=== PATIENT | female | born 1935 | race Caucasian/White ===

== ENCOUNTER 2019-01-15 14:43 | Inpatient (IN) | payer OTHER ==
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
[2019-01-15] MEDS ORDERED: ACETAMINOPHEN 1000 MG/100 ML VIAL (NON FORMULARY) IVPB ONE (16:08)
[2019-01-15] MEDS ORDERED: morphine CARPU-JECT 4 MG/1 ML DISP.SYRIN IVPUSH ONE (16:17)
[2019-01-15] MEDS ORDERED: MORPHINE SULFATE 2 MG/ML VIAL ONE ×2 (16:30→19:56)
[2019-01-15] MEDS ORDERED: ACETAMINOPHEN INJECTION 100 ML IVPB ONE (16:30)
[2019-01-15 16:37] LABS: BASO % 0.6 % (0-2.0); EOS % 0.1 % (0-4.5); HEMATOCRIT 38.5 % (32.4-45.2); HEMOGLOBIN 13.5 GM/dL (10.7-15.3); LYMPH % 5.5 % (8-40); MCH 34.5 pg (25.7-33.7); MEAN CELL VOLUME 98.4 fl (80-96); MEAN PLT VOLUME 8.8 fl (7.5-11.1); NEUT % 90.8 % (42.8-82.8); PLATELET COUNT 370 K/MM3 (134-434); RBC 3.91 M/mm3 (3.60-5.2); RDW 18.3 % (11.6-15.6); WHITE BLOOD COUNT 13.3 K/mm3 (4.0-10.0)
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
[2019-01-15 17:03] LABS: INR 0.97 (0.83-1.09); PROTHROMBIN TIME (PATIENT) 11.5 SEC (9.7-13.0)
[2019-01-15 17:09] LABS: ALBUMIN 3.7 g/dl (3.4-5.0); ALK PHOS 78 U/L (45-117); ANION GAP 6 MMOL/L (8-16); BILIRUBIN,TOTAL 0.6 mg/dL (0.2-1); BLOOD UREA NITROGEN 18 mg/dL (7-18); CALCIUM 8.6 mg/dL (8.5-10.1); CHLORIDE 102 mmol/L (98-107); CO2 26 mmol/L (21-32); CREATININE 0.7 mg/dL (0.55-1.3); GLUCOSE,RANDOM 119 mg/dL (74-106); POTASSIUM 4.5 mmol/L (3.5-5.1); SGOT/AST 29 U/L (15-37); SGPT/ALT 18 U/L (13-61); SODIUM 134 mmol/L (136-145); TOT PROT 6.7 g/dl (6.4-8.2)
[2019-01-15] MEDS ORDERED: SODIUM CHLORIDE 1,000 ML IV STA (18:42)
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
[2019-01-15] MEDS ORDERED: SODIUM CHLORIDE 1,000 ML IV SCH (19:15)
[2019-01-15] MEDS ORDERED: MORPHINE SULFATE 2 MG/ML VIAL IVPUSH PRN (19:28)
[2019-01-15] MEDS ORDERED: HEPARIN NA (PORCINE) 5,000 UNITS/ML 1ML VIAL ONE (19:56)
[2019-01-15 21:06] LABS: URINE APPEARANCE SLCLOUDY; URINE BILIRUBIN NEGATIVE (<2.0 mg/dL); URINE COLOR YELLOW; URINE GLUCOSE (UA) NEGATIVE (NEGATIVE); URINE KETONE NEGATIVE (NEGATIVE); URINE LEUK ESTERASE NEGATIVE (NEGATIVE); URINE NITRITE NEGATIVE (NEGATIVE); URINE PROTEIN NEGATIVE (NEGATIVE); URINE UROBILINOGEN NEGATIVE mg/dL (0.2-1.0)
[2019-01-15] MEDS: HEPARIN NA (PORCINE) 5,000 UNITS/ML 1ML VIAL SQ SCH (22:30)
[2019-01-16] MEDS ORDERED: morphine CARPU-JECT 2 MG/1 ML DISP.SYRIN IVPUSH STA (00:22)
[2019-01-16] MEDS ORDERED: MORPHINE SULFATE 2 MG/ML VIAL ONE (00:26)
[2019-01-16 01:47] VITALS: BMI 22.8
--- NOTE | 2019-01-16 04:58 | PN ---
Physical Exam: SUBJECTIVE: Patient seen and examined at bedside. Has pain in left hip. OBJECTIVE: Vital Signs Period Temp Pulse Resp BP Sys/Kiser Pulse Ox Last 24 Hr 97 F-99.1 F 62-82 16-17 104-119/48-52 96-99 GENERAL: The patient is awake, alert, and fully oriented, in no acute distress. LUNGS: Breath sounds equal, clear to auscultation bilaterally, no wheezes, no crackles, no accessory muscle use. HEART: Regular rate and rhythm, S1, S2 ABDOMEN: Soft, nontender, nondistended, EXTREMITIES: LEFT LE: externally rotated, warm, well-perfused NEUROLOGICAL: Cranial nerves II through XII grossly intact. Normal speech Laboratory Results - last 24 hr 01/15/19 01/15/19 01/15/19 16:26 16:26 16:26 WBC 13.3 H RBC 3.91 Hgb 13.5 Hct 38.5 MCV 98.4 H MCH 34.5 H MCHC 35.0 RDW 18.3 H Plt Count 370 MPV 8.8 Absolute Neuts (auto) 12.1 H Neutrophils % 90.8 H Lymphocytes % 5.5 L Monocytes % 3.0 L Eosinophils % 0.1 Basophils % 0.6 Nucleated RBC % 0 PT with INR 11.50 INR 0.97 Sodium 134 L Potassium 4.5 Chloride 102 Carbon Dioxide 26 Anion Gap 6 L BUN 18 Creatinine 0.7 Creat Clearance w eGFR > 60 POC Glucometer Random Glucose 119 H Calcium 8.6 Total Bilirubin 0.6 AST 29 ALT 18 Alkaline Phosphatase 78 Total Protein 6.7 Albumin 3.7 Urine Color Urine Appearance Urine pH Ur Specific Hickman Urine Protein Urine Glucose (UA) Urine Ketones Urine Blood Urine Nitrite Urine Bilirubin Urine Urobilinogen Ur Leukocyte Esterase Blood Type Antibody Screen 01/15/19 01/15/19 01/15/19 16:26 20:35 22:22 WBC RBC Hgb Hct MCV MCH MCHC RDW Plt Count MPV Absolute Neuts (auto) Neutrophils % Lymphocytes % Monocytes % Eosinophils % Basophils % Nucleated RBC % PT with INR INR Sodium Potassium Chloride Carbon Dioxide Anion Gap BUN Creatinine Creat Clearance w eGFR POC Glucometer 128 Random Glucose Calcium Total Bilirubin AST ALT Alkaline Phosphatase Total Protein Albumin Urine Color Yellow Urine Appearance Slcloudy Urine pH 5.0 Ur Specific Hickman 1.010 Urine Protein Negative Urine Glucose (UA) Negative Urine Ketones Negative Urine Blood Negative Urine Nitrite Negative Urine Bilirubin Negative Urine Urobilinogen Negative Ur Leukocyte Esterase Negative Blood Type Cancelled Antibody Screen Cancelled Current Medications Generic Name Dose Route Start Last Admin Trade Name Freq PRN Reason Stop Dose Admin Acetaminophen 1,000 mg 01/16/19 10:22 01/16/19 11:00 Ofirmev Injection - IVPB 1,000 mg Q6H PRN Administration PAIN LEVEL 1-5 Atorvastatin Calcium 10 mg 01/16/19 22:00 Lipitor - PO HS KEHINDE Hydroxyurea 500 mg 01/16/19 14:00 01/16/19 14:11 Hydrea - PO Not Given TID KEHINDE Sodium Chloride 1,000 mls @ 83 mls/hr 01/16/19 10:59 01/16/19 11:42 Normal Saline - IV 01/16/19 19:15 83 mls/hr ASDIR KEHINDE Administration Metoprolol Succinate 25 mg 01/16/19 10:45 01/16/19 11:02 Toprol Xl - PO 25 mg DAILY KEHINDE Administration Morphine Sulfate 2 mg 01/16/19 07:43 Morphine Injection - IVPUSH Q6H PRN PAIN LEVEL 1-5 ASSESSMENT/PLAN 83 year-old female with a PMH of HTN, HLD, and polycythemia admitted for left hip fracture. Patient used to see Dr. Duncan Camp. Saw Dr. Guevara once in September 2018. Records being faxed. Left hip intertrochanteric fracture --surgery consult pending --hugo in place --plan is to go to [place] later today --hold home ASA Polycythemia vera --continue hydroxyurea Hypertension --mildly hypotensive --continue Toprol XL perioperatively, but hold amlodopine and lisinopril for now --gentle IV fluids Hyperlipidemia --continue Lipitor FEN Fluids: NS@83mL/hr Electrolytes: replete as indicated Nutrition: NPO DVT prophylaxis: subq heparin, hold prior to surgery; SCDs Dispo: continues to require inpatient care. Full code. Visit type - Emergency Visit Emergency Visit: Yes ED Registration Date: 01/15/19 Care time: The patient presented to the Emergency Department on the above date and was hospitalized for further evaluation of their emergent condition. - New Patient This patient is new to me today: Yes Date on this admission: 01/16/19 - Critical Care Critical Care patient: No
[2019-01-16] MEDS ORDERED: morphine CARPU-JECT 2 MG/1 ML DISP.SYRIN IVPUSH PRN (07:43)
[2019-01-16 10:41] LABS: HEMATOCRIT 32.7 % (32.4-45.2); HEMOGLOBIN 11.1 GM/dl (10.7-15.3); MCH 33.5 pg (25.7-33.7); MCHC 34.1 g/dl (32.0-36.0); MEAN CELL VOLUME 98.5 fl (80-96); MEAN PLT VOLUME 8.9 fl (7.5-11.1); PLATELET COUNT 271 K/MM3 (134-434); RBC 3.32 M/mm3 (3.60-5.2); RDW 17.1 % (11.6-15.6); WHITE BLOOD COUNT 9.1 K/mm3 (4.0-10.8)
[2019-01-16 10:44] LABS: ANION GAP 2 MMOL/L (8-16); BLOOD UREA NITROGEN 14 mg/dl (7-18); CALCIUM 8.1 mg/dl (8.5-10); CHLORIDE 106 mmol/L (98-107); CO2 26 mmol/L (21-32); CREATININE 0.6 mg/dl (0.55-1.3); GLUCOSE,RANDOM 111 mg/dl (74-106); MAGNESIUM 1.8 mg/dL (1.8-2.4); SODIUM 134 mmol/L (136-145)
[2019-01-16] MEDS ORDERED: SODIUM CHLORIDE 1,000 ML IV SCH (10:59)
[2019-01-16] MEDS: ACETAMINOPHEN 1000 MG/100 ML VIAL (NON FORMULARY) IVPB PRN (11:00)
[2019-01-16] MEDS: HEPARIN NA (PORCINE) 5,000 UNITS/ML 1ML VIAL SQ SCH (11:00)
[2019-01-16] MEDS: metoPROLOL SUCCINATE 25 MG TAB.SR.24H (FP) PO SCH (11:02)
[2019-01-16] MEDS ORDERED: MAGNESIUM SULF 50% (8.12 MEQ/2 ML-1 GM VIAL) IVPB ONE (11:03)
[2019-01-16] MEDS ORDERED: MAGNESIUM 1GM/D5W - 1 GM/100 ML IVPB IVPB ONE (11:15)
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
--- NOTE | 2019-01-16 11:55 | EKG ---
Test Reason : Blood Pressure : / mmHG Vent. Rate : 079 BPM Atrial Rate : 079 BPM P-R Int : 148 ms QRS Dur : 132 ms QT Int : 418 ms P-R-T Axes : 009 087 029 degrees QTc Int : 479 ms NORMAL SINUS RHYTHM RIGHT BUNDLE BRANCH BLOCK ABNORMAL ECG NO PREVIOUS ECGS AVAILABLE Confirmed by Hao Lim MD ([id number]) on 01/16/2019 11:55:28 AM Referred By: Petey BEARDEN Confirmed By:Hao Lim MD
[2019-01-16] MEDS: HYDROXYUREA 500 MG CAPSULE PO SCH ×2 (14:11→22:11)
[2019-01-16] MEDS ORDERED: PROPOFOL 20 ML ONE (19:19)
[2019-01-16] MEDS ORDERED: ePHEDrine SULFATE 50 MG/1 ML AMPULE ONE (19:19)
[2019-01-16] MEDS ORDERED: oxyCODONE HCL 5 MG TABLET PO PRN ×2 (20:38→20:44)
[2019-01-16] MEDS ORDERED: ONDANSETRON 4 MG/2 ML VIAL IVPUSH PRN (20:38)
[2019-01-16] MEDS: SODIUM CHLORIDE 0.45% 1,000 ML IV SCH (21:45)
[2019-01-16] MEDS: ATORVASTATIN CA 10 MG TABLET (FP) PO SCH (22:11)
[2019-01-16] MEDS: DOCUSATE SODIUM 100 MG CAPSULE (FP) PO SCH (22:11)
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
[2019-01-17] MEDS: CEFAZOLIN 1 GM/D5W 1 GM/50 ML BAG IVPB SCH ×2 (01:31→10:09)
[2019-01-17] MEDS: HYDROXYUREA 500 MG CAPSULE PO SCH ×2 (05:59→13:42)
--- NOTE | 2019-01-17 08:18 | PN ---
Physical Exam: SUBJECTIVE: Patient seen and examined oob to chair. Walked a few feet with PT. Pain is well-managed. OBJECTIVE: Vital Signs Period Temp Pulse Resp BP Sys/Kiser Pulse Ox Last 24 Hr 98.4 F-99.4 F 70-82 16-22 115-139/41-52 94-98 GENERAL: The patient is awake, alert, and fully oriented, in no acute distress. LUNGS: Breath sounds equal, clear to auscultation bilaterally, no wheezes, no crackles, no accessory muscle use. HEART: Regular rate and rhythm, S1, S2 ABDOMEN: Soft, nontender, nondistended, LOWER EXTREMITIES: SCDs, TEDs, surgical wrap c/d/i; +flex/ext toes, sensory intact NEUROLOGICAL: Cranial nerves II through XII grossly intact. Normal speech Laboratory Results - last 24 hr 01/16/19 01/16/19 01/16/19 09:35 09:35 10:35 WBC 9.1 RBC 3.32 L Hgb 11.1 Hct 32.7 D MCV 98.5 H MCH 33.5 MCHC 34.1 RDW 17.1 H D Plt Count 271 MPV 8.9 Sodium 134 L Potassium 4.0 Chloride 106 Carbon Dioxide 26 Anion Gap 2 L BUN 14 Creatinine 0.6 Creat Clearance w eGFR > 60 POC Glucometer Random Glucose 111 H Calcium 8.1 L Magnesium 1.8 Blood Type O POSITIVE Antibody Screen Negative 01/16/19 01/16/19 01/16/19 10:40 16:28 23:09 WBC RBC Hgb Hct MCV MCH MCHC RDW Plt Count MPV Sodium Potassium Chloride Carbon Dioxide Anion Gap BUN Creatinine Creat Clearance w eGFR POC Glucometer 110 141 Random Glucose Calcium Magnesium Blood Type O POSITIVE Antibody Screen 01/17/19 06:02 WBC RBC Hgb Hct MCV MCH MCHC RDW Plt Count MPV Sodium Potassium Chloride Carbon Dioxide Anion Gap BUN Creatinine Creat Clearance w eGFR POC Glucometer 145 Random Glucose Calcium Magnesium Blood Type Antibody Screen Current Medications Generic Name Dose Route Start Last Admin Trade Name Freq PRN Reason Stop Dose Admin Acetaminophen 325 mg 01/16/19 20:44 Tylenol - PO Q4H PRN PAIN LEVEL 4 - 6 Atorvastatin Calcium 10 mg 01/16/19 22:00 01/16/19 22:11 Lipitor - PO 10 mg HS KEHINDE Administration Docusate Sodium 100 mg 01/16/19 22:00 01/17/19 10:09 Colace - PO 100 mg BID [facility] Administration Enoxaparin Sodium 40 mg 01/17/19 10:00 01/17/19 10:09 Lovenox - SQ 40 mg DAILY KEHINDE Administration Hydroxyurea 500 mg 01/19/19 10:00 Hydrea - PO MoWeFr@1000 [facility] Sodium Chloride 1,000 mls @ 83 mls/hr 01/16/19 20:45 01/16/19 21:45 1/2 Normal Saline IV 83 mls/hr ASDIR [facility] Administration Metoprolol Succinate 25 mg 01/16/19 10:45 01/17/19 12:26 Toprol Xl - PO Not Given DAILY [facility] Oxycodone HCl 5 mg 01/16/19 20:38 Roxicodone - PO Q4H PRN PAIN LEVEL 1-3 Oxycodone HCl 5 mg 01/16/19 20:44 Roxicodone - PO Q4H PRN PAIN LEVEL 4 - 6 Polyethylene Glycol 17 gm 01/17/19 22:00 Miralax (For Daily Use) - PO BID [facility] ASSESSMENT/PLAN: 83 year-old female with a PMH of HTN, HLD, and polycythemia admitted for left hip fracture. Left hip intertrochanteric fracture s/p gamma nail 01/16/19 --POD #1 --perioperative antibiotics per surgery --pain presently well-managed with PO meds --bowel regimen --incentive spirometry Polycythemia vera --continue hydroxyurea Hypertension --mildly hypotensive --continue Toprol XL perioperatively, continue to hold amlodopine and lisinopril --gentle IV fluids Hyperlipidemia --continue Lipitor FEN Fluids: 1/2NS@83mL/hr Electrolytes: replete as indicated Nutrition: regular diet DVT prophylaxis: OOB, ambulation, SCDs, TEDs, ASA 81mg BID Physical therapy Dispo: continues to require inpatient care. Full code. Visit type - Emergency Visit Emergency Visit: Yes ED Registration Date: 01/15/19 Care time: The patient presented to the Emergency Department on the above date and was hospitalized for further evaluation of their emergent condition. - New Patient This patient is new to me today: No - Critical Care Critical Care patient: No - Discharge Referral Referred to [facility] Yes
[2019-01-17 10:02] LABS: BASO % 0.3 % (0-2.0); HEMATOCRIT 34.1 % (32.4-45.2); HEMOGLOBIN 11.4 GM/dl (10.7-15.3); LYMPH % 4.7 % (8-40); MCH 33.2 pg (25.7-33.7); MCHC 33.5 g/dl (32.0-36.0); MEAN CELL VOLUME 98.9 fl (80-96); MONO % 5.5 % (3.8-10.2); NEUT % 89.5 % (42.8-82.8); PLATELET COUNT 330 K/MM3 (134-434); RBC 3.44 M/mm3 (3.60-5.2); RDW 16.6 % (11.6-15.6); WHITE BLOOD COUNT 10.5 K/mm3 (4.0-10.8)
[2019-01-17] MEDS: ENOXAPARIN NA (PORCINE) 40 MG/0.4 ML DISP.SYRIN SQ SCH (10:09)
[2019-01-17] MEDS: DOCUSATE SODIUM 100 MG CAPSULE (FP) PO SCH ×2 (10:09→21:02)
[2019-01-17] MEDS: metoPROLOL SUCCINATE 25 MG TAB.SR.24H (FP) PO SCH ×2 (10:09→12:26)
[2019-01-17] MEDS: ACETAMINOPHEN 1000 MG/100 ML VIAL (NON FORMULARY) IVPB PRN (12:10)
--- NOTE | 2019-01-17 14:06 | PN ---
Progress Note (short form) - Note Progress Note: c/o left hip pain Afeb VSS Dressings clean NVID POD#1 -oob/pt/wbat -dvt prophylaxis - will need anticoagulation for 4 weeks post op -dispo planning -f/u as oupatient 2-3 weeks post op
--- NOTE | 2019-01-17 14:20 | PN ---
Progress Note (short form) - Note Progress Note: ANESTHESIA POSTOP 83 yo female, POD#1, s/p gamma nail patient resting in chair. Reports no pain when not moving. tolerating PO VSS, Afebrile Continue current care. Encouraged IS and PT participation.
[2019-01-17] MEDS: ATORVASTATIN CA 10 MG TABLET (FP) PO SCH (21:02)
[2019-01-17] MEDS: POLYETHYLENE GLYCOL 3350 119 GM BTL PO SCH (21:03)
[2019-01-17] MEDS: ACETAMINOPHEN 325 MG TABLET (FP) PO PRN (21:03)
[2019-01-17] MEDS: SODIUM CHLORIDE 0.45% 1,000 ML IV SCH (21:05)
[2019-01-17 22:10] VITALS: PULSE 81
[2019-01-18 06:42] VITALS: BP 130/52; TEMP 98
[2019-01-18 08:29] LABS: ALBUMIN 2.7 g/dl (3.4-5.0); ALK PHOS 52 U/L (45-117); ANION GAP 1 MMOL/L (8-16); BILIRUBIN,TOTAL 0.6 mg/dl (0.2-1); BLOOD UREA NITROGEN 10 mg/dl (7-18); CHLORIDE 110 mmol/L (98-107); CO2 25 mmol/L (21-32); CREATININE 0.5 mg/dl (0.55-1.3); GLUCOSE,RANDOM 105 mg/dl (74-106); MAGNESIUM 1.9 mg/dL (1.8-2.4); SGOT/AST 23 U/L (15-37); SGPT/ALT 17 U/L (13-61); SODIUM 136 mmol/L (136-145)
[2019-01-18] MEDS: DOCUSATE SODIUM 100 MG CAPSULE (FP) PO SCH (09:09)
[2019-01-18] MEDS: ENOXAPARIN NA (PORCINE) 40 MG/0.4 ML DISP.SYRIN SQ SCH (09:09)
[2019-01-18] MEDS: metoPROLOL SUCCINATE 25 MG TAB.SR.24H (FP) PO SCH (09:09)
[2019-01-18] MEDS: POLYETHYLENE GLYCOL 3350 119 GM BTL PO SCH (09:09)
[2019-01-18] MEDS: ACETAMINOPHEN 325 MG TABLET (FP) PO PRN ×2 (09:17→14:03)
--- NOTE | 2019-01-18 10:11 | DS ---
Physical Exam: SUBJECTIVE: Patient seen and examined OBJECTIVE: Vital Signs Period Temp Pulse Resp BP Sys/Kiser Pulse Ox Last 24 Hr 98.0 F-98.4 F 78-81 18-19 104-130/38-52 95-99 PHYSICAL EXAM GENERAL: The patient is awake, alert, and fully oriented, in no acute distress. HEAD: Normal with no signs of trauma. EYES: PERRL, extraocular movements intact, sclera anicteric, conjunctiva clear. ENT: Ears normal, nares patent, oropharynx clear without exudates, moist mucous membranes. NECK: Trachea midline, full range of motion, supple. LUNGS: Breath sounds equal, clear to auscultation bilaterally, no wheezes, no crackles, no accessory muscle use. HEART: Regular rate and rhythm, S1, S2 without murmur, rub or gallop. ABDOMEN: Soft, nontender, nondistended, normoactive bowel sounds, no guarding, no rebound, no hepatosplenomegaly, no masses. EXTREMITIES: 2+ pulses, warm, well-perfused, no edema. NEUROLOGICAL: Cranial nerves II through XII grossly intact. Normal speech, gait not observed. PSYCH: Normal mood, normal affect. SKIN: Warm, dry, normal turgor, no rashes or lesions noted. LABS Laboratory Results - last 24 hr 01/17/19 01/17/19 01/18/19 11:55 16:34 06:46 Sodium Potassium Chloride Carbon Dioxide Anion Gap BUN Creatinine Creat Clearance w eGFR POC Glucometer 120 123 97 Random Glucose Calcium Magnesium Total Bilirubin AST ALT Alkaline Phosphatase Total Protein Albumin 01/18/19 06:55 Sodium 136 Potassium 4.0 Chloride 110 H Carbon Dioxide 25 Anion Gap 1 L BUN 10 Creatinine 0.5 L Creat Clearance w eGFR > 60 POC Glucometer Random Glucose 105 Calcium 8.0 L Magnesium 1.9 Total Bilirubin 0.6 AST 23 ALT 17 Alkaline Phosphatase 52 Total Protein 5.0 L Albumin 2.7 L HOSPITAL COURSE: Date of Admission:01/15/19 Date of Discharge: 01/18/19 4 weeks DVT prophylaxis ASA 325mg daily Discharge Summary Reason For Visit: FRACTURE OF HIP Current Active Problems Hip fracture (Acute) Condition: Improved - Instructions Diet, Activity, Other Instructions: Modesto Lam MD Orthopedic Surgery and Sports Medicine Post-Op Instruction Sheet 1. You may bear weight as tolerated. Use the walker and work with the physical therapist to strengthen the leg 2. Please call the office to make an appointment for 2-3 weeks after surgery. Your dressing will be changed at that time. 3. Please call the office at [phone] if there are any questions or concerns. Low-grade fevers are normal for the first 2-3 days. They should be treated with deep breathing, coughing and fluids. Tylenol may be used instead of the pain medication for fevers. If there is a fever over 101.3 F after 48 hours or increased wound drainage, please call the office. 4. You may bathe with the dressing on. If the dressing gets soaked or water gets inside the dressing it may be changed. Referrals: Modesto Lam MD [Staff Physician] - Disposition: [facility] - Home Medications Comprehensive Discharge Medication List: Ambulatory Orders Amlodipine Besylate 5 mg PO DAILY 01/15/19 Aspirin [ASA -] 81 mg PO DAILY 01/15/19 Atorvastatin Ca [Lipitor] 10 mg PO HS 01/15/19 Hydroxyurea 500 mg PO TID 01/15/19 Lisinopril 20 mg PO DAILY 01/15/19 Metoprolol Succinate [Toprol XL -] 25 mg PO DAILY 01/15/19 - Discharge Referral Referred to [facility] Yes
[2019-01-19] MEDS ORDERED: HYDROXYUREA 500 MG CAPSULE PO SCH (10:00)
== END 2019-01-18 14:38 | DRG 482 ==
LOC: JER 14:43 → JERBED 19:26 → FM/S 01-16 01:18
PROVIDERS: ADMIT Internal Medicine; ATTEND Nurse Practitioner Acute Care
PROC: 0QS706Z Reposition Left Upper Femur with Intramedullary Internal Fixation Device, Open Approach (ICD-10-PCS; principal; 2019-01-15)
DX: S72.142A Displaced intertrochanteric fracture of left femur, initial encounter for closed fracture (principal); I10 Essential (primary) hypertension; D45 Polycythemia vera; W18.39XA Other fall on same level, initial encounter; Y92.89 Other specified places as the place of occurrence of the external cause; E78.5 Hyperlipidemia, unspecified
CPT/HCPCS: 36415; 70450-TC; 71045-TC-FY; 72125-TC; 73502-TC-LT-FY; 73523-TC-FY; 73552-TC-LT-FY; 76000-TC-FY; 80048; 80053; 81003; 82962; 83735; 85025; 85027; 85610; 86850; 86900; 86901; 87086; 87186; 93005; 94760; 97116-GP; 97162-GP; 99284-25; J0131; J1644; J7030; J8999

== ENCOUNTER 2019-10-31 12:20 | Inpatient (IN) | payer OTHER ==
--- NOTE | 2019-10-31 12:31 | PDOC ---
History of Present Illness - General Chief Complaint: Weakness Stated Complaint: WEAK LOW BLOOD PRESSURE IN PMD OFFICE Time Seen by Provider: 10/31/19 12:31 History Source: Patient Exam Limitations: No Limitations - History of Present Illness Initial Comments: 10/31/19 12:31 HPI 84-year-old female with history of hypertension, hyperlipidemia, polycythemia vera, osteoarthritis, E coli UTI, left hip fracture status post gamma nail 2018, osteoporosis, chronic back pain s/p cementing sent in by PMD Dr Swenson for orthostatic hypotension/dizziness and weakness. There, she had evidence of orthostatic hypotension, blurry spots with positional changes, decreased PO intake and weight loss of 7 lbs x 1-2 weeks +chronic back pain, recently had cement placed by her pain specialist, which resolved her back pain; however since then, she has been lying in bed, admits to having mild exertional SOB with walking. also not eating and drinking as she should, has had appetite changes (barely eats her favorite sweets, ice cream, bread). +chronic dry cough. Denies fever, chills, chest pain, palpitation,N, V, D, abdominal pain, bladder and bowel problems, focal weakness/paresthesias, leg swelling/pain, rash. No sick contacts or travel. No new changes in medications. No suspicious food intake Allergies: None Past Medical History/PSH: as above Social history: Lives with family. No tobacco, ETOH or drug use. Meds: as documented in EMR Family history: noncontributory PMD: Dr Swenson Review of systems Constitutional: no fevers or chills. +generalized weakness, weight loss, anorexia HEENT: no headache . No congestion. No visual/hearing disturbances. no dysphagia , no odynophagia. no sore throat. +blurry vision, +dizziness. CVS: no cp or syncope. Resp: +shortness of breath, +cough. Gastrointestinal: no abdominal pain, nausea, vomiting, diarrhea. Genitourinary: no urinary sx, hematuria. no incontinence or retention. MUSCULOSKELETAL: No joint pain and swelling. No neck or back pain. SKIN: no redness or skin changes, no discharge, no rash. No wounds. Hematologic: no easy bruising/bleeding. no anemia. NEUROLOGIC: No headache, LOC or altered mental status. No weakness, numbness or tingling. Psych: no anxiety or depression Allergic/Immunologic: no allergies All other systems reviewed and negative, or as documented in HPI. Physical exam General: Well appearing, awake and alert, NAD. +orthostatic with positional changes. HEENT: NCAT, PERRL, EOMI, clear conjunctiva, anicteric, dry mucus membranes, clear oropharynx, no oral lesions.. Neck: neck supple, FROM, no JVD Resp: diminished breath sounds bilaterally, normal and even respirations, no respiratory distress CVS: RRR, no murmurs, 2+ peripheral pulses throughout, no peripheral edema Abdomen: soft, NTND, no rebound or guarding. Back: nontender, normal inspection and ROM MSK: no edema, CHRISTINA x4, ROM intact. No clubbing or cyanosis. normal bulk and tone. Extremities: no calf tenderness Neuro: alert, oriented appropriately; no focal neurologic deficits Psych: Calm and cooperative Skin: warm and well perfused, cap refill <2 sec, normal color, no rash or skin discoloration. 10/31/19 14:51 10/31/19 15:31 10/31/19 15:56 10/31/19 15:56 10/31/19 17:45 Past History - Past Medical History Allergies/Adverse Reactions: Allergies Allergy/AdvReac Type Severity Reaction Status Date / Time No Known Allergies Allergy Verified 01/15/19 15:21 Home Medications: Ambulatory Orders Amlodipine Besylate 5 mg PO DAILY 01/15/19 Atorvastatin Ca [Lipitor] 10 mg PO DAILY 01/15/19 Lisinopril 20 mg PO DAILY 01/15/19 Metoprolol Succinate [Toprol XL -] 25 mg PO DAILY 01/15/19 Hydroxyurea [Hydrea 500Mg Capsule -] 500 mg PO ASDIR 10/31/19 Anemia: No (polycythemia) Asthma: No COPD: No HTN: Yes - Psycho Social/Smoking Cessation Hx Smoking History: Never smoked Have you smoked in the past 12 months: No Hx Alcohol Use: Yes (OCCASIONAL) Drug/Substance Use Hx: No Substance Use Type: None Hx Substance Use Treatment: No Heart Score/ECG Review #1 ECG reviewed & interpreted by me at: 12:50 General ECG Interpretation: Sinus Rhythm, Normal Rate, Normal Intervals Compared to previous ECG there are: No significant change 10/31/19 13:57 nsr at 90 bpm, normal intervals, normal ST segments, upright T waves. normal axis ED Treatment Course - LABORATORY CBC & Chemistry Diagram: 10/31/19 13:15 10/31/19 13:15 Medical Decision Making - Medical Decision Making 10/31/19 13:57 Vital Signs Temp Pulse Resp BP Pulse Ox 98 F 82 16 113/56 L 98 10/31/19 12:22 10/31/19 12:57 10/31/19 12:22 10/31/19 12:57 10/31/19 12:22 Patient does exhibit evidence of orthostatics here with positional changes. BP does drop down to 99/53 and gets tachycardic with positional changes. Artery treating with IV fluids for now. This is likely due to poor p.o. intake and deconditioning over the past 2 weeks after her back procedure. Has also been having nutritional deficits and not really eating and drinking as she should. There is no evidence of C. difficile colitis, she does admit to formed bowel movements, passing 1/day. Does have a history of diarrhea and C. difficile colitis but symptoms do not suggest so at this time. Chest x-ray reveals right-sided vascular congestive changes, peribronchial cuffing and curly B-lines, unilateral CHF. will send off bnp. d/w Dr Swenson, reviewed imaging as well. prior CXR is indeed clear, today's with pulmonary vascular congestion, but no cardiomegaly rec'd CT imaging, eval for fluid vs malignancy, CTs ordered. hold diuresis for now until further diagnostics, as pt is comfortable, also with orthostatics which could worsen. Will admit to hospitalist service, did discuss with primary care doctor regarding her plan. Admit for medical management, close monitoring, PT eval, hydration and supportive care. 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
[2019-10-31 13:46] LABS: BASO % 0.8 % (0-2.0); EOS % 0.2 % (0-4.5); HEMATOCRIT 40.2 % (32.4-45.2); HEMOGLOBIN 13.3 GM/dl (10.7-15.3); LYMPH % 5.5 % (8-40); MCH 31.2 pg (25.7-33.7); MCHC 33.2 g/dl (32.0-36.0); MEAN CELL VOLUME 94.1 fl (80-96); MEAN PLT VOLUME 8.4 fl (7.5-11.1); NEUT % 88.5 % (42.8-82.8); PLATELET COUNT 404 K/MM3 (134-434); RBC 4.27 M/mm3 (3.60-5.2); RDW 21.4 % (11.6-15.6); WHITE BLOOD COUNT 10.1 K/mm3 (4.0-10.8)
[2019-10-31 13:55] LABS: ALBUMIN 3.3 g/dl (3.4-5.0); BILIRUBIN,TOTAL 1.1 mg/dl (0.2-1); CALCIUM 8.7 mg/dl (8.5-10); CREATININE 0.6 mg/dl (0.55-1.3); POTASSIUM 4.3 mmol/L (3.5-5.1); TOT PROT 6.1 g/dl (6.4-8.2)
--- NOTE | 2019-10-31 15:54 | PN ---
Progress Note (short form) - Note Progress Note: PULMONARY SEEN AND EXAMINED IN OFFICE TODAY. SENT TO ED WITH WEIGHT LOSS, ORTHOSTATIC HYPOTENSION AND FAILURE TO THRIVE. CXR REVIEWED AND DISCUSSED WITH ED ATTENDING WILL OBTAIN CT CHEST/ABD/PELVIS. FULL CONSULT TO FOLLOW Marii MARIE MD
--- NOTE | 2019-10-31 17:36 | HP ---
CHIEF COMPLAINT: General malaise, SOB PCP: Dr. Swenson Cardiology: none Hematology: Dr. Erna Landry HISTORY OF PRESENT ILLNESS: 83 year-old female with a PMH of HTN, HLD, polycythemia vera, s/p left hip fracture repair in December 2018. Was 140 pounds when she was discharged to [facility] for rehab, lost 17 pounds by the time of her discharge in February 2019. Patient otherwise remained at her baseline health until August 2019 when she was diagnosed with compression fractures. She underwent a cementing procedure with Dr. Buchanan (pain management) on October 05, 2019. Since that procedure, patient has been refusing to get out of bed, spends most of her time sleeping, and has a markedly decreased appetite. She gets dizzy when standing up. About a week ago her daughter took her to the [place] par[facility] and she became very SOB with a few steps. Today patient weighs 106 pounds, a loss of 34 pounds over 9 months. Patient has a baseline dry cough which is slightly worse in the past week or so. Denies fever, sweats chills; denies n/v/d/c. Denies night sweats. Denies dysuria, urgency, frequency. No bleeding episodes. Patient reports she was taken off Lasix in and ASA in August but she is not sure why. ER course was notable for: (1) Na 129 (2) orthostatic hypotension Recent Travel: No PAST MEDICAL HISTORY: Hypertension Hyperlipidemia Polycythemia vera C. 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) and grandsons Smoking: quit 60 years ago Alcohol: none Drugs: none Family history: father prostate cancer 85, mother encephalitis 81; sister 76 a&w; daughter a&w but h/o fibrosarcoma at age 14; daughter 54 HTN Allergies No Known Allergies Allergy (Verified 01/15/19 15:21) HOME MEDICATIONS: Home Medications Medication Instructions Recorded Amlodipine Besylate 5 mg PO DAILY 01/15/19 Atorvastatin Ca [Lipitor] 10 mg PO DAILY 01/15/19 Lisinopril 20 mg PO DAILY 01/15/19 Metoprolol Succinate [Toprol XL -] 25 mg PO DAILY 01/15/19 Hydroxyurea [Hydrea 500Mg Capsule 500 mg PO ASDIR 10/31/19 -] REVIEW OF SYSTEMS CONSTITUTIONAL: +generalized weakness, malaise, loss of appetite; 34 lb weight loss over 8 months Absent: fever, chills, diaphoresis HEENT: Absent: rhinorrhea, nasal congestion, throat pain, throat swelling, difficulty swallowing, mouth swelling, ear pain, eye pain, visual changes CARDIOVASCULAR: Absent: chest pain, syncope, palpitations, irregular heart rate, lightheadedness , peripheral edema RESPIRATORY: +sightly worse chronic cough, SOB, 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 Absent: orthopnea, wheezing, stridor, hemoptysis GASTROINTESTINAL: Absent: abdominal pain, abdominal distension, nausea, vomiting, diarrhea, constipation, melena, hematochezia GENITOURINARY: Absent: dysuria, frequency, urgency, hesitancy, hematuria, flank pain, genital pain MUSCULOSKELETAL: Absent: myalgia, arthralgia, joint swelling, back pain, neck pain SKIN: Absent: rash, itching, pallor HEMATOLOGIC/IMMUNOLOGIC: Absent: easy bleeding, easy bruising, lymphadenopathy, frequent infections ENDOCRINE: Absent: unexplained weight gain, unexplained weight loss, heat intolerance, cold intolerance NEUROLOGIC: +dizziness with positional change Absent: headache, focal weakness or paresthesias, dizziness, unsteady gait, seizure, mental status changes, bladder or bowel incontinence PSYCHIATRIC: Absent: anxiety, depression, suicidal or homicidal ideation, hallucinations. PHYSICAL EXAMINATION Vital Signs - 24 hr 10/31/19 10/31/19 10/31/19 12:22 12:57 15:01 Temperature 98 F Pulse Rate 88 Pulse Rate [ 89 Left Radial] Pulse Rate [ 108 H Left side Standing] Pulse Rate [ 82 Left side Supine] Respiratory 16 16 Rate Blood Pressure 111/56 L Blood Pressure 99/53 L [Left side Standing] Blood Pressure 113/56 L [Left side Supine] Blood Pressure 115/55 L [Right Arm] O2 Sat by Pulse 98 99 Oximetry (%) 10/31/19 15:52 Temperature Pulse Rate Pulse Rate [ 76 Left Radial] Pulse Rate [ Left side Standing] Pulse Rate [ Left side Supine] Respiratory 16 Rate Blood Pressure Blood Pressure [Left side Standing] Blood Pressure [Left side Supine] Blood Pressure 105/53 L [Right Arm] O2 Sat by Pulse 98 Oximetry (%) GENERAL: Awake, alert, and fully oriented, in no acute distress. Thin. HEAD: Normal with no signs of trauma. EYES: Pupils equal, round and reactive to light, extraocular movements intact, sclera anicteric, conjunctiva clear. LUNGS: Breath sounds equal, clear to auscultation bilaterally. No wheezes, and no crackles. No accessory muscle use. HEART: Regular rate and rhythm, normal S1 and S2 ABDOMEN: Soft, nontender, not distended MUSCULOSKELETAL: Normal range of motion at all joints. No bony deformities or tenderness. No CVA tenderness. UPPER EXTREMITIES: 2+ pulses, warm, well-perfused. No cyanosis. No clubbing. No peripheral edema. LOWER EXTREMITIES: 2+ pulses, warm, well-perfused. No calf tenderness. No peripheral edema. NEUROLOGICAL: Cranial nerves II-XII intact. Normal speech. Moving all extremities freely, self positions easily. SKIN: Warm, dry, normal turgor, no rashes or lesions noted, normal capillary refill. Laboratory Results - last 24 hr 10/31/19 10/31/19 10/31/19 13:15 13:15 13:15 WBC 10.1 RBC 4.27 Hgb 13.3 Hct 40.2 D MCV 94.1 MCH 31.2 MCHC 33.2 RDW 21.4 H D Plt Count 404 MPV 8.4 Absolute Neuts (auto) 8.9 Neutrophils % 88.5 H Lymphocytes % 5.5 L Monocytes % 5.0 Eosinophils % 0.2 Basophils % 0.8 Sodium 129 L Potassium 4.3 Chloride 97 L Carbon Dioxide 25 Anion Gap 7 L BUN 13.0 Creatinine 0.6 Est GFR (CKD-EPI)AfAm 96.33 Est GFR (CKD-EPI)NonAf 83.11 Random Glucose 114 H Calcium 8.7 Total Bilirubin 1.1 H AST 28 ALT 17 Alkaline Phosphatase 105 Creatine Kinase Troponin I < 0.03 Total Protein 6.1 L Albumin 3.3 L 10/31/19 13:15 WBC RBC Hgb Hct MCV MCH MCHC RDW Plt Count MPV Absolute Neuts (auto) Neutrophils % Lymphocytes % Monocytes % Eosinophils % Basophils % Sodium Potassium Chloride Carbon Dioxide Anion Gap BUN Creatinine Est GFR (CKD-EPI)AfAm Est GFR (CKD-EPI)NonAf Random Glucose Calcium Total Bilirubin AST ALT Alkaline Phosphatase Creatine Kinase 44 Troponin I Total Protein Albumin ASSESSMENT/PLAN 83 year-old female with a PMH of HTN, HLD, polycythemia vera, s/p left hip fracture repair in December 2018. Admitted for orthostatic hypotension. Orthostatic hypotension h/o Hypertension -->20 pulse differential in ED with position change --not given fluids in ED due to CXR showing right vascular congestion --will hold home lisinopril, ToprolXL, and amlodipine and r/o heart failure --right-sided vascular congestion on CXR --no lower extremity edema, satting 98% on room air, BNP wnl --Echo in am --CT chest ordered Hyperlipidemia --continue Lipitor Polycythemia vera --sees Dr. Erna Landry monthly --presently takes hydroxyurea Tue through Tue, will continue Unintentional weight loss Protein calorie malnutrition --36 pound unintentional weight loss over 9 months --2+ protein and 2+ ketones in urine --thin, frail, cachectic --BMI 17 --nutrition consult --CT chest, abd, pelvis pending, concern for malignancy Pyuria --asymptomatic, afebrile, no leukocytosis --observe off antibiotics pending culture FEN Fluids: PO intake adequate Electrolytes: replete as indicated Nutrition: regular diet DVT prophylaxis: subq heparin Physical therapy Dispo: continues to require inpatient care. Full code. Visit type - Emergency Visit Emergency Visit: Yes ED Registration Date: 10/31/19 Care time: The patient presented to the Emergency Department on the above date and was hospitalized for further evaluation of their emergent condition. - New Patient This patient is new to me today: Yes Date on this admission: 10/31/19 - Critical Care Critical Care patient: No
[2019-10-31 18:53] LABS: EPITHELIAL CELLS MODERATE /hpf
[2019-10-31] MEDS: HYDROXYUREA 500 MG CAPSULE PO SCH (19:12)
[2019-10-31] MEDS: HEPARIN NA (PORCINE) 5,000 UNITS/ML 1ML VIAL SQ SCH (22:02)
[2019-11-01] MEDS: HEPARIN NA (PORCINE) 5,000 UNITS/ML 1ML VIAL SQ SCH ×3 (06:28→21:10)
[2019-11-01] MEDS ORDERED: SODIUM CHLORIDE 1,000 ML IV STA (07:05)
--- NOTE | 2019-11-01 07:41 | PN ---
Physical Exam: SUBJECTIVE: Patient seen and examined. Voices no complaints. Waiting to go to CT , didn't get to eat breakfast, feels a little hungry. OBJECTIVE: Vital Signs Period Temp Pulse Resp BP Sys/Kiser Pulse Ox Last 24 Hr 98 F-100.4 F 76-122 16-18 71-120/31-56 95-99 GENERAL: Awake, alert, and fully oriented, in no acute distress. LUNGS: Breath sounds equal, clear to auscultation bilaterally. No wheezes, and no crackles. No accessory muscle use. HEART: Regular rate and rhythm, normal S1 and S2 ABDOMEN: Soft, nontender, not distended MUSCULOSKELETAL: Normal range of motion at all joints. No bony deformities or tenderness. No CVA tenderness. UPPER EXTREMITIES: 2+ pulses, warm, well-perfused. No cyanosis. No clubbing. No peripheral edema. LOWER EXTREMITIES: 2+ pulses, warm, well-perfused. No calf tenderness. No peripheral edema. NEUROLOGICAL: Cranial nerves II-XII intact. Normal speech. Moving all extremities freely, self positions easily. Laboratory Results - last 24 hr 10/31/19 10/31/19 10/31/19 13:15 13:15 13:15 WBC 10.1 RBC 4.27 Hgb 13.3 Hct 40.2 D MCV 94.1 MCH 31.2 MCHC 33.2 RDW 21.4 H D Plt Count 404 MPV 8.4 Absolute Neuts (auto) 8.9 Neutrophils % 88.5 H Lymphocytes % 5.5 L Monocytes % 5.0 Eosinophils % 0.2 Basophils % 0.8 Sodium 129 L Potassium 4.3 Chloride 97 L Carbon Dioxide 25 Anion Gap 7 L BUN 13.0 Creatinine 0.6 Est GFR (CKD-EPI)AfAm 96.33 Est GFR (CKD-EPI)NonAf 83.11 Random Glucose 114 H Calcium 8.7 Total Bilirubin 1.1 H AST 28 ALT 17 Alkaline Phosphatase 105 Creatine Kinase Troponin I < 0.03 B-Natriuretic Peptide Total Protein 6.1 L Albumin 3.3 L Urine Color Urine Appearance Urine pH Urine Protein Urine Glucose (UA) Urine Ketones Urine Blood Urine Nitrite Urine Bilirubin Urine Urobilinogen Ur Leukocyte Esterase Urine RBC Urine WBC Ur Transition Epith Cell Urine Bacteria 10/31/19 10/31/19 10/31/19 13:15 13:15 18:30 WBC RBC Hgb Hct MCV MCH MCHC RDW Plt Count MPV Absolute Neuts (auto) Neutrophils % Lymphocytes % Monocytes % Eosinophils % Basophils % Sodium Potassium Chloride Carbon Dioxide Anion Gap BUN Creatinine Est GFR (CKD-EPI)AfAm Est GFR (CKD-EPI)NonAf Random Glucose Calcium Total Bilirubin AST ALT Alkaline Phosphatase Creatine Kinase 44 Troponin I B-Natriuretic Peptide 205.3 Total Protein Albumin Urine Color Yellow Urine Appearance Cloudy Urine pH 5.5 Urine Protein 2+ H Urine Glucose (UA) Negative Urine Ketones 2+ H Urine Blood Negative Urine Nitrite Positive H Urine Bilirubin 1+ H Urine Urobilinogen 0.2 Ur Leukocyte Esterase 1+ Urine RBC 2-5 Urine WBC 60-80 Ur Transition Epith Cell Moderate Urine Bacteria Moderate Active Medications Generic Name Dose Route Start Last Admin Trade Name Yeq PRN Reason Stop Dose Admin Atorvastatin Calcium 10 mg 11/01/19 22:00 Lipitor - PO HS KEHINDE Heparin Sodium (Porcine) 5,000 unit 10/31/19 22:00 11/01/19 06:28 Heparin - SQ 5,000 unit TID KEHINDE Administration Hydroxyurea 500 mg 10/31/19 19:00 10/31/19 19:12 Hydrea - PO 500 mg [id number]@1000 KEHINDE Administration Sodium Chloride 1,000 mls @ 1,000 mls/hr 11/01/19 07:05 Normal Saline - IV 11/01/19 08:04 ASDIR STA Ceftriaxone Sodium 1 gm/ 50 mls @ 200 mls/hr 11/01/19 07:06 Dextrose IVPB DAILY [facility] Protocol ASSESSMENT/PLAN 83 year-old female with a PMH of HTN, HLD, polycythemia vera, s/p left hip fracture repair in December 2018. Admitted for orthostatic hypotension. Orthostatic hypotension h/o Hypertension --marked hypotension persists; NS x 1L bolus --will hold home lisinopril, ToprolXL, and amlodipine and r/o heart failure --right-sided vascular congestion on CXR --no lower extremity edema, satting 98% on room air, BNP wnl --Echo this morning --CT chest ordered Hyperlipidemia --continue Lipitor Polycythemia vera --sees Dr. Erna Landry monthly --presently takes hydroxyurea Mon through Fri, will continue Unintentional weight loss Protein calorie malnutrition --36 pound unintentional weight loss over 9 months --2+ protein and 2+ ketones in urine --thin, frail, cachectic --BMI 17 --nutrition consult --CT chest, abd, pelvis pending, concern for malignancy Pyuria Fever --low grade fever this morning --start cefriaxone FEN Fluids: NS@100mL/hr Electrolytes: replete as indicated Nutrition: regular diet DVT prophylaxis: subq heparin Physical therapy Dispo: continues to require inpatient care. Full code. Visit type - Emergency Visit Emergency Visit: Yes ED Registration Date: 10/31/19 Care time: The patient presented to the Emergency Department on the above date and was hospitalized for further evaluation of their emergent condition. - New Patient This patient is new to me today: No - Critical Care Critical Care patient: No
[2019-11-01] MEDS ORDERED: CEFTRIAXONE 1 G/50 ML PREMIX 50 ML IVPB SCH (08:00)
[2019-11-01] MEDS ORDERED: SODIUM CHLORIDE 1,000 ML IV SCH ×2 (08:15→16:36)
[2019-11-01 08:21] LABS: ALBUMIN 2.7 g/dl (3.4-5.0); BILIRUBIN,TOTAL 0.7 mg/dl (0.2-1); CALCIUM 8.3 mg/dl (8.5-10); CREATININE 0.6 mg/dl (0.55-1.3); MAGNESIUM 1.6 mg/dL (1.8-2.4); POTASSIUM 3.9 mmol/L (3.5-5.1); TOT PROT 5.1 g/dl (6.4-8.2)
[2019-11-01 08:22] LABS: EOS % 0.1 % (0-4.5); HEMATOCRIT 36.1 % (32.4-45.2); LYMPH % 4.2 % (8-40); MCH 31.6 pg (25.7-33.7); MCHC 33.3 g/dl (32.0-36.0); MEAN CELL VOLUME 94.9 fl (80-96); MEAN PLT VOLUME 8.8 fl (7.5-11.1); MONO % 6.2 % (3.8-10.2); NEUT % 89.5 % (42.8-82.8); PLATELET COUNT 293 K/MM3 (134-434); RDW 21.3 % (11.6-15.6)
[2019-11-01] MEDS: HYDROXYUREA 500 MG CAPSULE PO SCH (09:04)
[2019-11-01] MEDS ORDERED: MAGNESIUM SULF 50% (8.12 MEQ/2 ML-1 GM VIAL) IVPB ONE (09:17)
[2019-11-01] MEDS ORDERED: MAGNESIUM SULFATE IN WATER 2 GM/50 ML IVPB IVPB ONE (09:30)
[2019-11-01] MEDS ORDERED: ACETAMINOPHEN 325 MG TABLET (FP) PO PRN (10:55)
[2019-11-01] MEDS ORDERED: SODIUM CHLORIDE 500 ML IV STA (11:07)
[2019-11-01] MEDS ORDERED: VANCOMYCIN 750 MG in DEXTROSE 5%-WATER - 250 ML IVPB SCH (12:15)
--- NOTE | 2019-11-01 12:20 | HOSP ---
Subjective - Review of Symptoms Events since last encounter: Called to patient's room on report of shaking chills. Patient seen and examined. Sudden onset of rigors. Temp 97 rectal. BP 101/41 Juliana Hugger NS 500mL x 1, then continue 100mL/hr start Vanc and Zosyn ID consult CT chest, abdomen, pelvis pending Physical Examination Vital Signs: Vital Signs Temperature 98.4 F 11/01/19 06:00 Pulse Rate 66 11/01/19 09:30 Respiratory Rate 18 11/01/19 09:00 Blood Pressure 138/64 11/01/19 09:30 O2 Sat by Pulse Oximetry (%) 96 11/01/19 09:00 Labs: CBC, BMP 11/01/19 07:20 11/01/19 07:20
[2019-11-01] MEDS ORDERED: PIPERACILLIN/TAZOBACTAM 3.375 GM VIAL IVPB ONE ×2 (12:31→16:30)
[2019-11-01] MEDS ORDERED: DEXTROSE 5%-WATER - 50 ML IVPB ONE ×2 (12:32→16:31)
[2019-11-01] MEDS: PIPERACILLIN/TAZOB 3.375 GM 3.375 GM in DEXTROSE 5%-WATER - 50 ML IVPB SCH ×2 (12:33→18:43)
--- NOTE | 2019-11-01 12:49 | CONSULT ---
Consult Consult Specialty:: Nephrology Reason for Consultation:: hyponatremia - History of Present Illness Chief Complaint: sent in for dizziness and hypotension History of Present Illness: Pt is an 84 year old female with pmhx of HTN, HLD, hyponatremia, polycytemia, and left hip fracture who was sent in for evaluation of hypotension. She complains of generalized weakness. She was found to be hyponatremic and I was called to evaluate her. She has history of hyponatremia. She denies dysuria or hematuria. She says that she does not drink much water. She says she was on lasix however it was stopped. - History Source History Provided By: Patient, Medical Record - Past Medical History Cardio/Vascular: Yes: HTN, Hyperlipdemia Renal/: Yes: Other (hyponatremia) - Alcohol/Substance Use Hx Alcohol Use: Yes (OCCASIONAL) - Smoking History Smoking history: Never smoked Have you smoked in the past 12 months: No If you are a former smoker, when did you quit?: 60 YEARS Home Medications - Allergies Allergies/Adverse Reactions: Allergies Allergy/AdvReac Type Severity Reaction Status Date / Time No Known Allergies Allergy Verified 01/15/19 15:21 - Home Medications Home Medications: Ambulatory Orders Amlodipine Besylate 5 mg PO DAILY 01/15/19 Atorvastatin Ca [Lipitor] 10 mg PO DAILY 01/15/19 Lisinopril 20 mg PO DAILY 01/15/19 Metoprolol Succinate [Toprol XL -] 25 mg PO DAILY 01/15/19 Hydroxyurea [Hydrea 500Mg Capsule -] 500 mg PO ASDIR 10/31/19 Family Medical History Family History: Denies Review of Systems - Review of Systems Constitutional: reports: Malaise Eyes: reports: No Symptoms HENT: reports: No Symptoms Neck: reports: No Symptoms Cardiovascular: reports: No Symptoms Respiratory: reports: No Symptoms Gastrointestinal: reports: No Symptoms Genitourinary: reports: No Symptoms Musculoskeletal: reports: No Symptoms Integumentary: reports: No Symptoms Neurological: reports: No Symptoms Endocrine: reports: No Symptoms Hematology/Lymphatic: reports: No Symptoms Psychiatric: reports: No Symptoms Physical Exam Vital Signs: Vital Signs Temperature 98.4 F 11/01/19 06:00 Pulse Rate 66 11/01/19 09:30 Respiratory Rate 18 11/01/19 09:00 Blood Pressure 138/64 11/01/19 09:30 O2 Sat by Pulse Oximetry (%) 96 11/01/19 09:00 Constitutional: Yes: Calm Eyes: Yes: Conjunctiva Clear Cardiovascular: Yes: S1, S2 Respiratory: Yes: CTA Bilaterally Gastrointestinal: Yes: Soft Renal/: Yes: WNL Edema: No Neurological: Yes: Oriented Labs: CBC, BMP 11/01/19 07:20 11/01/19 07:20 Laboratory Tests 07/25/11 10/04/11 01/15/19 07:40 08:00 16:26 Sodium 131 L 134 L 134 L 01/16/19 01/18/19 10/31/19 09:35 06:55 13:15 Sodium 134 L 136 129 L 11/01/19 07:20 Sodium 129 L Imaging - Results Cat Scan: Report Reviewed Problem List - Problems (1) Hydronephrosis Code(s): N13.30 - UNSPECIFIED HYDRONEPHROSIS (2) Hyponatremia Code(s): E87.1 - HYPO-OSMOLALITY AND HYPONATREMIA (3) Orthostatic hypotension Code(s): I95.1 - ORTHOSTATIC HYPOTENSION (4) Hip fracture Code(s): S72.009A - FRACTURE OF UNSP PART OF NECK OF UNSP FEMUR, INIT Qualifiers: Encounter type: initial encounter Fracture type: closed Laterality: left Qualified Code(s): S72.002A - Fracture of unspecified part of neck of left femur, initial encounter for closed fracture Assessment/Plan Current Medications Generic Name Dose Route Start Last Admin Trade Name Freq PRN Reason Stop Dose Admin Acetaminophen 650 mg 11/01/19 10:55 11/01/19 12:32 Tylenol - PO 650 mg Q6H PRN Administration FEVER Atorvastatin Calcium 10 mg 11/01/19 22:00 Lipitor - PO HS KEHINDE Heparin Sodium (Porcine) 5,000 unit 10/31/19 22:00 11/01/19 06:28 Heparin - SQ 5,000 unit TID KEHINDE Administration Hydroxyurea 500 mg 10/31/19 19:00 11/01/19 09:04 Hydrea - PO 500 mg [id number]@1000 KEHINDE Administration Sodium Chloride 1,000 mls @ 100 mls/hr 11/01/19 08:15 11/01/19 09:04 Normal Saline - IV 100 mls/hr ASDIR KEHINDE Administration Vancomycin HCl 750 mg/ 150 mls @ 150 mls/hr 11/02/19 12:15 Dextrose IVPB Q12H KEHINDE Protocol Vancomycin HCl 750 mg/ 250 mls @ 166.667 mls/hr 11/01/19 12:15 11/01/19 12:33 Dextrose IVPB 11/02/19 01:44 166.667 mls/hr Q12H KEHINDE Administration Protocol Piperacillin Sod/Tazobactam 50 mls @ 100 mls/hr 11/01/19 12:30 11/01/19 12:33 Sod 3.375 gm/ Dextrose IVPB 100 mls/hr Q8H-IV KEHINDE Administration Protocol Microbiology Impression 1. hyponatremia 2. hydronephrosis 3. hypotension 4. hld 5. polycythemia Plan - check renal ultrasound - place hugo for hydro, urology eval - check plasma and urine osm - check urine sodium - chech echo - caution with fluids as she has congestion on ct scan
--- NOTE | 2019-11-01 13:20 | CON.ID ---
Consult Consult Specialty:: infectious diseases Referred by:: Peg Reason for Consultation:: sepsis,hypothermia - History of Present Illness Chief Complaint: weakness,loss of weight - Alcohol/Substance Use Hx Alcohol Use: Yes (OCCASIONAL) - Smoking History Smoking history: Never smoked Have you smoked in the past 12 months: No If you are a former smoker, when did you quit?: 60 YEARS Home Medications - Allergies Allergies/Adverse Reactions: Allergies Allergy/AdvReac Type Severity Reaction Status Date / Time No Known Allergies Allergy Verified 01/15/19 15:21 - Home Medications Home Medications: Ambulatory Orders Amlodipine Besylate 5 mg PO DAILY 01/15/19 Atorvastatin Ca [Lipitor] 10 mg PO DAILY 01/15/19 Lisinopril 20 mg PO DAILY 01/15/19 Metoprolol Succinate [Toprol XL -] 25 mg PO DAILY 01/15/19 Hydroxyurea [Hydrea 500Mg Capsule -] 500 mg PO ASDIR 10/31/19 Physical Exam Vital Signs: Vital Signs Temperature 98.4 F 11/01/19 06:00 Pulse Rate 66 11/01/19 09:30 Respiratory Rate 18 11/01/19 09:00 Blood Pressure 138/64 11/01/19 09:30 O2 Sat by Pulse Oximetry (%) 96 11/01/19 09:00 Labs: CBC, BMP 11/01/19 07:20 11/01/19 07:20
--- NOTE | 2019-11-01 14:46 | EKG ---
Test Reason : Blood Pressure : / mmHG Vent. Rate : 090 BPM Atrial Rate : 090 BPM P-R Int : 150 ms QRS Dur : 086 ms QT Int : 366 ms P-R-T Axes : 068 079 062 degrees QTc Int : 447 ms NORMAL SINUS RHYTHM NORMAL ECG WHEN COMPARED WITH ECG OF 16-JAN-2019 11:30, RIGHT BUNDLE BRANCH BLOCK IS NO LONGER PRESENT Confirmed by MICA PROCTOR, MARYSE ([id number]) on 11/01/2019 2:45:31 PM Referred By: SHERITA ESCALONA Confirmed By:MARYSE NINO MD
--- NOTE | 2019-11-01 15:49 | ECHO ---
Name: PAULINE HAZEL Exam:Adult Echocardiogram Study Date: 11/01/2019 12:07 PM Age: 84 yrs Reason For Study: PULMONARY CONGESTION Height: 66 in Weight: 112 lb BSA: 1.6 m2 MMode/2D Measurements & Calculations IVSd: 1.0 cm Ao root diam: 2.6 cm LVIDd: 2.6 cm LA dimension: 2.9 cm LVIDs: 1.9 cm LVPWd: 0.84 cm EDV(Teich): 24.8 ml LVOT diam: 2.0 cm ESV(Teich): 10.5 ml Doppler Measurements & Calculations MV E max king: 79.4 cm/sec MV A max king: 150.7 cm/sec MV dec slope: 902.5 cm/sec2 MV E/A: 0.53 Ao V2 max: 196.8 cm/sec LV V1 max P.9 mmHg Ao max P.5 mmHg LV V1 max: 179.7 cm/sec DANNY(V,D): 2.8 cm2 MR max king: 385.2 cm/sec TR max king: 288.5 cm/sec MR max P.4 mmHg TR max P.3 mmHg PA V2 max: 126.9 cm/sec PI end-d king: 113.8 cm/sec PA max P.4 mmHg Procedure A complete two-dimensional transthoracic echocardiogram was performed (2D, M-mode, Doppler and color flow Doppler). Left Ventricle The left ventricular size, thickness and function are normal. The left ventricular ejection fraction is normal. Ejection Fraction = 60-65%. The left ventricular wall motion is normal. Right Ventricle The right ventricle is normal in size and function. Atria Normal left and right atrial size and function. Mitral Valve There is no mitral regurgitation noted. Tricuspid Valve There is trace tricuspid regurgitation. Right ventricular systolic pressure is normal. Aortic Valve No hemodynamically significant valvular aortic stenosis. No aortic regurgitation is present. Pulmonic Valve There is no pulmonic valvular regurgitation. Great Vessels The aortic root is normal size. Pericardium/Pleura There is no pericardial effusion. Interpretation Summary The left ventricular size, thickness and function are normal The right ventricle is normal in size and function. There is trace tricuspid regurgitation. MD Wilian Marks 11/01/2019 03:49 PM
[2019-11-01 16:36] VITALS: BMI 18.1
[2019-11-01] MEDS: ATORVASTATIN CA 10 MG TABLET (FP) PO SCH (21:10)
[2019-11-02] MEDS ORDERED: DEXTROSE 5%-WATER - 50 ML IVPB ONE ×3 (00:22→18:36)
[2019-11-02] MEDS ORDERED: PIPERACILLIN/TAZOBACTAM 3.375 GM VIAL IVPB ONE ×3 (00:22→18:35)
[2019-11-02] MEDS: PIPERACILLIN/TAZOB 3.375 GM 3.375 GM in DEXTROSE 5%-WATER - 50 ML IVPB SCH ×3 (02:08→18:38)
[2019-11-02] MEDS: HEPARIN NA (PORCINE) 5,000 UNITS/ML 1ML VIAL SQ SCH ×3 (05:33→21:09)
[2019-11-02] MEDS ORDERED: VANCOMYCIN HCL 1,250 MG in DEXTROSE 5%-WATER - 250 ML IVPB SCH (10:00)
[2019-11-02 10:17] LABS: ALBUMIN 2.3 g/dl (3.4-5.0); BILIRUBIN,TOTAL 0.7 mg/dl (0.2-1); CALCIUM 7.5 mg/dl (8.5-10); CREATININE 0.5 mg/dl (0.55-1.3); POTASSIUM 3.2 mmol/L (3.5-5.1); TOT PROT 4.7 g/dl (6.4-8.2)
[2019-11-02] MEDS: HYDROXYUREA 500 MG CAPSULE PO SCH (10:32)
--- NOTE | 2019-11-02 11:20 | PN ---
Progress Note, Physician History of Present Illness: Pt seen and examined at bedside. She is awake and alert. She denies shortness of breath. She denies fevers or chills. - Current Medication List Current Medications: Active Medications Acetaminophen (Tylenol -) 650 mg PO Q6H PRN PRN Reason: FEVER Last Admin: 11/01/19 12:32 Dose: 650 mg Atorvastatin Calcium (Lipitor -) 10 mg PO HS KEHINDE Last Admin: 11/01/19 21:10 Dose: 10 mg Heparin Sodium (Porcine) (Heparin -) 5,000 unit SQ TID KEHINDE Last Admin: 11/02/19 05:33 Dose: 5,000 unit Hydroxyurea (Hydrea -) 500 mg PO MoTuWeThFr@1000 KEHINDE Last Admin: 11/02/19 10:32 Dose: 500 mg Piperacillin Sod/Tazobactam (Sod 3.375 gm/ Dextrose) 50 mls @ 100 mls/hr IVPB Q8H-IV KEHINDE; Protocol Last Admin: 11/02/19 10:32 Dose: 100 mls/hr Vancomycin HCl 1,250 mg/ (Dextrose) 250 mls @ 250 mls/2 hr IVPB Q24H KEHINDE; Protocol Magnesium Oxide (Mag-Ox -) 800 mg PO ONCE ONE Stop: 11/02/19 11:14 Potassium Chloride (K-Dur -) 40 meq PO ONCE ONE Stop: 11/02/19 11:14 - Objective Vital Signs: Vital Signs Temperature 98.0 F 11/02/19 05:00 Pulse Rate 91 H 11/02/19 05:00 Respiratory Rate 18 11/02/19 05:00 Blood Pressure 117/44 L 11/02/19 05:00 O2 Sat by Pulse Oximetry (%) 95 11/02/19 05:00 Constitutional: Yes: Calm Eyes: Yes: Conjunctiva Clear HENT: Yes: Atraumatic Cardiovascular: Yes: S1, S2 Respiratory: Yes: CTA Bilaterally Genitourinary: Yes: WNL Musculoskeletal: Yes: WNL Edema: No Neurological: Yes: Oriented Psychiatric: Yes: Oriented Labs: CBC, BMP 11/01/19 07:20 11/02/19 09:58 Problem List - Problems (1) Hydronephrosis Code(s): N13.30 - UNSPECIFIED HYDRONEPHROSIS (2) Hyponatremia Code(s): E87.1 - HYPO-OSMOLALITY AND HYPONATREMIA (3) Orthostatic hypotension Code(s): I95.1 - ORTHOSTATIC HYPOTENSION (4) Hip fracture Code(s): S72.009A - FRACTURE OF UNSP PART OF NECK OF UNSP FEMUR, INIT Qualifiers: Encounter type: initial encounter Fracture type: closed Laterality: left Qualified Code(s): S72.002A - Fracture of unspecified part of neck of left femur, initial encounter for closed fracture Assessment/Plan Current Medications Generic Name Dose Route Start Last Admin Trade Name Freq PRN Reason Stop Dose Admin Acetaminophen 650 mg 11/01/19 10:55 11/01/19 12:32 Tylenol - PO 650 mg Q6H PRN Administration FEVER Atorvastatin Calcium 10 mg 11/01/19 22:00 11/01/19 21:10 Lipitor - PO 10 mg HS KEHINDE Administration Heparin Sodium (Porcine) 5,000 unit 10/31/19 22:00 11/02/19 05:33 Heparin - SQ 5,000 unit TID KEHINDE Administration Hydroxyurea 500 mg 10/31/19 19:00 11/02/19 10:32 Hydrea - PO 500 mg [id number]@1000 KEHINDE Administration Piperacillin Sod/Tazobactam 50 mls @ 100 mls/hr 11/01/19 12:30 11/02/19 10:32 Sod 3.375 gm/ Dextrose IVPB 100 mls/hr Q8H-IV KEHINDE Administration Protocol Vancomycin HCl 1,250 mg/ 250 mls @ 250 mls/2 hr 11/02/19 10:00 Dextrose IVPB Q24H KEHINDE Protocol Magnesium Oxide 800 mg 11/02/19 11:13 Mag-Ox - PO 11/02/19 11:14 ONCE ONE Potassium Chloride 40 meq 11/02/19 11:13 K-Dur - PO 11/02/19 11:14 ONCE ONE Impression 1. hyponatremia - hypoosmolar 2. hydronephrosis 3. hypotension 4. hld 5. polycythemia Plan - mild left hydro on ultrasound - follow urine osm and lytes - can consider urology eval - echo reviewed - hugo was not placed, pt voiding - bp is improved
[2019-11-02] MEDS ORDERED: SODIUM CHLORIDE 1,000 ML with POTASSIUM CHLORIDE 10 MEQ IVPB SCH (12:00)
[2019-11-02] MEDS ORDERED: MAGNESIUM OXIDE 400 MG TABLET (FP) PO ONE (12:00)
[2019-11-02] MEDS ORDERED: POTASSIUM CHLORIDE TABS 20 MEQ TABLET.ER (FP) PO ONE (12:00)
[2019-11-02] MEDS ORDERED: VANCOMYCIN 750 MG in DEXTROSE 5%-WATER - 150 ML IVPB SCH (12:15)
[2019-11-02] MEDS ORDERED: MAGNESIUM SULF 50% (8.12 MEQ/2 ML-1 GM VIAL) IVPB ONE (14:03)
[2019-11-02] MEDS ORDERED: MAGNESIUM SULFATE IN WATER 2 GM/50 ML IVPB IVPB ONE (14:15)
--- NOTE | 2019-11-02 15:38 | CON.CARD ---
Cardiology Consult (text) - Consultation Consultation Note: cc: weakness, appetite hpi: 84 f hx htn, hld, here with weakness, decreased appetite, wt loss. No cp sob palps dizzy loc pnd orthopnea le edema. Found to have uti, low na. pmh: per hpi psh: hip surgery social: no tob fam: no premature cad ros: per hpi; all others nl meds: Current Medications Generic Name Dose Route Start Last Admin Trade Name Freq PRN Reason Stop Dose Admin Acetaminophen 650 mg 11/01/19 10:55 11/01/19 12:32 Tylenol - PO 650 mg Q6H PRN Administration FEVER Atorvastatin Calcium 10 mg 11/01/19 22:00 11/01/19 21:10 Lipitor - PO 10 mg HS KEHINDE Administration Heparin Sodium (Porcine) 5,000 unit 10/31/19 22:00 11/02/19 14:34 Heparin - SQ 5,000 unit TID KEHINDE Administration Hydroxyurea 500 mg 10/31/19 19:00 11/02/19 10:32 Hydrea - PO 500 mg [id number]@1000 KEHINDE Administration Piperacillin Sod/Tazobactam 50 mls @ 100 mls/hr 11/01/19 12:30 11/02/19 10:32 Sod 3.375 gm/ Dextrose IVPB 100 mls/hr Q8H-IV KEHINDE Administration Protocol Potassium Chloride 10 meq/ 1,005 mls @ 42 mls/hr 11/02/19 12:00 11/02/19 14: 34 Sodium Chloride IVPB 42 mls/hr ASDIR KEHINDE Administration Home Medications Medication Instructions Recorded Amlodipine Besylate 5 mg PO DAILY 01/15/19 Atorvastatin Ca [Lipitor] 10 mg PO DAILY 01/15/19 Lisinopril 20 mg PO DAILY 01/15/19 Metoprolol Succinate [Toprol XL -] 25 mg PO DAILY 01/15/19 Hydroxyurea [Hydrea 500Mg Capsule 500 mg PO ASDIR 10/31/19 -] Vital Signs Period Temp Pulse Resp BP Sys/Kiser Pulse Ox Last 24 Hr 97.6 F-98.9 F 88-108 16-21 90-132/40-65 95-100 nad no jvd rrr s1s2 no mrg cta bl nl eff aao3 no jaundice diaphoresis pos dp pt no carotid bruits abd nt nd pos bs no le e/c/c Laboratory Last Values WBC 10.0 K/mm3 (4.0-10.8) 11/01/19 07:20 RBC 3.80 M/mm3 (3.60-5.2) 11/01/19 07:20 Hgb 12.0 GM/dl (10.7-15.3) 11/01/19 07:20 Hct 36.1 % (32.4-45.2) 11/01/19 07:20 MCV 94.9 fl (80-96) 11/01/19 07:20 MCH 31.6 pg (25.7-33.7) 11/01/19 07:20 MCHC 33.3 g/dl (32.0-36.0) 11/01/19 07:20 RDW 21.3 % (11.6-15.6) H 11/01/19 07:20 Plt Count 293 K/MM3 (134-434) 11/01/19 07:20 MPV 8.8 fl (7.5-11.1) 11/01/19 07:20 Absolute Neuts (auto) 9.0 K/mm3 11/01/19 07:20 Neutrophils % 89.5 % (42.8-82.8) H 11/01/19 07:20 Lymphocytes % 4.2 % (8-40) L 11/01/19 07:20 Monocytes % 6.2 % (3.8-10.2) 11/01/19 07:20 Eosinophils % 0.1 % (0-4.5) 11/01/19 07:20 Basophils % 0.0 % (0-2.0) 11/01/19 07:20 Sodium 131 mmol/L (136-145) L 11/02/19 09:58 Potassium 3.2 mmol/L (3.5-5.1) L 11/02/19 09:58 Chloride 102 mmol/L (98-107) 11/02/19 09:58 Carbon Dioxide 22 mmol/L (21-32) 11/02/19 09:58 Anion Gap 7 MMOL/L (8-16) L 11/02/19 09:58 BUN 9.0 mg/dl (7-18) 11/02/19 09:58 Creatinine 0.5 mg/dl (0.55-1.3) L 11/02/19 09:58 Est GFR (CKD-EPI)AfAm 102.29 11/02/19 09:58 Est GFR (CKD-EPI)NonAf 88.25 11/02/19 09:58 Random Glucose 104 mg/dl (74-106) 11/02/19 09:58 Serum Osmolality 274 mosm/kg (278-305) L 11/02/19 07:34 Lactic Acid 1.1 mmol/L (0.4-2.0) 11/01/19 14:10 Calcium 7.5 mg/dl (8.5-10) L 11/02/19 09:58 Magnesium 1.6 mg/dL (1.8-2.4) L 11/01/19 07:20 Total Bilirubin 0.7 mg/dl (0.2-1) 11/02/19 09:58 AST 29 U/L (15-37) 11/02/19 09:58 ALT 26 U/L (13-61) 11/02/19 09:58 Alkaline Phosphatase 100 U/L (45-117) 11/02/19 09:58 Creatine Kinase 44 U/L (26-192) 10/31/19 13:15 Troponin I < 0.03 ng/ml (0.00-0.05) 10/31/19 13:15 B-Natriuretic Peptide 205.3 pg/ml (5-450) 10/31/19 13:15 Total Protein 4.7 g/dl (6.4-8.2) L 11/02/19 09:58 Albumin 2.3 g/dl (3.4-5.0) L 11/02/19 09:58 TSH 2.38 uIU/ml (0.358-3.74) 11/01/19 07:20 Urine Color Yellow 10/31/19 18:30 Urine Appearance Cloudy 10/31/19 18:30 Urine pH 5.5 (4.5-8) 10/31/19 18:30 Urine Protein 2+ (NEGATIVE) H 10/31/19 18:30 Urine Glucose (UA) Negative (NEGATIVE) 10/31/19 18:30 Urine Ketones 2+ (NEGATIVE) H 10/31/19 18:30 Urine Blood Negative (NEGATIVE) 10/31/19 18:30 Urine Nitrite Positive (NEGATIVE) H 10/31/19 18:30 Urine Bilirubin 1+ (NEGATIVE) H 10/31/19 18:30 Urine Urobilinogen 0.2 (0.2-1.0) 10/31/19 18:30 Ur Leukocyte Esterase 1+ (NEGATIVE) 10/31/19 18:30 Urine RBC 2-5 /hpf (0-4) 10/31/19 18:30 Urine WBC 60-80 (NEGATIVE) 10/31/19 18:30 Ur Transition Epith Cell Moderate /hpf 10/31/19 18:30 Urine Bacteria Moderate /hpf (NEGATIVE) 10/31/19 18:30 echo 10/2019: nl lv/rv no sig valve path nl rvsp ecg: sr nl intervals no ischemic changes ct chest: possible congestion, small bl effs a/p: 84 f hx htn, hld, here with weakness, decreased appetite, wt loss. uti: -abx per ID, pmd htn: -bp on lower side with orthostatic sxs, likely from decreased po intake, infection. agree with ivfs. hold home htn meds for now, monitor bp. hld: -cont statin hyponatremia: -cont ivfs, na improving, renal following -no significant signs of chf, bnp low, echo wnl. can continue ivfs for now.
--- NOTE | 2019-11-02 18:41 | PN ---
Physical Exam: SUBJECTIVE: Patient seen and examined at bedside. Feeling better. Ate full breakfast. Encouraged to get oob. OBJECTIVE: Vital Signs Period Temp Pulse Resp BP Sys/Kiser Pulse Ox Last 24 Hr 97.8 F-98.9 F 88-98 16-18 107-132/42-65 95-99 GENERAL: Awake, alert, and fully oriented, in no acute distress. Much more alert than yesterday. LUNGS: Breath sounds equal, clear to auscultation bilaterally. No wheezes, and no crackles. No accessory muscle use. HEART: Regular rate and rhythm, normal S1 and S2 ABDOMEN: Soft, nontender, not distended MUSCULOSKELETAL: Normal range of motion at all joints. No bony deformities or tenderness. No CVA tenderness. UPPER EXTREMITIES: 2+ pulses, warm, well-perfused. No cyanosis. No clubbing. No peripheral edema. LOWER EXTREMITIES: 2+ pulses, warm, well-perfused. No calf tenderness. No peripheral edema. NEUROLOGICAL: Cranial nerves II-XII intact. Normal speech. Moving all extremities freely, self positions easily. Laboratory Results - last 24 hr 11/02/19 11/02/19 11/02/19 07:34 09:58 16:53 Sodium 131 L Potassium 3.2 L Chloride 102 Carbon Dioxide 22 Anion Gap 7 L BUN 9.0 Creatinine 0.5 L Est GFR (CKD-EPI)AfAm 102.29 Est GFR (CKD-EPI)NonAf 88.25 Random Glucose 104 Serum Osmolality 274 L Calcium 7.5 L Total Bilirubin 0.7 AST 29 ALT 26 Alkaline Phosphatase 100 Total Protein 4.7 L Albumin 2.3 L Ur Random Sodium 57 Ur Random Potassium 45.3 Ur Random Chloride 82 L Active Medications Generic Name Dose Route Start Last Admin Trade Name Freq PRN Reason Stop Dose Admin Acetaminophen 650 mg 11/01/19 10:55 11/01/19 12:32 Tylenol - PO 650 mg Q6H PRN Administration FEVER Atorvastatin Calcium 10 mg 11/01/19 22:00 11/01/19 21:10 Lipitor - PO 10 mg HS KEHINDE Administration Heparin Sodium (Porcine) 5,000 unit 10/31/19 22:00 11/02/19 14:34 Heparin - SQ 5,000 unit TID KEHINDE Administration Hydroxyurea 500 mg 10/31/19 19:00 11/02/19 10:32 Hydrea - PO 500 mg [id number]@1000 KEHINDE Administration Piperacillin Sod/Tazobactam 50 mls @ 100 mls/hr 11/01/19 12:30 11/02/19 18:38 Sod 3.375 gm/ Dextrose IVPB 100 mls/hr Q8H-IV KEHINDE Administration Protocol Potassium Chloride 10 meq/ 1,005 mls @ 42 mls/hr 11/02/19 12:00 11/02/19 14: 34 Sodium Chloride IVPB 42 mls/hr ASDIR KEHINDE Administration ASSESSMENT/PLAN: 83 year-old female with a PMH of HTN, HLD, polycythemia vera, s/p left hip fracture repair in December 2018. Admitted for orthostatic hypotension, diagnosed with severe sepsis secondary to UTI. Severe Sepsis secondary to UTI --on 11/01, fever to 100.4, p 102, drop in systolic BP>30 points, LFGNB UTI --fluid resuscitated 1.5L with improvement in hemodynamics --broadened antibiotics to Vanc and Zosyn --maintained good UOP, continue strict I&Os Heart failure ruled out --11/02 echo: LV normal, EF 60-65%; RV normal; trace TR --seen and evaluated by cardiology, unremarkable study Mild left hydronephrosis Mild proximal left hydroureter --no obstructing stones seen on either CT or US --small post-void residual --voiding well, makikng good urine --unclear etiology, outpatient follow up with urology Hyperlipidemia --continue Lipitor Polycythemia vera --sees Dr. Erna Landry monthly --presently takes hydroxyurea Tue through Tue, will continue Unintentional weight loss Protein calorie malnutrition --36 pound unintentional weight loss over 9 months --2+ protein and 2+ ketones in urine on admission --thin, frail, cachectic, BMI 17 --nutrition consult Hypokalemia --repleted Hyponatremia --improved, continue NS FEN Fluids: NS+10K@42mL/hr Electrolytes: replete as indicated Nutrition: regular diet DVT prophylaxis: subq heparin Physical therapy Dispo: continues to require inpatient care. Full code. Visit type - Emergency Visit Emergency Visit: Yes ED Registration Date: 10/31/19 Care time: The patient presented to the Emergency Department on the above date and was hospitalized for further evaluation of their emergent condition. - New Patient This patient is new to me today: No - Critical Care Critical Care patient: No
[2019-11-02] MEDS: ATORVASTATIN CA 10 MG TABLET (FP) PO SCH (21:09)
[2019-11-03] MEDS ORDERED: PIPERACILLIN/TAZOBACTAM 3.375 GM VIAL IVPB ONE (01:21)
[2019-11-03] MEDS ORDERED: DEXTROSE 5%-WATER - 50 ML IVPB ONE (01:21)
[2019-11-03] MEDS: PIPERACILLIN/TAZOB 3.375 GM 3.375 GM in DEXTROSE 5%-WATER - 50 ML IVPB SCH ×2 (01:39→10:50)
[2019-11-03] MEDS: HEPARIN NA (PORCINE) 5,000 UNITS/ML 1ML VIAL SQ SCH ×3 (06:41→21:26)
[2019-11-03 08:47] LABS: ALBUMIN 2.3 g/dl (3.4-5.0); BILIRUBIN,TOTAL 0.8 mg/dl (0.2-1); CALCIUM 7.9 mg/dl (8.5-10); CREATININE 0.5 mg/dl (0.55-1.3); POTASSIUM 3.5 mmol/L (3.5-5.1); TOT PROT 4.7 g/dl (6.4-8.2)
--- NOTE | 2019-11-03 08:53 | PN ---
Progress Note, Physician Chief Complaint: C/O diarrhea History of Present Illness: 83 year-old female with a PMH of HTN, HLD, polycythemia vera, s/p left hip fracture repair in December 2018. Was 140 pounds when she was discharged to [facility] for rehab, lost 17 pounds by the time of her discharge in February 2019. Patient otherwise remained at her baseline health until August 2019 when she was diagnosed with compression fractures. She underwent a cementing procedure with Dr. Buchanan (pain management) on October 05, 2019. Since that procedure, patient has been refusing to get out of bed, spends most of her time sleeping, and has a markedly decreased appetite. She gets dizzy when standing up. About a week ago her daughter took her to the [employer] par[facility] and she became very SOB with a few steps. - Current Medication List Current Medications: Active Medications Acetaminophen (Tylenol -) 650 mg PO Q6H PRN PRN Reason: FEVER Last Admin: 11/01/19 12:32 Dose: 650 mg Atorvastatin Calcium (Lipitor -) 10 mg PO HS KEHINDE Last Admin: 11/02/19 21:09 Dose: 10 mg Heparin Sodium (Porcine) (Heparin -) 5,000 unit SQ TID KEHINDE Last Admin: 11/03/19 06:41 Dose: 5,000 unit Hydroxyurea (Hydrea -) 500 mg PO [id number]@1000 KEHINDE Last Admin: 11/02/19 10:32 Dose: 500 mg Piperacillin Sod/Tazobactam (Sod 3.375 gm/ Dextrose) 50 mls @ 100 mls/hr IVPB Q8H-IV KEHINDE; Protocol Last Admin: 11/03/19 01:39 Dose: 100 mls/hr Potassium Chloride 10 meq/ (Sodium Chloride) 1,005 mls @ 42 mls/hr IVPB ASDIR KEHINDE Last Admin: 11/02/19 14:34 Dose: 42 mls/hr - Objective Vital Signs: Vital Signs Temperature 97.9 F 11/03/19 06:00 Pulse Rate 100 H 11/03/19 06:00 Respiratory Rate 18 11/03/19 06:00 Blood Pressure 150/66 11/03/19 06:00 O2 Sat by Pulse Oximetry (%) 94 L 11/03/19 06:00 Elderly F not in acute distress HEENT: Mm moist, no PERRLA EOMI NECK: No JVD No Bruit CHEST: CTA B/L CVS: S1S2 R ABD: No distention, non tender Bs + EXT: No edema feet. 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 Labs: CBC, BMP 11/01/19 07:20 Microbiology 10/31/19 18:30 Urine - Urine Clean Catch Urine Culture - Final Escherichia Coli 11/01/19 08:45 Blood - Peripheral Venous Blood Culture - Preliminary NO GROWTH OBTAINED AFTER 48 HOURS, INCUBATION TO CONTINUE FOR 3 DAYS. 11/01/19 08:45 Blood - Peripheral Venous Blood Culture - Preliminary NO GROWTH OBTAINED AFTER 48 HOURS, INCUBATION TO CONTINUE FOR 3 DAYS. Problem List - Problems (1) Failure to thrive Assessment/Plan: Nutrition and pt consult if no response ageappropite malignancy w/u Problems reviewed: Yes Code(s): BLW5039 - (2) Hyponatremia Assessment/Plan: corrected Problems reviewed: Yes Code(s): E87.1 - HYPO-OSMOLALITY AND HYPONATREMIA (3) Polycythemia Assessment/Plan: chronic h/h stable Problems reviewed: Yes Code(s): D75.1 - SECONDARY POLYCYTHEMIA (4) Diarrhea Assessment/Plan: urine grew e colli, stool c diff -ve will dc zosyn abx as per id ceftin 500 mg Bid Problems reviewed: Yes Code(s): R19.7 - DIARRHEA, UNSPECIFIED
--- NOTE | 2019-11-03 13:07 | PN ---
Progress Note, Physician History of Present Illness: patient improving dirrhoea cdiff negativ - Current Medication List Current Medications: Active Medications Acetaminophen (Tylenol -) 650 mg PO Q6H PRN PRN Reason: FEVER Last Admin: 11/01/19 12:32 Dose: 650 mg Atorvastatin Calcium (Lipitor -) 10 mg PO HS KEHINDE Last Admin: 11/02/19 21:09 Dose: 10 mg Heparin Sodium (Porcine) (Heparin -) 5,000 unit SQ TID KEHINDE Last Admin: 11/03/19 06:41 Dose: 5,000 unit Hydroxyurea (Hydrea -) 500 mg PO [id number]@1000 KEHINDE Last Admin: 11/02/19 10:32 Dose: 500 mg Piperacillin Sod/Tazobactam (Sod 3.375 gm/ Dextrose) 50 mls @ 100 mls/hr IVPB Q8H-IV KEHINDE; Protocol Last Admin: 11/03/19 10:50 Dose: Not Given Potassium Chloride 10 meq/ (Sodium Chloride) 1,005 mls @ 42 mls/hr IVPB ASDIR [facility] Last Admin: 11/02/19 14:34 Dose: 42 mls/hr - Objective Vital Signs: Vital Signs Temperature 98.1 F 11/03/19 09:43 Pulse Rate 99 H 11/03/19 09:43 Respiratory Rate 20 11/03/19 09:43 Blood Pressure 147/59 L 11/03/19 09:43 O2 Sat by Pulse Oximetry (%) 96 11/03/19 09:43 Constitutional: Yes: Calm Cardiovascular: Yes: S1, S2 Respiratory: Yes: Regular, CTA Bilaterally Gastrointestinal: Yes: Normal Bowel Sounds, Soft, Other (dirrhoea) Musculoskeletal: Yes: WNL Extremities: Yes: WNL Neurological: Yes: Alert, Oriented Psychiatric: Yes: Alert, Oriented Labs: CBC, BMP 11/01/19 07:20 11/03/19 07:28 Assessment/Plan 83 year-old female with a PMH of HTN, HLD, polycythemia vera, s/p left hip fracture repair in December 2018. Admitted for orthostatic hypotension, diagnosed with severe sepsis secondary to UTI. Severe Sepsis UTI Mild left hydronephrosis Mild proximal left hydroureter Hyperlipidemia Polycythemia vera Unintentional weight loss plan continue abx hydration monitor dirrhoea rest as per the team
--- NOTE | 2019-11-03 13:11 | PN ---
Progress Note, Physician History of Present Illness: stable having dirrhoea still tachy - Current Medication List Current Medications: Active Medications Acetaminophen (Tylenol -) 650 mg PO Q6H PRN PRN Reason: FEVER Last Admin: 11/01/19 12:32 Dose: 650 mg Atorvastatin Calcium (Lipitor -) 10 mg PO HS [facility] Last Admin: 11/02/19 21:09 Dose: 10 mg Heparin Sodium (Porcine) (Heparin -) 5,000 unit SQ TID [facility] Last Admin: 11/03/19 06:41 Dose: 5,000 unit Hydroxyurea (Hydrea -) 500 mg PO MoTuWeThFr@1000 KEHINDE Last Admin: 11/02/19 10:32 Dose: 500 mg Piperacillin Sod/Tazobactam (Sod 3.375 gm/ Dextrose) 50 mls @ 100 mls/hr IVPB Q8H-IV KEHINDE; Protocol Last Admin: 11/03/19 10:50 Dose: Not Given Potassium Chloride 10 meq/ (Sodium Chloride) 1,005 mls @ 42 mls/hr IVPB ASDIR [facility] Last Admin: 11/02/19 14:34 Dose: 42 mls/hr - Objective Vital Signs: Vital Signs Temperature 98.1 F 11/03/19 09:43 Pulse Rate 99 H 11/03/19 09:43 Respiratory Rate 20 11/03/19 09:43 Blood Pressure 147/59 L 11/03/19 09:43 O2 Sat by Pulse Oximetry (%) 96 11/03/19 09:43 Constitutional: Yes: No Distress, Calm Cardiovascular: Yes: S1, S2 Respiratory: Yes: Regular, CTA Bilaterally Gastrointestinal: Yes: Normal Bowel Sounds, Soft Musculoskeletal: Yes: WNL Extremities: Yes: WNL Neurological: Yes: Alert, Oriented Psychiatric: Yes: Alert, Oriented Labs: CBC, BMP 11/01/19 07:20 11/03/19 07:28 Assessment/Plan 83 year-old female with a PMH of HTN, HLD, polycythemia vera, s/p left hip fracture repair in December 2018. Admitted for orthostatic hypotension, diagnosed with severe sepsis secondary to UTI. Severe Sepsis UTI Mild left hydronephrosis Mild proximal left hydroureter Hyperlipidemia Polycythemia vera Unintentional weight loss plan will change to po monitor rest as per the team
--- NOTE | 2019-11-03 20:39 | PN ---
Progress Note, Physician History of Present Illness: Pt seen and examined at bedside. SHe is awake and alert. She denies shortness of breath. - Current Medication List Current Medications: Active Medications Acetaminophen (Tylenol -) 650 mg PO Q6H PRN PRN Reason: FEVER Last Admin: 11/01/19 12:32 Dose: 650 mg Atorvastatin Calcium (Lipitor -) 10 mg PO HS [facility] Last Admin: 11/02/19 21:09 Dose: 10 mg Cefaclor (Ceclor -) 250 mg PO BID [facility] Heparin Sodium (Porcine) (Heparin -) 5,000 unit SQ TID [facility] Last Admin: 11/03/19 14:31 Dose: 5,000 unit Hydroxyurea (Hydrea -) 500 mg PO [id number]@1000 [facility] Last Admin: 11/02/19 10:32 Dose: 500 mg Potassium Chloride 10 meq/ (Sodium Chloride) 1,005 mls @ 42 mls/hr IVPB ASDIR [facility] Last Admin: 11/02/19 14:34 Dose: 42 mls/hr - Objective Vital Signs: Vital Signs Temperature 98.0 F 11/03/19 18:00 Pulse Rate 94 H 11/03/19 18:00 Respiratory Rate 19 11/03/19 18:00 Blood Pressure 153/65 11/03/19 18:00 O2 Sat by Pulse Oximetry (%) 96 11/03/19 18:00 Constitutional: Yes: Calm Eyes: Yes: Conjunctiva Clear Neck: Yes: Supple Cardiovascular: Yes: S1, S2 Respiratory: Yes: CTA Bilaterally Gastrointestinal: Yes: Soft Genitourinary: Yes: WNL Musculoskeletal: Yes: WNL Edema: No Neurological: Yes: Oriented Psychiatric: Yes: Oriented Labs: CBC, BMP 11/01/19 07:20 11/03/19 07:28 Problem List - Problems (1) Hydronephrosis Code(s): N13.30 - UNSPECIFIED HYDRONEPHROSIS (2) Hyponatremia Code(s): E87.1 - HYPO-OSMOLALITY AND HYPONATREMIA (3) Orthostatic hypotension Code(s): I95.1 - ORTHOSTATIC HYPOTENSION (4) Hip fracture Code(s): S72.009A - FRACTURE OF UNSP PART OF NECK OF UNSP FEMUR, INIT Qualifiers: Encounter type: initial encounter Fracture type: closed Laterality: left Qualified Code(s): S72.002A - Fracture of unspecified part of neck of left femur, initial encounter for closed fracture Assessment/Plan Current Medication Current Medications Generic Name Dose Route Start Last Admin Trade Name Freq PRN Reason Stop Dose Admin Acetaminophen 650 mg 11/01/19 10:55 11/01/19 12:32 Tylenol - PO 650 mg Q6H PRN Administration FEVER Atorvastatin Calcium 10 mg 11/01/19 22:00 11/02/19 21:09 Lipitor - PO 10 mg HS KEHINDE Administration Cefaclor 250 mg 11/03/19 22:00 Ceclor - PO BID KEHINDE Heparin Sodium (Porcine) 5,000 unit 10/31/19 22:00 11/03/19 14:31 Heparin - SQ 5,000 unit TID KEHINDE Administration Hydroxyurea 500 mg 10/31/19 19:00 11/02/19 10:32 Hydrea - PO 500 mg [id number]@1000 KEHINDE Administration Potassium Chloride 10 meq/ 1,005 mls @ 42 mls/hr 11/02/19 12:00 11/02/19 14: 34 Sodium Chloride IVPB 42 mls/hr ASDIR KEHINDE Administration Impression 1. hyponatremia - hypoosmolar 2. hydronephrosis 3. hypotension 4. hld 5. polycythemia Plan - sodium improving - can decrease fluids further - monitor lytes - mild left hydro on ultrasound - bp is improved
[2019-11-03] MEDS: SODIUM CHLORIDE 1,000 ML with POTASSIUM CHLORIDE 10 MEQ IVPB SCH (20:42)
[2019-11-03] MEDS: ATORVASTATIN CA 10 MG TABLET (FP) PO SCH (21:26)
[2019-11-03] MEDS ORDERED: CEFACLOR 250 MG CAPSULE PO SCH (22:00)
[2019-11-03] MEDS: CEFUROXIME AXETIL 250 MG TABLET PO SCH (22:23)
[2019-11-04] MEDS: HEPARIN NA (PORCINE) 5,000 UNITS/ML 1ML VIAL SQ SCH ×3 (06:16→21:20)
[2019-11-04 08:26] LABS: BASO % 0.5 % (0-2.0); EOS % 0.9 % (0-4.5); HEMATOCRIT 33.3 % (32.4-45.2); HEMOGLOBIN 11.1 GM/dl (10.7-15.3); LYMPH % 10.2 % (8-40); MCH 31.4 pg (25.7-33.7); MCHC 33.3 g/dl (32.0-36.0); MEAN CELL VOLUME 94.1 fl (80-96); MEAN PLT VOLUME 8.5 fl (7.5-11.1); MONO % 5.9 % (3.8-10.2); NEUT % 82.5 % (42.8-82.8); PLATELET COUNT 310 K/MM3 (134-434); RBC 3.53 M/mm3 (3.60-5.2); WHITE BLOOD COUNT 5.6 K/mm3 (4.0-10.8)
[2019-11-04 08:41] LABS: ALBUMIN 2.4 g/dl (3.4-5.0); BILIRUBIN,TOTAL 0.4 mg/dl (0.2-1); CALCIUM 8.1 mg/dl (8.5-10); CREATININE 0.4 mg/dl (0.55-1.3); MAGNESIUM 1.7 mg/dL (1.8-2.4); POTASSIUM 3.6 mmol/L (3.5-5.1); TOT PROT 4.8 g/dl (6.4-8.2)
--- NOTE | 2019-11-04 08:47 | PN ---
Physical Exam: SUBJECTIVE: Patient seen and examined, reports feel better but still c/o gen weakness, and intermittent dry cough, no further diarrhea today.Denies cp,sob, palpitations, abdominal pain, N/V or urinary symptoms. OBJECTIVE: Vital Signs Period Temp Pulse Resp BP Sys/Kiser Pulse Ox Last 24 Hr 97.5 F-98.3 F 94-104 17-22 134-153/51-69 96-100 GENERAL: The patient is awake, alert, and fully oriented, in no acute distress. HEAD: Normal with no signs of trauma. EYES: PERRL, extraocular movements intact, sclera anicteric, conjunctiva clear. No ptosis. ENT: Ears normal, nares patent, oropharynx clear without exudates, moist mucous membranes. NECK: Trachea midline, full range of motion, supple. LUNGS: Breath sounds equal, diminished at the base bilaterally, no wheezes, no crackles, no accessory muscle use. HEART: Regular rate and rhythm, S1, S2 without murmur, rub or gallop. ABDOMEN: Soft, nontender, nondistended, normoactive bowel sounds, no guarding, no rebound, no hepatosplenomegaly, no masses. EXTREMITIES: 2+ pulses, warm, well-perfused, no edema. NEUROLOGICAL: Cranial nerves II through XII grossly intact. Normal speech, gait not observed. PSYCH: Normal mood, normal affect. SKIN: Warm, dry, normal turgor, no rashes or lesions noted, pale Laboratory Results - last 24 hr 11/03/19 11/04/19 07:28 06:00 WBC 5.6 RBC 3.53 L Hgb 11.1 Hct 33.3 MCV 94.1 MCH 31.4 MCHC 33.3 RDW 20.0 H Plt Count 310 MPV 8.5 Absolute Neuts (auto) 4.6 Neutrophils % 82.5 Lymphocytes % 10.2 Monocytes % 5.9 Eosinophils % 0.9 Basophils % 0.5 Sodium 134 L Potassium 3.5 Chloride 105 Carbon Dioxide 22 Anion Gap 7 L BUN 7.0 Creatinine 0.5 L Est GFR (CKD-EPI)AfAm 102.29 Est GFR (CKD-EPI)NonAf 88.25 Random Glucose 106 Calcium 7.9 L Total Bilirubin 0.8 AST 23 ALT 22 Alkaline Phosphatase 96 Total Protein 4.7 L Albumin 2.3 L Active Medications Generic Name Dose Route Start Last Admin Trade Name Freq PRN Reason Stop Dose Admin Acetaminophen 650 mg 11/01/19 10:55 11/01/19 12:32 Tylenol - PO 650 mg Q6H PRN Administration FEVER Atorvastatin Calcium 10 mg 11/01/19 22:00 11/03/19 21:26 Lipitor - PO 10 mg HS KEHINDE Administration Cefuroxime Axetil 250 mg 11/03/19 22:00 11/03/19 22:23 Ceftin - PO 250 mg BID KEHINDE Administration Heparin Sodium (Porcine) 5,000 unit 10/31/19 22:00 11/04/19 06:16 Heparin - SQ 5,000 unit TID KEHINDE Administration Hydroxyurea 500 mg 10/31/19 19:00 11/02/19 10:32 Hydrea - PO 500 mg [id number]@1000 KEHINDE Administration Potassium Chloride 10 meq/ 1,005 mls @ 35 mls/hr 11/03/19 20:39 11/03/19 20: 42 Sodium Chloride IVPB 35 mls/hr ASDIR KEHINDE Administration Microbiology 10/31/19 18:30 Urine - Urine Clean Catch Urine Culture - Final Escherichia Coli 11/01/19 08:45 Blood - Peripheral Venous Blood Culture - Preliminary NO GROWTH OBTAINED AFTER 48 HOURS, INCUBATION TO CONTINUE FOR 3 DAYS. 11/01/19 08:45 Blood - Peripheral Venous Blood Culture - Preliminary NO GROWTH OBTAINED AFTER 48 HOURS, INCUBATION TO CONTINUE FOR 3 DAYS. 11/01/19 20:20 Stool Clostridioides difficile Antigen - Final 11/01/19 20:20 Stool Clostridioides difficile Toxin Assay - Final Imaging Renal US : Mild left hydro,, GB stones, Mild proximal left hydroureter Hyperlipidemia CxR: vascular congestion CT Chest : vascular congestion,, CM, consolidation/ atelectasis, Rt pleural effusion. multiple low attenuation live lesions. ASSESSMENT/PLAN: 83 year-old female with a PMH of HTN, HLD, polycythemia vera, s/p left hip fracture repair in December 2018. Admitted for orthostatic hypotension, diagnosed with severe sepsis secondary to UTI. *Severe Sepsis secondary to UTI -on 11/01, fever to 100.4, p 102, drop in systolic BP>30 points, LFGNB UTI -s/p fluid resuscitated 1.5L with improvement in hemodynamics - ID following -s/p Vanc and Zosyn, now on Ceftin -BC no growth - remains afebrile with no leukocytosis * Orthostatic hypotension - improved, likely due to poor PO intake - still on gentle hydration -will monitor BP closely - will restart on home bp meds once BP stable *Heart failure ruled out -11/02 echo: LV normal, EF 60-65%; RV normal; trace TR -seen and evaluated by cardiology, unremarkable study *Mild left hydronephrosis/Mild proximal left hydroureter -no obstructing stones seen on either CT or US - renal following - -outpatient follow up with urology *Hyperlipidemia -continue Lipitor *Polycythemia vera -sees Dr. Erna Landry monthly - takes Hydroxyurea Mon through Tue, will continue *Unintentional weight loss Protein calorie malnutrition -36 pound unintentional weight loss over 9 months -2+ protein and 2+ ketones in urine on admission -thin, frail, cachectic, BMI 17 -nutrition consult- rec Ensure clear, magic cup and and vitamin supplements *Hypokalemia- resolved -repleted *Hyponatremia - Na129>134 >135 improved with hydration - FEN Fluids: NS+10K@42mL/hr Electrolytes: replete as indicated Nutrition: regular diet DVT prophylaxis: subq heparin Physical therapy Pt still c/o gen weakness. Dispo: continues to require inpatient care. Full code. Visit type - Emergency Visit Emergency Visit: Yes ED Registration Date: 10/31/19 Care time: The patient presented to the Emergency Department on the above date and was hospitalized for further evaluation of their emergent condition. - New Patient This patient is new to me today: Yes Date on this admission: 11/04/19 - Critical Care Critical Care patient: No
[2019-11-04] MEDS ORDERED: PT OWN MED DRAWER 7, Y5N ONE ×2 (09:49→21:18)
[2019-11-04] MEDS: CEFUROXIME AXETIL 250 MG TABLET PO SCH ×2 (09:57→21:20)
--- NOTE | 2019-11-04 09:57 | PN ---
Progress Note, Physician History of Present Illness: improving no dirrhoea weakness - Current Medication List Current Medications: Active Medications Acetaminophen (Tylenol -) 650 mg PO Q6H PRN PRN Reason: FEVER Last Admin: 11/01/19 12:32 Dose: 650 mg Atorvastatin Calcium (Lipitor -) 10 mg PO HS [facility] Last Admin: 11/03/19 21:26 Dose: 10 mg Calcium/Vitamin D (Oscal 250 Mg+D -) 1 tab PO DAILY [facility] Cefuroxime Axetil (Ceftin -) 250 mg PO BID [facility] Last Admin: 11/03/19 22:23 Dose: 250 mg Heparin Sodium (Porcine) (Heparin -) 5,000 unit SQ TID [facility] Last Admin: 11/04/19 06:16 Dose: 5,000 unit Hydroxyurea (Hydrea -) 500 mg PO [id number] [facility] Last Admin: 11/02/19 10:32 Dose: 500 mg Potassium Chloride 10 meq/ (Sodium Chloride) 1,005 mls @ 35 mls/hr IVPB ASDIR [facility] Last Admin: 11/03/19 20:42 Dose: 35 mls/hr Multivitamins/Minerals/Vitamin C (Tab-A-Vit -) 1 tab PO DAILY [facility] - Objective Vital Signs: Vital Signs Temperature 97.8 F 11/04/19 08:01 Pulse Rate 104 H 11/04/19 08:01 Respiratory Rate 22 H 11/04/19 08:01 Blood Pressure 148/69 11/04/19 08:01 O2 Sat by Pulse Oximetry (%) 96 11/04/19 08:01 Constitutional: Yes: No Distress, Calm Cardiovascular: Yes: S1, S2 Respiratory: Yes: Regular, CTA Bilaterally Gastrointestinal: Yes: Normal Bowel Sounds, Soft Musculoskeletal: Yes: WNL Extremities: Yes: WNL Neurological: Yes: Alert, Oriented Psychiatric: Yes: Alert, Oriented Labs: CBC, BMP 11/04/19 06:00 11/04/19 06:00 Assessment/Plan 83 year-old female with a PMH of HTN, HLD, polycythemia vera, s/p left hip fracture repair in December 2018. Admitted for orthostatic hypotension, diagnosed with severe sepsis secondary to UTI. Severe Sepsis UTI Mild left hydronephrosis Mild proximal left hydroureter Hyperlipidemia Polycythemia vera Unintentional weight loss plan continue po for couple of days rest as per the team
[2019-11-04] MEDS: MULTIVITAMINS (DAILY MVI) TABLET (FP) PO SCH (10:21)
[2019-11-04] MEDS ORDERED: MAGNESIUM SULF 50% (8.12 MEQ/2 ML-1 GM VIAL) IVPB ONE (10:27)
--- NOTE | 2019-11-04 11:47 | PN ---
Progress Note (short form) - Note Progress Note: s: no cp sob palps dizzy Current Medications Generic Name Dose Route Start Last Admin Trade Name Freq PRN Reason Stop Dose Admin Acetaminophen 650 mg 11/01/19 10:55 11/01/19 12:32 Tylenol - PO 650 mg Q6H PRN Administration FEVER Atorvastatin Calcium 10 mg 11/01/19 22:00 11/03/19 21:26 Lipitor - PO 10 mg HS KEHINDE Administration Calcium/Vitamin D 1 tab 11/04/19 10:00 Oscal 250 Mg+D - PO DAILY KEHINDE Cefuroxime Axetil 250 mg 11/03/19 22:00 11/04/19 09:57 Ceftin - PO 250 mg BID KEHINDE Administration Heparin Sodium (Porcine) 5,000 unit 10/31/19 22:00 11/04/19 06:16 Heparin - SQ 5,000 unit TID KEHINDE Administration Hydroxyurea 500 mg 10/31/19 19:00 11/02/19 10:32 Hydrea - PO 500 mg [id number]@1000 KEHINDE Administration Potassium Chloride 10 meq/ 1,005 mls @ 35 mls/hr 11/03/19 20:39 11/03/19 20: 42 Sodium Chloride IVPB 35 mls/hr ASDIR KEHINDE Administration Multivitamins/Minerals/Vitamin C 1 tab 11/04/19 10:00 11/04/19 10:21 Tab-A-Vit - PO 1 tab DAILY KEHINDE Administration Vital Signs Period Temp Pulse Resp BP Sys/Kiser Pulse Ox Last 24 Hr 97.5 F-98.3 F 94-106 16-22 124-153/51-69 96-100 nad no jvd rrr s1s2 no mrg cta bl nl eff aao3 no jaundice diaphoresis abd nt nd pos bs no le e/c/c CBC, BMP 11/04/19 06:00 11/04/19 06:00 echo 10/2019: nl lv/rv no sig valve path nl rvsp ecg: sr nl intervals no ischemic changes ct chest: possible congestion, small bl effs a/p: 84 f hx htn, hld, here with weakness, decreased appetite, wt loss. uti: -abx per ID, pmd htn: -bp initially on lower side with orthostatic sxs, likely from decreased po intake, infection. after ivfs and abx bp improved. can likely resume home bp meds soon. hld: -cont statin hyponatremia: -with ivfs na improving, renal following -no significant signs of chf, bnp low, echo wnl. can continue ivfs for now.
[2019-11-04] MEDS ORDERED: MAGNESIUM OXIDE 400 MG TABLET (FP) PO ONE (11:53)
[2019-11-04] MEDS: CALCIUM 250MG/VIT-D 125 UNITS 1 COMBO TABLET PO SCH (11:53)
--- NOTE | 2019-11-04 20:58 | PN ---
Progress Note, Physician History of Present Illness: Pt seen and examined at bedside. She denies shortness of breath. - Current Medication List Current Medications: Active Medications Acetaminophen (Tylenol -) 650 mg PO Q6H PRN PRN Reason: FEVER Last Admin: 11/01/19 12:32 Dose: 650 mg Atorvastatin Calcium (Lipitor -) 10 mg PO HS [facility] Last Admin: 11/03/19 21:26 Dose: 10 mg Calcium/Vitamin D (Oscal 250 Mg+D -) 1 tab PO DAILY [facility] Last Admin: 11/04/19 11:53 Dose: 1 tab Cefuroxime Axetil (Ceftin -) 250 mg PO BID [facility] Last Admin: 11/04/19 09:57 Dose: 250 mg Heparin Sodium (Porcine) (Heparin -) 5,000 unit SQ TID [facility] Last Admin: 11/04/19 14:51 Dose: 5,000 unit Potassium Chloride 10 meq/ (Sodium Chloride) 1,005 mls @ 35 mls/hr IVPB ASDIR [facility] Last Admin: 11/03/19 20:42 Dose: 35 mls/hr Multivitamins/Minerals/Vitamin C (Tab-A-Vit -) 1 tab PO DAILY [facility] Last Admin: 11/04/19 10:21 Dose: 1 tab - Objective Vital Signs: Vital Signs Temperature 97.9 F 11/04/19 18:00 Pulse Rate 97 H 11/04/19 18:00 Respiratory Rate 20 11/04/19 18:00 Blood Pressure 146/66 11/04/19 18:00 O2 Sat by Pulse Oximetry (%) 100 11/04/19 18:00 Constitutional: Yes: Calm Eyes: Yes: Conjunctiva Clear HENT: Yes: Atraumatic Cardiovascular: Yes: S1, S2 Respiratory: Yes: CTA Bilaterally Gastrointestinal: Yes: Normal Bowel Sounds, Soft Genitourinary: Yes: WNL Musculoskeletal: Yes: WNL Edema: No Neurological: Yes: Oriented Psychiatric: Yes: Oriented Labs: CBC, BMP 11/04/19 06:00 11/04/19 06:00 Problem List - Problems (1) Hydronephrosis Code(s): N13.30 - UNSPECIFIED HYDRONEPHROSIS (2) Hyponatremia Code(s): E87.1 - HYPO-OSMOLALITY AND HYPONATREMIA (3) Orthostatic hypotension Code(s): I95.1 - ORTHOSTATIC HYPOTENSION (4) Hip fracture Code(s): S72.009A - FRACTURE OF UNSP PART OF NECK OF UNSP FEMUR, INIT Qualifiers: Encounter type: initial encounter Fracture type: closed Laterality: left Qualified Code(s): S72.002A - Fracture of unspecified part of neck of left femur, initial encounter for closed fracture Assessment/Plan Current Medications Generic Name Dose Route Start Last Admin Trade Name Freq PRN Reason Stop Dose Admin Acetaminophen 650 mg 11/01/19 10:55 11/01/19 12:32 Tylenol - PO 650 mg Q6H PRN Administration FEVER Atorvastatin Calcium 10 mg 11/01/19 22:00 11/03/19 21:26 Lipitor - PO 10 mg HS KEHINDE Administration Calcium/Vitamin D 1 tab 11/04/19 10:00 11/04/19 11:53 Oscal 250 Mg+D - PO 1 tab DAILY KEHINDE Administration Cefuroxime Axetil 250 mg 11/03/19 22:00 11/04/19 09:57 Ceftin - PO 250 mg BID KEHINDE Administration Heparin Sodium (Porcine) 5,000 unit 10/31/19 22:00 11/04/19 14:51 Heparin - SQ 5,000 unit TID KEHINDE Administration Potassium Chloride 10 meq/ 1,005 mls @ 35 mls/hr 11/03/19 20:39 11/03/19 20: 42 Sodium Chloride IVPB 35 mls/hr ASDIR KEHINDE Administration Multivitamins/Minerals/Vitamin C 1 tab 11/04/19 10:00 11/04/19 10:21 Tab-A-Vit - PO 1 tab DAILY KEHINDE Administration Impression 1. hyponatremia - hypoosmolar 2. hydronephrosis 3. hypotension 4. hld 5. polycythemia Plan - sodium improving - d/c fluids tonight - can see in office - hyponatremia chronic - limit free water intake - mild left hydro on ultrasound
[2019-11-04] MEDS: ATORVASTATIN CA 10 MG TABLET (FP) PO SCH (21:20)
[2019-11-04] MEDS: SODIUM CHLORIDE 1,000 ML with POTASSIUM CHLORIDE 10 MEQ IVPB SCH (21:24)
[2019-11-05 06:02] VITALS: TEMP 97.5
[2019-11-05] MEDS: HEPARIN NA (PORCINE) 5,000 UNITS/ML 1ML VIAL SQ SCH (06:11)
[2019-11-05 07:20] LABS: BASO % 0.6 % (0-2.0); EOS % 0.6 % (0-4.5); HEMATOCRIT 34.8 % (32.4-45.2); HEMOGLOBIN 11.7 GM/dl (10.7-15.3); LYMPH % 9.3 % (8-40); MCH 31.6 pg (25.7-33.7); MCHC 33.6 g/dl (32.0-36.0); MEAN CELL VOLUME 93.9 fl (80-96); MEAN PLT VOLUME 7.5 fl (7.5-11.1); MONO % 6.1 % (3.8-10.2); NEUT % 83.4 % (42.8-82.8); PLATELET COUNT 347 K/MM3 (134-434); RBC 3.71 M/mm3 (3.60-5.2); RDW 19.9 % (11.6-15.6); WHITE BLOOD COUNT 5.8 K/mm3 (4.0-10.8)
[2019-11-05] MEDS ORDERED: PT OWN MED DRAWER 7, Y5N ONE (07:23)
[2019-11-05 07:48] LABS: CALCIUM 8.2 mg/dl (8.5-10); CREATININE 0.4 mg/dl (0.55-1.3); MAGNESIUM 1.8 mg/dL (1.8-2.4); POTASSIUM 3.3 mmol/L (3.5-5.1)
[2019-11-05] MEDS ORDERED: POTASSIUM CHLORIDE TABS 20 MEQ TABLET.ER (FP) PO SCH (08:45)
[2019-11-05] MEDS ORDERED: MAGNESIUM SULF 50% (8.12 MEQ/2 ML-1 GM VIAL) IVPB ONE (08:45)
[2019-11-05] MEDS: MULTIVITAMINS (DAILY MVI) TABLET (FP) PO SCH (09:04)
[2019-11-05] MEDS: CALCIUM 250MG/VIT-D 125 UNITS 1 COMBO TABLET PO SCH (09:05)
[2019-11-05] MEDS: CEFUROXIME AXETIL 250 MG TABLET PO SCH (09:05)
[2019-11-05 09:18] VITALS: BP 125/57; PULSE 97
--- NOTE | 2019-11-05 11:26 | DS ---
Physical Exam: SUBJECTIVE: Patient seen and examined OBJECTIVE: Vital Signs Period Temp Pulse Resp BP Sys/Kiser Pulse Ox Last 24 Hr 97.4 F-98.3 F 95-98 17-20 125-155/57-67 95-100 PHYSICAL EXAM GENERAL: Awake, alert, and fully oriented, in no acute distress. Much more alert than yesterday. LUNGS: Breath sounds equal, clear to auscultation bilaterally. No wheezes, and no crackles. No accessory muscle use. HEART: Regular rate and rhythm, normal S1 and S2 ABDOMEN: Soft, nontender, not distended MUSCULOSKELETAL: Normal range of motion at all joints. No bony deformities or tenderness. No CVA tenderness. UPPER EXTREMITIES: 2+ pulses, warm, well-perfused. No cyanosis. No clubbing. No peripheral edema. LOWER EXTREMITIES: 2+ pulses, warm, well-perfused. No calf tenderness. No peripheral edema. NEUROLOGICAL: Cranial nerves II-XII intact. Normal speech. Moving all extremities freely, self positions easily. LABS Laboratory Results - last 24 hr 11/05/19 11/05/19 07:01 07:01 WBC 5.8 RBC 3.71 Hgb 11.7 Hct 34.8 MCV 93.9 MCH 31.6 MCHC 33.6 RDW 19.9 H Plt Count 347 MPV 7.5 Absolute Neuts (auto) 4.9 Neutrophils % 83.4 H Lymphocytes % 9.3 Monocytes % 6.1 Eosinophils % 0.6 Basophils % 0.6 Sodium 135 L Potassium 3.3 L Chloride 103 Carbon Dioxide 22 Anion Gap 10 BUN 3.0 L Creatinine 0.4 L Est GFR (CKD-EPI)AfAm 110.08 Est GFR (CKD-EPI)NonAf 94.98 Random Glucose 103 Calcium 8.2 L Magnesium 1.8 HOSPITAL COURSE: Date of Admission:10/31/19 Date of Discharge: 11/05/19 83 year-old female with a PMH of HTN, HLD, polycythemia vera, s/p left hip fracture repair in December 2018. Admitted for orthostatic hypotension, diagnosed with severe sepsis secondary to UTI. Severe Sepsis secondary to UTI --on 11/01, fever to 100.4, p 102, drop in systolic BP>30 points, LFGNB UTI --fluid resuscitated 1.5L with improvement in hemodynamics --broadened antibiotics to Vanc and Zosyn --maintained good UOP, continue strict I&Os Heart failure ruled out --11/02 echo: LV normal, EF 60-65%; RV normal; trace TR --seen and evaluated by cardiology, unremarkable study Mild left hydronephrosis Mild proximal left hydroureter --no obstructing stones seen on either CT or US --small post-void residual --voiding well, makikng good urine --unclear etiology, outpatient follow up with urology Hyperlipidemia --continue Lipitor Polycythemia vera --sees Dr. Erna Landry monthly --presently takes hydroxyurea Mon through Tue, will continue Unintentional weight loss Protein calorie malnutrition --36 pound unintentional weight loss over 9 months --2+ protein and 2+ ketones in urine on admission --thin, frail, cachectic, BMI 17 --nutrition consult Hypokalemia --repleted Hyponatremia --improved, continue NS Discharge Summary Problems reviewed: Yes Reason For Visit: WEAK LOW BLOOD PRESSURE IN PMD OFFICE Current Active Problems Diarrhea (Acute) Failure to thrive (Acute) Hydronephrosis (Acute) Hyponatremia (Acute) Orthostatic hypotension (Acute) Polycythemia (Acute) Condition: Improved - Instructions Diet, Activity, Other Instructions: A prescription has been sent to your pharmacy for cefuroxime which is an antibiotic. Take this medication as directed and be sure to finish all the medication. A prescription has also been sent for a potassium supplement. Take this medication as directed, while you are on the antibiotic. We recommend you speak to your primary care provider about your mood, and the benefit of possibly starting anti-depressant medication. Continue to follow with Dr. Erna Landry, your pack puller. We recommend you follow up with a urologist for mild left hydronephrosis and mild left hydroureter. The urologist may want to perform diagnositic testing and /or prescribe medication. Referrals: Alireza Melendez MD [Primary Care Provider] - Disposition: HOME - Home Medications Comprehensive Discharge Medication List: Ambulatory Orders Amlodipine Besylate 5 mg PO DAILY 01/15/19 Atorvastatin Ca [Lipitor] 10 mg PO DAILY 01/15/19 Lisinopril 20 mg PO DAILY 01/15/19 Metoprolol Succinate [Toprol XL -] 25 mg PO DAILY 01/15/19 Hydroxyurea [Hydrea 500Mg Capsule -] 500 mg PO ASDIR 10/31/19
[2019-11-05] MEDS ORDERED: LOPERAMIDE HCL 2 MG CAPSULE PO ONE (11:45)
--- NOTE | 2019-11-05 12:48 | PN ---
Progress Note, Physician History of Present Illness: stable no new issues - Current Medication List Current Medications: Active Medications Acetaminophen (Tylenol -) 650 mg PO Q6H PRN PRN Reason: FEVER Last Admin: 11/01/19 12:32 Dose: 650 mg Atorvastatin Calcium (Lipitor -) 10 mg PO HS [facility] Last Admin: 11/04/19 21:20 Dose: 10 mg Calcium/Vitamin D (Oscal 250 Mg+D -) 1 tab PO DAILY [facility] Last Admin: 11/05/19 09:05 Dose: 1 tab Cefuroxime Axetil (Ceftin -) 250 mg PO BID [facility] Last Admin: 11/05/19 09:05 Dose: 250 mg Heparin Sodium (Porcine) (Heparin -) 5,000 unit SQ TID [facility] Last Admin: 11/05/19 06:11 Dose: 5,000 unit Multivitamins/Minerals/Vitamin C (Tab-A-Vit -) 1 tab PO DAILY [facility] Last Admin: 11/05/19 09:04 Dose: 1 tab Potassium Chloride (K-Dur -) 40 meq PO Q6H [facility] Stop: 11/05/19 14:46 Last Admin: 11/05/19 08:42 Dose: 40 meq - Objective Vital Signs: Vital Signs Temperature 97.5 F L 11/05/19 09:17 Pulse Rate 97 H 11/05/19 09:17 Respiratory Rate 18 11/05/19 09:17 Blood Pressure 125/57 L 11/05/19 09:17 O2 Sat by Pulse Oximetry (%) 100 11/05/19 10:09 Constitutional: Yes: No Distress, Calm Cardiovascular: Yes: S1, S2 Respiratory: Yes: Regular, CTA Bilaterally Gastrointestinal: Yes: Normal Bowel Sounds, Soft Musculoskeletal: Yes: WNL Extremities: Yes: WNL Neurological: Yes: Alert, Oriented Psychiatric: Yes: Alert, Oriented Labs: CBC, BMP 11/05/19 07:01 11/05/19 07:01 Assessment/Plan 83 year-old female with a PMH of HTN, HLD, polycythemia vera, s/p left hip fracture repair in December 2018. Admitted for orthostatic hypotension, diagnosed with severe sepsis secondary to UTI. Severe Sepsis UTI Mild left hydronephrosis Mild proximal left hydroureter Hyperlipidemia Polycythemia vera Unintentional weight loss plan continue po for couple of days rest as per the team
== END 2019-11-05 12:58 | disposition home or self-care (01) | DRG 871 ==
LOC: FER 12:20 → FM/S 15:37
PROVIDERS: ADMIT Internal Medicine; ATTEND Nurse Practitioner Acute Care
DX: A41.9 Sepsis, unspecified organism (principal); E43 Unspecified severe protein-calorie malnutrition; Z68.1 Body mass index [BMI] 19.9 or less, adult; N13.30 Unspecified hydronephrosis; E87.1 Hypo-osmolality and hyponatremia; N39.0 Urinary tract infection, site not specified; R65.20 Severe sepsis without septic shock; D45 Polycythemia vera; I95.1 Orthostatic hypotension; R62.7 Adult failure to thrive; E87.6 Hypokalemia; R19.7 Diarrhea, unspecified; I10 Essential (primary) hypertension; M81.0 Age-related osteoporosis without current pathological fracture; E78.5 Hyperlipidemia, unspecified; R53.1 Weakness
CPT/HCPCS: 36415; 71045-TC-FY; 71260-TC; 74177-TC; 76775-TC; 76856-TC; 80048; 80053; 81003; 81015; 82436; 82550; 83605; 83735; 83880; 83930; 84133; 84300; 84443; 84484; 85025; 87040; 87086; 87186; 87324; 87449; 93005; 93306-TC; 97116-GP; 99284-25; J1644; J7030; J8999; Q9967

== ENCOUNTER 2019-11-11 19:03 | Emergency (ER) | payer OTHER ==
[2019-11-11 19:14] VITALS: BP 107/60; PULSE 91; TEMP 97.7; BMI 16.4
[2019-11-11] MEDS ORDERED: LIDOCAINE 5% TOPICAL PATCH TP ONE (20:13)
[2019-11-11] MEDS ORDERED: SODIUM CHLORIDE 0.9% 500 ML INFUS.BAG IV ONE (20:13)
--- NOTE | 2019-11-11 20:21 | PDOC ---
Documentation entered by Zully Lieberman SCRIBE, acting as scribe for Venus Rascon MD. Venus Rascon MD: This documentation has been prepared by the [place] Aiswarya, SCRIBE, under my direction and personally reviewed by me in its entirety. I confirm that the documentation accurately reflects all work, treatment, procedures, and medical decision making performed by me. History of Present Illness - General Chief Complaint: Diarrhea Stated Complaint: WEAK,DIAHREHA Time Seen by Provider: 11/11/19 19:14 History Source: Patient Exam Limitations: No Limitations - History of Present Illness Initial Comments: 11/11/19 19:58 The patient is a 84 year old female, with a significant PMH of polycythemia and HTN, who presents to the emergency department with diarrhea that began a few days ago. Per patient's daughter, patient came in 2 weeks and was diagnosed for a UTI. Since then patient endorses associated symptoms of fatigue, decreased appetite, diarrhea, nausea, sob and left hip pain. The patient denies chest pain , headache and dizziness. Denies fever, chills, vomit and constipation.Denies dysuria, frequency, urgency and hematuria. Allergies: NKDA Past surgical history: Social history: No reported PCP: Dr. Melendez Past History - Past Medical History Allergies/Adverse Reactions: Allergies Allergy/AdvReac Type Severity Reaction Status Date / Time No Known Allergies Allergy Verified 11/11/19 19:05 Home Medications: Ambulatory Orders Amlodipine Besylate 5 mg PO DAILY 01/15/19 Atorvastatin Ca [Lipitor] 10 mg PO DAILY 01/15/19 Lisinopril 20 mg PO DAILY 01/15/19 Metoprolol Succinate [Toprol XL -] 25 mg PO DAILY 01/15/19 Anemia: No (polycythemia) Asthma: No COPD: No HTN: Yes - Psycho Social/Smoking Cessation Hx Smoking History: Never smoked Have you smoked in the past 12 months: No If you are a former smoker, when did you quit?: 60 YEARS Information on smoking cessation initiated: No Hx Alcohol Use: Yes (OCCASIONAL) Drug/Substance Use Hx: No Substance Use Type: None Hx Substance Use Treatment: No Review of Systems - Review of Systems Able to Perform ROS?: Yes Comments:: 11/11/19 19:59 GENERAL/CONSTITUTIONAL: +weakness. No fever or chills. HEAD, EYES, EARS, NOSE AND THROAT: No change in vision. No ear pain or discharge. No sore throat. CARDIOVASCULAR:+Sob. No chest pain. RESPIRATORY: No cough, wheezing, or hemoptysis. GASTROINTESTINAL:+diarrhea. + nausea. Noconstipation. GENITOURINARY: No dysuria, frequency, or change in urination. MUSCULOSKELETAL: +left hip pain. No neck or back pain. SKIN: No rash NEUROLOGIC: No headache, vertigo, loss of consciousness, or change in strength/ sensation. ENDOCRINE: No increased thirst. No abnormal weight change. HEMATOLOGIC/LYMPHATIC: No anemia, easy bleeding, or history of blood clots. ALLERGIC/IMMUNOLOGIC: No hives or skin allergy. *Physical Exam - Vital Signs Last Vital Signs Temp Pulse Resp BP Pulse Ox 97.7 F 91 H 20 107/60 100 11/11/19 19:04 11/11/19 19:04 11/11/19 19:04 11/11/19 19:04 11/11/19 19:04 - Physical Exam 11/11/19 19:59 GENERAL: +cachectic.Awake, alert, and fully oriented, in no acute distress HEAD: No signs of trauma LUNGS: Breath sounds equal, clear to auscultation bilaterally. No wheezes, and no crackles HEART: Regular rate and rhythm, normal S1 and S2, no murmurs, rubs or gallops ABDOMEN: Soft, nontender, normoactive bowel sounds. No guarding, no rebound. No masses EXTREMITIES: +tenderness on palpation of the left iliac crest. No edema. No clubbing or cyanosis. No cords, erythema. NEUROLOGICAL: Cranial nerves II through XII grossly intact. Normal speech, SKIN: Warm, Dry, normal turgor, no rashes or lesions noted. ED Treatment Course - LABORATORY CBC & Chemistry Diagram: 11/11/19 20:50 11/11/19 20:50 - RADIOLOGY Radiology Studies Ordered: Category Date Time Status PELVIS [RAD] Stat Radiology 11/11/19 19:48 Ordered SPINE-LUMBAR SACRAL [RAD] Stat Radiology 11/11/19 19:48 Ordered Medical Decision Making - Medical Decision Making 11/11/19 20:18 pt presents to the ED complaining of profuse watery diarrhea, generalized weakness and decreased PO intake. Daughter is stating that she is unable to care for the patient at home. Will check labs to evaluate for dehydration or infection, give gentle hydration and reassess. Will consider admission if labs are abnormal. 11/11/19 23:42 Labs show mild hyponatremia, and mild elevation in wbc count, but no other abnormalities. PAtient was given gentle hydration in the ED to treat the hyponatremia. Has follow up with Dr. Coles tomorrow am. Will discharge home with instructions to return to the ED for worsening symptoms. Daughter and patient have reassured me that she able to be cared for at home. Discharge - Discharge Information Problems reviewed: Yes Clinical Impression/Diagnosis: Diarrhea Qualifiers: Diarrhea type: unspecified type Qualified Code(s): R19.7 - Diarrhea, unspecified Condition: Good Disposition: HOME - Admission No - Additional Discharge Information Prescription Drug Monitoring Program (I-STOP) results: I-STOP not reviewed - Follow up/Referral - Patient Discharge Instructions Patient Printed Discharge Instructions: Diarrhea Additional Instructions: you came to the ED because you had diarrhea, and because you weren't eating well and were feeling weak. We did xrays and lab tests which showed a mild decrease in your sodium, and a mild elevation in your wbc count, but no other findings. You should return to the ED for worsening symptoms, especially severe weakness, passing out, fever, other worsening symptoms. You must keep your appointment with Dr. Coles tomorrow am. - Post Discharge Activity
[2019-11-11] MEDS ORDERED: LIDOCAINE 5% TOPICAL PATCH ONE (20:55)
[2019-11-11 21:07] LABS: BASO % 1.4 % (0-2.0); EOS % 0.2 % (0-4.5); HEMATOCRIT 37.1 % (32.4-45.2); HEMOGLOBIN 12.3 GM/dl (10.7-15.3); LYMPH % 4.5 % (8-40); MCH 31.1 pg (25.7-33.7); MEAN CELL VOLUME 94.1 fl (80-96); MEAN PLT VOLUME 8.9 fl (7.5-11.1); NEUT % 88.9 % (42.8-82.8); PLATELET COUNT 458 K/MM3 (134-434); RBC 3.94 M/mm3 (3.60-5.2); RDW 18.8 % (11.6-15.6); WHITE BLOOD COUNT 12.4 K/mm3 (4.0-10.8)
[2019-11-11 21:11] LABS: ADD RBC MORPHOLOGY YES
[2019-11-11 21:19] LABS: BILIRUBIN,TOTAL 0.7 mg/dl (0.2-1); CREATININE 0.7 mg/dl (0.55-1.3); POTASSIUM 4.4 mmol/L (3.5-5.1); TOT PROT 6.1 g/dl (6.4-8.2)
[2019-11-11 21:53] LABS: ANISOCYTOSIS 2+; PLATELET ESTIMATE ADEQUATE
[2019-11-11] MEDS ORDERED: LIDOCAINE PATCH REMOVAL MC SCH (22:00)
[2019-11-11 22:13] LABS: EPITHELIAL CELLS FEW /hpf
== END 2019-11-11 23:57 | disposition home or self-care (01) ==
LOC: FER 19:03
PROC: 3E0337Z Introduction of Electrolytic and Water Balance Substance into Peripheral Vein, Percutaneous Approach (ICD-10-PCS; principal; 2019-11-11)
DX: R19.7 Diarrhea, unspecified (principal); R53.1 Weakness; E87.1 Hypo-osmolality and hyponatremia; I10 Essential (primary) hypertension
CPT/HCPCS: 36415; 71045-TC-FY; 72100-TC-FY; 72170-TC-FY; 80053; 81003; 81015; 84443; 85025; 99283-25

== ENCOUNTER 2019-11-28 16:00 | Inpatient (IN) | payer OTHER ==
--- NOTE | 2019-11-28 16:15 | PDOC ---
History of Present Illness - General Chief Complaint: Weakness Stated Complaint: WEAKNESS Time Seen by Provider: 11/28/19 16:14 Past History - Past Medical History Allergies/Adverse Reactions: Allergies Allergy/AdvReac Type Severity Reaction Status Date / Time No Known Allergies Allergy Verified 11/28/19 16:04 Home Medications: Ambulatory Orders Amlodipine Besylate 5 mg PO DAILY 01/15/19 Atorvastatin Ca [Lipitor] 10 mg PO DAILY 01/15/19 Lisinopril 20 mg PO DAILY 01/15/19 Metoprolol Succinate [Toprol XL -] 25 mg PO DAILY 01/15/19 Anemia: (polycythemia) Asthma: No COPD: No HTN: Yes Other medical history: osteoporosis - Psycho Social/Smoking Cessation Hx Smoking History: Never smoked Have you smoked in the past 12 months: No If you are a former smoker, when did you quit?: 60 YEARS Information on smoking cessation initiated: No Hx Alcohol Use: No Drug/Substance Use Hx: No Substance Use Type: None Hx Substance Use Treatment: No *Physical Exam - Vital Signs Last Vital Signs Temp Pulse Resp BP Pulse Ox 97.2 F L 96 H 17 125/64 96 11/28/19 16:00 11/28/19 16:00 11/28/19 16:00 11/28/19 16:00 11/28/19 16:00 ED Treatment Course - LABORATORY CBC & Chemistry Diagram: 11/28/19 17:25 11/28/19 17:25 Medical Decision Making - Medical Decision Making 11/28/19 17:51 HPI: 84yo F hx HTN, polycythemia, recent L hip fx, 3 recent kyphoplasties for fractures in 09/2019, sent by Dr Fernández for admission under Dr Luis for 4wks (since surgeries) persistent worsening NB diarrhea, generalized weakness, SOB, FISCHER, dry cough, nausea, decreased appetite and weight loss, lightheadedness, back and hip pain, and developing bed sore. Pt lives with daughter who is here. Daughter states family is trying to care for her but she's too weak to even sit up so they're having difficulty and would like NH placement. Pt has had multiple recent tests and images for sx. MRI of spine done 1 week ago. Denies incontinence, retention, saddle anesthesia, numbness/tingling. Known hyponatremia going to start unknown medication soon. Diarrhea worked up and c diff negative per pt. Endorses getting flu shot, denies vomiting or sore throat or headache or myalgias. Bed sore developing despite ointment. Pt went to Dr Fernández today at [place] who told her to come here to ED for admission. ROS: Constitutional: Positive for fatigue, generalized weakness, weight loss. Negative for chills, fever, diaphoresis. HENT: Negative for sore throat, rhinorrhea, congestion. Eyes: Negative for visual disturbance. Respiratory: Positive for shortness of breath, FISCHER, cough. Negative for wheezing. Cardiovascular: Negative for chest pain, palpitations, and leg swelling. Gastrointestinal: Positive for diarrhea, decreased appetite. Negative for abdominal pain, blood in stool, constipation, nausea, and vomiting. Genitourinary: Negative for dysuria, flank pain, and hematuria. Musculoskeletal: Positive for L hip pain and lower back pain. Negative for myalgias, and neck pain. Skin: Positive for bed sore. Neurological: Positive for light-headedness, dizziness. Negative for vertigo, syncope, focal weakness, numbness and headaches. Psychiatric/Behavioral: Negative for behavioral problems and confusion. PE: Gen: Alert, NAD, comfortable-appearing, frail HEENT: PERRL, EOMI, dry MM, NCAT. No conjunctival pallor. Sclera are non- icteric. Oropharynx is clear. CV: Regular rate and rhythm. No murmurs, rubs, or gallops. PULM: No resp distress. CTAB, no wheezes, rales, or rhonchi. ABD: soft, NT/ND, no rebound tenderness or guarding, no CVA tenderness. BACK: No TTP of c/t-spine. L-spine has clean dry bandage overlying surgical site. No step-offs or deformities. MSK: No bony deformities. 2+ pulses in all extremities. NEURO: AAOx3. PERRL. No gross CN deficits. Strength and sensation grossly intact throughout. EXTREMITIES: No cyanosis. No clubbing. No edema. No calf tenderness. PSYCH: Normal mood and thought pattern. SKIN: Warm and dry. Normal capillary refill. +sacral ulcer. No jaundice. MDM: 84yo F hx HTN, polycythemia, recent L hip fx, 3 recent kyphoplasties for fractures in 09/2019, sent by Dr Mobley for admission under Dr Luis for 4wks (since surgeries) persistent worsening diarrhea, generalized weakness, SOB, FISCHER , cough, nausea, decreased appetite and weight loss, lightheadedness, back and hip pain, and developing bed sore. Tachycardic 94, other VSS, afebrile. Ddx: dehydration, viral GI, C. diff (test neg per pt), metabolic derangement, anemia, infectious pathology (PNA, UTI), URI, ACS/NY, arrhythmia -EKG -CXR -CBC,CMP,Mg,Phos,Cardiac profile,Coags,UA/UC,Lact,Lipase -Dispo: pending w/u 11/28/19 18:25 CXR reviewed: no acute pathology EKG reviewed: sinus tachycardia, 112bpm, normal intervals, normal axis, no e/o acute ischemia Labs reviewed: notable for WBC 13.7, Na 129 (known by pt, baseline), BUN 21, Cr 0.5 CBC,CMP WBC 13.7 K/mm3 (4.0-10.8) H 11/28/19 17:25 RBC 4.10 M/mm3 (3.60-5.2) 11/28/19 17:25 Hgb 12.4 GM/dl (10.7-15.3) 11/28/19 17:25 Hct 38.4 % (32.4-45.2) 11/28/19 17:25 MCV 93.7 fl (80-96) 11/28/19 17:25 MCH 30.1 pg (25.7-33.7) 11/28/19 17:25 MCHC 32.2 g/dl (32.0-36.0) 11/28/19 17:25 RDW 16.5 % (11.6-15.6) H D 11/28/19 17:25 Plt Count 531 K/MM3 (134-434) H 11/28/19 17:25 MPV 8.4 fl (7.5-11.1) 11/28/19 17:25 Absolute Neuts (auto) 12.7 K/mm3 11/28/19 17:25 Neutrophils % No Result Required. 11/28/19 17:25 Neutrophils % (Manual) 92.0 % (42.8-82.8) H* 11/28/19 17:25 Band Neutrophils % 1.0 % (0-10) 11/28/19 17:25 Lymphocytes % No Result Required. 11/28/19 17:25 Lymphocytes % (Manual) 7.0 % (8-40) L 11/28/19 17:25 Platelet Estimate Increased 11/28/19 17:25 Sodium 129 mmol/L (136-145) L 11/28/19 17:25 Potassium 3.8 mmol/L (3.5-5.1) 11/28/19 17:25 Chloride 96 mmol/L (98-107) L 11/28/19 17:25 Carbon Dioxide 21 mmol/L (21-32) 11/28/19 17:25 Anion Gap 12 MMOL/L (8-16) 11/28/19 17:25 BUN 21.0 mg/dl (7-18) H 11/28/19 17:25 Creatinine 0.5 mg/dl (0.55-1.3) L 11/28/19 17:25 Est GFR (CKD-EPI)AfAm 102.29 11/28/19 17:25 Est GFR (CKD-EPI)NonAf 88.25 11/28/19 17:25 Random Glucose 96 mg/dl (74-106) 11/28/19 17:25 Calcium 8.3 mg/dl (8.5-10) L 11/28/19 17:25 Phosphorus 3.3 mg/dl (2.5-4.9) 11/28/19 17:25 Magnesium 1.7 mg/dL (1.8-2.4) L 11/28/19 17:25 Total Bilirubin 1.1 mg/dl (0.2-1) H 11/28/19 17:25 AST 19 U/L (15-37) 11/28/19 17:25 ALT 13 U/L (13-61) 11/28/19 17:25 Alkaline Phosphatase 223 U/L (45-117) H D 11/28/19 17:25 Creatine Kinase 31 U/L (26-192) 11/28/19 17:25 Troponin I < 0.03 ng/ml (0.00-0.05) 11/28/19 16:57 Total Protein 5.8 g/dl (6.4-8.2) L 11/28/19 17:25 Albumin 2.6 g/dl (3.4-5.0) L 11/28/19 17:25 Will admit for intractable back pain, FTT, and intractable diarrhea. 11/28/19 19:22 Signed out to admitting team on phone. XR read: interstitial nodular lung changes with questionable infiltrate or atelectasis L base with elevated L hemidiaphragm and questionable infiltrate right upper lobe. Will start azithromycin and ceftriaxone for possible CAP. Discharge - Discharge Information Problems reviewed: Yes Clinical Impression/Diagnosis: Diarrhea, Failure to thrive, Intractable back pain, Pneumonia Condition: Stable - Admission Yes - Follow up/Referral Referrals: Alireza Melendez MD [Primary Care Provider] - - Patient Discharge Instructions - Post Discharge Activity
--- NOTE | 2019-11-28 16:39 | PDOC ---
Attending Attestation - Resident Resident Name: Sharmaine Mata - ED Attending Attestation I have performed the following: I have examined & evaluated the patient, The case was reviewed & discussed with the resident, I agree w/resident's findings & plan, Exceptions are as noted - HPI HPI: 11/28/19 21:10 Patient is brought in by her daughter. She had recent kyphoplasty, lumbosacral spine, and has intractable pain, unable even to move from side to side, decreased appetite, and several watery stools each day. Saw primary physician, Dr. Cavazos today. Referred to the ER for further evaluation. In addition to multiple vertebral fractures due to osteoporosis, the patient has high blood pressure, elevated cholesterol, is eating and drinking almost nothing, and has developed increased confusion. The family is unable to move her at home, make her comfortable, or feed her adequately. - Physicial Exam PE: 11/28/19 21:13 On physical exam the patient is afebrile with normal vital signs. She is drowsy but arousable and oriented. HEENT normal Neck supple without bruit mass or nodes Chest exam hyperresonance, decreased breath sounds bilaterally, symmetric, no wheezes rales or rhonchi. No tachypnea or dyspnea, or other respiratory distress. CV regular without murmur rub or gallop 96/min Abdomen soft nontender without mass organomegaly Skin clear, no rash, but decreased turgor and wet mucous membranes are present. There is the beginning of a bedsore overlying the coccyx Neurological: Generalized weakness, no focal sensorimotor deficits, cranial nerves intact, unable to bear weight due to weakness Extremities no CCE - Medical Decision Making 11/28/19 21:16 Assessment: Intractable back pain, status post kyphoplasty, dehydration. Plan: Admit for pain control, intravenous fluids, and further evaluation. Considering social service placement Chest x-ray read as possible infiltrate right upper lobe. This could be aspiration. Also opacity at the left base which is probably old scarring when compared to prior x-ray 11/28/19 21:18 White count is 13.7 with a left shift. BUN 21, creatinine 0.5. Sodium is 129, but hyponatremia is a chronic problem for which the patient has been evaluated in the past. However, possibly this is aggravated by dehydration. Dr. Cavazos has recommended the patient be admitted by Dr. Luis. However, Dr. Luis is not available and refers his patients after hours to the hospitalist service. Susana Richey from the hospitalist service is evaluating the patient for admission, and she will be admitted to the hospitalist service for further evaluation and treatment. Antibiotics were begun for presumed community-acquired pneumonia. Patient remains clinically and hemodynamically stable.
[2019-11-28 17:41] LABS: HEMATOCRIT 38.4 % (32.4-45.2); HEMOGLOBIN 12.4 GM/dl (10.7-15.3); MCH 30.1 pg (25.7-33.7); MCHC 32.2 g/dl (32.0-36.0); MEAN CELL VOLUME 93.7 fl (80-96); MEAN PLT VOLUME 8.4 fl (7.5-11.1); PLATELET COUNT 531 K/MM3 (134-434); RDW 16.5 % (11.6-15.6); WHITE BLOOD COUNT 13.7 K/mm3 (4.0-10.8)
[2019-11-28 17:44] LABS: INR 1.27 (0.82-1.09); PROTHROMBIN TIME (PATIENT) 14.2 SEC (10.2-13.0)
[2019-11-28 17:50] LABS: ALBUMIN 2.6 g/dl (3.4-5.0); BILIRUBIN,TOTAL 1.1 mg/dl (0.2-1); CALCIUM 8.3 mg/dl (8.5-10); CREATININE 0.5 mg/dl (0.55-1.3); MAGNESIUM 1.7 mg/dL (1.8-2.4); PHOSPHOROUS 3.3 mg/dl (2.5-4.9); POTASSIUM 3.8 mmol/L (3.5-5.1); TOT PROT 5.8 g/dl (6.4-8.2)
[2019-11-28] MEDS ORDERED: SODIUM CHLORIDE 0.9% 500 ML INFUS.BAG IV ONE (17:55)
[2019-11-28 18:13] LABS: PLATELET ESTIMATE INCREASED
[2019-11-28] MEDS ORDERED: AZITHROMYCIN IVPB 500 MG in DEXTROSE 5%-WATER - 250 ML IVPB ONE (19:21)
[2019-11-28] MEDS ORDERED: CEFTRIAXONE 1 GM in DEXTROSE 5%-WATER - 100 ML IVPB ONE (19:21)
[2019-11-28] MEDS ORDERED: AZITHROMYCIN 500 MG VIAL IVPB ONE (19:23)
[2019-11-28] MEDS ORDERED: cefTRIAXone SODIUM 1 GM VIAL ONE (19:23)
--- NOTE | 2019-11-28 20:05 | HP ---
CHIEF COMPLAINT: Weakness, lack of appetite PCP: Dr. Melendez HISTORY OF PRESENT ILLNESS: 83 year-old female with a PMH of HTN, HLD, polycythemia vera, s/p left hip fracture repair in December 2018, compression fractures s/p kyphoplasties, and severe malnutrition. Recently hospitalized 10/31-11/05/19 for sepsis secondary to E.coli UTI. Patient was brought by her daughter to the ED for evaluation of profound weakness, lack of appetite, difficulty swallowing, persistent dry cough , diarrhea, incontinence of urine and stool, skin breakdown, hair loss, and depression. Since patient's release from the hospital in October, she has become progressively weak. She can no longer ambulate without being held up under each arm. She is unable to sit upright on the commode and falls forward. She has coffee and very little food and exhibits difficulty swallowing. She has become incontinent of urine and stool over the past month with frequent diarrhea. She has developed a pressure ulcer on her sacrum. Her hair has begun falling out. She has lost interest in social interactions and has a flat, detached affect according to the daughter. Patient has not had fever, sweats, chills. ER course was notable for: (1) WBC 13.7k, platelets 531k (2) Na 129, BUN 25, Cr 0.9 (3) Total bili 1.1, Alk phos 223 Recent Travel: No PAST MEDICAL HISTORY: Hypertension Hyperlipidemia Polycythemia vera Severe malnutrition C. 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 Smoking: quit 60 years ago Alcohol: none Drugs: none Family history: father prostate cancer 85, mother encephalitis 81; sister 76 a&w; daughter a&w but h/o fibrosarcoma at age 14; daughter 54 HTN Allergies No Known Allergies Allergy (Verified 11/28/19 16:04) HOME MEDICATIONS: Home Medications Medication Instructions Recorded Amlodipine Besylate 5 mg PO DAILY 01/15/19 Atorvastatin Ca [Lipitor] 10 mg PO DAILY 01/15/19 Lisinopril 20 mg PO DAILY 01/15/19 Metoprolol Succinate [Toprol XL -] 25 mg PO DAILY 01/15/19 REVIEW OF SYSTEMS: see HPI PHYSICAL EXAMINATION Vital Signs - 24 hr 0111/28/19 11/28/19 16:00 16:51 19:18 Temperature 97.2 F L 98.3 F 97.8 F Pulse Rate 96 H Pulse Rate [ 91 H Left Apical] Respiratory 17 18 Rate Blood Pressure 125/64 Blood Pressure 143/67 [Left Arm] O2 Sat by Pulse 96 97 Oximetry (%) GENERAL: Awake, alert, and fully oriented, in no acute distress. Thin, frail, cachectic. Temporal wasting, protruding clavicles, absence of body fat and muscle mass HEAD: Normal with no signs of trauma. No obvious hair loss EYES: Pupils equal, round and reactive to light, extraocular movements intact, sclera anicteric, conjunctiva clear LUNGS: Breath sounds equal, clear to auscultation bilaterally. No wheezes, and no crackles. No accessory muscle use. HEART: Regular rate and rhythm, normal S1 and S2 ABDOMEN: Soft, nontender, not distended UPPER EXTREMITIES: 2+ pulses, warm, well-perfused. No cyanosis. No clubbing. No peripheral edema. LOWER EXTREMITIES: 2+ pulses, warm, well-perfused. No calf tenderness. No peripheral edema. NEUROLOGICAL: Cranial nerves II-XII intact. Normal speech. PSYCHIATRIC: Cooperative. Flat, depressed affect. SKIN: Stage II pressure ulcer 1cmL x 1cmW x 0.5cmD at superior aspect of intergluteal fold Laboratory Results - last 24 hr 11/28/19 11/28/19 11/28/19 16:57 17:25 17:25 WBC 13.7 H RBC 4.10 Hgb 12.4 Hct 38.4 MCV 93.7 MCH 30.1 MCHC 32.2 RDW 16.5 H D Plt Count 531 H MPV 8.4 Absolute Neuts (auto) 12.7 Neutrophils % No Result Required. Neutrophils % (Manual) 92.0 H* Band Neutrophils % 1.0 Lymphocytes % No Result Required. Lymphocytes % (Manual) 7.0 L Platelet Estimate Increased PT with INR INR Sodium 129 L Potassium 3.8 Chloride 96 L Carbon Dioxide 21 Anion Gap 12 BUN 21.0 H Creatinine 0.5 L Est GFR (CKD-EPI)AfAm 102.29 Est GFR (CKD-EPI)NonAf 88.25 Random Glucose 96 Lactic Acid Calcium 8.3 L Phosphorus Magnesium Total Bilirubin 1.1 H AST 19 ALT 13 Alkaline Phosphatase 223 H D Creatine Kinase Troponin I < 0.03 Total Protein 5.8 L Albumin 2.6 L Lipase 11/28/19 11/28/19 11/28/19 17:25 17:25 17:25 WBC RBC Hgb Hct MCV MCH MCHC RDW Plt Count MPV Absolute Neuts (auto) Neutrophils % Neutrophils % (Manual) Band Neutrophils % Lymphocytes % Lymphocytes % (Manual) Platelet Estimate PT with INR INR Sodium Potassium Chloride Carbon Dioxide Anion Gap BUN Creatinine Est GFR (CKD-EPI)AfAm Est GFR (CKD-EPI)NonAf Random Glucose Lactic Acid 1.0 Calcium Phosphorus 3.3 Magnesium 1.7 L Total Bilirubin AST ALT Alkaline Phosphatase Creatine Kinase 31 Troponin I Total Protein Albumin Lipase 163 11/28/19 17:25 WBC RBC Hgb Hct MCV MCH MCHC RDW Plt Count MPV Absolute Neuts (auto) Neutrophils % Neutrophils % (Manual) Band Neutrophils % Lymphocytes % Lymphocytes % (Manual) Platelet Estimate PT with INR 14.2 H INR 1.27 H Sodium Potassium Chloride Carbon Dioxide Anion Gap BUN Creatinine Est GFR (CKD-EPI)AfAm Est GFR (CKD-EPI)NonAf Random Glucose Lactic Acid Calcium Phosphorus Magnesium Total Bilirubin AST ALT Alkaline Phosphatase Creatine Kinase Troponin I Total Protein Albumin Lipase ASSESSMENT/PLAN: 83 year-old female with a PMH of HTN, HLD, polycythemia vera, s/p left hip fracture repair in December 2018, compression fractures s/p kyphoplasties, and severe malnutrition. Admitted for likely pneumonia, severe malnutrition, failure to thrive. Pneumonia --infiltrates left base and RUL on CXR; possibly due to aspiration, has difficulty swallowing --no fever, +leukocytosis, cough --ceftriaxone, azithromycin --CT chest ordered --barnes culture; flu swab; pneumonia urine Ag --swallow evaluation Failure to thrive Severe malnutrition Anorexia --on last admission, noted 36 lb weight loss over 9 months --minimal food intake, thin, frail, cachectic, muscle wasting, BMI 16.6 --daily weights --see nutrition consult from previous admission Hyponatremia --Na 129, appears dry --start IV fluids --urine studies Diarrhea --stool studies, c. diff Stage II Pressure Ulcer --Allevyn dressing q72h or PRN if soiled --[employer] Elevated liver function tests --total bili and alk phos elevated --continue to trend, conjugate --consider US Hypertension --continue amlodipine, lisinopril Hyperlipidemia --continue Lipitor Polycythemia vera --follows with Dr. Erna Landry --has been on hydroxyurea, not listed on home meds; need to verify with family or Dr. Landry Compession fractures s/p kyphoplasties Hypomagnesemia --replete FEN Fluids: NS @ 75mL/hr Electrolytes: replete as indicated Nutrition: dysphagia chopped; Magic Cup; Ensure Clear BID DVT prophylaxis: subq heparin Physical therapy Dispo: continues to require inpatient care. Full code. Visit type - Emergency Visit Emergency Visit: Yes Care time: The patient presented to the Emergency Department on the above date and was hospitalized for further evaluation of their emergent condition. - New Patient This patient is new to me today: Yes Date on this admission: 11/28/19 - Critical Care Critical Care patient: No
[2019-11-28] MEDS ORDERED: MAGNESIUM SULF 50% (8.12 MEQ/2 ML-1 GM VIAL) IVPB ONE (21:42)
[2019-11-28] MEDS ORDERED: MAGNESIUM SULF 50% (8.12 MEQ/2 ML-1 GM VIAL) ONE (21:58)
[2019-11-28] MEDS: SODIUM CHLORIDE 1,000 ML IV SCH (22:04)
[2019-11-28] MEDS ORDERED: HEPARIN NA (PORCINE) 5,000 UNITS/ML 1ML VIAL ONE (22:08)
[2019-11-28] MEDS: HEPARIN NA (PORCINE) 5,000 UNITS/ML 1ML VIAL SQ SCH (22:20)
[2019-11-29 08:40] LABS: BASO % 0.8 % (0-2.0); EOS % 0.6 % (0-4.5); HEMATOCRIT 33.6 % (32.4-45.2); HEMOGLOBIN 11.3 GM/dL (10.7-15.3); LYMPH % 4.4 % (8-40); MCH 30.9 pg (25.7-33.7); MCHC 33.7 g/dl (32.0-36.0); MEAN CELL VOLUME 91.7 fl (80-96); MEAN PLT VOLUME 8.7 fl (7.5-11.1); NEUT % 89.2 % (42.8-82.8); PLATELET COUNT 423 K/MM3 (134-434); RBC 3.66 M/mm3 (3.60-5.2); RDW 17.2 % (11.6-15.6); WHITE BLOOD COUNT 10.4 K/mm3 (4.0-10.0)
[2019-11-29 09:16] LABS: ALBUMIN 2.2 g/dl (3.4-5.0); BILIRUBIN,DIRECT 0.2 mg/dL (0.0-0.2); BILIRUBIN,TOTAL 0.4 mg/dL (0.2-1); BLOOD UREA NITROGEN 11.7 mg/dL (7-18); CREATININE 0.4 mg/dL (0.55-1.3); MAGNESIUM 2.3 mg/dL (1.8-2.4); PHOSPHOROUS 2.8 mg/dL (2.5-4.9); POTASSIUM 3.6 mmol/L (3.5-5.1); TOT PROT 5.2 g/dl (6.4-8.2)
--- NOTE | 2019-11-29 10:23 | PN ---
Physical Exam: SUBJECTIVE: Patient seen and examined at the bedside. feels well, in no acute distress. ate breakfast, without nausea/vomiting. states she has been feeling weak for 2 months, has no appetite. she sleeps most of the day. OBJECTIVE: thin appearing, frail, cachectic/severe malnutrition dry tongue, dry mucuous membranes, skin dry, chest and spine bones prominent, prominent pelvic bones. ----- Patient is an 83 year old female with a significant past medical history of HTN , HLD, polycythemia vera, s/p left hip fracture repair in December 2018, compression fractures s/p kyphoplasties, and severe malnutrition. Recently hospitalized 10/31-11/05/19 for sepsis secondary to E.coli UTI. Patient was brought by her daughter to the ED for evaluation of profound weakness, lack of appetite, difficulty swallowing, persistent dry cough, diarrhea, incontinence of urine and stool, skin breakdown, hair loss, and depression. Patient has not had fever, sweats, chills. She was found to have an acute pneumonia on chest xray and has been started on azithromycin and ceftriaxone. Vital Signs Period Temp Pulse Resp BP Sys/Kiser Pulse Ox Last 24 Hr 97.2 F-98.5 F 91-108 17-22 120-143/50-67 96-98 GENERAL: The patient is awake, alert, and fully oriented, in no acute distress. severe malnutrition with prominent back, chest and pelvic bones. also appears clinically dry and weak. HEAD: Normal with no signs of trauma. EYES: PERRL, extraocular movements intact, sclera anicteric, conjunctiva clear. No ptosis. ENT: Ears normal, nares patent, oropharynx clear without exudates, dry mucous membranes. NECK: Trachea midline, full range of motion, supple. LUNGS: unable to take in a deep breath without illiciting a cough, no wheezing, diminished overall bilaterally. HEART: Regular rate and rhythm, S1, S2 without murmur, rub or gallop. ABDOMEN: soft, non tender, non distended. EXTREMITIES: no edema. NEUROLOGICAL: Normal speech, gait not observed. PSYCH: Normal mood, normal affect. SKIN: stage II sacral pressure sore. Laboratory Results - last 24 hr 11/28/19 11/28/19 11/28/19 16:57 17:25 17:25 WBC 13.7 H RBC 4.10 Hgb 12.4 Hct 38.4 MCV 93.7 MCH 30.1 MCHC 32.2 RDW 16.5 H D Plt Count 531 H MPV 8.4 Absolute Neuts (auto) 12.7 Neutrophils % No Result Required. Neutrophils % (Manual) 92.0 H* Band Neutrophils % 1.0 Lymphocytes % No Result Required. Lymphocytes % (Manual) 7.0 L Monocytes % Eosinophils % Basophils % Nucleated RBC % Platelet Estimate Increased PT with INR INR Sodium 129 L Potassium 3.8 Chloride 96 L Carbon Dioxide 21 Anion Gap 12 BUN 21.0 H Creatinine 0.5 L Est GFR (CKD-EPI)AfAm 102.29 Est GFR (CKD-EPI)NonAf 88.25 Random Glucose 96 Lactic Acid Calcium 8.3 L Phosphorus Magnesium Total Bilirubin 1.1 H Direct Bilirubin AST 19 ALT 13 Alkaline Phosphatase 223 H D Creatine Kinase Troponin I < 0.03 Total Protein 5.8 L Albumin 2.6 L Lipase TSH Ur Random Creatinine Ur Random Sodium Influenza A (Rapid) Influenza B (Rapid) 11/28/19 11/28/19 11/28/19 17:25 17:25 17:25 WBC RBC Hgb Hct MCV MCH MCHC RDW Plt Count MPV Absolute Neuts (auto) Neutrophils % Neutrophils % (Manual) Band Neutrophils % Lymphocytes % Lymphocytes % (Manual) Monocytes % Eosinophils % Basophils % Nucleated RBC % Platelet Estimate PT with INR INR Sodium Potassium Chloride Carbon Dioxide Anion Gap BUN Creatinine Est GFR (CKD-EPI)AfAm Est GFR (CKD-EPI)NonAf Random Glucose Lactic Acid 1.0 Calcium Phosphorus 3.3 Magnesium 1.7 L Total Bilirubin Direct Bilirubin AST ALT Alkaline Phosphatase Creatine Kinase 31 Troponin I Total Protein Albumin Lipase 163 TSH Ur Random Creatinine Ur Random Sodium Influenza A (Rapid) Influenza B (Rapid) 11/28/19 11/28/19 11/29/19 17:25 20:50 04:00 WBC RBC Hgb Hct MCV MCH MCHC RDW Plt Count MPV Absolute Neuts (auto) Neutrophils % Neutrophils % (Manual) Band Neutrophils % Lymphocytes % Lymphocytes % (Manual) Monocytes % Eosinophils % Basophils % Nucleated RBC % Platelet Estimate PT with INR 14.2 H INR 1.27 H Sodium Potassium Chloride Carbon Dioxide Anion Gap BUN Creatinine Est GFR (CKD-EPI)AfAm Est GFR (CKD-EPI)NonAf Random Glucose Lactic Acid Calcium Phosphorus Magnesium Total Bilirubin Direct Bilirubin AST ALT Alkaline Phosphatase Creatine Kinase Troponin I Total Protein Albumin Lipase TSH Ur Random Creatinine 83.3 Ur Random Sodium Influenza A (Rapid) Negative Influenza B (Rapid) Negative 11/29/19 11/29/19 11/29/19 04:00 07:38 07:38 WBC 10.4 H RBC 3.66 Hgb 11.3 Hct 33.6 MCV 91.7 MCH 30.9 D MCHC 33.7 RDW 17.2 H Plt Count 423 MPV 8.7 Absolute Neuts (auto) 9.3 H Neutrophils % 89.2 H Neutrophils % (Manual) Band Neutrophils % Lymphocytes % 4.4 L Lymphocytes % (Manual) Monocytes % 5.0 Eosinophils % 0.6 D Basophils % 0.8 Nucleated RBC % 0 Platelet Estimate PT with INR INR Sodium 135 L Potassium 3.6 Chloride 102 Carbon Dioxide 21 Anion Gap 12 BUN 11.7 Creatinine 0.4 L Est GFR (CKD-EPI)AfAm 110.08 Est GFR (CKD-EPI)NonAf 94.98 Random Glucose 60 L Lactic Acid Calcium 8.0 L Phosphorus 2.8 Magnesium 2.3 Total Bilirubin 0.4 Direct Bilirubin 0.2 AST 25 ALT 12 L Alkaline Phosphatase 232 H Creatine Kinase Troponin I Total Protein 5.2 L Albumin 2.2 L Lipase 99 TSH 2.16 Ur Random Creatinine Ur Random Sodium 66 Influenza A (Rapid) Influenza B (Rapid) Active Medications Generic Name Dose Route Start Last Admin Trade Name Freq PRN Reason Stop Dose Admin Amino Acids 30 ml 11/29/19 08:00 Prosource No Carb Liquid Pkt PO BID@0800,1730 [facility] Amlodipine Besylate 5 mg 11/29/19 10:00 Norvasc - PO DAILY KEHINDE Atorvastatin Calcium 10 mg 11/29/19 22:00 Lipitor - PO HS KEHINDE Heparin Sodium (Porcine) 5,000 unit 11/28/19 22:00 11/28/19 22:20 Heparin - SQ 5,000 unit BID KEHINDE Administration Sodium Chloride 1,000 mls @ 75 mls/hr 11/28/19 21:30 11/28/19 22:04 Normal Saline - IV 75 mls/hr ASDIR KEHINDE Administration Ceftriaxone Sodium 1 gm/ 50 mls @ 200 mls/hr 11/29/19 10:00 Dextrose IVPB DAILY [facility] Protocol Azithromycin 500 mg in 250 mls @ 250 mls/hr 11/29/19 10:00 Zithromax 500mg Ivpb (Pre-Docked) IVPB DAILY KEHINDE Lisinopril 20 mg 11/29/19 10:00 Prinivil PO DAILY KEHINDE Metoprolol Succinate 25 mg 11/29/19 10:00 Toprol Xl - PO DAILY KEHINDE ASSESSMENT/PLAN: Problem List - Problems (1) Severe malnutrition Assessment/Plan: dietary consulted started on ivf for dehydration and supplements for a swallow evaluation for further assess if patient is having swallowing difficulties has been feeling weak for 2 months per patient bmi 16.6, clinically dry, weak and cachectic Code(s): E43 - UNSPECIFIED SEVERE PROTEIN-CALORIE MALNUTRITION (2) Failure to thrive Assessment/Plan: patient reports poor oral intake and diarrhea. will collect for c diff has she has been recently hospitalized and on antibiotics for UTI. Code(s): QXZ1009 - (3) Pneumonia Assessment/Plan: evidence of pneumonia on chest xray started on ceftriaxone and azithoromycin tolerating room air, no airway compromise coughs with deep breathing will order incentive spirometer, duonebs pulmonary following Code(s): J18.9 - PNEUMONIA, UNSPECIFIED ORGANISM (4) Hip fracture Assessment/Plan: by history, physical therapy Code(s): S72.009A - FRACTURE OF UNSP PART OF NECK OF UNSP FEMUR, INIT Qualifiers: Encounter type: initial encounter Fracture type: closed Laterality: left Qualified Code(s): S72.002A - Fracture of unspecified part of neck of left femur, initial encounter for closed fracture (5) Orthostatic hypotension Code(s): I95.1 - ORTHOSTATIC HYPOTENSION (6) Polycythemia Assessment/Plan: patient follows with a solid waste division supervisor (Erna) and will need continued outpatient follow up. Code(s): D75.1 - SECONDARY POLYCYTHEMIA (7) DVT prophylaxis Assessment/Plan: on heparin bid Code(s): Z29.9 - ENCOUNTER FOR PROPHYLACTIC MEASURES, UNSPECIFIED (8) Prophylactic measure Assessment/Plan: fen f: ns @ 100 e: monitor electrolytes daily and supplement n: dysphagia pureed until seen by speech/swallow physical therapy heparin protonix Code(s): Z29.9 - ENCOUNTER FOR PROPHYLACTIC MEASURES, UNSPECIFIED Visit type - Emergency Visit Emergency Visit: Yes ED Registration Date: 11/28/19 Care time: The patient presented to the Emergency Department on the above date and was hospitalized for further evaluation of their emergent condition. - New Patient This patient is new to me today: Yes Date on this admission: 12/01/19 - Critical Care Critical Care patient: No - Discharge Referral Referred to [facility] Med P.C.: No
--- NOTE | 2019-11-29 11:17 | CONSULT ---
Admitting History and Physical - Primary Care Physician PCP: Alexus Pat - Admission History of Present Illness: Per EMR- 83 year-old female with a PMH of HTN, HLD, polycythemia vera, s/p left hip fracture repair in December 2018, compression fractures s/p kyphoplasties, and severe malnutrition. Recently hospitalized 10/31-11/05/19 for sepsis secondary to E.coli UTI. Patient was brought by her daughter to the ED for evaluation of profound weakness, lack of appetite, difficulty swallowing, persistent dry cough , diarrhea, incontinence of urine and stool, skin breakdown, hair loss, and depression. Since patient's release from the hospital in October, she has become progressively weak. She can no longer ambulate without being held up under each arm. She is unable to sit upright on the commode and falls forward. She has coffee and very little food and exhibits difficulty swallowing. She has become incontinent of urine and stool over the past month with frequent diarrhea. She has developed a pressure ulcer on her sacrum. Her hair has begun falling out. She has lost interest in social interactions and has a flat, detached affect according to the daughter. Pt is fully oriented, a good historian, engaging and appropriate. She reports falling at [employer] on a windy day, with subsequent hip fx. Rehab at [facility] but lost her appetite since. She gets "woozy" when she is OOB, tries to walk. Decubitis, lost 30 lbs, poor appetite. She denies Dysphagia. She has been hoarse for 3 weeks. CXR noted. Radiology rec consider CT chest for more complete evaluation. Selected Entries 11/28/19 11/28/19 11/28/19 16:00 16:51 19:18 Check all that apply Temperature 97.2 F L 98.3 F 97.8 F Blood Pressure 125/64 Blood Pressure 143/67 [Left Arm] 11/28/19 11/28/19 11/28/19 20:55 22:55 23:20 Check all that Pressure ulcer apply >Stage I Failure to Thrive Temperature 97.7 F 97.8 F Blood Pressure 120/63 Blood Pressure 126/50 L [Left Arm] 11/29/19 11/29/19 00:43 04:00 Check all that apply Temperature 97.8 F 98.5 F Blood Pressure 121/52 L 136/57 L Blood Pressure [Left Arm] Laboratory Tests 11/28/19 11/29/19 17:25 07:38 WBC 13.7 H 10.4 H This is my first consult with this pt History Source: Patient Limitations to Obtaining History: No Limitations - Past Medical History Cardiovascular: Yes: HTN, Hyperlipdemia Renal/: Yes: Other (hyponatremia) - Smoking History Smoking history: Never smoked Have you smoked in the past 12 months: No If you are a former smoker, when did you quit?: 60 YEARS - Alcohol/Substance Use Hx Alcohol Use: No History - Admission Reason For Visit: FAILURE TO THRIVE, DIARRHEA, INTRACTABLE BACK PAIN - Diagnostics X-ray: Report Reviewed - General Mental Status: Alert and Oriented, Awake and Alert, Able to Follow Commands Attention: Intact Ability to Follow Directions: Excellent Head/Neck Control: WFL - Hearing Hearing: Functional Hearing: Impaired Hearing Aide: No Speech Evaluation - Communication Primary Language: BULGARIAN Communication: Yes: Within Normal Limits - Speech Production Able to Make Needs Known: Yes: WNL Intelligibility: Yes: Mildly Impaired - Speech Characteristics Voice Loudness: Mildly Soft/Quiet Voice Pitch: Yes: Normal Voice Phonatory-based Quality: Yes: Hoarse, Dysphonia Speech Clarity: < 100% Nasal Resonance: Normal Articulation: Yes: Precise - Language/Auditory Comprehension Follows: Yes: 2 Stage Simple Commands Observation: Able to respond to yes/no queries: Yes, Yes/No Confusion: No, Comprehends Conversational Speech: Yes - Language/Verbal Expression Able to Respond to Simple Queries: Yes: WNL Able to Communicate Wants and Needs: Yes: WNL Functional Communication Status: Yes: WNL - 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 Memory: Yes: WNL Short Term Memory: Yes: WNL - Swallow Evaluation/Bedside Assessment Current Nutritional Intake: Dysphagia Minced, [place] Textured Liquids Oral Secretions: Yes: WFL Dentition: Yes: Adequate, Missing Teeth Facial Symmetry at Rest: Symmetrical Facial Symmetry on Retraction: Symmetrical Sensation: Normal Against Resistance Opening: Normal Against Resistance Closing: Normal Pucker Lips: Normal Smile: Normal Lingual Movement: Normal, Symmetric Lingual Speed of Movement: Normal Lingual Movement Strgth Against Opposition: Normal Lingual Movement Characteristics: Normal Velopharyngeal Movement: Normal Laryngeal Movement: Able to Palpate Rate of Intake: WFL Bolus Size: WFL Labial Seal: WFL Chewing: WFL Oral Prep Time: WFL A-P Transit: WFL Pocketing: None Timing of Swallow: WFL Coughing/Throat Clear: No Change in Voice: No Recommendations - Speech Evaluation, Impression/Plan Impression: Pt is fully oriented, a good historian. She reports falling at [employer] on a windy day, with subsequent hip fx. Rehab at [facility] but lost her appetite since. She gets "woozy" when she is OOB, tries to walk. Decubitis, lost 30 lbs, poor appetite. She denies Dysphagia. She has been hoarse for 3 weeks. CXR noted. Radiology rec consider CT chest for more complete evaluation. Swallowing overtly intact. - Dysphagia Impressions/Plan Dysphagia Impressions: Ongoing Evaluation *Silent aspiration: cannot be R/O at bedside Dysphagia Treatment Plan: Safe Rate, Elevate HOB during feed Recommendations: ENT Consult (Hoarse voice x 3 weeks. r/o paresis/paralysis/ pathology), Modified Barium Swallow (if aspiration sauspected. Bedside evaluation ok), Other (RD consult re:supplements. Pt used to drink Ensure but stopped because of Diarrhea) - Recommendations Diet Consistency: Regular (soft) Medication Administration: Whole with water Liquids: Thin Liquids
--- NOTE | 2019-11-29 11:53 | EKG ---
Test Reason : Blood Pressure : / mmHG Vent. Rate : 112 BPM Atrial Rate : 112 BPM P-R Int : 142 ms QRS Dur : 092 ms QT Int : 340 ms P-R-T Axes : 059 071 054 degrees QTc Int : 464 ms SINUS TACHYCARDIA POSSIBLE LEFT ATRIAL ENLARGEMENT BORDERLINE ECG WHEN COMPARED WITH ECG OF 31-OCT-2019 12:50, NONSPECIFIC T WAVE ABNORMALITY NOW EVIDENT IN INFERIOR LEADS Confirmed by MICA PROCTOR, MARYSE ([id number]) on 11/29/2019 11:52:35 AM Referred By: MD MCAHADO Confirmed By:MAYRSE NINO MD
[2019-11-29] MEDS ORDERED: DEXTROSE 5%-WATER - 50 ML IVPB ONE (12:02)
[2019-11-29] MEDS ORDERED: cefTRIAXone SODIUM 1 GM VIAL ONE (12:02)
[2019-11-29] MEDS: metoPROLOL SUCCINATE 25 MG TAB.SR.24H (FP) PO SCH (12:06)
[2019-11-29] MEDS: HEPARIN NA (PORCINE) 5,000 UNITS/ML 1ML VIAL SQ SCH ×2 (12:06→21:21)
[2019-11-29] MEDS: CEFTRIAXONE 1 GM in DEXTROSE 5%-WATER - 50 ML IVPB SCH (12:06)
[2019-11-29] MEDS: LISINOPRIL 20 MG TABLET (FP) PO SCH (12:06)
[2019-11-29] MEDS: amLODIPine BESYLATE 5 MG TABLET (FP) PO SCH (12:06)
[2019-11-29] MEDS: AZITHROMYCIN IVPB 500 MG/250 ML BAG IVPB SCH (12:07)
[2019-11-29] MEDS: AMINO ACIDS/PROTEIN HYDROLYS 30 ML LIQUID.PKT PO SCH ×2 (12:11→18:13)
[2019-11-29] MEDS: SODIUM CHLORIDE 1,000 ML IV SCH (12:47)
--- NOTE | 2019-11-29 13:22 | CON.ID ---
Consult Consult Specialty:: infectious diseases Referred by:: claudio Reason for Consultation:: asp pneumonia - History of Present Illness Chief Complaint: weakness.cough History of Present Illness: 83 year-old female with a PMH of HTN, HLD, polycythemia vera, s/p left hip fracture repair in December 2018, compression fractures s/p kyphoplasties, and severe malnutrition. Recently hospitalized for sepsis secondary to E.coli UTI. Patient was brought by her daughter to the ED for evaluation of profound weakness, lack of appetite, difficulty swallowing, persistent dry cough, diarrhea, incontinence of urine and stool, skin breakdown, hair loss, and depression. patient currently feels better no sick contacts CXR: bibasilar infiltrates / atelectasis / effusion CT Chest 10/2019: Pulmonary venous congestion / bibasilar atelectasis / LLL consolidation / bilateral pleural effusions currently feels better - History Source History Provided By: Patient, Medical Record Limitations to Obtaining History: No Limitations - Past Medical History Cardio/Vascular: Yes: HTN, Hyperlipdemia Renal/: Yes: Other (hyponatremia) - Alcohol/Substance Use Hx Alcohol Use: No - Smoking History Smoking history: Never smoked Have you smoked in the past 12 months: No If you are a former smoker, when did you quit?: 60 YEARS Home Medications - Allergies Allergies/Adverse Reactions: Allergies Allergy/AdvReac Type Severity Reaction Status Date / Time No Known Allergies Allergy Verified 11/28/19 16:04 - Home Medications Home Medications: Ambulatory Orders Amlodipine Besylate 5 mg PO DAILY 01/15/19 Atorvastatin Ca [Lipitor] 10 mg PO DAILY 01/15/19 Lisinopril 20 mg PO DAILY 01/15/19 Metoprolol Succinate [Toprol XL -] 25 mg PO DAILY 01/15/19 Review of Systems - Review of Systems Constitutional: reports: Weakness, Other Eyes: reports: No Symptoms HENT: reports: No Symptoms Neck: reports: No Symptoms Cardiovascular: reports: No Symptoms Respiratory: reports: No Symptoms Gastrointestinal: reports: Abdominal Pain, Diarrhea, Nausea Genitourinary: reports: No Symptoms Musculoskeletal: reports: No Symptoms Integumentary: reports: No Symptoms Neurological: reports: No Symptoms Endocrine: reports: No Symptoms Hematology/Lymphatic: reports: No Symptoms Psychiatric: reports: No Symptoms Physical Exam Vital Signs: Vital Signs Temperature 98.3 F 11/29/19 08:00 Pulse Rate 102 H 11/29/19 08:00 Respiratory Rate 18 11/29/19 08:00 Blood Pressure 147/61 11/29/19 08:00 O2 Sat by Pulse Oximetry (%) 98 11/28/19 23:20 Constitutional: Yes: No Distress, Calm, Thin Eyes: Yes: Conjunctiva Clear HENT: Yes: Atraumatic, Normocephalic Neck: Yes: Supple, Trachea Midline Cardiovascular: Yes: Regular Rate and Rhythm Respiratory: Yes: Regular, CTA Bilaterally Gastrointestinal: Yes: Normal Bowel Sounds, Soft Musculoskeletal: Yes: WNL Extremities: Yes: WNL Neurological: Yes: Alert, Oriented Psychiatric: Yes: Alert, Oriented Labs: CBC, BMP 11/29/19 07:38 11/29/19 07:38 Imaging - Results Chest X-ray: Report Reviewed, Image Reviewed Assessment/Plan Problem List - Problems (1) Atelectasis Code(s): J98.11 - ATELECTASIS (2) Pleural effusion Code(s): J90 - PLEURAL EFFUSION, NOT ELSEWHERE CLASSIFIED (3) Failure to thrive Code(s): [id number] - (4) Pneumonia Code(s): J18.9 - PNEUMONIA, UNSPECIFIED ORGANISM (5) Severe malnutrition Code(s): E43 - UNSPECIFIED SEVERE PROTEIN-CALORIE MALNUTRITION (6) Hip fracture Code(s): S72.009A - FRACTURE OF UNSP PART OF NECK OF UNSP FEMUR, INIT Qualifiers: Encounter type: initial encounter Fracture type: closed Laterality: left Qualified Code(s): S72.002A - Fracture of unspecified part of neck of left femur, initial encounter for closed fracture (7) Polycythemia Code(s): D75.1 - SECONDARY POLYCYTHEMIA Assessment/Plan IMP: R/O Aspiration PNA abx incentive angela rest as per the team
[2019-11-29 13:37] LABS: PH,URINE 5.5 (5.0-8.0); URINE APPEARANCE CLEAR; URINE BILIRUBIN NEGATIVE (NEGATIVE); URINE COLOR YELLOW; URINE GLUCOSE (UA) NEGATIVE (NEGATIVE); URINE KETONE 2+ (NEGATIVE); URINE LEUK ESTERASE NEGATIVE (NEGATIVE); URINE NITRITE POSITIVE (NEGATIVE); URINE PROTEIN TRACE (NEGATIVE); URINE UROBILINOGEN 0.2 mg/dL (0.2-1.0)
--- NOTE | 2019-11-29 14:03 | CON.PULM ---
Consult Consult Specialty:: PULM/CCM Referred by:: Hospitalist Reason for Consultation:: R/O PNA - History of Present Illness Chief Complaint: Failure to thrive / SOB History of Present Illness: 83 F, HTN, HLD, polycythemia vera, s/p left hip fracture repair in December 2018 , compression fractures s/p kyphoplasties, and severe malnutrition. Recent admission for E Coli UTI. Admitted via the ER due to generalized weakness, lack of appetite, difficulty swallowing, persistent dry cough, diarrhea, and incontinence. No travel history or sick contacts. Apparently she had some difficulty in swallowing. No fever or chills. No history consistent with OSAS. CXR: bibasilar infiltrates / atelectasis / effusion CT Chest 10/2019: Pulmonary venous congestion / bibasilar atelectasis / LLL consolidation / bilateral pleural effusions - History Source History Provided By: Patient Limitations to Obtaining History: Clinical Condition - Past Medical History Cardio/Vascular: Yes: HTN, Hyperlipdemia Pulmonary: Yes: Bronchitis, Pneumonia. No: Asthma, Cancer, COPD, O2 Dependent, Previously Intubated, Pulmonary Embolus, Pulmonary Fibrosis, Sleep Apnea Renal/: Yes: Other (hyponatremia) - Alcohol/Substance Use Hx Alcohol Use: No - Smoking History Smoking history: Never smoked Have you smoked in the past 12 months: No If you are a former smoker, when did you quit?: 60 YEARS Home Medications - Allergies Allergies/Adverse Reactions: Allergies Allergy/AdvReac Type Severity Reaction Status Date / Time No Known Allergies Allergy Verified 11/28/19 16:04 - Home Medications Home Medications: Ambulatory Orders Amlodipine Besylate 5 mg PO DAILY 01/15/19 Atorvastatin Ca [Lipitor] 10 mg PO DAILY 01/15/19 Lisinopril 20 mg PO DAILY 01/15/19 Metoprolol Succinate [Toprol XL -] 25 mg PO DAILY 01/15/19 Review of Systems - Review of Systems Constitutional: reports: Loss of Appetite, Malaise. denies: Fever, Night Sweats Eyes: reports: No Symptoms HENT: reports: Difficult Swallowing Neck: reports: No Symptoms Cardiovascular: reports: Shortness of Breath. denies: Chest Pain, Edema, Palpitations Respiratory: reports: Cough, SOB, SOB on Exertion. denies: Exercise Intolerance , Hemoptysis, Orthopnea, PND, Snoring, Wheezing Gastrointestinal: reports: No Symptoms Genitourinary: reports: No Symptoms Breasts: reports: No Symptoms Reported Musculoskeletal: reports: Back Pain Integumentary: reports: No Symptoms Neurological: reports: No Symptoms Endocrine: reports: No Symptoms Hematology/Lymphatic: reports: No Symptoms Psychiatric: reports: Altered Sleep Pattern Physical Exam Vital Sings: Vital Signs Temperature 98.3 F 11/29/19 08:00 Pulse Rate 102 H 11/29/19 08:00 Respiratory Rate 18 11/29/19 08:00 Blood Pressure 147/61 11/29/19 08:00 O2 Sat by Pulse Oximetry (%) 98 11/28/19 23:20 Constitutional: Yes: No Distress, Thin Eyes: Yes: Conjunctiva Clear, EOM Intact HENT: Yes: Atraumatic, Normocephalic Neck: Yes: Supple, Trachea Midline Cardiovascular: Yes: Regular Rate and Rhythm Respiratory: Yes: Cough, Diminished, On Nasal O2, Rhonchi. No: Accessory Muscle Use, Rales, SOB, SOB on Exertion, Stridor, Tachypnea, Wheezes ...Inspection: Yes: WNL ...Clubbing: No Gastrointestinal: Yes: Normal Bowel Sounds, Soft Renal/: Yes: WNL Musculoskeletal: Yes: WNL Extremities: Yes: WNL Edema: No Peripheral Pulses WNL: Yes Integumentary: Yes: WNL Neurological: Yes: WNL, Alert, Oriented ...Motor Strength: WNL Psychiatric: Yes: WNL, Alert, Oriented Labs: CBC, BMP 11/29/19 07:38 11/29/19 07:38 Imaging - Results Chest X-ray: Report Reviewed, Image Reviewed Cat Scan: Report Reviewed, Image Reviewed Problem List - Problems (1) Atelectasis Code(s): J98.11 - ATELECTASIS (2) Pleural effusion Code(s): J90 - PLEURAL EFFUSION, NOT ELSEWHERE CLASSIFIED (3) Failure to thrive Code(s): [id number] - (4) Pneumonia Code(s): J18.9 - PNEUMONIA, UNSPECIFIED ORGANISM (5) Severe malnutrition Code(s): E43 - UNSPECIFIED SEVERE PROTEIN-CALORIE MALNUTRITION (6) Hip fracture Code(s): S72.009A - FRACTURE OF UNSP PART OF NECK OF UNSP FEMUR, INIT Qualifiers: Encounter type: initial encounter Fracture type: closed Laterality: left Qualified Code(s): S72.002A - Fracture of unspecified part of neck of left femur, initial encounter for closed fracture (7) Polycythemia Code(s): D75.1 - SECONDARY POLYCYTHEMIA Assessment/Plan IMP: R/O Aspiration PNA ABX per ID Follow cultures O2 as needed IVF VTE prophylaxis Swallow evaluation noted Aspiration precautions Will follow Thank you. Dr Moore
[2019-11-29 15:04] LABS: EPI CELLS 3.3 /HPF (0-5/HPF); HYALINE CASTS 17.11 /lpf (0-8); URINE RBC 0.4 /hpf (0-4); URINE WBC 1.3 /hpf (0-5)
[2019-11-29] MEDS: ATORVASTATIN CA 10 MG TABLET (FP) PO SCH (21:21)
[2019-11-30] MEDS: SODIUM CHLORIDE 1,000 ML IV SCH ×4 (02:18→22:07)
[2019-11-30] MEDS ORDERED: cefTRIAXone SODIUM 1 GM VIAL ONE ×2 (08:53→09:56)
[2019-11-30] MEDS ORDERED: DEXTROSE 5%-WATER - 50 ML IVPB ONE ×2 (08:53→09:56)
[2019-11-30] MEDS: AMINO ACIDS/PROTEIN HYDROLYS 30 ML LIQUID.PKT PO SCH ×2 (08:57→17:12)
[2019-11-30 09:21] LABS: BASO % 0.5 % (0-2.0); EOS % 0.6 % (0-4.5); HEMATOCRIT 34.3 % (32.4-45.2); HEMOGLOBIN 11.4 GM/dL (10.7-15.3); LYMPH % 5.3 % (8-40); MCH 30.4 pg (25.7-33.7); MCHC 33.3 g/dl (32.0-36.0); MEAN CELL VOLUME 91.2 fl (80-96); MEAN PLT VOLUME 8.9 fl (7.5-11.1); MONO % 5.1 % (3.8-10.2); NEUT % 88.5 % (42.8-82.8); PLATELET COUNT 469 K/MM3 (134-434); RBC 3.76 M/mm3 (3.60-5.2); RDW 16.7 % (11.6-15.6); WHITE BLOOD COUNT 10.9 K/mm3 (4.0-10.0)
[2019-11-30] MEDS: CEFTRIAXONE 1 GM in DEXTROSE 5%-WATER - 50 ML IVPB SCH (09:30)
[2019-11-30 09:54] LABS: ALBUMIN 2.2 g/dl (3.4-5.0); BILIRUBIN,TOTAL 0.3 mg/dL (0.2-1); BLOOD UREA NITROGEN 8.6 mg/dL (7-18); CALCIUM 7.7 mg/dL (8.5-10.1); CREATININE 0.3 mg/dL (0.55-1.3); MAGNESIUM 1.9 mg/dL (1.8-2.4); POTASSIUM 3.2 mmol/L (3.5-5.1); TOT PROT 5.2 g/dl (6.4-8.2)
--- NOTE | 2019-11-30 10:14 | PN ---
Progress Note, Physician History of Present Illness: stable no new issues - Current Medication List Current Medications: Active Medications Amino Acids (Prosource No Carb Liquid Pkt) 30 ml PO BID@0800,1730 [facility] Last Admin: 11/30/19 08:57 Dose: 30 ml Amlodipine Besylate (Norvasc -) 5 mg PO DAILY [facility] Last Admin: 11/29/19 12:06 Dose: 5 mg Atorvastatin Calcium (Lipitor -) 10 mg PO HS [facility] Last Admin: 11/29/19 21:21 Dose: 10 mg Heparin Sodium (Porcine) (Heparin -) 5,000 unit SQ BID [facility] Last Admin: 11/29/19 21:21 Dose: 5,000 unit Sodium Chloride (Normal Saline -) 1,000 mls @ 75 mls/hr IV ASDIR [facility] Last Admin: 11/30/19 06:17 Dose: 75 mls/hr Ceftriaxone Sodium 1 gm/ (Dextrose) 50 mls @ 200 mls/hr IVPB DAILY [facility]; Protocol Last Admin: 11/29/19 12:06 Dose: 200 mls/hr Azithromycin (Zithromax 500mg Ivpb (Pre-Docked)) 500 mg in 250 mls @ 250 mls/ hr IVPB DAILY [facility] Last Admin: 11/29/19 12:07 Dose: 250 mls/hr Lisinopril (Prinivil) 20 mg PO DAILY [facility] Last Admin: 11/29/19 12:06 Dose: 20 mg Metoprolol Succinate (Toprol Xl -) 25 mg PO DAILY [facility] Last Admin: 11/29/19 12:06 Dose: 25 mg - Objective Vital Signs: Vital Signs Temperature 98.3 F 11/30/19 06:00 Pulse Rate 88 11/30/19 06:00 Respiratory Rate 18 11/30/19 06:00 Blood Pressure 142/65 11/30/19 06:00 O2 Sat by Pulse Oximetry (%) 97 11/29/19 21:00 Constitutional: Yes: No Distress, Calm Cardiovascular: Yes: S1, S2 Respiratory: Yes: Regular, On Nasal O2 Gastrointestinal: Yes: Normal Bowel Sounds, Soft Musculoskeletal: Yes: WNL Extremities: Yes: WNL Neurological: Yes: Alert Labs: CBC, BMP 11/30/19 07:30 11/30/19 07:30 INR, PTT INR 1.27 (0.82-1.09) H 11/28/19 17:25 Assessment/Plan Problem List - Problems (1) Atelectasis Code(s): J98.11 - ATELECTASIS (2) Pleural effusion Code(s): J90 - PLEURAL EFFUSION, NOT ELSEWHERE CLASSIFIED (3) Failure to thrive Code(s): [id number] - (4) Pneumonia Code(s): J18.9 - PNEUMONIA, UNSPECIFIED ORGANISM (5) Severe malnutrition Code(s): E43 - UNSPECIFIED SEVERE PROTEIN-CALORIE MALNUTRITION (6) Hip fracture Code(s): S72.009A - FRACTURE OF UNSP PART OF NECK OF UNSP FEMUR, INIT Qualifiers: Encounter type: initial encounter Fracture type: closed Laterality: left Qualified Code(s): S72.002A - Fracture of unspecified part of neck of left femur, initial encounter for closed fracture (7) Polycythemia Code(s): D75.1 - SECONDARY POLYCYTHEMIA Assessment/Plan Aspiration PNA abx incentive angela rest as per the team
--- NOTE | 2019-11-30 10:16 | PN ---
Progress Note, [employer] - Note Progress Note: - Dysphagia Impressions/Plan Dysphagia Impressions: Ongoing Evaluation *Silent aspiration: cannot be R/O at bedside Dysphagia Treatment Plan: Safe Rate, Elevate HOB during feed - Recommendations Diet Consistency: Regular (soft) Medication Administration: Whole with water Liquids: Thin Liquids Pt doing well with diet. She is eating (with encouragement) without overt difficulty. Consider- ENT Consult (Hoarse voice x 3 weeks. r/o paresis/paralysis/pathology), Modified Barium Swallow (if aspiration suspected. Bedside evaluation ok), RD consult re:supplements. Pt used to drink Ensure but stopped because of Diarrhea
[2019-11-30] MEDS: HEPARIN NA (PORCINE) 5,000 UNITS/ML 1ML VIAL SQ SCH ×2 (10:43→22:07)
[2019-11-30] MEDS: LISINOPRIL 20 MG TABLET (FP) PO SCH (10:45)
[2019-11-30] MEDS: amLODIPine BESYLATE 5 MG TABLET (FP) PO SCH (10:45)
[2019-11-30] MEDS: metoPROLOL SUCCINATE 25 MG TAB.SR.24H (FP) PO SCH (10:45)
[2019-11-30] MEDS: AZITHROMYCIN IVPB 500 MG/250 ML BAG IVPB SCH (10:45)
--- NOTE | 2019-11-30 13:12 | PN ---
Progress Note (short form) - Note Progress Note: PULMONARY AWAKE/ALERT APPEARS COMFORTABLE DIARRHEA IS LESS VSS/AFEBRILE PALE/ANICTERIC DISTANT BUT CLEAR B/L BREATH SOUNDS S1S2 BS+ NO EDEMA LABS/MEDS/NOTES/IMAGES REVIEWED - Problems (1) Atelectasis Code(s): J98.11 - ATELECTASIS (2) Pleural effusion Code(s): J90 - PLEURAL EFFUSION, NOT ELSEWHERE CLASSIFIED (3) Failure to thrive Code(s): [id number] - (4) Pneumonia Code(s): J18.9 - PNEUMONIA, UNSPECIFIED ORGANISM (5) Severe malnutrition Code(s): E43 - UNSPECIFIED SEVERE PROTEIN-CALORIE MALNUTRITION (6) Hip fracture Code(s): S72.009A - FRACTURE OF UNSP PART OF NECK OF UNSP FEMUR, INIT Qualifiers: Encounter type: initial encounter Fracture type: closed Laterality: left Qualified Code(s): S72.002A - Fracture of unspecified part of neck of left femur, initial encounter for closed fracture (7) Polycythemia Code(s): D75.1 - SECONDARY POLYCYTHEMIA ABX per ID Follow cultures O2 as needed IVF VTE prophylaxis Swallow evaluation noted Aspiration precautions Will follow Marii MARIE MD
--- NOTE | 2019-11-30 16:00 | CON.GI ---
Consult Consult Specialty:: GI Referred by:: Hospitalist Service Reason for Consultation:: Diarrhea - History of Present Illness Chief Complaint: Weakness, diminished appetite History of Present Illness: 84F transferred from [facility] because there were no beds available there. She was recently admitted and treated there 11/08 for PNA and UII. Prior to that she had Kyphoplasty performed. He daughter explains that since her last admission, she has had diminished appetite and is just not thriving. She has a history of C. Diff infection 01/09. She denies abdominal pain. She is C. Diff antigen positive currently and was started on PO vancocin today. She has never had an upper endoscopy or colonoscopy. There is no family history of IBD, colorectal cancer or other GI malignancy. - History Source History Provided By: Patient, Medical Record - Past Medical History Cardio/Vascular: Yes: HTN, Hyperlipdemia Pulmonary: Yes: Bronchitis, Pneumonia. No: Asthma, Cancer, COPD, O2 Dependent, Previously Intubated, Pulmonary Embolus, Pulmonary Fibrosis, Sleep Apnea Renal/: Yes: Other (hyponatremia) - Past Surgical History Additional Surgical History: Kyphoplasty - Alcohol/Substance Use Hx Alcohol Use: No History of Substance Use: reports: None - Smoking History Smoking history: Former smoker Have you smoked in the past 12 months: No If you are a former smoker, when did you quit?: 60 YEARS - Social History Usual Living Arrangement: With Child ADL: Independent Place of : [facility] History of Recent Travel: No Home Medications - Allergies Allergies/Adverse Reactions: Allergies Allergy/AdvReac Type Severity Reaction Status Date / Time No Known Allergies Allergy Verified 11/28/19 16:04 - Home Medications Home Medications: Ambulatory Orders Amlodipine Besylate 5 mg PO DAILY 01/15/19 Atorvastatin Ca [Lipitor] 10 mg PO DAILY 01/15/19 Lisinopril 20 mg PO DAILY 01/15/19 Metoprolol Succinate [Toprol XL -] 25 mg PO DAILY 01/15/19 Family Medical History Other Family History: No family history of colorectal cancer, IBD or other GI malignancy Review of Systems - Review of Systems Constitutional: reports: Loss of Appetite, Weakness. denies: Chills, Unintentional Wgt. Loss Cardiovascular: denies: Chest Pain Gastrointestinal: reports: Diarrhea. denies: Abdominal Pain, Constipation, Nausea, Rectal Bleeding, Vomiting Physical Exam-GI Vital Signs: Vital Signs Temperature 97.3 F L 11/30/19 14:00 Pulse Rate 91 H 11/30/19 14:00 Respiratory Rate 18 11/30/19 14:00 Blood Pressure 119/55 L 11/30/19 14:00 O2 Sat by Pulse Oximetry (%) 97 11/30/19 09:00 Constitutional: Yes: Calm Eyes: No: Sclera Icterus Cardiovascular: Yes: Regular Rate and Rhythm. No: Murmur Respiratory: Yes: CTA Bilaterally Gastrointestinal Inspection: No: Distention, Scars ...Auscultate: No: Normoactive Bowel Sounds ...Palpate: Yes: Soft. No: Hepatomegaly, Splenomegaly, Tenderness ...Percussion: No: Tympanitic Edema: No (No LE edema) Neurological: Yes: Alert Labs: CBC, BMP 11/30/19 07:30 11/30/19 07:30 INR, PTT INR 1.27 (0.82-1.09) H 11/28/19 17:25 Problem List - Problems (1) Diarrhea Assessment/Plan: Gievn prior h/o CDAD, recent hospitalization with Abx administration and current C. DIff stool antigen that is positive, CDAD will need to be considered. She has been started on PO Vanco. If diarrhea does not start to improve in the next 2-3 days, then will need to exclude alternate etiologies and colonoscopy would be considered. Discussed with karson and her daughter. follow-up stool culture, check fecal calprotectin. Lactose free diet. Code(s): R19.7 - DIARRHEA, UNSPECIFIED
[2019-11-30] MEDS: VANCOMYCIN 250 MG/5 ML ORAL SOLUTION PO SCH ×2 (17:12→23:40)
--- NOTE | 2019-11-30 17:25 | PN ---
Physical Exam: SUBJECTIVE: Patient seen and examined, feels weak and reports 8 loose stools. found to have + for c diff. OBJECTIVE: thin appearing, frail, cachectic/severe malnutrition dry tongue, dry mucuous membranes, skin dry, chest and spine bones prominent, prominent pelvic bones. ----- Patient is an 83 year old female with a significant past medical history of HTN , HLD, polycythemia vera, s/p left hip fracture repair in December 2018, compression fractures s/p kyphoplasties, and severe malnutrition. Recently hospitalized 10/31-11/05/19 for sepsis secondary to E.coli UTI. Patient was brought by her daughter to the ED for evaluation of profound weakness, lack of appetite, difficulty swallowing, persistent dry cough, diarrhea, incontinence of urine and stool, skin breakdown, hair loss, and depression. Patient has not had fever, sweats, chills. She was found to have an acute pneumonia and on azithromycin and ceftriaxone. Now found to be positive for c diff. Vital Signs Period Temp Pulse Resp BP Sys/Kiser Pulse Ox Last 24 Hr 97.3 F-98.7 F 88-92 18-18 119-142/55-65 97-97 GENERAL: The patient is awake, alert, and fully oriented, in no acute distress. severe malnutrition with prominent back, chest and pelvic bones. also appears clinically dry and weak. HEAD: Normal with no signs of trauma. EYES: PERRL, extraocular movements intact, sclera anicteric, conjunctiva clear. No ptosis. ENT: Ears normal, nares patent, oropharynx clear without exudates, dry mucous membranes. NECK: Trachea midline, full range of motion, supple. LUNGS: unable to take in a deep breath without illiciting a cough, no wheezing, diminished overall bilaterally. HEART: Regular rate and rhythm, S1, S2 without murmur, rub or gallop. ABDOMEN: soft, non tender, non distended. EXTREMITIES: no edema. NEUROLOGICAL: Normal speech, gait not observed. PSYCH: Normal mood, normal affect. SKIN: stage II sacral pressure sore Laboratory Results - last 24 hr 11/30/19 11/30/19 07:30 07:30 WBC 10.9 H RBC 3.76 Hgb 11.4 Hct 34.3 MCV 91.2 MCH 30.4 MCHC 33.3 RDW 16.7 H Plt Count 469 H MPV 8.9 Absolute Neuts (auto) 9.7 H Neutrophils % 88.5 H Lymphocytes % 5.3 L D Monocytes % 5.1 Eosinophils % 0.6 Basophils % 0.5 Nucleated RBC % 0 Sodium 134 L Potassium 3.2 L Chloride 101 Carbon Dioxide 24 Anion Gap 9 BUN 8.6 Creatinine 0.3 L Est GFR (CKD-EPI)AfAm 121.00 Est GFR (CKD-EPI)NonAf 104.40 Random Glucose 89 Calcium 7.7 L Magnesium 1.9 Total Bilirubin 0.3 AST 23 ALT 14 Alkaline Phosphatase 231 H Total Protein 5.2 L Albumin 2.2 L Active Medications Generic Name Dose Route Start Last Admin Trade Name Freq PRN Reason Stop Dose Admin Amino Acids 30 ml 11/29/19 08:00 11/30/19 17:12 Prosource No Carb Liquid Pkt PO 30 ml BID@0800,1730 KEHINDE Administration Amlodipine Besylate 5 mg 11/29/19 10:00 11/30/19 10:45 Norvasc - PO 5 mg DAILY KEHINDE Administration Atorvastatin Calcium 10 mg 11/29/19 22:00 11/29/19 21:21 Lipitor - PO 10 mg HS KEHINDE Administration Heparin Sodium (Porcine) 5,000 unit 11/28/19 22:00 11/30/19 10:43 Heparin - SQ 5,000 unit BID KEHINDE Administration Sodium Chloride 1,000 mls @ 75 mls/hr 11/28/19 21:30 11/30/19 06:17 Normal Saline - IV 75 mls/hr ASDIR KEHINDE Administration Lisinopril 20 mg 11/29/19 10:00 11/30/19 10:45 Prinivil PO 20 mg DAILY KEHINDE Administration Metoprolol Succinate 25 mg 11/29/19 10:00 11/30/19 10:45 Toprol Xl - PO 25 mg DAILY KEHINDE Administration Vancomycin HCl 125 mg 11/30/19 18:00 11/30/19 17:12 Vancomycin Oral Solution PO 125 mg Q6HPO KEHINDE Administration ASSESSMENT/PLAN: Problem List - Problems (1) Clostridium difficile colitis Assessment/Plan: + for c diff isolation precautions started on oral vanco gi consulted Code(s): A04.72 - ENTEROCOLITIS D/T CLOSTRIDIUM DIFFICILE, NOT SPCF RECUR (2) Severe malnutrition Assessment/Plan: dietary consulted started on ivf for dehydration and supplements s/p swallow eval and soft diet/regular diet recommended with supplements. bmi 16.6, clinically dry, weak and cachectic Code(s): E43 - UNSPECIFIED SEVERE PROTEIN-CALORIE MALNUTRITION (3) Failure to thrive Assessment/Plan: patient reports poor oral intake and diarrhea. Code(s): [id number] - (4) Pneumonia Assessment/Plan: evidence of pneumonia on chest xray started on ceftriaxone and azithoromycin, but stopped after she was found to have c diff. ID following tolerating room air, no airway compromise coughs with deep breathing will order incentive spirometer, duonebs pulmonary following Code(s): J18.9 - PNEUMONIA, UNSPECIFIED ORGANISM (5) Hip fracture Assessment/Plan: by history, physical therapy Code(s): S72.009A - FRACTURE OF UNSP PART OF NECK OF UNSP FEMUR, INIT Qualifiers: Encounter type: initial encounter Fracture type: closed Laterality: left Qualified Code(s): S72.002A - Fracture of unspecified part of neck of left femur, initial encounter for closed fracture (6) Orthostatic hypotension Code(s): I95.1 - ORTHOSTATIC HYPOTENSION (7) Stage II pressure ulcer Assessment/Plan: turn and position and increase oral intake. will add pro source. Code(s): L89.92 - PRESSURE ULCER OF UNSPECIFIED SITE, STAGE 2 (8) Polycythemia Assessment/Plan: patient follows with a accounting administrative assistant (Erna) and will need continued outpatient follow up. Code(s): D75.1 - SECONDARY POLYCYTHEMIA (9) DVT prophylaxis Assessment/Plan: on heparin bid Code(s): Z29.9 - ENCOUNTER FOR PROPHYLACTIC MEASURES, UNSPECIFIED (10) Prophylactic measure Assessment/Plan: fen f: ns @ 100 e: monitor electrolytes daily and supplement n: dysphagia pureed until seen by speech/swallow physical therapy heparin protonix Code(s): Z29.9 - ENCOUNTER FOR PROPHYLACTIC MEASURES, UNSPECIFIED Visit type - Emergency Visit Emergency Visit: Yes ED Registration Date: 11/28/19 Care time: The patient presented to the Emergency Department on the above date and was hospitalized for further evaluation of their emergent condition. - New Patient This patient is new to me today: No - Critical Care Critical Care patient: No - Discharge Referral Referred to [facility] Med P.C.: No
[2019-11-30] MEDS ORDERED: PT OWN MED DRAWER 7, Y5N ONE (18:04)
[2019-11-30] MEDS ORDERED: ALBUTEROL SO4 2.5/IPRATROPIUM 0.5 INH SOL 3 ML VIAL.NEB. NEB PRN (18:10)
[2019-11-30] MEDS: ATORVASTATIN CA 10 MG TABLET (FP) PO SCH (22:07)
[2019-12-01] MEDS: VANCOMYCIN 250 MG/5 ML ORAL SOLUTION PO SCH ×3 (05:47→18:00)
[2019-12-01 07:43] LABS: EOS % 0.4 % (0-4.5); HEMATOCRIT 33.6 % (32.4-45.2); HEMOGLOBIN 11.4 GM/dL (10.7-15.3); LYMPH % 4.2 % (8-40); MCH 30.2 pg (25.7-33.7); MCHC 33.8 g/dl (32.0-36.0); MEAN CELL VOLUME 89.5 fl (80-96); MEAN PLT VOLUME 8.7 fl (7.5-11.1); MONO % 4.9 % (3.8-10.2); NEUT % 89.5 % (42.8-82.8); PLATELET COUNT 419 K/MM3 (134-434); RBC 3.76 M/mm3 (3.60-5.2); RDW 16.6 % (11.6-15.6); WHITE BLOOD COUNT 11.2 K/mm3 (4.0-10.0)
[2019-12-01] MEDS: AMINO ACIDS/PROTEIN HYDROLYS 30 ML LIQUID.PKT PO SCH ×2 (08:06→17:59)
[2019-12-01] MEDS: SODIUM CHLORIDE 1,000 ML IV SCH ×2 (08:06→18:00)
[2019-12-01 08:16] LABS: ALBUMIN 2.2 g/dl (3.4-5.0); BILIRUBIN,TOTAL 0.3 mg/dL (0.2-1); CALCIUM 7.9 mg/dL (8.5-10.1); CREATININE 0.4 mg/dL (0.55-1.3); MAGNESIUM 1.8 mg/dL (1.8-2.4)
--- NOTE | 2019-12-01 08:31 | PN.GI ---
GI Progress Note Subjective: STILL WITH DIARRHEA - NO OTHER COMPLAINTS - Objective Vital Signs: Vital Signs Temperature 97.5 F L 12/01/19 05:00 Pulse Rate 92 H 12/01/19 05:00 Respiratory Rate 18 12/01/19 05:00 Blood Pressure 144/67 12/01/19 05:00 O2 Sat by Pulse Oximetry (%) 97 11/30/19 09:00 Constitutional: Well Nourished, No Distress, Calm Eyes: Yes: WNL HENT: Yes: WNL Neck: Yes: WNL, Supple Cardiovascular: Yes: WNL, Regular Rate and Rhythm Respiratory: Yes: WNL, Regular, CTA Bilaterally Gastrointestinal Inspection: Yes: WNL ...Auscultate: Yes: Normoactive Bowel Sounds Extremities: Yes: WNL Edema: No Labs: CBC, BMP 12/01/19 06:45 12/01/19 06:45 INR, PTT INR 1.27 (0.82-1.09) H 11/28/19 17:25 Problem List - Problems (1) Clostridium difficile colitis Assessment/Plan: LOW RESIDUE LACTOSE FREE DIET C/W VANCOMYCIN PO IF NO IMPROVEMENT MAY NEED DIAGNOSTIC COLONOSCOPY F/U FINAL CULTURES Code(s): A04.72 - ENTEROCOLITIS D/T CLOSTRIDIUM DIFFICILE, NOT SPCF RECUR (2) Diarrhea Code(s): R19.7 - DIARRHEA, UNSPECIFIED
--- NOTE | 2019-12-01 09:49 | PN ---
Progress Note, Physician History of Present Illness: patient stable no new issues - Current Medication List Current Medications: Active Medications Albuterol/Ipratropium (Duoneb -) 1 amp NEB Q6H PRN PRN Reason: SHORTNESS OF BREATH Amino Acids (Prosource No Carb Liquid Pkt) 30 ml PO BID@0800,1730 [facility] Last Admin: 12/01/19 08:06 Dose: 30 ml Amlodipine Besylate (Norvasc -) 5 mg PO DAILY [facility] Last Admin: 11/30/19 10:45 Dose: 5 mg Atorvastatin Calcium (Lipitor -) 10 mg PO HS [facility] Last Admin: 11/30/19 22:07 Dose: 10 mg Heparin Sodium (Porcine) (Heparin -) 5,000 unit SQ BID [facility] Last Admin: 11/30/19 22:07 Dose: 5,000 unit Sodium Chloride (Normal Saline -) 1,000 mls @ 100 mls/hr IV ASDIR [facility] Last Admin: 12/01/19 08:06 Dose: 100 mls/hr Lisinopril (Prinivil) 20 mg PO DAILY [facility] Last Admin: 11/30/19 10:45 Dose: 20 mg Metoprolol Succinate (Toprol Xl -) 25 mg PO DAILY [facility] Last Admin: 11/30/19 10:45 Dose: 25 mg Vancomycin HCl (Vancomycin Oral Solution) 125 mg PO Q6HPO [facility] Last Admin: 12/01/19 05:47 Dose: 125 mg - Objective Vital Signs: Vital Signs Temperature 97.5 F L 12/01/19 05:00 Pulse Rate 92 H 12/01/19 05:00 Respiratory Rate 18 12/01/19 05:00 Blood Pressure 144/67 12/01/19 05:00 O2 Sat by Pulse Oximetry (%) 97 11/30/19 09:00 Constitutional: Yes: No Distress, Calm Cardiovascular: Yes: S1, S2 Respiratory: Yes: Regular, CTA Bilaterally Gastrointestinal: Yes: Normal Bowel Sounds, Soft Musculoskeletal: Yes: WNL Extremities: Yes: Other Neurological: Yes: Alert, Oriented Psychiatric: Yes: Alert, Oriented Labs: CBC, BMP 12/01/19 06:45 12/01/19 06:45 INR, PTT INR 1.27 (0.82-1.09) H 11/28/19 17:25 Assessment/Plan Problem List - Problems (1) Atelectasis Code(s): J98.11 - ATELECTASIS (2) Pleural effusion Code(s): J90 - PLEURAL EFFUSION, NOT ELSEWHERE CLASSIFIED (3) Failure to thrive Code(s): [id number] - (4) Pneumonia Code(s): J18.9 - PNEUMONIA, UNSPECIFIED ORGANISM (5) Severe malnutrition Code(s): E43 - UNSPECIFIED SEVERE PROTEIN-CALORIE MALNUTRITION (6) Hip fracture Code(s): S72.009A - FRACTURE OF UNSP PART OF NECK OF UNSP FEMUR, INIT Qualifiers: Encounter type: initial encounter Fracture type: closed Laterality: left Qualified Code(s): S72.002A - Fracture of unspecified part of neck of left femur, initial encounter for closed fracture (7) Polycythemia Code(s): D75.1 - SECONDARY POLYCYTHEMIA 8 uti Assessment/Plan Aspiration PNA patient is having a lot of dirrhoea still continues to be tired plan will start patient on cefepime
[2019-12-01] MEDS ORDERED: CEFEPIME HCL/D5W 1 GM/50 ML BAG IVPB SCH (10:00)
[2019-12-01] MEDS ORDERED: PT OWN MED DRAWER 7, Y5N ONE (10:07)
[2019-12-01] MEDS: LISINOPRIL 20 MG TABLET (FP) PO SCH (10:13)
[2019-12-01] MEDS: metoPROLOL SUCCINATE 25 MG TAB.SR.24H (FP) PO SCH (10:13)
[2019-12-01] MEDS: amLODIPine BESYLATE 5 MG TABLET (FP) PO SCH (10:13)
[2019-12-01] MEDS: HEPARIN NA (PORCINE) 5,000 UNITS/ML 1ML VIAL SQ SCH ×2 (10:13→21:43)
[2019-12-01] MEDS ORDERED: CEFEPIME 1 GM in DEXTROSE 5%-WATER 100 ML IVPB SCH (10:45)
[2019-12-01] MEDS ORDERED: CEFEPIME HCL 1 GM VIAL (RESTRICTED TO ID) ONE ×2 (11:28→17:54)
[2019-12-01] MEDS ORDERED: DEXTROSE 5%-WATER 100 ML IVPB ONE ×2 (11:28→17:54)
[2019-12-01] MEDS: CEFEPIME 1 GM in DEXTROSE 5%-WATER 100 ML IVPB SCH ×2 (11:33→18:00)
[2019-12-01] MEDS ORDERED: KCL 10 MEQ IVPB 10 MEQ/100 ML INFUS.BAG IVPB SCH (11:45)
[2019-12-01] MEDS ORDERED: POTASSIUM CHLORIDE ORAL LIQUID 20 MEQ/15 ML PO ONE (11:46)
[2019-12-01 13:22] LABS: PLATELET ESTIMATE NORMAL
--- NOTE | 2019-12-01 14:30 | PN ---
Progress Note (short form) - Note Progress Note: PULMONARY AWAKE/ALERT APPEARS COMFORTABLE DIARRHEA IS LESS GI CONSULT IS APPRECIATED VSS/AFEBRILE PALE/ANICTERIC DISTANT BUT CLEAR B/L BREATH SOUNDS S1S2 BS+ NO EDEMA LABS/MEDS/NOTES/IMAGES REVIEWED - Problems (1) Atelectasis Code(s): J98.11 - ATELECTASIS (2) Pleural effusion Code(s): J90 - PLEURAL EFFUSION, NOT ELSEWHERE CLASSIFIED (3) Failure to thrive Code(s): [id number] - (4) Pneumonia Code(s): J18.9 - PNEUMONIA, UNSPECIFIED ORGANISM (5) Severe malnutrition Code(s): E43 - UNSPECIFIED SEVERE PROTEIN-CALORIE MALNUTRITION (6) Hip fracture Code(s): S72.009A - FRACTURE OF UNSP PART OF NECK OF UNSP FEMUR, INIT Qualifiers: Encounter type: initial encounter Fracture type: closed Laterality: left Qualified Code(s): S72.002A - Fracture of unspecified part of neck of left femur, initial encounter for closed fracture (7) Polycythemia Code(s): D75.1 - SECONDARY POLYCYTHEMIA ABX per ID Follow cultures O2 as needed IVF VTE prophylaxis Swallow evaluation noted Aspiration precautions Will follow Marii MARIE MD
--- NOTE | 2019-12-01 17:06 | PN ---
Physical Exam: SUBJECTIVE: Patient seen and examined, reports poor appetite and about 8 loose stools overnight. ----- Patient is an 83 year old female with a significant past medical history of HTN , HLD, polycythemia vera, s/p left hip fracture repair in December 2018, compression fractures s/p kyphoplasties, and severe malnutrition. Recently hospitalized 10/31-11/05/19 for sepsis secondary to E.coli UTI. Patient was brought by her daughter to the ED for evaluation of profound weakness, lack of appetite, difficulty swallowing, persistent dry cough, diarrhea, incontinence of urine and stool, skin breakdown, hair loss, and depression. Patient has not had fever, sweats, chills. She was found to have an acute pneumonia and on azithromycin and ceftriaxone. Now found to be positive for c diff and on day 2 of oral vancomycin. Vital Signs Period Temp Pulse Resp BP Sys/Kiser Pulse Ox Last 24 Hr 97.5 F-98.6 F 74-102 18-20 124-144/62-70 GENERAL: The patient is awake, alert, and fully oriented, in no acute distress. severe malnutrition with prominent back, chest and pelvic bones. also appears clinically dry and weak. thin appearing, frail, cachectic/severe malnutrition, dry tongue, dry mucuous membranes, skin dry, chest and spine bones prominent, prominent pelvic bones. HEAD: Normal with no signs of trauma. EYES: PERRL, extraocular movements intact, sclera anicteric, conjunctiva clear. No ptosis. ENT: Ears normal, nares patent, oropharynx clear without exudates, dry mucous membranes. NECK: Trachea midline, full range of motion, supple. LUNGS: unable to take in a deep breath without illiciting a cough, no wheezing, diminished overall bilaterally. HEART: Regular rate and rhythm, S1, S2 without murmur, rub or gallop. ABDOMEN: soft, non tender, non distended. EXTREMITIES: no edema. NEUROLOGICAL: Normal speech, gait not observed. PSYCH: Normal mood, normal affect. SKIN: stage II sacral pressure sore Laboratory Results - last 24 hr 12/01/19 12/01/19 06:45 06:45 WBC 11.2 H RBC 3.76 Hgb 11.4 Hct 33.6 MCV 89.5 MCH 30.2 MCHC 33.8 RDW 16.6 H Plt Count 419 MPV 8.7 Absolute Neuts (auto) 10.0 H Neutrophils % 89.5 H Lymphocytes % 4.2 L D Monocytes % 4.9 Eosinophils % 0.4 Basophils % 1.0 Nucleated RBC % 0 Platelet Estimate Normal Sodium 134 L Potassium 3.0 L Chloride 101 Carbon Dioxide 25 Anion Gap 8 BUN 7.0 Creatinine 0.4 L Est GFR (CKD-EPI)AfAm 110.08 Est GFR (CKD-EPI)NonAf 94.98 Random Glucose 96 Calcium 7.9 L Magnesium 1.8 Total Bilirubin 0.3 AST 23 ALT 14 Alkaline Phosphatase 222 H Total Protein 5.0 L Albumin 2.2 L Active Medications Generic Name Dose Route Start Last Admin Trade Name Freq PRN Reason Stop Dose Admin Albuterol/Ipratropium 1 amp 11/30/19 18:10 Duoneb - NEB Q6H PRN SHORTNESS OF BREATH Amino Acids 30 ml 11/29/19 08:00 12/01/19 08:06 Prosource No Carb Liquid Pkt PO 30 ml BID@0800,1730 KEHINDE Administration Amlodipine Besylate 5 mg 11/29/19 10:00 12/01/19 10:13 Norvasc - PO 5 mg DAILY KEHINDE Administration Atorvastatin Calcium 10 mg 11/29/19 22:00 11/30/19 22:07 Lipitor - PO 10 mg HS KEHINDE Administration Collagenase 1 applic 12/02/19 10:00 Santyl - TP DAILY KEHINDE Protocol Heparin Sodium (Porcine) 5,000 unit 11/28/19 22:00 12/01/19 10:13 Heparin - SQ 5,000 unit BID KEHINDE Administration Sodium Chloride 1,000 mls @ 100 mls/hr 11/30/19 18:13 12/01/19 08:06 Normal Saline - IV 100 mls/hr ASDIR KEHINDE Administration Cefepime HCl 1 gm/ Dextrose 100 mls @ 200 mls/hr 12/01/19 11:30 12/01/19 11: 33 IVPB 200 mls/hr Q8H-IV KEHINDE Administration Protocol Lisinopril 20 mg 11/29/19 10:00 12/01/19 10:13 Prinivil PO 20 mg DAILY KEHINDE Administration Metoprolol Succinate 25 mg 11/29/19 10:00 12/01/19 10:13 Toprol Xl - PO 25 mg DAILY KEHINDE Administration Vancomycin HCl 125 mg 11/30/19 18:00 12/01/19 11:33 Vancomycin Oral Solution PO 125 mg Q6HPO KEHINDE Administration ASSESSMENT/PLAN: Problem List - Problems (1) Hip fracture Assessment/Plan: by history, physical therapy Code(s): S72.009A - FRACTURE OF UNSP PART OF NECK OF UNSP FEMUR, INIT Qualifiers: Encounter type: initial encounter Fracture type: closed Laterality: left Qualified Code(s): S72.002A - Fracture of unspecified part of neck of left femur, initial encounter for closed fracture (2) Severe malnutrition Assessment/Plan: dietary consulted started on ivf for dehydration and supplements s/p swallow eval and soft diet/regular diet recommended with supplements. bmi 16.6, clinically dry, weak and cachectic Code(s): E43 - UNSPECIFIED SEVERE PROTEIN-CALORIE MALNUTRITION (3) Clostridium difficile colitis Assessment/Plan: + for c diff isolation precautions started on oral vanco day 2 gi consulted and following Code(s): A04.72 - ENTEROCOLITIS D/T CLOSTRIDIUM DIFFICILE, NOT SPCF RECUR (4) Pseudomonas urinary tract infection Assessment/Plan: found in urine culture, started on cefepime continue ivf Code(s): N39.0 - URINARY TRACT INFECTION, SITE NOT SPECIFIED; B96.5 - PSEUDOMONAS (MALLEI) CAUSING DISEASES CLASSD ELSWHR (5) Failure to thrive Assessment/Plan: patient reports poor oral intake and frequent diarrhea at home Code(s): [id number] - (6) Pneumonia Assessment/Plan: evidence of pneumonia on chest xray started on ceftriaxone and azithoromycin, but stopped after she was found to have c diff. ID following tolerating room air, no airway compromise coughs with deep breathing will order incentive spirometer, duonebs pulmonary following Code(s): J18.9 - PNEUMONIA, UNSPECIFIED ORGANISM (7) Orthostatic hypotension Code(s): I95.1 - ORTHOSTATIC HYPOTENSION (8) Stage II pressure ulcer Assessment/Plan: turn and position and increase oral intake. on pro source. Code(s): L89.92 - PRESSURE ULCER OF UNSPECIFIED SITE, STAGE 2 (9) Polycythemia Assessment/Plan: patient follows with a targeteer (Erna) and will need continued outpatient follow up. Code(s): D75.1 - SECONDARY POLYCYTHEMIA (10) DVT prophylaxis Assessment/Plan: on heparin bid Code(s): Z29.9 - ENCOUNTER FOR PROPHYLACTIC MEASURES, UNSPECIFIED (11) Prophylactic measure Assessment/Plan: fen f: ns @ 100 e: monitor electrolytes daily and supplement n: dysphagia pureed until seen by speech/swallow physical therapy heparin protonix Code(s): Z29.9 - ENCOUNTER FOR PROPHYLACTIC MEASURES, UNSPECIFIED Visit type - Emergency Visit Emergency Visit: Yes ED Registration Date: 11/28/19 Care time: The patient presented to the Emergency Department on the above date and was hospitalized for further evaluation of their emergent condition. - New Patient This patient is new to me today: No - Critical Care Critical Care patient: No - Discharge Referral Referred to [facility] No
[2019-12-01] MEDS: ATORVASTATIN CA 10 MG TABLET (FP) PO SCH (21:43)
[2019-12-01] MEDS: POTASSIUM CHLORIDE TABS 20 MEQ TABLET.ER (FP) PO SCH (21:43)
[2019-12-02] MEDS ORDERED: CEFEPIME HCL 1 GM VIAL (RESTRICTED TO ID) ONE ×3 (01:43→17:57)
[2019-12-02] MEDS ORDERED: DEXTROSE 5%-WATER 100 ML IVPB ONE ×3 (01:43→17:57)
[2019-12-02] MEDS: CEFEPIME 1 GM in DEXTROSE 5%-WATER 100 ML IVPB SCH ×3 (02:00→18:05)
[2019-12-02] MEDS: VANCOMYCIN 250 MG/5 ML ORAL SOLUTION PO SCH ×4 (06:48→18:05)
[2019-12-02 07:32] LABS: ALBUMIN 2.2 g/dl (3.4-5.0); BILIRUBIN,TOTAL 0.4 mg/dL (0.2-1); BLOOD UREA NITROGEN 7.5 mg/dL (7-18); CALCIUM 7.7 mg/dL (8.5-10.1); CREATININE 0.4 mg/dL (0.55-1.3); MAGNESIUM 1.7 mg/dL (1.8-2.4); POTASSIUM 3.3 mmol/L (3.5-5.1); TOT PROT 5.1 g/dl (6.4-8.2)
[2019-12-02 07:44] LABS: BASO % 0.7 % (0-2.0); EOS % 0.6 % (0-4.5); HEMATOCRIT 34.1 % (32.4-45.2); HEMOGLOBIN 11.5 GM/dL (10.7-15.3); LYMPH % 4.1 % (8-40); MCH 30.3 pg (25.7-33.7); MCHC 33.7 g/dl (32.0-36.0); MEAN CELL VOLUME 89.8 fl (80-96); MEAN PLT VOLUME 8.6 fl (7.5-11.1); MONO % 5.6 % (3.8-10.2); PLATELET COUNT 411 K/MM3 (134-434); RBC 3.79 M/mm3 (3.60-5.2); RDW 16.1 % (11.6-15.6); WHITE BLOOD COUNT 12.5 K/mm3 (4.0-10.0)
--- NOTE | 2019-12-02 08:00 | PN.GI ---
GI Progress Note Subjective: EPISODE OF N/V AFTER RECEIVING POTASSIUM ; DENIES ABD PAIN ; NO BM THIS AM - Objective Vital Signs: Vital Signs Temperature 98.3 F 12/02/19 07:55 Pulse Rate 102 H 12/02/19 07:55 Respiratory Rate 12/02/19 07:55 Blood Pressure 159/76 12/02/19 07:55 O2 Sat by Pulse Oximetry (%) 97 12/01/19 21:00 Constitutional: Well Nourished, No Distress, Calm Eyes: Yes: WNL HENT: Yes: WNL Neck: Yes: WNL Cardiovascular: Yes: WNL, Regular Rate and Rhythm Respiratory: Yes: WNL, Regular, CTA Bilaterally Gastrointestinal Inspection: Yes: WNL Musculoskeletal: Yes: WNL Extremities: Yes: WNL Edema: No Labs: CBC, BMP 12/02/19 05:40 INR, PTT INR 1.27 (0.82-1.09) H 11/28/19 17:25 Problem List - Problems (1) Clostridium difficile colitis Assessment/Plan: LOW RESIDUE LACTOSE FREE DIET C/W VANCOMYCIN PO IF NO IMPROVEMENT MAY NEED DIAGNOSTIC COLONOSCOPY F/U FINAL CULTURES - STOOL PCR PENDING Code(s): A04.72 - ENTEROCOLITIS D/T CLOSTRIDIUM DIFFICILE, NOT SPCF RECUR (2) Diarrhea Code(s): R19.7 - DIARRHEA, UNSPECIFIED
[2019-12-02] MEDS ORDERED: POTASSIUM CHLORIDE TABS 20 MEQ TABLET.ER (FP) PO ONE (09:01)
[2019-12-02] MEDS ORDERED: MAGNESIUM OXIDE 400 MG TABLET (FP) PO ONE (09:02)
[2019-12-02] MEDS ORDERED: PT OWN MED DRAWER 7, Y5N ONE (10:18)
[2019-12-02] MEDS: POTASSIUM CHLORIDE TABS 20 MEQ TABLET.ER (FP) PO SCH ×2 (10:24→21:54)
[2019-12-02] MEDS: metoPROLOL SUCCINATE 25 MG TAB.SR.24H (FP) PO SCH (10:24)
[2019-12-02] MEDS: LISINOPRIL 20 MG TABLET (FP) PO SCH (10:24)
[2019-12-02] MEDS: COLLAGENASE CLOSTRIDIUM HIST. 30 GRAMS TUBE TP SCH (10:25)
[2019-12-02] MEDS: amLODIPine BESYLATE 5 MG TABLET (FP) PO SCH (10:25)
[2019-12-02] MEDS: HEPARIN NA (PORCINE) 5,000 UNITS/ML 1ML VIAL SQ SCH ×2 (10:25→21:54)
[2019-12-02] MEDS: AMINO ACIDS/PROTEIN HYDROLYS 30 ML LIQUID.PKT PO SCH ×2 (10:25→18:06)
--- NOTE | 2019-12-02 12:13 | PN ---
Progress Note, Physician History of Present Illness: stable says she has not had loose bm vomited today son in the room - Current Medication List Current Medications: Active Medications Albuterol/Ipratropium (Duoneb -) 1 amp NEB Q6H PRN PRN Reason: SHORTNESS OF BREATH Amino Acids (Prosource No Carb Liquid Pkt) 30 ml PO BID@0800,1730 [facility] Last Admin: 12/02/19 10:25 Dose: 30 ml Amlodipine Besylate (Norvasc -) 5 mg PO DAILY KEHINDE Last Admin: 12/02/19 10:25 Dose: 5 mg Atorvastatin Calcium (Lipitor -) 10 mg PO HS [facility] Last Admin: 12/01/19 21:43 Dose: 10 mg Collagenase (Santyl -) 1 applic TP DAILY [facility]; Protocol Last Admin: 12/02/19 10:25 Dose: 1 applic Heparin Sodium (Porcine) (Heparin -) 5,000 unit SQ BID [facility] Last Admin: 12/02/19 10:25 Dose: 5,000 unit Sodium Chloride (Normal Saline -) 1,000 mls @ 100 mls/hr IV ASDIR [facility] Last Admin: 12/01/19 18:00 Dose: 100 mls/hr Cefepime HCl 1 gm/ Dextrose 100 mls @ 200 mls/hr IVPB Q8H-IV KEHINDE; Protocol Last Admin: 12/02/19 10:25 Dose: 200 mls/hr Lisinopril (Prinivil) 20 mg PO DAILY [facility] Last Admin: 12/02/19 10:24 Dose: 20 mg Metoprolol Succinate (Toprol Xl -) 25 mg PO DAILY [facility] Last Admin: 12/02/19 10:24 Dose: 25 mg Potassium Chloride (K-Dur -) 20 meq PO BID [facility] Last Admin: 12/02/19 10:24 Dose: 20 meq Vancomycin HCl (Vancomycin Oral Solution) 125 mg PO Q6HPO [facility] Last Admin: 12/02/19 06:48 Dose: 125 mg - Objective Vital Signs: Vital Signs Temperature 98.3 F 12/02/19 07:55 Pulse Rate 102 H 12/02/19 07:55 Respiratory Rate 20 12/02/19 07:55 Blood Pressure 159/76 12/02/19 07:55 O2 Sat by Pulse Oximetry (%) 97 12/01/19 21:00 Constitutional: Yes: No Distress, Calm Cardiovascular: Yes: S1, S2 Respiratory: Yes: Regular, CTA Bilaterally Gastrointestinal: Yes: Normal Bowel Sounds, Soft Musculoskeletal: Yes: WNL Extremities: Yes: WNL Neurological: Yes: Alert, Confusion Psychiatric: Yes: Alert, Oriented Labs: CBC, BMP 12/02/19 05:40 12/02/19 05:40 INR, PTT INR 1.27 (0.82-1.09) H 11/28/19 17:25 Assessment/Plan Problem List - Problems (1) Atelectasis Code(s): J98.11 - ATELECTASIS (2) Pleural effusion Code(s): J90 - PLEURAL EFFUSION, NOT ELSEWHERE CLASSIFIED (3) Failure to thrive Code(s): [id number] - (4) Pneumonia Code(s): J18.9 - PNEUMONIA, UNSPECIFIED ORGANISM (5) Severe malnutrition Code(s): E43 - UNSPECIFIED SEVERE PROTEIN-CALORIE MALNUTRITION (6) Hip fracture Code(s): S72.009A - FRACTURE OF UNSP PART OF NECK OF UNSP FEMUR, INIT Qualifiers: Encounter type: initial encounter Fracture type: closed Laterality: left Qualified Code(s): S72.002A - Fracture of unspecified part of neck of left femur, initial encounter for closed fracture (7) Polycythemia Code(s): D75.1 - SECONDARY POLYCYTHEMIA 8 uti Assessment/Plan Aspiration PNA patient is having a lot of dirrhoea still continues to be tired plan continue current mgmt once patient tolerates will switch to oral
--- NOTE | 2019-12-02 12:30 | PN ---
Progress Note (short form) - Note Progress Note: PULMONARY AWAKE/ALERT FRAIL DIARRHEA GI CONSULT IS APPRECIATED VSS/AFEBRILE PALE/ANICTERIC DISTANT BUT CLEAR B/L BREATH SOUNDS S1S2 BS+ NO EDEMA LABS/MEDS/NOTES/IMAGES REVIEWED - Problems (1) Atelectasis Code(s): J98.11 - ATELECTASIS (2) Pleural effusion Code(s): J90 - PLEURAL EFFUSION, NOT ELSEWHERE CLASSIFIED (3) Failure to thrive Code(s): [id number] - (4) Pneumonia Code(s): J18.9 - PNEUMONIA, UNSPECIFIED ORGANISM (5) Severe malnutrition Code(s): E43 - UNSPECIFIED SEVERE PROTEIN-CALORIE MALNUTRITION (6) Hip fracture Code(s): S72.009A - FRACTURE OF UNSP PART OF NECK OF UNSP FEMUR, INIT Qualifiers: Encounter type: initial encounter Fracture type: closed Laterality: left Qualified Code(s): S72.002A - Fracture of unspecified part of neck of left femur, initial encounter for closed fracture (7) Polycythemia Code(s): D75.1 - SECONDARY POLYCYTHEMIA ABX per ID Follow cultures O2 as needed IVF VTE prophylaxis Swallow evaluation noted Aspiration precautions Will follow Marii MARIE MD
--- NOTE | 2019-12-02 15:15 | PN ---
Physical Exam: SUBJECTIVE: Patient seen and examined at the bedside. reports shortness of breath at rest today, denies chest pain. reports no further diarrhea today. OBJECTIVE: stop IVF, patient has congested upper lobes chest xray now stable oxygen levels, continue to monitor Patient is an 83 year old female with a significant past medical history of HTN , HLD, polycythemia vera, s/p left hip fracture repair in December 2018, compression fractures s/p kyphoplasties, and severe malnutrition. Recently hospitalized 10/31-11/05/19 for sepsis secondary to E.coli UTI. Patient was brought by her daughter to the ED for evaluation of profound weakness, lack of appetite, difficulty swallowing, persistent dry cough, diarrhea, incontinence of urine and stool, skin breakdown, hair loss, and depression. Patient has not had fever, sweats, chills. She was found to have an acute pneumonia and found to be positive for c diff and on oral vancomycin. Vital Signs Period Temp Pulse Resp BP Sys/Kiser Pulse Ox Last 24 Hr 97.6 F-98.3 F 74-102 - 146-159/69-76 97 GENERAL: The patient is awake, alert, and fully oriented, in no acute distress. severe malnutrition with prominent back, chest and pelvic bones. also appears clinically dry and weak. thin appearing, frail, cachectic/severe malnutrition, dry tongue, dry mucuous membranes, skin dry, chest and spine bones prominent, prominent pelvic bones. HEAD: Normal with no signs of trauma. EYES: PERRL, extraocular movements intact, sclera anicteric, conjunctiva clear. No ptosis. ENT: Ears normal, nares patent, oropharynx clear without exudates, dry mucous membranes. NECK: Trachea midline, full range of motion, supple. LUNGS: no wheezing, but congested upper lobes. will stop ivf. oxygen saturations on room air 97%, breathing rate 20-22 HEART: Regular rate and rhythm, S1, S2 without murmur, rub or gallop. ABDOMEN: soft, non tender, non distended. EXTREMITIES: no edema. NEUROLOGICAL: Normal speech, gait not observed. PSYCH: Normal mood, normal affect. SKIN: stage II sacral pressure sore Laboratory Results - last 24 hr 12/01/19 12/02/19 12/02/19 16:24 05:40 05:40 WBC 12.5 H RBC 3.79 Hgb 11.5 Hct 34.1 MCV 89.8 MCH 30.3 MCHC 33.7 RDW 16.1 H Plt Count 411 MPV 8.6 Absolute Neuts (auto) 11.1 H Neutrophils % 89.0 H Lymphocytes % 4.1 L Monocytes % 5.6 Eosinophils % 0.6 Basophils % 0.7 Nucleated RBC % 0 Sodium 132 L Potassium 3.7 3.3 L Chloride 100 Carbon Dioxide 23 Anion Gap 9 BUN 7.5 Creatinine 0.4 L Est GFR (CKD-EPI)AfAm 110.08 Est GFR (CKD-EPI)NonAf 94.98 Random Glucose 109 H Calcium 7.7 L Magnesium 1.7 L Total Bilirubin 0.4 AST 25 ALT 16 Alkaline Phosphatase 228 H Total Protein 5.1 L Albumin 2.2 L Active Medications Generic Name Dose Route Start Last Admin Trade Name Freq PRN Reason Stop Dose Admin Albuterol/Ipratropium 1 amp 11/30/19 18:10 Duoneb - NEB Q6H PRN SHORTNESS OF BREATH Amino Acids 30 ml 11/29/19 08:00 12/02/19 10:25 Prosource No Carb Liquid Pkt PO 30 ml BID@0800,1730 KEHINDE Administration Amlodipine Besylate 5 mg 11/29/19 10:00 12/02/19 10:25 Norvasc - PO 5 mg DAILY KEHINDE Administration Atorvastatin Calcium 10 mg 11/29/19 22:00 12/01/19 21:43 Lipitor - PO 10 mg HS KEHINDE Administration Collagenase 1 applic 12/02/19 10:00 12/02/19 10:25 Santyl - TP 1 applic DAILY KEHINDE Administration Protocol Heparin Sodium (Porcine) 5,000 unit 11/28/19 22:00 12/02/19 10:25 Heparin - SQ 5,000 unit BID KEHINDE Administration Cefepime HCl 1 gm/ Dextrose 100 mls @ 200 mls/hr 12/01/19 11:30 12/02/19 10: 25 IVPB 200 mls/hr Q8H-IV KEHINDE Administration Protocol Lisinopril 20 mg 11/29/19 10:00 12/02/19 10:24 Prinivil PO 20 mg DAILY KEHINDE Administration Metoprolol Succinate 25 mg 11/29/19 10:00 12/02/19 10:24 Toprol Xl - PO 25 mg DAILY KEHINDE Administration Potassium Chloride 20 meq 12/01/19 22:00 12/02/19 10:24 K-Dur - PO 20 meq BID KEHINDE Administration Vancomycin HCl 125 mg 11/30/19 18:00 12/02/19 13:19 Vancomycin Oral Solution PO 125 mg Q6HPO KEHINDE Administration ASSESSMENT/PLAN: Problem List - Problems (1) Hip fracture Assessment/Plan: by history, physical therapy Code(s): S72.009A - FRACTURE OF UNSP PART OF NECK OF UNSP FEMUR, INIT Qualifiers: Encounter type: initial encounter Fracture type: closed Laterality: left Qualified Code(s): S72.002A - Fracture of unspecified part of neck of left femur, initial encounter for closed fracture (2) Severe malnutrition Assessment/Plan: dietary consulted may benefit from a calorie count, will request. s/p swallow eval and soft diet/regular diet recommended with supplements. bmi 16.6, clinically dry, weak and cachectic Code(s): E43 - UNSPECIFIED SEVERE PROTEIN-CALORIE MALNUTRITION (3) Clostridium difficile colitis Assessment/Plan: + for c diff isolation precautions started on oral vanco day 3 gi consulted and following Code(s): A04.72 - ENTEROCOLITIS D/T CLOSTRIDIUM DIFFICILE, NOT SPCF RECUR (4) Pseudomonas urinary tract infection Assessment/Plan: found in urine culture, started on cefepime continue ivf Code(s): N39.0 - URINARY TRACT INFECTION, SITE NOT SPECIFIED; B96.5 - PSEUDOMONAS (MALLEI) CAUSING DISEASES CLASSD ELSWHR (5) Failure to thrive Assessment/Plan: patient reports poor oral intake and frequent diarrhea at home Code(s): [id number] - (6) Pneumonia Assessment/Plan: evidence of pneumonia on chest xray started on cefepime tolerating room air coughs with deep breathing, now having shortness of breath and congested upper lobes, will stop ivf will encouragen incentive spirometer, tariqbs pulmonary following Code(s): J18.9 - PNEUMONIA, UNSPECIFIED ORGANISM (7) Orthostatic hypotension Code(s): I95.1 - ORTHOSTATIC HYPOTENSION (8) Stage II pressure ulcer Assessment/Plan: turn and position and increase oral intake. on pro source. Code(s): L89.92 - PRESSURE ULCER OF UNSPECIFIED SITE, STAGE 2 (9) Polycythemia Assessment/Plan: patient follows with a circuit breaker assembler (Erna) and will need continued outpatient follow up. Code(s): D75.1 - SECONDARY POLYCYTHEMIA (10) DVT prophylaxis Assessment/Plan: on heparin bid Code(s): Z29.9 - ENCOUNTER FOR PROPHYLACTIC MEASURES, UNSPECIFIED (11) Prophylactic measure Assessment/Plan: fen f: stopped for congestion, encourage oral intake e: monitor electrolytes daily and supplement n: dysphagia pureed until seen by speech/swallow physical therapy heparin protonix Code(s): Z29.9 - ENCOUNTER FOR PROPHYLACTIC MEASURES, UNSPECIFIED Visit type - Emergency Visit Emergency Visit: Yes ED Registration Date: 11/28/19 Care time: The patient presented to the Emergency Department on the above date and was hospitalized for further evaluation of their emergent condition. - New Patient This patient is new to me today: No - Critical Care Critical Care patient: No - Discharge Referral Referred to [facility] No
--- NOTE | 2019-12-02 15:15 | PN ---
Physical Exam: SUBJECTIVE: Patient seen and examined OBJECTIVE: Vital Signs Period Temp Pulse Resp BP Sys/Kiser Pulse Ox Last 24 Hr 97.6 F-98.3 F 74-102 20-20 146-159/69-76 97 GENERAL: The patient is awake, alert, and fully oriented, in no acute distress. HEAD: Normal with no signs of trauma. EYES: PERRL, extraocular movements intact, sclera anicteric, conjunctiva clear. No ptosis. ENT: Ears normal, nares patent, oropharynx clear without exudates, moist mucous membranes. NECK: Trachea midline, full range of motion, supple. LUNGS: Breath sounds equal, clear to auscultation bilaterally, no wheezes, no crackles, no accessory muscle use. HEART: Regular rate and rhythm, S1, S2 without murmur, rub or gallop. ABDOMEN: Soft, nontender, nondistended, normoactive bowel sounds, no guarding, no rebound, no hepatosplenomegaly, no masses. EXTREMITIES: 2+ pulses, warm, well-perfused, no edema. NEUROLOGICAL: Cranial nerves II through XII grossly intact. Normal speech, gait not observed. PSYCH: Normal mood, normal affect. SKIN: Warm, dry, normal turgor, no rashes or lesions noted Laboratory Results - last 24 hr 12/01/19 12/02/19 12/02/19 16:24 05:40 05:40 WBC 12.5 H RBC 3.79 Hgb 11.5 Hct 34.1 MCV 89.8 MCH 30.3 MCHC 33.7 RDW 16.1 H Plt Count 411 MPV 8.6 Absolute Neuts (auto) 11.1 H Neutrophils % 89.0 H Lymphocytes % 4.1 L Monocytes % 5.6 Eosinophils % 0.6 Basophils % 0.7 Nucleated RBC % 0 Sodium 132 L Potassium 3.7 3.3 L Chloride 100 Carbon Dioxide 23 Anion Gap 9 BUN 7.5 Creatinine 0.4 L Est GFR (CKD-EPI)AfAm 110.08 Est GFR (CKD-EPI)NonAf 94.98 Random Glucose 109 H Calcium 7.7 L Magnesium 1.7 L Total Bilirubin 0.4 AST 25 ALT 16 Alkaline Phosphatase 228 H Total Protein 5.1 L Albumin 2.2 L Active Medications Generic Name Dose Route Start Last Admin Trade Name Freq PRN Reason Stop Dose Admin Albuterol/Ipratropium 1 amp 01/10/20 18:10 Duoneb - NEB Q6H PRN SHORTNESS OF BREATH Amino Acids 30 ml 11/29/19 08:00 12/02/19 10:25 Prosource No Carb Liquid Pkt PO 30 ml BID@0800,1730 KEHINDE Administration Amlodipine Besylate 5 mg 11/29/19 10:00 12/02/19 10:25 Norvasc - PO 5 mg DAILY KEHINDE Administration Atorvastatin Calcium 10 mg 11/29/19 22:00 12/01/19 21:43 Lipitor - PO 10 mg HS KEHINDE Administration Collagenase 1 applic 12/02/19 10:00 12/02/19 10:25 Santyl - TP 1 applic DAILY KEHINDE Administration Protocol Heparin Sodium (Porcine) 5,000 unit 11/28/19 22:00 12/02/19 10:25 Heparin - SQ 5,000 unit BID KEHINDE Administration Sodium Chloride 1,000 mls @ 100 mls/hr 11/30/19 18:13 12/01/19 18:00 Normal Saline - IV 100 mls/hr ASDIR KEHINDE Administration Cefepime HCl 1 gm/ Dextrose 100 mls @ 200 mls/hr 12/01/19 11:30 12/02/19 10: 25 IVPB 200 mls/hr Q8H-IV KEHINDE Administration Protocol Lisinopril 20 mg 11/29/19 10:00 12/02/19 10:24 Prinivil PO 20 mg DAILY KEHINDE Administration Metoprolol Succinate 25 mg 11/29/19 10:00 12/02/19 10:24 Toprol Xl - PO 25 mg DAILY KEHINDE Administration Potassium Chloride 20 meq 12/01/19 22:00 12/02/19 10:24 K-Dur - PO 20 meq BID KEHINDE Administration Vancomycin HCl 125 mg 11/30/19 18:00 12/02/19 13:19 Vancomycin Oral Solution PO 125 mg Q6HPO KEHINDE Administration ASSESSMENT/PLAN: Problem List - Problems (1) Hip fracture Code(s): S72.009A - FRACTURE OF UNSP PART OF NECK OF UNSP FEMUR, INIT Qualifiers: Encounter type: initial encounter Fracture type: closed Laterality: left Qualified Code(s): S72.002A - Fracture of unspecified part of neck of left femur, initial encounter for closed fracture (2) Severe malnutrition Code(s): E43 - UNSPECIFIED SEVERE PROTEIN-CALORIE MALNUTRITION (3) Clostridium difficile colitis Code(s): A04.72 - ENTEROCOLITIS D/T CLOSTRIDIUM DIFFICILE, NOT SPCF RECUR (4) Pseudomonas urinary tract infection Code(s): N39.0 - URINARY TRACT INFECTION, SITE NOT SPECIFIED; B96.5 - PSEUDOMONAS (MALLEI) CAUSING DISEASES CLASSD ELSWHR (5) Failure to thrive Code(s): [id number] - (6) Pneumonia Code(s): J18.9 - PNEUMONIA, UNSPECIFIED ORGANISM (7) Orthostatic hypotension Code(s): I95.1 - ORTHOSTATIC HYPOTENSION (8) Stage II pressure ulcer Code(s): L89.92 - PRESSURE ULCER OF UNSPECIFIED SITE, STAGE 2 (9) Polycythemia Code(s): D75.1 - SECONDARY POLYCYTHEMIA (10) DVT prophylaxis Code(s): Z29.9 - ENCOUNTER FOR PROPHYLACTIC MEASURES, UNSPECIFIED (11) Prophylactic measure Code(s): Z29.9 - ENCOUNTER FOR PROPHYLACTIC MEASURES, UNSPECIFIED
[2019-12-02] MEDS ORDERED: FUROSEMIDE 40 MG/4 ML INJECTABLE VIAL IVPUSH ONE (18:23)
[2019-12-02] MEDS: ATORVASTATIN CA 10 MG TABLET (FP) PO SCH (21:54)
[2019-12-03] MEDS: VANCOMYCIN 250 MG/5 ML ORAL SOLUTION PO SCH ×4 (00:44→17:06)
[2019-12-03] MEDS ORDERED: CEFEPIME HCL 1 GM VIAL (RESTRICTED TO ID) ONE ×3 (01:47→16:54)
[2019-12-03] MEDS ORDERED: DEXTROSE 5%-WATER 100 ML IVPB ONE ×3 (01:48→16:54)
[2019-12-03] MEDS: CEFEPIME 1 GM in DEXTROSE 5%-WATER 100 ML IVPB SCH ×3 (02:45→17:03)
[2019-12-03 08:52] LABS: BASO % 0.8 % (0-2.0); EOS % 0.3 % (0-4.5); HEMATOCRIT 36.2 % (32.4-45.2); HEMOGLOBIN 12.4 GM/dL (10.7-15.3); LYMPH % 3.5 % (8-40); MCH 30.4 pg (25.7-33.7); MCHC 34.2 g/dl (32.0-36.0); MEAN CELL VOLUME 88.9 fl (80-96); MEAN PLT VOLUME 8.9 fl (7.5-11.1); MONO % 4.8 % (3.8-10.2); NEUT % 90.6 % (42.8-82.8); PLATELET COUNT 429 K/MM3 (134-434); RBC 4.07 M/mm3 (3.60-5.2); RDW 16.7 % (11.6-15.6)
[2019-12-03] MEDS: LISINOPRIL 20 MG TABLET (FP) PO SCH (09:49)
[2019-12-03] MEDS: metoPROLOL SUCCINATE 25 MG TAB.SR.24H (FP) PO SCH (09:49)
[2019-12-03] MEDS: amLODIPine BESYLATE 5 MG TABLET (FP) PO SCH (09:49)
[2019-12-03] MEDS: POTASSIUM CHLORIDE TABS 20 MEQ TABLET.ER (FP) PO SCH ×2 (09:49→21:58)
[2019-12-03] MEDS: AMINO ACIDS/PROTEIN HYDROLYS 30 ML LIQUID.PKT PO SCH ×2 (09:49→17:02)
[2019-12-03] MEDS: HEPARIN NA (PORCINE) 5,000 UNITS/ML 1ML VIAL SQ SCH ×2 (09:50→21:59)
[2019-12-03] MEDS: COLLAGENASE CLOSTRIDIUM HIST. 30 GRAMS TUBE TP SCH (09:51)
--- NOTE | 2019-12-03 10:14 | PN ---
Progress Note (short form) - Note Progress Note: PULMONARY Still some shortness of breath, nonproductive cough. No fevers. Diarrhea resolved. Vital Signs Period Temp Pulse Resp BP Sys/Kiser Pulse Ox Last 24 Hr 98.1 F-98.3 F 98-98 20-20 140-146/76-78 97 Gen: mildly tachypneic at rest Heart: RRR Lung: decreased breath sounds at the bases Abd: soft, nontender Ext: no edema CBC, BMP 12/03/19 08:30 Active Medications Albuterol/Ipratropium (Duoneb -) 1 amp NEB Q6H PRN PRN Reason: SHORTNESS OF BREATH Amino Acids (Prosource No Carb Liquid Pkt) 30 ml PO BID@0800,1730 [facility] Last Admin: 12/03/19 09:49 Dose: 30 ml Amlodipine Besylate (Norvasc -) 5 mg PO DAILY [facility] Last Admin: 12/03/19 09:49 Dose: 5 mg Atorvastatin Calcium (Lipitor -) 10 mg PO HS [facility] Last Admin: 12/02/19 21:54 Dose: 10 mg Collagenase (Santyl -) 1 applic TP DAILY [facility]; Protocol Last Admin: 12/03/19 09:51 Dose: 1 applic Heparin Sodium (Porcine) (Heparin -) 5,000 unit SQ BID [facility] Last Admin: 12/03/19 09:50 Dose: 5,000 unit Cefepime HCl 1 gm/ Dextrose 100 mls @ 200 mls/hr IVPB Q8H-IV [facility]; Protocol Last Admin: 12/03/19 09:50 Dose: 200 mls/hr Lisinopril (Prinivil) 20 mg PO DAILY [facility] Last Admin: 12/03/19 09:49 Dose: 20 mg Metoprolol Succinate (Toprol Xl -) 25 mg PO DAILY [facility] Last Admin: 12/03/19 09:49 Dose: 25 mg Potassium Chloride (K-Dur -) 20 meq PO BID [facility] Last Admin: 12/03/19 09:49 Dose: 20 meq Vancomycin HCl (Vancomycin Oral Solution) 125 mg PO Q6HPO [facility] Last Admin: 12/03/19 06:11 Dose: 125 mg A/P Pneumonia C Diff Colitis Sepsis Hyponatremia HTN Hyperlipidemia Polycythemia Vera Malnutrition - continue antibiotics - inhaled bronchodilators as needed - O2 to keep Spo2 >90% - DVT prophylaxis
[2019-12-03 10:22] LABS: ALBUMIN 2.3 g/dl (3.4-5.0); BILIRUBIN,TOTAL 0.4 mg/dL (0.2-1); BLOOD UREA NITROGEN 10.8 mg/dL (7-18); CALCIUM 8.4 mg/dL (8.5-10.1); CREATININE 0.4 mg/dL (0.55-1.3); MAGNESIUM 1.8 mg/dL (1.8-2.4); POTASSIUM 3.9 mmol/L (3.5-5.1); TOT PROT 5.4 g/dl (6.4-8.2)
--- NOTE | 2019-12-03 13:12 | PN ---
Physical Exam: SUBJECTIVE: Patient seen and examined, continues to report very poor appetite. did not eat breakfast or lunch today, not hungry. wants to sleep. had two loose stools overnight. OBJECTIVE: requested a calorie count from dietary. initially wanted to start her on clinimax but her sodium is low, will start on ns @ 50cc/hr x 24 hrs with close monitoring of her lungs as she was congested yesterday. chest xray 12/02 showed congestion, lungs now clear. monitor for volume overload. she is refusing to eat and drink fluids and is profoundly fatigued. stable oxygen levels, continue to monitor Patient is an 83 year old female with a significant past medical history of HTN , HLD, polycythemia vera, s/p left hip fracture repair in December 2018, compression fractures s/p kyphoplasties, and severe malnutrition. Recently hospitalized 10/31-11/05/19 for sepsis secondary to E.coli UTI. Patient was brought by her daughter to the ED for evaluation of profound weakness, lack of appetite, difficulty swallowing, persistent dry cough, diarrhea, incontinence of urine and stool, skin breakdown, hair loss, and depression. Patient has not had fever, sweats, chills. She was found to have an acute pneumonia and found to be positive for c diff and on oral vancomycin. Vital Signs Period Temp Pulse Resp BP Sys/Kiser Pulse Ox Last 24 Hr 98.1 F-98.3 F 98-98 20-20 140-146/76-78 97 GENERAL: The patient is awake, alert, and fully oriented, in no acute distress. severe malnutrition with prominent back, chest and pelvic bones. also appears clinically dry and weak. thin appearing, frail, cachectic/severe malnutrition, dry tongue, dry mucuous membranes, skin dry, chest and spine bones prominent, prominent pelvic bones. HEAD: Normal with no signs of trauma. EYES: PERRL, extraocular movements intact, sclera anicteric, conjunctiva clear. No ptosis. ENT: Ears normal, nares patent, oropharynx clear without exudates, dry mucous membranes. NECK: Trachea midline, full range of motion, supple. LUNGS: no wheezing,clear lungs upper lobes, diminished at the bases. HEART: Regular rate and rhythm, S1, S2 without murmur, rub or gallop. ABDOMEN: soft, non tender, non distended. EXTREMITIES: no edema. NEUROLOGICAL: Normal speech, gait not observed. PSYCH: Normal mood, normal affect. SKIN: stage II sacral pressure sore Laboratory Results - last 24 hr 12/03/19 12/03/19 08:30 08:30 WBC 13.0 H RBC 4.07 Hgb 12.4 Hct 36.2 MCV 88.9 MCH 30.4 MCHC 34.2 RDW 16.7 H Plt Count 429 MPV 8.9 Absolute Neuts (auto) 11.7 H Neutrophils % 90.6 H Lymphocytes % 3.5 L Monocytes % 4.8 Eosinophils % 0.3 Basophils % 0.8 Nucleated RBC % 0 Sodium 129 L Potassium 3.9 Chloride 96 L Carbon Dioxide 27 Anion Gap 6 L BUN 10.8 Creatinine 0.4 L Est GFR (CKD-EPI)AfAm 110.08 Est GFR (CKD-EPI)NonAf 94.98 Random Glucose 97 Calcium 8.4 L Magnesium 1.8 Total Bilirubin 0.4 AST 31 ALT 18 Alkaline Phosphatase 260 H Total Protein 5.4 L Albumin 2.3 L Active Medications Generic Name Dose Route Start Last Admin Trade Name Freq PRN Reason Stop Dose Admin Albuterol/Ipratropium 1 amp 11/30/19 18:10 Duoneb - NEB Q6H PRN SHORTNESS OF BREATH Amino Acids 30 ml 11/29/19 08:00 12/03/19 09:49 Prosource No Carb Liquid Pkt PO 30 ml BID@0800,1730 [facility] Administration Amlodipine Besylate 5 mg 11/29/19 10:00 12/03/19 09:49 Norvasc - PO 5 mg DAILY [facility] Administration Atorvastatin Calcium 10 mg 11/29/19 22:00 12/02/19 21:54 Lipitor - PO 10 mg HS [facility] Administration Collagenase 1 applic 12/02/19 10:00 12/03/19 09:51 Santyl - TP 1 applic DAILY [facility] Administration Protocol Heparin Sodium (Porcine) 5,000 unit 11/28/19 22:00 12/03/19 09:50 Heparin - SQ 5,000 unit BID [facility] Administration Cefepime HCl 1 gm/ Dextrose 100 mls @ 200 mls/hr 12/01/19 11:30 12/03/19 09: 50 IVPB 200 mls/hr Q8H-IV [facility] Administration Protocol Lisinopril 20 mg 11/29/19 10:00 12/03/19 09:49 Prinivil PO 20 mg DAILY [facility] Administration Metoprolol Succinate 25 mg 11/29/19 10:00 12/03/19 09:49 Toprol Xl - PO 25 mg DAILY [facility] Administration Potassium Chloride 20 meq 12/01/19 22:00 12/03/19 09:49 K-Dur - PO 20 meq BID [facility] Administration Vancomycin HCl 125 mg 11/30/19 18:00 12/03/19 06:11 Vancomycin Oral Solution PO 125 mg Q6HPO [facility] Administration ASSESSMENT/PLAN: Problem List - Problems (1) Hip fracture Assessment/Plan: by history, physical therapy ordered. poor ambulatory status 2/2 to profound fatigue Code(s): S72.009A - FRACTURE OF UNSP PART OF NECK OF UNSP FEMUR, INIT Qualifiers: Encounter type: initial encounter Fracture type: closed Laterality: left Qualified Code(s): S72.002A - Fracture of unspecified part of neck of left femur, initial encounter for closed fracture (2) Severe malnutrition Assessment/Plan: dietary consulted may benefit from a calorie count, will request. s/p swallow eval and soft diet/regular diet recommended with supplements. bmi 16.6, clinically dry, weak and cachectic on prosource, multivitamins Code(s): E43 - UNSPECIFIED SEVERE PROTEIN-CALORIE MALNUTRITION (3) Clostridium difficile colitis Assessment/Plan: + for c diff isolation precautions started on oral vanco gi consulted and following Code(s): A04.72 - ENTEROCOLITIS D/T CLOSTRIDIUM DIFFICILE, NOT SPCF RECUR (4) Pseudomonas urinary tract infection Assessment/Plan: found in urine culture, started on cefepime continue ivf Code(s): N39.0 - URINARY TRACT INFECTION, SITE NOT SPECIFIED; B96.5 - PSEUDOMONAS (MALLEI) CAUSING DISEASES CLASSD ELSWHR (5) Failure to thrive Assessment/Plan: patient reports poor oral intake and frequent diarrhea at home Code(s): CGA6223 - (6) Pneumonia Assessment/Plan: evidence of pneumonia on chest xray started on cefepime tolerating room air coughs with deep breathing, ivf stopped yesterday when she became congested, will restart at a low dose as she is no longer congested continues to have loose bms. she is not taking enough orally either. pulmonary following Code(s): J18.9 - PNEUMONIA, UNSPECIFIED ORGANISM (7) Orthostatic hypotension Code(s): I95.1 - ORTHOSTATIC HYPOTENSION (8) Stage II pressure ulcer Assessment/Plan: turn and position and increase oral intake. on pro source. Code(s): L89.92 - PRESSURE ULCER OF UNSPECIFIED SITE, STAGE 2 (9) Polycythemia Assessment/Plan: patient follows with a wire stitcher operator (Erna) and will need continued outpatient follow up. Code(s): D75.1 - SECONDARY POLYCYTHEMIA (10) DVT prophylaxis Assessment/Plan: on heparin bid Code(s): Z29.9 - ENCOUNTER FOR PROPHYLACTIC MEASURES, UNSPECIFIED (11) Hyponatremia Code(s): E87.1 - HYPO-OSMOLALITY AND HYPONATREMIA (12) Weakness Assessment/Plan: for PT Code(s): R53.1 - WEAKNESS (13) Voice hoarseness Assessment/Plan: has been ongoing for apx 3 weeks. ENT consulted Code(s): R49.0 - DYSPHONIA (14) Prophylactic measure Assessment/Plan: fen f: ivf at 50cc x 24 hrs e: monitor electrolytes daily and supplement n: dysphagia pureed until seen by speech/swallow physical therapy heparin protonix Code(s): Z29.9 - ENCOUNTER FOR PROPHYLACTIC MEASURES, UNSPECIFIED Visit type - Emergency Visit Emergency Visit: Yes ED Registration Date: 11/28/19 Care time: The patient presented to the Emergency Department on the above date and was hospitalized for further evaluation of their emergent condition. - New Patient This patient is new to me today: No - Critical Care Critical Care patient: No - Discharge Referral Referred to [facility] Med P.C.: No
--- NOTE | 2019-12-03 13:14 | PN ---
Progress Note, Physician History of Present Illness: stable dirrhoea improving - Current Medication List Current Medications: Active Medications Albuterol/Ipratropium (Duoneb -) 1 amp NEB Q6H PRN PRN Reason: SHORTNESS OF BREATH Amino Acids (Prosource No Carb Liquid Pkt) 30 ml PO BID@0800,1730 [facility] Last Admin: 12/03/19 09:49 Dose: 30 ml Amlodipine Besylate (Norvasc -) 5 mg PO DAILY [facility] Last Admin: 12/03/19 09:49 Dose: 5 mg Atorvastatin Calcium (Lipitor -) 10 mg PO HS [facility] Last Admin: 12/02/19 21:54 Dose: 10 mg Collagenase (Santyl -) 1 applic TP DAILY [facility]; Protocol Last Admin: 12/03/19 09:51 Dose: 1 applic Heparin Sodium (Porcine) (Heparin -) 5,000 unit SQ BID [facility] Last Admin: 12/03/19 09:50 Dose: 5,000 unit Cefepime HCl 1 gm/ Dextrose 100 mls @ 200 mls/hr IVPB Q8H-IV [facility]; Protocol Last Admin: 12/03/19 09:50 Dose: 200 mls/hr Sodium Chloride (Normal Saline -) 1,000 mls @ 42 mls/hr IV ASDIR [facility] Lisinopril (Prinivil) 20 mg PO DAILY [facility] Last Admin: 12/03/19 09:49 Dose: 20 mg Metoprolol Succinate (Toprol Xl -) 25 mg PO DAILY [facility] Last Admin: 12/03/19 09:49 Dose: 25 mg Potassium Chloride (K-Dur -) 20 meq PO BID [facility] Last Admin: 12/03/19 09:49 Dose: 20 meq Vancomycin HCl (Vancomycin Oral Solution) 125 mg PO Q6HPO [facility] Last Admin: 12/03/19 06:11 Dose: 125 mg - Objective Vital Signs: Vital Signs Temperature 98.1 F 12/02/19 18:55 Pulse Rate 98 H 12/02/19 18:55 Respiratory Rate 20 12/02/19 18:55 Blood Pressure 140/78 12/02/19 18:55 O2 Sat by Pulse Oximetry (%) 97 12/02/19 21:00 Constitutional: Yes: No Distress, Calm Cardiovascular: Yes: S1, S2 Respiratory: Yes: Regular, CTA Bilaterally Gastrointestinal: Yes: Normal Bowel Sounds, Soft Musculoskeletal: Yes: WNL Extremities: Yes: WNL Neurological: Yes: Alert, Oriented Psychiatric: Yes: Alert, Oriented Labs: CBC, BMP 12/03/19 08:30 12/03/19 08:30 INR, PTT INR 1.27 (0.82-1.09) H 11/28/19 17:25 Assessment/Plan Problem List - Problems (1) Atelectasis Code(s): J98.11 - ATELECTASIS (2) Pleural effusion Code(s): J90 - PLEURAL EFFUSION, NOT ELSEWHERE CLASSIFIED (3) Failure to thrive Code(s): [id number] - (4) Pneumonia Code(s): J18.9 - PNEUMONIA, UNSPECIFIED ORGANISM (5) Severe malnutrition Code(s): E43 - UNSPECIFIED SEVERE PROTEIN-CALORIE MALNUTRITION (6) Hip fracture Code(s): S72.009A - FRACTURE OF UNSP PART OF NECK OF UNSP FEMUR, INIT Qualifiers: Encounter type: initial encounter Fracture type: closed Laterality: left Qualified Code(s): S72.002A - Fracture of unspecified part of neck of left femur, initial encounter for closed fracture (7) Polycythemia Code(s): D75.1 - SECONDARY POLYCYTHEMIA 8 uti Assessment/Plan Aspiration PNA patient is having a lot of dirrhoea still continues to be tired plan continue current mgmt hydration rest as per the team
[2019-12-03] MEDS ORDERED: SODIUM CHLORIDE 1,000 ML IV SCH ×2 (13:15→13:30)
[2019-12-03] MEDS: MULTIVITAMINS (DAILY MVI) TABLET (FP) PO SCH (13:38)
[2019-12-03] MEDS: LACTOBACILLUS ACIDOPHILUS 1 TABLET PO SCH (13:38)
[2019-12-03] MEDS: ATORVASTATIN CA 10 MG TABLET (FP) PO SCH (21:58)
[2019-12-04] MEDS: VANCOMYCIN 250 MG/5 ML ORAL SOLUTION PO SCH ×4 (00:04→18:30)
[2019-12-04] MEDS ORDERED: CEFEPIME HCL 1 GM VIAL (RESTRICTED TO ID) ONE ×3 (00:47→18:27)
[2019-12-04] MEDS ORDERED: DEXTROSE 5%-WATER 100 ML IVPB ONE ×3 (00:47→18:27)
[2019-12-04] MEDS: CEFEPIME 1 GM in DEXTROSE 5%-WATER 100 ML IVPB SCH ×3 (01:51→18:31)
[2019-12-04 08:58] LABS: BASO % 0.9 % (0-2.0); EOS % 0.7 % (0-4.5); HEMATOCRIT 34.4 % (32.4-45.2); HEMOGLOBIN 11.8 GM/dL (10.7-15.3); LYMPH % 4.7 % (8-40); MCH 30.3 pg (25.7-33.7); MCHC 34.3 g/dl (32.0-36.0); MEAN CELL VOLUME 88.5 fl (80-96); MONO % 5.2 % (3.8-10.2); NEUT % 88.5 % (42.8-82.8); PLATELET COUNT 371 K/MM3 (134-434); RBC 3.89 M/mm3 (3.60-5.2); RDW 16.7 % (11.6-15.6); WHITE BLOOD COUNT 12.4 K/mm3 (4.0-10.0)
[2019-12-04 09:19] LABS: ALBUMIN 2.2 g/dl (3.4-5.0); BILIRUBIN,TOTAL 0.4 mg/dL (0.2-1); CREATININE 0.4 mg/dL (0.55-1.3); MAGNESIUM 1.7 mg/dL (1.8-2.4); POTASSIUM 3.6 mmol/L (3.5-5.1); TOT PROT 5.2 g/dl (6.4-8.2)
--- NOTE | 2019-12-04 10:05 | PN ---
Progress Note (short form) - Note Progress Note: PULMONARY Breathing better today. Less cough. Had episode of diarrhea yesterday. Vital Signs Period Temp Pulse Resp BP Sys/Kiser Pulse Ox Last 24 Hr 98 F-98.3 F 90-100 20-20 134-148/64-75 97 Gen: less tachypneic at rest Heart: RRR Lung: decreased breath sounds at the bases Abd: soft, nontender Ext: no edema CBC, BMP 12/04/19 08:15 12/04/19 06:00 Active Medications Albuterol/Ipratropium (Duoneb -) 1 amp NEB Q6H PRN PRN Reason: SHORTNESS OF BREATH Amino Acids (Prosource No Carb Liquid Pkt) 30 ml PO BID@0800,1730 [facility] Last Admin: 12/03/19 17:02 Dose: 30 ml Amlodipine Besylate (Norvasc -) 5 mg PO DAILY [facility] Last Admin: 12/03/19 09:49 Dose: 5 mg Atorvastatin Calcium (Lipitor -) 10 mg PO HS [facility] Last Admin: 12/03/19 21:58 Dose: 10 mg Collagenase (Santyl -) 1 applic TP DAILY [facility]; Protocol Last Admin: 12/03/19 09:51 Dose: 1 applic Heparin Sodium (Porcine) (Heparin -) 5,000 unit SQ BID [facility] Last Admin: 12/03/19 21:59 Dose: 5,000 unit Cefepime HCl 1 gm/ Dextrose 100 mls @ 200 mls/hr IVPB Q8H-IV [facility]; Protocol Last Admin: 12/04/19 01:51 Dose: 200 mls/hr Sodium Chloride (Normal Saline -) 1,000 mls @ 50 mls/hr IV ASDIR [facility] Stop: 12/04/19 13:19 Last Admin: 12/03/19 17:02 Dose: 50 mls/hr Lactobacillus Acidophilus (Bacid -) 1 tab PO DAILY [facility] Last Admin: 12/03/19 13:38 Dose: 1 tab Lisinopril (Prinivil) 20 mg PO DAILY [facility] Last Admin: 12/03/19 09:49 Dose: 20 mg Metoprolol Succinate (Toprol Xl -) 25 mg PO DAILY [facility] Last Admin: 12/03/19 09:49 Dose: 25 mg Multivitamins/Minerals/Vitamin C (Tab-A-Vit -) 1 tab PO DAILY [facility] Last Admin: 12/03/19 13:38 Dose: 1 tab Potassium Chloride (K-Dur -) 20 meq PO BID [facility] Last Admin: 12/03/19 21:58 Dose: 20 meq Vancomycin HCl (Vancomycin Oral Solution) 125 mg PO Q6HPO [facility] Last Admin: 12/04/19 05:42 Dose: 125 mg A/P Pneumonia C Diff Colitis Sepsis Hyponatremia HTN Hyperlipidemia Polycythemia Vera Malnutrition - continue antibiotics - inhaled bronchodilators as needed - O2 to keep Spo2 >90% - monitor lytes - DVT prophylaxis
[2019-12-04] MEDS: LACTOBACILLUS ACIDOPHILUS 1 TABLET PO SCH (10:16)
[2019-12-04] MEDS: AMINO ACIDS/PROTEIN HYDROLYS 30 ML LIQUID.PKT PO SCH ×2 (10:16→18:30)
[2019-12-04] MEDS: metoPROLOL SUCCINATE 25 MG TAB.SR.24H (FP) PO SCH (10:17)
[2019-12-04] MEDS: amLODIPine BESYLATE 5 MG TABLET (FP) PO SCH (10:17)
[2019-12-04] MEDS: MULTIVITAMINS (DAILY MVI) TABLET (FP) PO SCH (10:17)
[2019-12-04] MEDS: POTASSIUM CHLORIDE TABS 20 MEQ TABLET.ER (FP) PO SCH ×2 (10:17→21:30)
[2019-12-04] MEDS: HEPARIN NA (PORCINE) 5,000 UNITS/ML 1ML VIAL SQ SCH ×2 (10:17→21:31)
[2019-12-04] MEDS: LISINOPRIL 20 MG TABLET (FP) PO SCH (10:17)
--- NOTE | 2019-12-04 11:29 | PN ---
Progress Note, Physician History of Present Illness: stable no new issues better than yesterday - Current Medication List Current Medications: Active Medications Albuterol/Ipratropium (Duoneb -) 1 amp NEB Q6H PRN PRN Reason: SHORTNESS OF BREATH Amino Acids (Prosource No Carb Liquid Pkt) 30 ml PO BID@0800,1730 [facility] Last Admin: 12/04/19 10:16 Dose: 30 ml Amlodipine Besylate (Norvasc -) 5 mg PO DAILY [facility] Last Admin: 12/04/19 10:17 Dose: 5 mg Atorvastatin Calcium (Lipitor -) 10 mg PO HS [facility] Last Admin: 12/03/19 21:58 Dose: 10 mg Collagenase (Santyl -) 1 applic TP DAILY [facility]; Protocol Last Admin: 12/03/19 09:51 Dose: 1 applic Heparin Sodium (Porcine) (Heparin -) 5,000 unit SQ BID [facility] Last Admin: 12/04/19 10:17 Dose: 5,000 unit Cefepime HCl 1 gm/ Dextrose 100 mls @ 200 mls/hr IVPB Q8H-IV [facility]; Protocol Last Admin: 12/04/19 10:17 Dose: 200 mls/hr Sodium Chloride (Normal Saline -) 1,000 mls @ 50 mls/hr IV ASDIR [facility] Stop: 12/04/19 13:19 Last Admin: 12/03/19 17:02 Dose: 50 mls/hr Lactobacillus Acidophilus (Bacid -) 1 tab PO DAILY [facility] Last Admin: 12/04/19 10:16 Dose: 1 tab Lisinopril (Prinivil) 20 mg PO DAILY [facility] Last Admin: 12/04/19 10:17 Dose: 20 mg Metoprolol Succinate (Toprol Xl -) 25 mg PO DAILY [facility] Last Admin: 12/04/19 10:17 Dose: 25 mg Multivitamins/Minerals/Vitamin C (Tab-A-Vit -) 1 tab PO DAILY [facility] Last Admin: 12/04/19 10:17 Dose: 1 tab Potassium Chloride (K-Dur -) 20 meq PO BID [facility] Last Admin: 12/04/19 10:17 Dose: 20 meq Vancomycin HCl (Vancomycin Oral Solution) 125 mg PO Q6HPO [facility] Last Admin: 12/04/19 05:42 Dose: 125 mg - Objective Vital Signs: Vital Signs Temperature 98.3 F 12/04/19 06:47 Pulse Rate 100 H 12/04/19 06:47 Respiratory Rate 20 12/04/19 06:47 Blood Pressure 148/75 12/04/19 06:47 O2 Sat by Pulse Oximetry (%) 97 12/03/19 20:49 Constitutional: Yes: Calm, Mild Distress Cardiovascular: Yes: S1, S2 Respiratory: Yes: Regular, CTA Bilaterally Gastrointestinal: Yes: Normal Bowel Sounds, Soft Musculoskeletal: Yes: WNL Extremities: Yes: WNL Neurological: Yes: Alert, Oriented Psychiatric: Yes: Alert, Oriented Labs: CBC, BMP 12/04/19 08:15 12/04/19 06:00 INR, PTT INR 1.27 (0.82-1.09) H 11/28/19 17:25 Assessment/Plan Problem List - Problems (1) Atelectasis Code(s): J98.11 - ATELECTASIS (2) Pleural effusion Code(s): J90 - PLEURAL EFFUSION, NOT ELSEWHERE CLASSIFIED (3) Failure to thrive Code(s): [id number] - (4) Pneumonia Code(s): J18.9 - PNEUMONIA, UNSPECIFIED ORGANISM (5) Severe malnutrition Code(s): E43 - UNSPECIFIED SEVERE PROTEIN-CALORIE MALNUTRITION (6) Hip fracture Code(s): S72.009A - FRACTURE OF UNSP PART OF NECK OF UNSP FEMUR, INIT Qualifiers: Encounter type: initial encounter Fracture type: closed Laterality: left Qualified Code(s): S72.002A - Fracture of unspecified part of neck of left femur, initial encounter for closed fracture (7) Polycythemia Code(s): D75.1 - SECONDARY POLYCYTHEMIA 8 uti Assessment/Plan Aspiration PNA patient is having a lot of dirrhoea still continues to be tired plan continue current mgmt will switch to oral
--- NOTE | 2019-12-04 12:30 | PN ---
Progress Note, CUT OFF [facility]WYER - Note Progress Note: Selected Entries 11/29/19 11/29/19 11/29/19 00:43 04:00 08:00 Breakfast Lunch Supper Temperature 97.8 F 98.5 F 98.3 F 11/29/19 11/29/19 11/30/19 14:00 18:00 02:00 Breakfast 75% Lunch 75% Supper 75% Temperature 97.7 F 98.7 F 97.6 F 11/30/19 12/03/19 12/03/19 06:00 10:00 13:00 Breakfast 25% Lunch 0 Supper Temperature 98.3 F 98.1 F 12/03/19 12/03/19 12/03/19 14:00 16:49 21:03 Breakfast Lunch Supper 25% Temperature 98 F 98.1 F 12/04/19 12/04/19 00:00 06:47 Breakfast Lunch Supper Temperature 98.0 F 98.3 F Laboratory Tests 11/28/19 11/29/19 11/30/19 17:25 07:38 07:30 WBC 13.7 H 10.4 H 10.9 H 12/01/19 12/02/19 12/03/19 06:45 05:40 08:30 WBC 11.2 H 12.5 H 13.0 H 12/04/19 08:15 WBC 12.4 H On soft/thin liquids. Ensure clear. Limited appetite.Weak. CDiff
--- NOTE | 2019-12-04 12:59 | PN ---
Physical Exam: SUBJECTIVE: Patient seen and examined, eating better today. states he has had no diarrhea today. OBJECTIVE: Patient is an 83 year old female with a significant past medical history of HTN , HLD, polycythemia vera, s/p left hip fracture repair in December 2018, compression fractures s/p kyphoplasties, and severe malnutrition. Recently hospitalized 10/31-11/05/19 for sepsis secondary to E.coli UTI. Patient was brought by her daughter to the ED for evaluation of profound weakness, lack of appetite, difficulty swallowing, persistent dry cough, diarrhea, incontinence of urine and stool, skin breakdown, hair loss, and depression. Patient has not had fever, sweats, chills. She was found to have an acute pneumonia and found to be positive for c diff and on oral vancomycin. on day 2 of calorie count. Vital Signs Period Temp Pulse Resp BP Sys/Kiser Pulse Ox Last 24 Hr 98 F-98.3 F 90-100 20-20 134-148/64-75 97 GENERAL: The patient is awake, alert, and fully oriented, in no acute distress. severe malnutrition with prominent back, chest and pelvic bones. also appears clinically dry and weak. thin appearing, frail, cachectic/severe malnutrition, dry tongue, dry mucuous membranes, skin dry, chest and spine bones prominent, prominent pelvic bones. HEAD: Normal with no signs of trauma. EYES: PERRL, extraocular movements intact, sclera anicteric, conjunctiva clear. No ptosis. ENT: Ears normal, nares patent, oropharynx clear without exudates, dry mucous membranes. NECK: Trachea midline, full range of motion, supple. LUNGS: no wheezing,clear lungs upper lobes, diminished at the bases. HEART: Regular rate and rhythm, S1, S2 without murmur, rub or gallop. ABDOMEN: soft, non tender, non distended. EXTREMITIES: no edema. NEUROLOGICAL: Normal speech, gait not observed. PSYCH: Normal mood, normal affect. SKIN: stage II sacral pressure sor Laboratory Results - last 24 hr 12/04/19 12/04/19 06:00 08:15 WBC 12.4 H RBC 3.89 Hgb 11.8 Hct 34.4 MCV 88.5 MCH 30.3 MCHC 34.3 RDW 16.7 H Plt Count 371 MPV 9.0 Absolute Neuts (auto) 11.0 H Neutrophils % 88.5 H Lymphocytes % 4.7 L D Monocytes % 5.2 Eosinophils % 0.7 D Basophils % 0.9 Nucleated RBC % 0 Sodium 130 L Potassium 3.6 Chloride 97 L Carbon Dioxide 25 Anion Gap 7 L BUN 12.0 Creatinine 0.4 L Est GFR (CKD-EPI)AfAm 110.08 Est GFR (CKD-EPI)NonAf 94.98 Random Glucose 91 Calcium 8.0 L Magnesium 1.7 L Total Bilirubin 0.4 AST 37 ALT 20 Alkaline Phosphatase 263 H Total Protein 5.2 L Albumin 2.2 L Active Medications Generic Name Dose Route Start Last Admin Trade Name Freq PRN Reason Stop Dose Admin Albuterol/Ipratropium 1 amp 11/30/19 18:10 Duoneb - NEB Q6H PRN SHORTNESS OF BREATH Amino Acids 30 ml 11/29/19 08:00 12/04/19 10:16 Prosource No Carb Liquid Pkt PO 30 ml BID@0800,1730 KEHINDE Administration Amlodipine Besylate 5 mg 11/29/19 10:00 12/04/19 10:17 Norvasc - PO 5 mg DAILY KEHINDE Administration Atorvastatin Calcium 10 mg 11/29/19 22:00 12/03/19 21:58 Lipitor - PO 10 mg HS KEHINDE Administration Collagenase 1 applic 12/02/19 10:00 12/03/19 09:51 Santyl - TP 1 applic DAILY KEHINDE Administration Protocol Heparin Sodium (Porcine) 5,000 unit 11/28/19 22:00 12/04/19 10:17 Heparin - SQ 5,000 unit BID KEHINDE Administration Cefepime HCl 1 gm/ Dextrose 100 mls @ 200 mls/hr 12/01/19 11:30 12/04/19 10: 17 IVPB 200 mls/hr Q8H-IV KEHINDE Administration Protocol Sodium Chloride 1,000 mls @ 50 mls/hr 12/03/19 13:30 12/03/19 17:02 Normal Saline - IV 12/04/19 13:19 50 mls/hr ASDIR KEHINDE Administration Lactobacillus Acidophilus 1 tab 12/03/19 13:15 12/04/19 10:16 Bacid - PO 1 tab DAILY KEHINDE Administration Lisinopril 20 mg 11/29/19 10:00 12/04/19 10:17 Prinivil PO 20 mg DAILY KEHINDE Administration Metoprolol Succinate 25 mg 11/29/19 10:00 12/04/19 10:17 Toprol Xl - PO 25 mg DAILY KEHINDE Administration Multivitamins/Minerals/Vitamin C 1 tab 12/03/19 13:15 12/04/19 10:17 Tab-A-Vit - PO 1 tab DAILY KEHINDE Administration Potassium Chloride 20 meq 12/01/19 22:00 12/04/19 10:17 K-Dur - PO 20 meq BID KEHINDE Administration Vancomycin HCl 125 mg 11/30/19 18:00 12/04/19 05:42 Vancomycin Oral Solution PO 125 mg Q6HPO KEHINDE Administration ASSESSMENT/PLAN: Problem List - Problems (1) Hip fracture Assessment/Plan: by history, physical therapy ordered. poor ambulatory status 2/2 to profound fatigue Code(s): S72.009A - FRACTURE OF UNSP PART OF NECK OF UNSP FEMUR, INIT Qualifiers: Encounter type: initial encounter Fracture type: closed Laterality: left Qualified Code(s): S72.002A - Fracture of unspecified part of neck of left femur, initial encounter for closed fracture (2) Severe malnutrition Assessment/Plan: dietary consulted may benefit from a calorie count, will request. s/p swallow eval and soft diet/regular diet recommended with supplements. bmi 16.6, clinically dry, weak and cachectic on prosource, multivitamins Code(s): E43 - UNSPECIFIED SEVERE PROTEIN-CALORIE MALNUTRITION (3) Clostridium difficile colitis Assessment/Plan: + for c diff isolation precautions started on oral vanco gi consulted and following Code(s): A04.72 - ENTEROCOLITIS D/T CLOSTRIDIUM DIFFICILE, NOT SPCF RECUR (4) Pseudomonas urinary tract infection Assessment/Plan: found in urine culture, started on cefepime continue ivf Code(s): N39.0 - URINARY TRACT INFECTION, SITE NOT SPECIFIED; B96.5 - PSEUDOMONAS (MALLEI) CAUSING DISEASES CLASSD ELSWHR (5) Failure to thrive Assessment/Plan: patient reports poor oral intake and frequent diarrhea at home Code(s): AUS0424 - (6) Pneumonia Assessment/Plan: on cefepime tolerating room air coughs with deep breathing pulmonary following Code(s): J18.9 - PNEUMONIA, UNSPECIFIED ORGANISM (7) Orthostatic hypotension Code(s): I95.1 - ORTHOSTATIC HYPOTENSION (8) Stage II pressure ulcer Assessment/Plan: turn and position and increase oral intake. on pro source. Code(s): L89.92 - PRESSURE ULCER OF UNSPECIFIED SITE, STAGE 2 (9) Polycythemia Assessment/Plan: patient follows with a automobile lights assembler (Erna) and will need continued outpatient follow up. Code(s): D75.1 - SECONDARY POLYCYTHEMIA (10) DVT prophylaxis Assessment/Plan: on heparin bid Code(s): Z29.9 - ENCOUNTER FOR PROPHYLACTIC MEASURES, UNSPECIFIED (11) Hyponatremia Code(s): E87.1 - HYPO-OSMOLALITY AND HYPONATREMIA (12) Weakness Assessment/Plan: for PT Code(s): R53.1 - WEAKNESS (13) Voice hoarseness Assessment/Plan: has been ongoing for apx 3 weeks. ENT consulted Code(s): R49.0 - DYSPHONIA (14) Prophylactic measure Assessment/Plan: fen f: stop ivf and encourage po intake, no diarrhea today e: monitor electrolytes daily and supplement n: dysphagia pureed until seen by speech/swallow physical therapy heparin protonix Code(s): Z29.9 - ENCOUNTER FOR PROPHYLACTIC MEASURES, UNSPECIFIED Visit type - Emergency Visit Emergency Visit: Yes ED Registration Date: 11/28/19 Care time: The patient presented to the Emergency Department on the above date and was hospitalized for further evaluation of their emergent condition. - New Patient This patient is new to me today: No - Critical Care Critical Care patient: No - Discharge Referral Referred to [facility] Med P.C.: No
[2019-12-04] MEDS: COLLAGENASE CLOSTRIDIUM HIST. 30 GRAMS TUBE TP SCH (14:31)
--- NOTE | 2019-12-04 17:14 | PN.GI ---
GI Progress Note Subjective: No diarrhea reported per nursing No abdominal pain Complains of being a bit short of breath from this morning C. Diff toxin PCR + - Objective Vital Signs: Vital Signs Temperature 98.3 F 12/04/19 14:00 Pulse Rate 96 H 12/04/19 14:00 Respiratory Rate 12/04/19 14:00 Blood Pressure 141/65 12/04/19 14:00 O2 Sat by Pulse Oximetry (%) 97 12/04/19 09:00 Constitutional: Calm Eyes: No: Sclera Icterus Cardiovascular: Yes: Regular Rate and Rhythm Respiratory: Yes: CTA Bilaterally Gastrointestinal Inspection: No: Distention ...Auscultate: Yes: Normoactive Bowel Sounds ...Palpate: Yes: Soft. No: Hepatomegaly, Splenomegaly, Tenderness ...Percussion: No: Tympanitic Edema: No (No LE edema) Neurological: Yes: Alert Labs: CBC, BMP 12/04/19 08:15 12/04/19 06:00 INR, PTT INR 1.27 (0.82-1.09) H 11/28/19 17:25 Problem List - Problems (1) Diarrhea Assessment/Plan: Resolved Continue Vancocin 125mg PO Q6H. Would continue it for total of 10 days and would extend treatment of C. Diff with PO Vancocin for a extra week after antibiotics are discontinued Code(s): R19.7 - DIARRHEA, UNSPECIFIED
[2019-12-04] MEDS ORDERED: PT OWN MED DRAWER 7, Y5N ONE (18:56)
[2019-12-04] MEDS: ATORVASTATIN CA 10 MG TABLET (FP) PO SCH (21:30)
[2019-12-05] MEDS ORDERED: CEFEPIME HCL 1 GM VIAL (RESTRICTED TO ID) ONE (00:13)
[2019-12-05] MEDS ORDERED: DEXTROSE 5%-WATER 100 ML IVPB ONE (00:13)
[2019-12-05] MEDS: VANCOMYCIN 250 MG/5 ML ORAL SOLUTION PO SCH ×4 (00:18→18:19)
[2019-12-05] MEDS: CEFEPIME 1 GM in DEXTROSE 5%-WATER 100 ML IVPB SCH (01:20)
[2019-12-05 08:01] LABS: BASO % 0.8 % (0-2.0); EOS % 0.5 % (0-4.5); HEMATOCRIT 33.5 % (32.4-45.2); HEMOGLOBIN 11.5 GM/dL (10.7-15.3); LYMPH % 4.8 % (8-40); MCH 30.5 pg (25.7-33.7); MCHC 34.5 g/dl (32.0-36.0); MEAN CELL VOLUME 88.5 fl (80-96); MEAN PLT VOLUME 8.9 fl (7.5-11.1); MONO % 4.8 % (3.8-10.2); NEUT % 89.1 % (42.8-82.8); PLATELET COUNT 374 K/MM3 (134-434); RBC 3.78 M/mm3 (3.60-5.2); RDW 16.6 % (11.6-15.6)
[2019-12-05 08:22] LABS: ALBUMIN 2.3 g/dl (3.4-5.0); BILIRUBIN,TOTAL 0.5 mg/dL (0.2-1); BLOOD UREA NITROGEN 10.2 mg/dL (7-18); CALCIUM 7.9 mg/dL (8.5-10.1); CREATININE 0.3 mg/dL (0.55-1.3); MAGNESIUM 1.6 mg/dL (1.8-2.4); POTASSIUM 3.7 mmol/L (3.5-5.1); TOT PROT 5.3 g/dl (6.4-8.2)
--- NOTE | 2019-12-05 08:28 | PN ---
Progress Note, Physician History of Present Illness: stable weak - Current Medication List Current Medications: Active Medications Albuterol/Ipratropium (Duoneb -) 1 amp NEB Q6H PRN PRN Reason: SHORTNESS OF BREATH Amino Acids (Prosource No Carb Liquid Pkt) 30 ml PO BID@0800,1730 [facility] [place] Last Admin: 12/04/19 18:30 Dose: 30 ml Amlodipine Besylate (Norvasc -) 5 mg PO DAILY [facility] [place] Last Admin: 12/04/19 10:17 Dose: 5 mg Atorvastatin Calcium (Lipitor -) 10 mg PO HS [facility] [place] Last Admin: 12/04/19 21:30 Dose: 10 mg Collagenase (Santyl -) 1 applic TP DAILY [facility] [place]; Protocol Last Admin: 12/04/19 14:31 Dose: 1 applic Heparin Sodium (Porcine) (Heparin -) 5,000 unit SQ BID [facility] [place] Last Admin: 12/04/19 21:31 Dose: 5,000 unit Lactobacillus Acidophilus (Bacid -) 1 tab PO DAILY [facility] [place] Last Admin: 12/04/19 10:16 Dose: 1 tab Lisinopril (Prinivil) 20 mg PO DAILY [facility] [place] Last Admin: 12/04/19 10:17 Dose: 20 mg Metoprolol Succinate (Toprol Xl -) 25 mg PO DAILY [facility] [place] Last Admin: 12/04/19 10:17 Dose: 25 mg Multivitamins/Minerals/Vitamin C (Tab-A-Vit -) 1 tab PO DAILY [facility] [place] Last Admin: 12/04/19 10:17 Dose: 1 tab Potassium Chloride (K-Dur -) 20 meq PO BID [facility] [place] Last Admin: 12/04/19 21:30 Dose: 20 meq Vancomycin HCl (Vancomycin Oral Solution) 125 mg PO Q6HPO [facility] [place] Last Admin: 12/05/19 06:23 Dose: 125 mg - Objective Vital Signs: Vital Signs Temperature 97.2 F L 12/05/19 06:00 Pulse Rate 56 L 12/05/19 06:00 Respiratory Rate 18 12/05/19 06:00 Blood Pressure 150/76 12/05/19 06:00 O2 Sat by Pulse Oximetry (%) 97 12/04/19 21:00 Constitutional: Yes: No Distress, Calm Cardiovascular: Yes: S1, S2 Respiratory: Yes: Regular, CTA Bilaterally Musculoskeletal: Yes: WNL Extremities: Yes: WNL Neurological: Yes: Alert, Oriented Psychiatric: Yes: Alert Labs: CBC, BMP 12/05/19 07:32 12/05/19 07:32 INR, PTT INR 1.27 (0.82-1.09) H 11/28/19 17:25 Assessment/Plan Problem List - Problems (1) Atelectasis Code(s): J98.11 - ATELECTASIS (2) Pleural effusion Code(s): J90 - PLEURAL EFFUSION, NOT ELSEWHERE CLASSIFIED (3) Failure to thrive Code(s): [id number] - (4) Pneumonia Code(s): J18.9 - PNEUMONIA, UNSPECIFIED ORGANISM (5) Severe malnutrition Code(s): E43 - UNSPECIFIED SEVERE PROTEIN-CALORIE MALNUTRITION (6) Hip fracture Code(s): S72.009A - FRACTURE OF UNSP PART OF NECK OF UNSP FEMUR, INIT Qualifiers: Encounter type: initial encounter Fracture type: closed Laterality: left Qualified Code(s): S72.002A - Fracture of unspecified part of neck of left femur, initial encounter for closed fracture (7) Polycythemia Code(s): D75.1 - SECONDARY POLYCYTHEMIA 8 uti 9 cdiff Assessment/Plan Aspiration PNA cdiff plan continue current mgmt hydration rest as per the team continue vanco oral
[2019-12-05] MEDS: SODIUM CHLORIDE 1,000 ML IV SCH (08:44)
[2019-12-05] MEDS: HEPARIN NA (PORCINE) 5,000 UNITS/ML 1ML VIAL SQ SCH ×2 (09:00→21:06)
[2019-12-05] MEDS: AMINO ACIDS/PROTEIN HYDROLYS 30 ML LIQUID.PKT PO SCH ×2 (09:00→18:19)
[2019-12-05] MEDS: LACTOBACILLUS ACIDOPHILUS 1 TABLET PO SCH (09:01)
[2019-12-05] MEDS: LISINOPRIL 20 MG TABLET (FP) PO SCH (09:01)
[2019-12-05] MEDS: metoPROLOL SUCCINATE 25 MG TAB.SR.24H (FP) PO SCH (09:01)
[2019-12-05] MEDS: amLODIPine BESYLATE 5 MG TABLET (FP) PO SCH (09:01)
[2019-12-05] MEDS: MULTIVITAMINS (DAILY MVI) TABLET (FP) PO SCH (09:01)
[2019-12-05] MEDS: POTASSIUM CHLORIDE TABS 20 MEQ TABLET.ER (FP) PO SCH ×2 (09:01→21:06)
[2019-12-05] MEDS: COLLAGENASE CLOSTRIDIUM HIST. 30 GRAMS TUBE TP SCH (09:02)
--- NOTE | 2019-12-05 09:45 | PN ---
Progress Note (short form) - Note Progress Note: PULMONARY Breathing continues to improve. Less cough. No fevers. Vital Signs Period Temp Pulse Resp BP Sys/Kiser Pulse Ox Last 24 Hr 97.2 F-98.9 F 56-105 18-20 141-152/65-76 97 Gen: less tachypneic at rest Heart: RRR Lung: decreased breath sounds at the bases Abd: soft, nontender Ext: no edema CBC, BMP 12/05/19 07:32 12/05/19 07:32 Active Medications Albuterol/Ipratropium (Duoneb -) 1 amp NEB Q6H PRN PRN Reason: SHORTNESS OF BREATH Amino Acids (Prosource No Carb Liquid Pkt) 30 ml PO BID@0800,1730 [facility] Last Admin: 12/05/19 09:00 Dose: 30 ml Amlodipine Besylate (Norvasc -) 5 mg PO DAILY [facility] Last Admin: 12/05/19 09:01 Dose: 5 mg Atorvastatin Calcium (Lipitor -) 10 mg PO HS [facility] Last Admin: 12/04/19 21:30 Dose: 10 mg Collagenase (Santyl -) 1 applic TP DAILY [facility]; Protocol Last Admin: 12/05/19 09:02 Dose: 1 applic Heparin Sodium (Porcine) (Heparin -) 5,000 unit SQ BID [facility] Last Admin: 12/05/19 09:00 Dose: 5,000 unit Sodium Chloride (Normal Saline -) 1,000 mls @ 42 mls/hr IV ASDIR [facility] Last Admin: 12/05/19 08:44 Dose: 42 mls/hr Lactobacillus Acidophilus (Bacid -) 1 tab PO DAILY [facility] Last Admin: 12/05/19 09:01 Dose: 1 tab Lisinopril (Prinivil) 20 mg PO DAILY [facility] Last Admin: 12/05/19 09:01 Dose: 20 mg Metoprolol Succinate (Toprol Xl -) 25 mg PO DAILY [facility] Last Admin: 12/05/19 09:01 Dose: 25 mg Multivitamins/Minerals/Vitamin C (Tab-A-Vit -) 1 tab PO DAILY [facility] Last Admin: 12/05/19 09:01 Dose: 1 tab Potassium Chloride (K-Dur -) 20 meq PO BID [facility] Last Admin: 12/05/19 09:01 Dose: 20 meq Vancomycin HCl (Vancomycin Oral Solution) 125 mg PO Q6HPO [facility] Last Admin: 12/05/19 06:23 Dose: 125 mg A/P Pneumonia C Diff Colitis Sepsis Hyponatremia HTN Hyperlipidemia Polycythemia Vera Malnutrition - continue antibiotics - inhaled bronchodilators as needed - O2 to keep Spo2 >90% - monitor lytes - DVT prophylaxis
--- NOTE | 2019-12-05 13:17 | PN ---
Progress Note, QUALITY IMPROVEMENT CONSULTANT - Note Progress Note: Selected Entries 12/04/19 12/04/19 12/04/19 00:00 06:47 09:00 Breakfast 25% Lunch 50% Supper Temperature 98.0 F 98.3 F 98.1 F 12/04/19 12/04/19 12/04/19 13:00 14:00 17:19 Breakfast Lunch 50% Supper Temperature 98.3 F 98.9 F 12/04/19 12/04/19 12/05/19 19:33 22:00 06:00 Breakfast Lunch Supper 25% Temperature 98.3 F 97.2 F L 12/05/19 12/05/19 09:00 10:00 Breakfast 50% Lunch Supper Temperature 97.8 F Laboratory Tests 12/03/19 12/04/19 12/05/19 08:30 08:15 07:32 WBC 13.0 H 12.4 H 12.0 H Poor PO intake continues and pt is very weak and lethargic. Pt observed drinking Ensure clear with no overt difficulty. However, nursing reports coughing on pill yesterday and her daughter reports h/ o coughing on intake. Too weak and lethargic to chew. Pt is much weaker and less verbally responsive than initial evaluation Hoarseness persists, which started 4 weeks ago. REC: Puree/Blanchard thick liquid d/c ensure clear 2 sun HN,magic cup, ensure pudding MBS when stronger ENT Consult (Hoarse voice x 4 weeks. r/o paresis/paralysis/pathology)
--- NOTE | 2019-12-05 14:45 | PN ---
Progress Note (short form) - Note Progress Note: Persistent elevation of ALP, mild transaminitis. Ordered GGT and MRCP. Problem List - Problems (1) Diarrhea Code(s): R19.7 - DIARRHEA, UNSPECIFIED
--- NOTE | 2019-12-05 15:53 | PN ---
Physical Exam: SUBJECTIVE: Patient seen and examined at the bedside. still very weak but appetite seems to be improving. calorie count completed today. added ensure supplement as well magic cup had speech and swallow follow up and diet changed to pureed and nectar thick fluids. had two small loose bms today and one overnight OBJECTIVE: Patient is an 83 year old female with a significant past medical history of HTN , HLD, polycythemia vera, s/p left hip fracture repair in December 2018, compression fractures s/p kyphoplasties, and severe malnutrition. Recently hospitalized 10/31-11/05/19 for sepsis secondary to E.coli UTI. Patient was brought by her daughter to the ED for evaluation of profound weakness, lack of appetite, difficulty swallowing, persistent dry cough, diarrhea, incontinence of urine and stool, skin breakdown, hair loss, and depression. Patient has not had fever, sweats, chills. On admission she was found to have an acute pneumonia and found to be positive for c diff. patient had a recent echocardiogram 11/01/2019 which was normal. Vital Signs Period Temp Pulse Resp BP Sys/Kiser Pulse Ox Last 24 Hr 97.2 F-98.9 F 56-105 18-20 112-152/57-76 97-98 GENERAL: The patient is awake, alert, and fully oriented, in no acute distress. severe malnutrition with prominent back, chest and pelvic bones. also appears clinically dry and weak. thin appearing, frail, cachectic/severe malnutrition, dry tongue, dry mucuous membranes, skin dry, chest and spine bones prominent, prominent pelvic bones. HEAD: Normal with no signs of trauma. EYES: PERRL, extraocular movements intact, sclera anicteric, conjunctiva clear. No ptosis. ENT: Ears normal, nares patent, oropharynx clear without exudates, dry mucous membranes. NECK: Trachea midline, full range of motion, supple. LUNGS: no wheezing,clear lungs upper lobes, diminished at the bases. HEART: Regular rate and rhythm, S1, S2 without murmur, rub or gallop. ABDOMEN: soft, non tender, non distended. EXTREMITIES: no edema. NEUROLOGICAL: Normal speech, gait not observed. PSYCH: Normal mood, normal affect. SKIN: stage II sacral pressure sore Laboratory Results - last 24 hr 12/05/19 12/05/19 07:32 07:32 WBC 12.0 H RBC 3.78 Hgb 11.5 Hct 33.5 MCV 88.5 MCH 30.5 MCHC 34.5 RDW 16.6 H Plt Count 374 MPV 8.9 Absolute Neuts (auto) 10.7 H Neutrophils % 89.1 H Lymphocytes % 4.8 L Monocytes % 4.8 Eosinophils % 0.5 Basophils % 0.8 Nucleated RBC % 0 Sodium 128 L Potassium 3.7 Chloride 96 L Carbon Dioxide 23 Anion Gap 9 BUN 10.2 Creatinine 0.3 L Est GFR (CKD-EPI)AfAm 121.00 Est GFR (CKD-EPI)NonAf 104.40 Random Glucose 93 Calcium 7.9 L Magnesium 1.6 L Total Bilirubin 0.5 AST 43 H ALT 27 Alkaline Phosphatase 265 H Total Protein 5.3 L Albumin 2.3 L Active Medications Generic Name Dose Route Start Last Admin Trade Name Freq PRN Reason Stop Dose Admin Albuterol/Ipratropium 1 amp 11/30/19 18:10 Duoneb - NEB Q6H PRN SHORTNESS OF BREATH Amino Acids 30 ml 11/29/19 08:00 12/05/19 09:00 Prosource No Carb Liquid Pkt PO 30 ml BID@0800,1730 KEHINDE Administration Amlodipine Besylate 5 mg 11/29/19 10:00 12/05/19 09:01 Norvasc - PO 5 mg DAILY KEHINDE Administration Atorvastatin Calcium 10 mg 11/29/19 22:00 12/04/19 21:30 Lipitor - PO 10 mg HS KEHINDE Administration Collagenase 1 applic 12/02/19 10:00 12/05/19 09:02 Santyl - TP 1 applic DAILY KEHINDE Administration Protocol Heparin Sodium (Porcine) 5,000 unit 11/28/19 22:00 12/05/19 09:00 Heparin - SQ 5,000 unit BID KEHINDE Administration Sodium Chloride 1,000 mls @ 42 mls/hr 12/05/19 08:30 12/05/19 08:44 Normal Saline - IV 42 mls/hr ASDIR KEHINDE Administration Lactobacillus Acidophilus 1 tab 12/03/19 13:15 12/05/19 09:01 Bacid - PO 1 tab DAILY KEHINDE Administration Lisinopril 20 mg 11/29/19 10:00 12/05/19 09:01 Prinivil PO 20 mg DAILY KEHINDE Administration Metoprolol Succinate 25 mg 11/29/19 10:00 12/05/19 09:01 Toprol Xl - PO 25 mg DAILY KEHINDE Administration Multivitamins/Minerals/Vitamin C 1 tab 12/03/19 13:15 12/05/19 09:01 Tab-A-Vit - PO 1 tab DAILY EKHINDE Administration Potassium Chloride 20 meq 12/01/19 22:00 12/05/19 09:01 K-Dur - PO 20 meq BID KEHINDE Administration Vancomycin HCl 125 mg 11/30/19 18:00 12/05/19 12:58 Vancomycin Oral Solution PO 125 mg Q6HPO KEHINDE Administration ASSESSMENT/PLAN: Problem List - Problems (1) Hip fracture Assessment/Plan: by history, physical therapy ordered. poor ambulatory status 2/2 to profound fatigue Code(s): S72.009A - FRACTURE OF UNSP PART OF NECK OF UNSP FEMUR, INIT Qualifiers: Encounter type: initial encounter Fracture type: closed Laterality: left Qualified Code(s): S72.002A - Fracture of unspecified part of neck of left femur, initial encounter for closed fracture (2) Severe malnutrition Assessment/Plan: dietary consulted completed 3 day calorie count s/p swallow eval pureed diet with nectar thick fluid recommended. ordered ensure compact and magic cup. bmi 16.6, clinically dry, weak and cachectic on prosource, multivitamins Code(s): E43 - UNSPECIFIED SEVERE PROTEIN-CALORIE MALNUTRITION (3) Clostridium difficile colitis Assessment/Plan: + for c diff isolation precautions started on oral vanco gi consulted and following Code(s): A04.72 - ENTEROCOLITIS D/T CLOSTRIDIUM DIFFICILE, NOT SPCF RECUR (4) Pseudomonas urinary tract infection Assessment/Plan: found in urine culture, started on cefepime continue ivf Code(s): N39.0 - URINARY TRACT INFECTION, SITE NOT SPECIFIED; B96.5 - PSEUDOMONAS (MALLEI) CAUSING DISEASES CLASSD ELSWHR (5) Failure to thrive Assessment/Plan: patient reports poor oral intake and frequent diarrhea at home Code(s): [id number] - (6) Pneumonia Assessment/Plan: on cefepime tolerating room air coughs with deep breathing pulmonary following Code(s): J18.9 - PNEUMONIA, UNSPECIFIED ORGANISM (7) Orthostatic hypotension Assessment/Plan: fall precautions Code(s): I95.1 - ORTHOSTATIC HYPOTENSION (8) Stage II pressure ulcer Assessment/Plan: turn and position and increase oral intake. on pro source. on santyl daily Code(s): L89.92 - PRESSURE ULCER OF UNSPECIFIED SITE, STAGE 2 (9) Polycythemia Assessment/Plan: patient follows with a retail key holder (Erna) and will need continued outpatient follow up. Code(s): D75.1 - SECONDARY POLYCYTHEMIA (10) DVT prophylaxis Code(s): Z29.9 - ENCOUNTER FOR PROPHYLACTIC MEASURES, UNSPECIFIED (11) Hyponatremia Assessment/Plan: on ns at 42cc/hr with close monitoring of respiratory status Code(s): E87.1 - HYPO-OSMOLALITY AND HYPONATREMIA (12) Weakness Assessment/Plan: for PT Code(s): R53.1 - WEAKNESS (13) Voice hoarseness Assessment/Plan: has been ongoing for apx 3 weeks. ENT consulted Code(s): R49.0 - DYSPHONIA (14) Prophylactic measure Assessment/Plan: fen f: stop ivf and encourage po intake, 2 episodes today e: monitor electrolytes daily and supplement n: pureed diet, nectar thick physical therapy heparin protonix Code(s): Z29.9 - ENCOUNTER FOR PROPHYLACTIC MEASURES, UNSPECIFIED Visit type - Emergency Visit Emergency Visit: Yes ED Registration Date: 11/28/19 Care time: The patient presented to the Emergency Department on the above date and was hospitalized for further evaluation of their emergent condition. - New Patient This patient is new to me today: No - Critical Care Critical Care patient: No - Discharge Referral Referred to [facility] Med P.C.: No
[2019-12-05] MEDS: ATORVASTATIN CA 10 MG TABLET (FP) PO SCH (21:06)
[2019-12-06] MEDS: VANCOMYCIN 250 MG/5 ML ORAL SOLUTION PO SCH ×4 (00:19→17:47)
[2019-12-06 07:50] LABS: BASO % 0.9 % (0-2.0); EOS % 0.8 % (0-4.5); HEMATOCRIT 34.6 % (32.4-45.2); HEMOGLOBIN 11.9 GM/dL (10.7-15.3); LYMPH % 4.7 % (8-40); MCH 30.8 pg (25.7-33.7); MCHC 34.2 g/dl (32.0-36.0); MEAN PLT VOLUME 9.1 fl (7.5-11.1); MONO % 6.1 % (3.8-10.2); NEUT % 87.5 % (42.8-82.8); PLATELET COUNT 371 K/MM3 (134-434); RBC 3.85 M/mm3 (3.60-5.2); RDW 16.5 % (11.6-15.6); WHITE BLOOD COUNT 12.9 K/mm3 (4.0-10.0)
[2019-12-06 08:04] LABS: ALBUMIN 2.2 g/dl (3.4-5.0); BILIRUBIN,TOTAL 0.4 mg/dL (0.2-1); BLOOD UREA NITROGEN 11.6 mg/dL (7-18); CALCIUM 8.2 mg/dL (8.5-10.1); CREATININE 0.4 mg/dL (0.55-1.3); MAGNESIUM 1.6 mg/dL (1.8-2.4); POTASSIUM 3.7 mmol/L (3.5-5.1); TOT PROT 5.1 g/dl (6.4-8.2)
--- NOTE | 2019-12-06 08:48 | PN ---
Progress Note, Physician Chief Complaint: Diarrhea persists but less today. States her voice quailty is better today. Pending MRCP History of Present Illness: Patient is an 83 year old female with a significant past medical history of HTN , HLD, polycythemia vera, s/p left hip fracture repair in December 2018, compression fractures s/p kyphoplasties, and severe malnutrition. Recently hospitalized 10/31-11/05/19 for sepsis secondary to E.coli UTI. Patient was brought by her daughter to the ED for evaluation of profound weakness, lack of appetite, difficulty swallowing, persistent dry cough, diarrhea, incontinence of urine and stool, skin breakdown, hair loss, and depression. Patient has not had fever, sweats, chills. On admission she was found to have an acute pneumonia and found to be positive for c diff. - Current Medication List Current Medications: Active Medications Albuterol/Ipratropium (Duoneb -) 1 amp NEB Q6H PRN PRN Reason: SHORTNESS OF BREATH Amino Acids (Prosource No Carb Liquid Pkt) 30 ml PO BID@0800,1730 [facility] Last Admin: 12/05/19 18:19 Dose: 30 ml Amlodipine Besylate (Norvasc -) 5 mg PO DAILY [facility] Last Admin: 12/05/19 09:01 Dose: 5 mg Atorvastatin Calcium (Lipitor -) 10 mg PO HS [facility] Last Admin: 12/05/19 21:06 Dose: 10 mg Collagenase (Santyl -) 1 applic TP DAILY [facility]; Protocol Last Admin: 12/05/19 09:02 Dose: 1 applic Heparin Sodium (Porcine) (Heparin -) 5,000 unit SQ BID [facility] Last Admin: 12/05/19 21:06 Dose: 5,000 unit Sodium Chloride (Normal Saline -) 1,000 mls @ 42 mls/hr IV ASDIR [facility] Last Admin: 12/05/19 08:44 Dose: 42 mls/hr Lactobacillus Acidophilus (Bacid -) 1 tab PO DAILY [facility] Last Admin: 12/05/19 09:01 Dose: 1 tab Lisinopril (Prinivil) 20 mg PO DAILY [facility] Last Admin: 12/05/19 09:01 Dose: 20 mg Metoprolol Succinate (Toprol Xl -) 25 mg PO DAILY [facility] Last Admin: 12/05/19 09:01 Dose: 25 mg Multivitamins/Minerals/Vitamin C (Tab-A-Vit -) 1 tab PO DAILY [facility] Last Admin: 12/05/19 09:01 Dose: 1 tab Potassium Chloride (K-Dur -) 20 meq PO BID [facility] Last Admin: 12/05/19 21:06 Dose: 20 meq Vancomycin HCl (Vancomycin Oral Solution) 125 mg PO Q6HPO [facility] Last Admin: 12/06/19 05:36 Dose: 125 mg - Objective Vital Signs: Vital Signs Temperature 98.1 F 12/06/19 06:36 Pulse Rate 77 12/06/19 06:36 Respiratory Rate 20 12/06/19 06:36 Blood Pressure 135/65 12/06/19 06:36 O2 Sat by Pulse Oximetry (%) 98 12/05/19 09:00 Constitutional: Yes: No Distress, Cachectic, Pallor, Thin Eyes: Yes: WNL, Conjunctiva Clear HENT: Yes: WNL, Atraumatic, Normocephalic Neck: Yes: WNL, Supple, Trachea Midline Cardiovascular: Yes: WNL, Regular Rate and Rhythm Respiratory: Yes: WNL, Regular, CTA Bilaterally Gastrointestinal: Yes: WNL, Normal Bowel Sounds ...Rectal Exam: Yes: Deferred Breast(s): Yes: WNL Musculoskeletal: Yes: WNL Extremities: Yes: WNL Edema: No Peripheral Pulses WNL: Yes Peripheral Pulses: Left Radial: 2+, Right Radial: 2+, Left Doralis Pedis: 2+, Right Dorsalis Pedis: 2+, Left Femoral: 2+, Right Femoral: 2+ Integumentary: Yes: WNL Neurological: Yes: WNL, Alert, Oriented ...Motor Strength: LLE, RLE (generalized weakness) Psychiatric: Yes: WNL Labs: CBC, BMP 12/06/19 07:07 12/06/19 07:07 INR, PTT INR 1.27 (0.82-1.09) H 11/28/19 17:25 Problem List - Problems (1) Clostridium difficile colitis Assessment/Plan: + toxin for Cdif c/w vanco PO ID/GI following isolation precuations Code(s): A04.72 - ENTEROCOLITIS D/T CLOSTRIDIUM DIFFICILE, NOT SPCF RECUR (2) Failure to thrive Assessment/Plan: poor intake at home RD follwoing incourage PO intake nutrition supplements Code(s): HQY8514 - (3) Pneumonia Assessment/Plan: c/w abx supplemental O2 IS, deep breathing Code(s): J18.9 - PNEUMONIA, UNSPECIFIED ORGANISM (4) Prophylactic measure Assessment/Plan: FEN Fluids: poor PO intake Electrolytes: monitor & replete as needed Nutrition: dysphagia diet/ nectar thick liquids DVT moderate risk sq heparin Dispo Maintain as inpatient full code discharge planning Code(s): Z29.9 - ENCOUNTER FOR PROPHYLACTIC MEASURES, UNSPECIFIED (5) Severe malnutrition Assessment/Plan: as evidenced by BMI 16, severe muscle/temporal wasting RD follwoing completed 3 day calorie count s/p swallow eval pureed diet with nectar thick fluid recommended. c/w supplements on prosource, multivitamins Code(s): E43 - UNSPECIFIED SEVERE PROTEIN-CALORIE MALNUTRITION (6) Stage II pressure ulcer Assessment/Plan: turn and position and increase oral intake c/w pro source. on santyl daily Code(s): L89.92 - PRESSURE ULCER OF UNSPECIFIED SITE, STAGE 2 (7) Voice hoarseness Assessment/Plan: has been ongoing for apx 3 weeks. ENT evaluated airway clinically patent, no stridor or respiratory distress planned bedside flexible laryngoscopy to visualize larynx and vocal cords Code(s): R49.0 - DYSPHONIA (8) Weakness Assessment/Plan: c/w PT fall precautions Code(s): R53.1 - WEAKNESS (9) Hip fracture Assessment/Plan: past hx c/w PT Code(s): S72.009A - FRACTURE OF UNSP PART OF NECK OF UNSP FEMUR, INIT Qualifiers: Encounter type: initial encounter Fracture type: closed Laterality: left Qualified Code(s): S72.002A - Fracture of unspecified part of neck of left femur, initial encounter for closed fracture (10) Hyponatremia Assessment/Plan: Na 131 fluid restriction Code(s): E87.1 - HYPO-OSMOLALITY AND HYPONATREMIA (11) Polycythemia Assessment/Plan: patient follows with a tour narrator (Erna) and will need continued outpatient follow up. Code(s): D75.1 - SECONDARY POLYCYTHEMIA Visit type - Emergency Visit Emergency Visit: Yes ED Registration Date: 11/28/19 Care time: The patient presented to the Emergency Department on the above date and was hospitalized for further evaluation of their emergent condition. - New Patient This patient is new to me today: Yes Date on this admission: 12/06/19 - Critical Care Critical Care patient: No - Discharge Referral Referred to [facility] Med P.C.: No
[2019-12-06] MEDS ORDERED: MAGNESIUM OXIDE 400 MG TABLET (FP) PO ONE (09:15)
--- NOTE | 2019-12-06 09:58 | PN ---
Progress Note (short form) - Note Progress Note: PULMONARY States breathing slowly improving. No fevers. Small amount of diarrhea this AM. Vital Signs Period Temp Pulse Resp BP Sys/Kiser Pulse Ox Last 24 Hr 97.8 F-98.2 F 77-95 20-20 112-137/57-70 Gen: less tachypneic at rest Heart: RRR Lung: decreased breath sounds at the bases Abd: soft, nontender Ext: no edema CBC, BMP 12/06/19 07:07 12/06/19 07:07 Active Medications Albuterol/Ipratropium (Duoneb -) 1 amp NEB Q6H PRN PRN Reason: SHORTNESS OF BREATH Amino Acids (Prosource No Carb Liquid Pkt) 30 ml PO BID@0800,1730 [facility] Last Admin: 12/05/19 18:19 Dose: 30 ml Amlodipine Besylate (Norvasc -) 5 mg PO DAILY [facility] Last Admin: 12/05/19 09:01 Dose: 5 mg Atorvastatin Calcium (Lipitor -) 10 mg PO HS [facility] Last Admin: 12/05/19 21:06 Dose: 10 mg Collagenase (Santyl -) 1 applic TP DAILY [facility]; Protocol Last Admin: 12/05/19 09:02 Dose: 1 applic Heparin Sodium (Porcine) (Heparin -) 5,000 unit SQ BID [facility] Last Admin: 12/05/19 21:06 Dose: 5,000 unit Sodium Chloride (Normal Saline -) 1,000 mls @ 42 mls/hr IV ASDIR [facility] Last Admin: 12/05/19 08:44 Dose: 42 mls/hr Lactobacillus Acidophilus (Bacid -) 1 tab PO DAILY [facility] Last Admin: 12/05/19 09:01 Dose: 1 tab Lisinopril (Prinivil) 20 mg PO DAILY [facility] Last Admin: 12/05/19 09:01 Dose: 20 mg Metoprolol Succinate (Toprol Xl -) 25 mg PO DAILY [facility] Last Admin: 12/05/19 09:01 Dose: 25 mg Multivitamins/Minerals/Vitamin C (Tab-A-Vit -) 1 tab PO DAILY [facility] Last Admin: 12/05/19 09:01 Dose: 1 tab Potassium Chloride (K-Dur -) 20 meq PO BID [facility] Last Admin: 12/05/19 21:06 Dose: 20 meq Vancomycin HCl (Vancomycin Oral Solution) 125 mg PO Q6HPO [facility] Last Admin: 12/06/19 05:36 Dose: 125 mg A/P Pneumonia C Diff Colitis Sepsis Hyponatremia HTN Hyperlipidemia Polycythemia Vera Malnutrition - continue antibiotics for C diff - inhaled bronchodilators as needed - O2 to keep Spo2 >90% - monitor lytes - DVT prophylaxis
[2019-12-06] MEDS: amLODIPine BESYLATE 5 MG TABLET (FP) PO SCH (10:46)
[2019-12-06] MEDS: HEPARIN NA (PORCINE) 5,000 UNITS/ML 1ML VIAL SQ SCH ×2 (10:46→23:31)
[2019-12-06] MEDS: LISINOPRIL 20 MG TABLET (FP) PO SCH (10:46)
[2019-12-06] MEDS: metoPROLOL SUCCINATE 25 MG TAB.SR.24H (FP) PO SCH (10:46)
[2019-12-06] MEDS: LACTOBACILLUS ACIDOPHILUS 1 TABLET PO SCH (10:46)
[2019-12-06] MEDS: SODIUM CHLORIDE 1,000 ML IV SCH (10:46)
[2019-12-06] MEDS: POTASSIUM CHLORIDE TABS 20 MEQ TABLET.ER (FP) PO SCH ×2 (10:46→23:31)
[2019-12-06] MEDS: AMINO ACIDS/PROTEIN HYDROLYS 30 ML LIQUID.PKT PO SCH ×2 (10:46→17:47)
[2019-12-06] MEDS: MULTIVITAMINS (DAILY MVI) TABLET (FP) PO SCH (10:46)
--- NOTE | 2019-12-06 12:11 | PN ---
Progress Note, Physician History of Present Illness: stable still with dirrhoea - Current Medication List Current Medications: Active Medications Albuterol/Ipratropium (Duoneb -) 1 amp NEB Q6H PRN PRN Reason: SHORTNESS OF BREATH Amino Acids (Prosource No Carb Liquid Pkt) 30 ml PO BID@0800,1730 [facility] Last Admin: 12/06/19 10:46 Dose: 30 ml Amlodipine Besylate (Norvasc -) 5 mg PO DAILY [facility] Last Admin: 12/06/19 10:46 Dose: 5 mg Atorvastatin Calcium (Lipitor -) 10 mg PO HS [facility] Last Admin: 12/05/19 21:06 Dose: 10 mg Collagenase (Santyl -) 1 applic TP DAILY [facility]; Protocol Last Admin: 12/05/19 09:02 Dose: 1 applic Heparin Sodium (Porcine) (Heparin -) 5,000 unit SQ BID [facility] Last Admin: 12/06/19 10:46 Dose: 5,000 unit Sodium Chloride (Normal Saline -) 1,000 mls @ 42 mls/hr IV ASDIR [facility] Last Admin: 12/06/19 10:46 Dose: 42 mls/hr Lactobacillus Acidophilus (Bacid -) 1 tab PO DAILY [facility] Last Admin: 12/06/19 10:46 Dose: 1 tab Lisinopril (Prinivil) 20 mg PO DAILY [facility] Last Admin: 12/06/19 10:46 Dose: 20 mg Metoprolol Succinate (Toprol Xl -) 25 mg PO DAILY [facility] Last Admin: 12/06/19 10:46 Dose: 25 mg Multivitamins/Minerals/Vitamin C (Tab-A-Vit -) 1 tab PO DAILY [facility] Last Admin: 12/06/19 10:46 Dose: 1 tab Potassium Chloride (K-Dur -) 20 meq PO BID [facility] Last Admin: 12/06/19 10:46 Dose: 20 meq Vancomycin HCl (Vancomycin Oral Solution) 125 mg PO Q6HPO [facility] Last Admin: 12/06/19 05:36 Dose: 125 mg - Objective Vital Signs: Vital Signs Temperature 98.1 F 12/06/19 06:36 Pulse Rate 77 12/06/19 06:36 Respiratory Rate 20 12/06/19 06:36 Blood Pressure 135/65 12/06/19 06:36 O2 Sat by Pulse Oximetry (%) 98 12/05/19 09:00 Constitutional: Yes: Calm, Mild Distress Cardiovascular: Yes: S1, S2 Respiratory: Yes: Regular, CTA Bilaterally Gastrointestinal: Yes: Normal Bowel Sounds, Soft Musculoskeletal: Yes: WNL Extremities: Yes: WNL Neurological: Yes: Alert, Oriented Psychiatric: Yes: Alert, Oriented Labs: CBC, BMP 12/06/19 07:07 12/06/19 07:07 INR, PTT INR 1.27 (0.82-1.09) H 11/28/19 17:25 Assessment/Plan Problem List - Problems (1) Atelectasis Code(s): J98.11 - ATELECTASIS (2) Pleural effusion Code(s): J90 - PLEURAL EFFUSION, NOT ELSEWHERE CLASSIFIED (3) Failure to thrive Code(s): [id number] - (4) Pneumonia Code(s): J18.9 - PNEUMONIA, UNSPECIFIED ORGANISM (5) Severe malnutrition Code(s): E43 - UNSPECIFIED SEVERE PROTEIN-CALORIE MALNUTRITION (6) Hip fracture Code(s): S72.009A - FRACTURE OF UNSP PART OF NECK OF UNSP FEMUR, INIT Qualifiers: Encounter type: initial encounter Fracture type: closed Laterality: left Qualified Code(s): S72.002A - Fracture of unspecified part of neck of left femur, initial encounter for closed fracture (7) Polycythemia Code(s): D75.1 - SECONDARY POLYCYTHEMIA 8 uti 9 cdiff r/o malignancy pleural effusion Assessment/Plan continue current mgmt oral vanco rest as per the team
[2019-12-06] MEDS: COLLAGENASE CLOSTRIDIUM HIST. 30 GRAMS TUBE TP SCH (14:47)
--- NOTE | 2019-12-06 14:48 | PN ---
Progress Note, [employer]PER[employer]OR - Note Progress Note: Selected Entries 12/05/19 12/05/19 12/05/19 06:00 09:00 10:00 Breakfast 50% Diet Tolerated Fair Lunch Supper Temperature 97.2 F L 97.8 F 12/05/19 12/05/19 12/05/19 13:00 14:00 17:37 Breakfast Diet Tolerated Fair Lunch 25% Supper Temperature 97.8 F 98.2 F 12/05/19 12/05/19 12/06/19 19:10 22:00 06:36 Breakfast Diet Tolerated Refused Lunch Supper 0 Temperature 97.9 F 98.1 F 12/06/19 12/06/19 13:00 14:00 Breakfast Diet Tolerated Refused Lunch Supper 0 Temperature 98 F Laboratory Tests 12/04/19 12/05/19 12/06/19 08:15 07:32 07:07 WBC 12.4 H 12.0 H 12.9 H On puree/nectar Tolerating diet but accepting a lot- 20% per [employer]. Supplements, as tolerated-Magic cup, ensure pudding, 2 sun hn.
--- NOTE | 2019-12-06 17:44 | PN ---
Progress Note (short form) - Note Progress Note: No acute events, diarrhea improved. Called by Dr. Godwin. MRI revealed multiple liver lesions suggestive of mets, poissble pancreatic lesion, bilateral pleural effusions, pericardial effusion. Findings were discussed with Ms. Newberry and her son who was present at bedside. They are aware of the concern for cancer that has spread to the liver. I let NICOLLE Donato know about the findings. CT scan of the C/A/P have been ordered Advised oncology evaluation Problem List - Problems (1) Diarrhea Code(s): R19.7 - DIARRHEA, UNSPECIFIED
--- NOTE | 2019-12-06 18:15 | CON.ENT ---
Consult Consult Specialty:: ENT Reason for Consultation:: hoarseness, dysphagia - History Source History Provided By: Patient, Medical Record Limitations to Obtaining History: Clinical Condition - Past Medical History Cardio/Vascular: Yes: HTN, Hyperlipdemia Pulmonary: Yes: Bronchitis, Pneumonia. No: Asthma, Cancer, COPD, O2 Dependent, Previously Intubated, Pulmonary Embolus, Pulmonary Fibrosis, Sleep Apnea Gastrointestinal: Yes: Other (diarrhea) Renal/: Yes: Other (hyponatremia) Infectious Disease: Yes: C-Diff - Past Surgical History Additional Surgical History: Kyphoplasty - Alcohol/Substance Use Hx Alcohol Use: No History of Substance Use: reports: None - Smoking History Smoking history: Former smoker Have you smoked in the past 12 months: No If you are a former smoker, when did you quit?: 60 YEARS - Social History Usual Living Arrangement: With Child ADL: Independent History of Recent Travel: No Home Medications - Allergies Allergies/Adverse Reactions: Allergies Allergy/AdvReac Type Severity Reaction Status Date / Time No Known Allergies Allergy Verified 11/28/19 16:04 - Home Medications Home Medications: Ambulatory Orders Amlodipine Besylate 5 mg PO DAILY 01/15/19 Atorvastatin Ca [Lipitor] 10 mg PO DAILY 01/15/19 Lisinopril 20 mg PO DAILY 01/15/19 Metoprolol Succinate [Toprol XL -] 25 mg PO DAILY 01/15/19 Review of Systems - Review of Systems Constitutional: reports: Loss of Appetite Physical Exam-ENT Vital Signs: Vital Signs Temperature 97.3 F L 12/06/19 17:30 Pulse Rate 96 H 12/06/19 17:30 Respiratory Rate 20 12/06/19 17:30 Blood Pressure 137/68 12/06/19 17:30 O2 Sat by Pulse Oximetry (%) 98 12/06/19 09:00 Constitutional: Yes: Calm, Thin Head: Yes: WNL Face: Yes: WNL Eyes: Yes: WNL Nose: Yes: Other (mild mucosal dryness, no pus or polyp) Oral/Pharynx: Yes: WNL Outer Ear: Yes: WNL Ear Canal: Yes: Cerumen Tympanic Membrane: Yes: Retracted, Other (not visualized) Neck: Yes: WNL (no mass, lymphadenopathy. salivary and thyroid glands WNL. trachea midline) Neurological: Yes: Alert Imaging - Results Chest X-ray: Report Reviewed, Image Reviewed MRI: Report Reviewed, Image Reviewed (multiple hepatic lesions noted, rule out metastatic disease) Problem List - Problems (1) Dysphagia Assessment/Plan: dysphagia continue swallowing recommendations as per Gilma Rojas Code(s): R13.10 - DYSPHAGIA, UNSPECIFIED (2) Voice hoarseness Assessment/Plan: hoarseness airway clinically patent, no stridor or respiratory distress will return for bedside flexible laryngoscopy to visualize larynx and vocal cords Jaspreet Amaya MD FACS Code(s): R49.0 - DYSPHONIA
[2019-12-06] MEDS: ATORVASTATIN CA 10 MG TABLET (FP) PO SCH (23:31)
[2019-12-07] MEDS: VANCOMYCIN 250 MG/5 ML ORAL SOLUTION PO SCH ×3 (00:20→12:11)
[2019-12-07 08:24] LABS: BASO % 1.1 % (0-2.0); EOS % 0.7 % (0-4.5); HEMATOCRIT 33.3 % (32.4-45.2); HEMOGLOBIN 11.5 GM/dL (10.7-15.3); MCH 30.7 pg (25.7-33.7); MCHC 34.4 g/dl (32.0-36.0); MEAN CELL VOLUME 89.1 fl (80-96); MEAN PLT VOLUME 8.9 fl (7.5-11.1); MONO % 4.3 % (3.8-10.2); NEUT % 89.9 % (42.8-82.8); PLATELET COUNT 397 K/MM3 (134-434); RBC 3.73 M/mm3 (3.60-5.2); WHITE BLOOD COUNT 10.9 K/mm3 (4.0-10.0)
--- NOTE | 2019-12-07 08:37 | PN ---
Progress Note, Physician Chief Complaint: No diarrhea today. Very worried about pending scans and outcome. History of Present Illness: Patient is an 83 year old female with a significant past medical history of HTN , HLD, polycythemia vera, s/p left hip fracture repair in December 2018, compression fractures s/p kyphoplasties, and severe malnutrition. Recently hospitalized 10/31-11/05/19 for sepsis secondary to E.coli UTI. Patient was brought by her daughter to the ED for evaluation of profound weakness, lack of appetite, difficulty swallowing, persistent dry cough, diarrhea, incontinence of urine and stool, skin breakdown, hair loss, and depression. Patient has not had fever, sweats, chills. On admission she was found to have an acute pneumonia and found to be positive for c diff. - Current Medication List Current Medications: Active Medications Albuterol/Ipratropium (Duoneb -) 1 amp NEB Q6H PRN PRN Reason: SHORTNESS OF BREATH Amino Acids (Prosource No Carb Liquid Pkt) 30 ml PO BID@0800,1730 [facility] Last Admin: 12/06/19 17:47 Dose: 30 ml Amlodipine Besylate (Norvasc -) 5 mg PO DAILY [facility] Last Admin: 12/06/19 10:46 Dose: 5 mg Atorvastatin Calcium (Lipitor -) 10 mg PO HS [facility] Last Admin: 12/06/19 23:31 Dose: 10 mg Collagenase (Santyl -) 1 applic TP DAILY [facility]; Protocol Last Admin: 12/06/19 14:47 Dose: 1 applic Heparin Sodium (Porcine) (Heparin -) 5,000 unit SQ BID [facility] Last Admin: 12/06/19 23:31 Dose: 5,000 unit Sodium Chloride (Normal Saline -) 1,000 mls @ 42 mls/hr IV ASDIR [facility] Last Admin: 12/06/19 10:46 Dose: 42 mls/hr Lactobacillus Acidophilus (Bacid -) 1 tab PO DAILY [facility] Last Admin: 12/06/19 10:46 Dose: 1 tab Lisinopril (Prinivil) 20 mg PO DAILY [facility] Last Admin: 12/06/19 10:46 Dose: 20 mg Metoprolol Succinate (Toprol Xl -) 25 mg PO DAILY [facility] Last Admin: 12/06/19 10:46 Dose: 25 mg Multivitamins/Minerals/Vitamin C (Tab-A-Vit -) 1 tab PO DAILY [facility] Last Admin: 12/06/19 10:46 Dose: 1 tab Potassium Chloride (K-Dur -) 20 meq PO BID [facility] Last Admin: 12/06/19 23:31 Dose: 20 meq Vancomycin HCl (Vancomycin Oral Solution) 125 mg PO Q6HPO [facility] Last Admin: 12/07/19 06:21 Dose: 125 mg - Objective Vital Signs: Vital Signs Temperature 98.4 F 12/07/19 06:00 Pulse Rate 97 H 12/07/19 06:00 Respiratory Rate 18 12/07/19 06:00 Blood Pressure 146/68 12/07/19 06:00 O2 Sat by Pulse Oximetry (%) 98 12/06/19 09:00 Additional Findings/Remarks: Constitutional: Yes: No Distress, Cachectic, Pallor, Thin Eyes: Yes: WNL, Conjunctiva Clear HENT: Yes: WNL, Atraumatic, Normocephalic Neck: Yes: WNL, Supple, Trachea Midline Cardiovascular: Yes: WNL, Regular Rate and Rhythm Respiratory: Yes: WNL, Regular, CTA Bilaterally Gastrointestinal: Yes: WNL, Normal Bowel Sounds ...Rectal Exam: Yes: Deferred Breast(s): Yes: WNL Musculoskeletal: Yes: WNL Extremities: Yes: WNL Edema: No Peripheral Pulses WNL: Yes Peripheral Pulses: Left Radial: 2+, Right Radial: 2+, Left Doralis Pedis: 2+, Right Dorsalis Pedis: 2+, Left Femoral: 2+, Right Femoral: 2+ Integumentary: Yes: WNL Neurological: Yes: WNL, Alert, Oriented ...Motor Strength: LLE, RLE (generalized weakness) Psychiatric: Yes: WNL Labs: CBC, BMP 12/07/19 08:05 INR, PTT INR 1.27 (0.82-1.09) H 11/28/19 17:25 - ....Imaging MRI: Report Reviewed (multiple liver lesions suggestive of mets, possible pancreatic lesion, bilateral pleural effusions, pericardial effusion.) Problem List - Problems (1) Clostridium difficile colitis Assessment/Plan: + toxin for Cdif c/w vanco PO for 1 week after IV abx dc'd-last dose today ID/GI following isolation precautions Code(s): A04.72 - ENTEROCOLITIS D/T CLOSTRIDIUM DIFFICILE, NOT SPCF RECUR (2) Failure to thrive Assessment/Plan: poor intake at home RD follwoing incourage PO intake nutrition supplements Code(s): [id number] - (3) Pneumonia Assessment/Plan: completed abx supplemental O2 IS, deep breathing Code(s): J18.9 - PNEUMONIA, UNSPECIFIED ORGANISM (4) Prophylactic measure Assessment/Plan: FEN Fluids: poor PO intake Electrolytes: monitor & replete as needed Nutrition: dysphagia diet/ nectar thick liquids DVT moderate risk sq heparin Dispo Maintain as inpatient full code discharge planning Code(s): Z29.9 - ENCOUNTER FOR PROPHYLACTIC MEASURES, UNSPECIFIED (5) Severe malnutrition Assessment/Plan: as evidenced by BMI 16, severe muscle/temporal wasting RD following completed 3 day calorie count s/p swallow eval pureed diet with nectar thick fluid recommended. c/w supplements on prosource, multivitamins Code(s): E43 - UNSPECIFIED SEVERE PROTEIN-CALORIE MALNUTRITION (6) Stage II pressure ulcer Assessment/Plan: turn and position and increase oral intake c/w pro source. on santyl daily Code(s): L89.92 - PRESSURE ULCER OF UNSPECIFIED SITE, STAGE 2 (7) Voice hoarseness Assessment/Plan: has been ongoing for apx 3 weeks. ENT evaluated airway clinically patent, no stridor or respiratory distress planned bedside flexible laryngoscopy to visualize larynx and vocal cords Code(s): R49.0 - DYSPHONIA (8) Weakness Assessment/Plan: c/w PT fall precautions Code(s): R53.1 - WEAKNESS (9) Hip fracture Assessment/Plan: past hx c/w PT Code(s): S72.009A - FRACTURE OF UNSP PART OF NECK OF UNSP FEMUR, INIT Qualifiers: Encounter type: initial encounter Fracture type: closed Laterality: left Qualified Code(s): S72.002A - Fracture of unspecified part of neck of left femur, initial encounter for closed fracture (10) Hyponatremia Assessment/Plan: Na 134 c/w fluid restriction Code(s): E87.1 - HYPO-OSMOLALITY AND HYPONATREMIA (11) Polycythemia Assessment/Plan: patient follows with a cloth picker (Erna) and will need continued outpatient follow up. Code(s): D75.1 - SECONDARY POLYCYTHEMIA (12) Liver lesion Assessment/Plan: MRI reveals multiple liver lesions suggestive of mets, possible pancreatic lesion Oncology consultation requested Family aware of findings Code(s): K76.9 - LIVER DISEASE, UNSPECIFIED (13) Pleural effusion Assessment/Plan: bilateral pleural effusions, pericardial effusion. Pulmonary following. C/A/P pending . Code(s): J90 - PLEURAL EFFUSION, NOT ELSEWHERE CLASSIFIED Visit type - Emergency Visit Emergency Visit: Yes ED Registration Date: 11/28/19 Care time: The patient presented to the Emergency Department on the above date and was hospitalized for further evaluation of their emergent condition. - New Patient This patient is new to me today: No - Critical Care Critical Care patient: No - Discharge Referral Referred to [facility] Med P.C.: No
[2019-12-07 08:47] LABS: ALBUMIN 2.3 g/dl (3.4-5.0); BILIRUBIN,TOTAL 0.3 mg/dL (0.2-1); BLOOD UREA NITROGEN 10.3 mg/dL (7-18); CREATININE 0.4 mg/dL (0.55-1.3); MAGNESIUM 1.7 mg/dL (1.8-2.4); POTASSIUM 3.4 mmol/L (3.5-5.1); TOT PROT 5.2 g/dl (6.4-8.2)
[2019-12-07] MEDS ORDERED: MAGNESIUM OXIDE 400 MG TABLET (FP) PO ONE (08:52)
[2019-12-07] MEDS ORDERED: PT OWN MED DRAWER 7, Y5N ONE (09:17)
[2019-12-07] MEDS: AMINO ACIDS/PROTEIN HYDROLYS 30 ML LIQUID.PKT PO SCH ×2 (09:54→17:33)
[2019-12-07] MEDS: POTASSIUM CHLORIDE TABS 20 MEQ TABLET.ER (FP) PO SCH ×2 (09:54→22:14)
[2019-12-07] MEDS: LISINOPRIL 20 MG TABLET (FP) PO SCH (09:55)
[2019-12-07] MEDS: MULTIVITAMINS (DAILY MVI) TABLET (FP) PO SCH (09:55)
[2019-12-07] MEDS: metoPROLOL SUCCINATE 25 MG TAB.SR.24H (FP) PO SCH (09:55)
[2019-12-07] MEDS: LACTOBACILLUS ACIDOPHILUS 1 TABLET PO SCH (09:55)
[2019-12-07] MEDS: HEPARIN NA (PORCINE) 5,000 UNITS/ML 1ML VIAL SQ SCH ×2 (09:55→22:14)
[2019-12-07] MEDS: amLODIPine BESYLATE 5 MG TABLET (FP) PO SCH (09:55)
[2019-12-07] MEDS: COLLAGENASE CLOSTRIDIUM HIST. 30 GRAMS TUBE TP SCH (10:11)
[2019-12-07] MEDS: SODIUM CHLORIDE 1,000 ML IV SCH (10:33)
--- NOTE | 2019-12-07 11:57 | CONSULT ---
Consultation: REQUESTING PROVIDER: primary team CONSULT REQUEST: We have been asked to medically evaluate this patient for ( liver mets ). HISTORY OF PRESENT ILLNESS: Patient is an 83 year old female with a significant past medical history of HTN , HLD, polycythemia vera, s/p left hip fracture repair in December 2018, compression fractures s/p kyphoplasties, and severe malnutrition. Recently hospitalized 10/31-11/05/19 for sepsis secondary to E.coli UTI. Patient was brought by her daughter to the ED for evaluation of profound weakness, lack of appetite, difficulty swallowing, persistent dry cough, diarrhea, incontinence of urine and stool, skin breakdown, hair loss, and depression. Patient has not had fever, sweats, chills. On admission she was found to have an acute pneumonia and found to be positive for c diff. PHYSICAL EXAMINATION Vital Signs - 24 hr 12/06/19 12/06/19 12/06/19 14:00 14:58 17:30 Temperature 98 F 98.2 F 97.3 F L Pulse Rate 78 89 96 H Respiratory 20 20 20 Rate Blood Pressure 132/68 140/68 137/68 12/07/19 12/07/19 06:00 10:13 Temperature 98.4 F 97.5 F L Pulse Rate 97 H 82 Respiratory 18 18 Rate Blood Pressure 146/68 120/60 Gen: less tachypneic at rest Heart: RRR Lung: decreased breath sounds at the bases Abd: soft, nontender Ext: no edema Laboratory Results - last 24 hr 12/07/19 12/07/19 08:05 08:05 WBC 10.9 H RBC 3.73 Hgb 11.5 Hct 33.3 MCV 89.1 MCH 30.7 MCHC 34.4 RDW 17.0 H Plt Count 397 MPV 8.9 Absolute Neuts (auto) 9.8 H Neutrophils % 89.9 H Lymphocytes % 4.0 L Monocytes % 4.3 Eosinophils % 0.7 Basophils % 1.1 Nucleated RBC % 0 Sodium 134 L Potassium 3.4 L Chloride 102 Carbon Dioxide 26 Anion Gap 6 L BUN 10.3 Creatinine 0.4 L Est GFR (CKD-EPI)AfAm 110.08 Est GFR (CKD-EPI)NonAf 94.98 Random Glucose 94 Calcium 8.0 L Magnesium 1.7 L Total Bilirubin 0.3 AST 37 ALT 37 Alkaline Phosphatase 249 H Total Protein 5.2 L Albumin 2.3 L Active Medications Generic Name Dose Route Start Last Admin Trade Name Koko PRN Reason Stop Dose Admin Albuterol/Ipratropium 1 amp 11/30/19 18:10 Duoneb - NEB Q6H PRN SHORTNESS OF BREATH Amino Acids 30 ml 11/29/19 08:00 12/07/19 09:54 Prosource No Carb Liquid Pkt PO 30 ml BID@0800,1730 KEHINDE Administration Amlodipine Besylate 5 mg 11/29/19 10:00 12/07/19 09:55 Norvasc - PO 5 mg DAILY KEHINDE Administration Atorvastatin Calcium 10 mg 11/29/19 22:00 12/06/19 23:31 Lipitor - PO 10 mg HS KEHINDE Administration Collagenase 1 applic 12/02/19 10:00 12/07/19 10:11 Santyl - TP 1 applic DAILY KEHINDE Administration Protocol Heparin Sodium (Porcine) 5,000 unit 11/28/19 22:00 12/07/19 09:55 Heparin - SQ 5,000 unit BID KEHINDE Administration Sodium Chloride 1,000 mls @ 42 mls/hr 12/05/19 08:30 12/06/19 10:46 Normal Saline - IV 42 mls/hr ASDIR KEHINDE Administration Lactobacillus Acidophilus 1 tab 12/03/19 13:15 12/07/19 09:55 Bacid - PO 1 tab DAILY KEHINDE Administration Lisinopril 20 mg 11/29/19 10:00 12/07/19 09:55 Prinivil PO 20 mg DAILY KEHINDE Administration Metoprolol Succinate 25 mg 11/29/19 10:00 12/07/19 09:55 Toprol Xl - PO 25 mg DAILY KEHINDE Administration Multivitamins/Minerals/Vitamin C 1 tab 12/03/19 13:15 12/07/19 09:55 Tab-A-Vit - PO 1 tab DAILY KEHINDE Administration Potassium Chloride 20 meq 12/01/19 22:00 12/07/19 09:54 K-Dur - PO 20 meq BID KEHINDE Administration Vancomycin HCl 125 mg 11/30/19 18:00 12/07/19 06:21 Vancomycin Oral Solution PO 125 mg Q6HPO KEHINDE Administration CBC, BMP 12/07/19 08:05 12/07/19 08:05 ASSESSMENT/PLAN: 84F transferred from [facility]. She was recently admitted and treated there 11/08 for PNA and UII. Prior to that she had Kyphoplasty performed. He daughter explains that since her last admission, she has had diminished appetite and is just not thriving. She has a history of C. Diff infection 01/09. She denies abdominal pain. She is C. Diff antigen positive currently and was started on PO vancocin today. She is very frail, confused , disoriented MRI shows multiple liver mets, pncreatic edema, narrowed CBD/cystic duct, b/l effusions, pericardial effusion ( smll-mod.), lt. hydronephrosis Mild AST/ALKP elevation Nl CA!9.9/AFP CT c/a/p pending Will need to discuss goals of care with patient and family Dispo: We will continue to follow the patient. Thank you for this consultative opportunity. Visit type - Emergency Visit Emergency Visit: Yes ED Registration Date: 11/28/19 Care time: The patient presented to the Emergency Department on the above date and was hospitalized for further evaluation of their emergent condition. - New Patient This patient is new to me today: Yes Date on this admission: 12/08/19 - Critical Care Critical Care patient: No ATTENDING PHYSICIAN STATEMENT I saw and evaluated the patient. I reviewed the resident's note and discussed the case with the resident. I agree with the resident's findings and plan as documented. SUBJECTIVE: OBJECTIVE: ASSESSMENT AND PLAN:
--- NOTE | 2019-12-07 12:34 | PN ---
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 Appreciate eval/pending direct laryngoscopy to r/o vocal cord paresis/paralysis/pathology. Pt Dysphonic x [address] chest pending. Swallow reassessed with overtly good tolerance of thin liquid. Pt much more alert, sitting up, verbal, hoarse, oriented. Suggest-trial of soft, easy to chew foods and single sips of thin liquid. Thin contrast for CT, aspiration precautions. Silent aspiration can not be r/o at bedside. If congested, lethargic, downgrade diet. Suggest MBS
--- NOTE | 2019-12-07 13:15 | PN ---
Progress Note, Physician History of Present Illness: stable weakness - Current Medication List Current Medications: Active Medications Albuterol/Ipratropium (Duoneb -) 1 amp NEB Q6H PRN PRN Reason: SHORTNESS OF BREATH Amino Acids (Prosource No Carb Liquid Pkt) 30 ml PO BID@0800,1730 [facility] Last Admin: 12/07/19 09:54 Dose: 30 ml Amlodipine Besylate (Norvasc -) 5 mg PO DAILY [facility] Last Admin: 12/07/19 09:55 Dose: 5 mg Atorvastatin Calcium (Lipitor -) 10 mg PO HS [facility] Last Admin: 12/06/19 23:31 Dose: 10 mg Collagenase (Santyl -) 1 applic TP DAILY [facility]; Protocol Last Admin: 12/07/19 10:11 Dose: 1 applic Heparin Sodium (Porcine) (Heparin -) 5,000 unit SQ BID [facility] Last Admin: 12/07/19 09:55 Dose: 5,000 unit Sodium Chloride (Normal Saline -) 1,000 mls @ 42 mls/hr IV ASDIR [facility] Last Admin: 12/06/19 10:46 Dose: 42 mls/hr Lactobacillus Acidophilus (Bacid -) 1 tab PO DAILY [facility] Last Admin: 12/07/19 09:55 Dose: 1 tab Lisinopril (Prinivil) 20 mg PO DAILY [facility] Last Admin: 12/07/19 09:55 Dose: 20 mg Metoprolol Succinate (Toprol Xl -) 25 mg PO DAILY [facility] Last Admin: 12/07/19 09:55 Dose: 25 mg Multivitamins/Minerals/Vitamin C (Tab-A-Vit -) 1 tab PO DAILY [facility] Last Admin: 12/07/19 09:55 Dose: 1 tab Potassium Chloride (K-Dur -) 20 meq PO BID [facility] Last Admin: 12/07/19 09:54 Dose: 20 meq Vancomycin HCl (Vancomycin Oral Solution) 125 mg PO Q6HPO [facility] Last Admin: 12/07/19 12:11 Dose: 125 mg - Objective Vital Signs: Vital Signs Temperature 97.5 F L 12/07/19 10:13 Pulse Rate 82 12/07/19 10:13 Respiratory Rate 18 12/07/19 10:13 Blood Pressure 120/60 12/07/19 10:13 O2 Sat by Pulse Oximetry (%) 98 12/06/19 09:00 Constitutional: Yes: No Distress, Calm Cardiovascular: Yes: S1, S2 Respiratory: Yes: Regular, CTA Bilaterally Gastrointestinal: Yes: Normal Bowel Sounds, Soft Musculoskeletal: Yes: WNL Extremities: Yes: WNL Neurological: Yes: Alert, Oriented Psychiatric: Yes: Alert, Oriented Labs: CBC, BMP 12/07/19 08:05 12/07/19 08:05 INR, PTT INR 1.27 (0.82-1.09) H 11/28/19 17:25 Assessment/Plan Problem List - Problems (1) Atelectasis Code(s): J98.11 - ATELECTASIS (2) Pleural effusion Code(s): J90 - PLEURAL EFFUSION, NOT ELSEWHERE CLASSIFIED (3) Failure to thrive Code(s): ZIR3056 - (4) Pneumonia Code(s): J18.9 - PNEUMONIA, UNSPECIFIED ORGANISM (5) Severe malnutrition Code(s): E43 - UNSPECIFIED SEVERE PROTEIN-CALORIE MALNUTRITION (6) Hip fracture Code(s): S72.009A - FRACTURE OF UNSP PART OF NECK OF UNSP FEMUR, INIT Qualifiers: Encounter type: initial encounter Fracture type: closed Laterality: left Qualified Code(s): S72.002A - Fracture of unspecified part of neck of left femur, initial encounter for closed fracture (7) Polycythemia Code(s): D75.1 - SECONDARY POLYCYTHEMIA 8 uti 9 cdiff Assessment/Plan Aspiration PNA cdiff plan continue current mgmt hydration rest as per the team continue vanco oral
--- NOTE | 2019-12-07 13:18 | PN ---
Progress Note (short form) - Note Progress Note: PULMONARY AWAKE/ALERT FRAIL IMAGING STUDIES ARE POINTING TOWARD AN UNDERLYING NEOPLASM VSS/AFEBRILE PALE/ANICTERIC DISTANT BUT CLEAR B/L BREATH SOUNDS S1S2 BS+ NO EDEMA LABS/MEDS/NOTES/IMAGES REVIEWED Will need to discuss diagnostic approach O2 as needed IVF VTE prophylaxis Swallow evaluation noted Aspiration precautions Will follow Marii MARIE MD
[2019-12-07] MEDS: ATORVASTATIN CA 10 MG TABLET (FP) PO SCH (22:14)
[2019-12-08 08:08] LABS: CARCINOEMBRYONIC ANTIGEN 2.1 ng/mL (0.0-4.7)
--- NOTE | 2019-12-08 08:45 | PN ---
Progress Note, Physician Chief Complaint: 7 episodes of diarrhea overnight. Pending ENT evaluation of results on CT scans History of Present Illness: Patient is an 83 year old female with a significant past medical history of HTN , HLD, polycythemia vera, s/p left hip fracture repair in December 2018, compression fractures s/p kyphoplasties, and severe malnutrition. Recently hospitalized 10/31-11/05/19 for sepsis secondary to E.coli UTI. Patient was brought by her daughter to the ED for evaluation of profound weakness, lack of appetite, difficulty swallowing, persistent dry cough, diarrhea, incontinence of urine and stool, skin breakdown, hair loss, and depression. Patient has not had fever, sweats, chills. On admission she was found to have an acute pneumonia and found to be positive for c diff. - Current Medication List Current Medications: Active Medications Albuterol/Ipratropium (Duoneb -) 1 amp NEB Q6H PRN PRN Reason: SHORTNESS OF BREATH Amino Acids (Prosource No Carb Liquid Pkt) 30 ml PO BID@0800,1730 [facility] Last Admin: 12/07/19 17:33 Dose: 30 ml Amlodipine Besylate (Norvasc -) 5 mg PO DAILY [facility] Last Admin: 12/07/19 09:55 Dose: 5 mg Atorvastatin Calcium (Lipitor -) 10 mg PO HS [facility] Last Admin: 12/07/19 22:14 Dose: 10 mg Collagenase (Santyl -) 1 applic TP DAILY [facility]; Protocol Last Admin: 12/07/19 10:11 Dose: 1 applic Heparin Sodium (Porcine) (Heparin -) 5,000 unit SQ BID [facility] Last Admin: 12/07/19 22:14 Dose: 5,000 unit Sodium Chloride (Normal Saline -) 1,000 mls @ 42 mls/hr IV ASDIR [facility] Last Admin: 12/07/19 10:33 Dose: 42 mls/hr Lactobacillus Acidophilus (Bacid -) 1 tab PO DAILY [facility] Last Admin: 12/07/19 09:55 Dose: 1 tab Lisinopril (Prinivil) 20 mg PO DAILY [facility] Last Admin: 12/07/19 09:55 Dose: 20 mg Metoprolol Succinate (Toprol Xl -) 25 mg PO DAILY [facility] Last Admin: 12/07/19 09:55 Dose: 25 mg Multivitamins/Minerals/Vitamin C (Tab-A-Vit -) 1 tab PO DAILY [facility] Last Admin: 12/07/19 09:55 Dose: 1 tab Potassium Chloride (K-Dur -) 20 meq PO BID [facility] Last Admin: 12/07/19 22:14 Dose: 20 meq - Objective Vital Signs: Vital Signs Temperature 97.6 F 12/07/19 19:21 Pulse Rate 90 12/07/19 19:21 Respiratory Rate 20 12/07/19 19:21 Blood Pressure 150/68 12/07/19 19:21 O2 Sat by Pulse Oximetry (%) 98 12/07/19 20:48 Additional Findings/Remarks: Constitutional: Yes: No Distress, Cachectic, Pallor, Thin Eyes: Yes: WNL, Conjunctiva Clear HENT: Yes: WNL, Atraumatic, Normocephalic Neck: Yes: WNL, Supple, Trachea Midline Cardiovascular: Yes: WNL, Regular Rate and Rhythm Respiratory: Yes: WNL, Regular, CTA Bilaterally Gastrointestinal: Yes: WNL, Normal Bowel Sounds ...Rectal Exam: Yes: Deferred Breast(s): Yes: WNL Musculoskeletal: Yes: WNL Extremities: Yes: WNL. Fungal infection to groin and top of buttocks Edema: No Peripheral Pulses WNL: Yes Peripheral Pulses: Left Radial: 2+, Right Radial: 2+, Left Doralis Pedis: 2+, Right Dorsalis Pedis: 2+, Left Femoral: 2+, Right Femoral: 2+ Integumentary: Yes: WNL Neurological: Yes: WNL, Alert, Oriented ...Motor Strength: LLE, RLE (generalized weakness) Psychiatric: Yes: WNL Labs: CBC, BMP 12/07/19 08:05 12/07/19 08:05 INR, PTT INR 1.27 (0.82-1.09) H 11/28/19 17:25 - ....Imaging Cat Scan: Pending Problem List - Problems (1) Clostridium difficile colitis Assessment/Plan: + toxin for Cdif c/w vanco PO x 4 weeks ID/GI following-appreciate note from Dr Stein isolation precautions Code(s): A04.72 - ENTEROCOLITIS D/T CLOSTRIDIUM DIFFICILE, NOT SPCF RECUR (2) Failure to thrive Assessment/Plan: poor intake at home RD follwoing encourage PO intake nutrition supplements Code(s): MRT7315 - (3) Pneumonia Assessment/Plan: completed abx supplemental O2 IS, deep breathing Code(s): J18.9 - PNEUMONIA, UNSPECIFIED ORGANISM (4) Prophylactic measure Assessment/Plan: FEN Fluids: poor PO intake Electrolytes: monitor & replete as needed Nutrition: dysphagia diet/ nectar thick liquids DVT moderate risk sq heparin Dispo Maintain as inpatient full code discharge planning Code(s): Z29.9 - ENCOUNTER FOR PROPHYLACTIC MEASURES, UNSPECIFIED (5) Severe malnutrition Assessment/Plan: as evidenced by BMI 16, severe muscle/temporal wasting RD following completed 3 day calorie count s/p swallow eval -cleared for thin liquids, soft food c/w supplements on prosource, multivitamins Code(s): E43 - UNSPECIFIED SEVERE PROTEIN-CALORIE MALNUTRITION (6) Stage II pressure ulcer Assessment/Plan: turn and position and increase oral intake c/w pro source. on santyl daily fungal ingection of buttocks nystatin ceram BID Code(s): L89.92 - PRESSURE ULCER OF UNSPECIFIED SITE, STAGE 2 (7) Voice hoarseness Assessment/Plan: has been ongoing for apx 3 weeks. ENT evaluation by Dr Amaya airway clinically patent, no stridor or respiratory distress after discharge for follow-up and audiogram Code(s): R49.0 - DYSPHONIA (8) Weakness Assessment/Plan: c/w PT fall precautions Code(s): R53.1 - WEAKNESS (9) Hip fracture Assessment/Plan: past hx c/w PT Code(s): S72.009A - FRACTURE OF UNSP PART OF NECK OF UNSP FEMUR, INIT Qualifiers: Encounter type: initial encounter Fracture type: closed Laterality: left Qualified Code(s): S72.002A - Fracture of unspecified part of neck of left femur, initial encounter for closed fracture (10) Hyponatremia Assessment/Plan: Na 136 c/w fluid restriction Code(s): E87.1 - HYPO-OSMOLALITY AND HYPONATREMIA (11) Polycythemia Assessment/Plan: patient follows with a janitor supervisor (Erna) and will need continued outpatient follow up. Code(s): D75.1 - SECONDARY POLYCYTHEMIA (12) Liver lesion Assessment/Plan: MRI shows multiple liver lesions, pancreatic edema, narrowed CBD/cystic duct, b /l effusions, pericardial effusion ( smll-mod.), left hydronephrosis Mild AST/ALKP elevation Nl CA19.9/AFP appreciate Oncology consultation Family aware of findings Code(s): K76.9 - LIVER DISEASE, UNSPECIFIED (13) Pleural effusion Assessment/Plan: bilateral pleural effusions, pericardial effusion. Pulmonary following. C/A/P pending . Code(s): J90 - PLEURAL EFFUSION, NOT ELSEWHERE CLASSIFIED Visit type - Emergency Visit Emergency Visit: Yes ED Registration Date: 11/28/19 Care time: The patient presented to the Emergency Department on the above date and was hospitalized for further evaluation of their emergent condition. - New Patient This patient is new to me today: No - Critical Care Critical Care patient: No - Discharge Referral Referred to [facility] No
[2019-12-08] MEDS: AMINO ACIDS/PROTEIN HYDROLYS 30 ML LIQUID.PKT PO SCH ×2 (09:04→17:16)
[2019-12-08] MEDS: HEPARIN NA (PORCINE) 5,000 UNITS/ML 1ML VIAL SQ SCH ×2 (09:05→23:02)
[2019-12-08] MEDS: SODIUM CHLORIDE 1,000 ML IV SCH (09:17)
[2019-12-08] MEDS: amLODIPine BESYLATE 5 MG TABLET (FP) PO SCH (09:18)
[2019-12-08] MEDS: LISINOPRIL 20 MG TABLET (FP) PO SCH (09:20)
[2019-12-08] MEDS: MULTIVITAMINS (DAILY MVI) TABLET (FP) PO SCH (09:20)
[2019-12-08] MEDS: metoPROLOL SUCCINATE 25 MG TAB.SR.24H (FP) PO SCH (09:21)
[2019-12-08] MEDS: LACTOBACILLUS ACIDOPHILUS 1 TABLET PO SCH (09:21)
[2019-12-08] MEDS: POTASSIUM CHLORIDE TABS 20 MEQ TABLET.ER (FP) PO SCH ×2 (09:21→23:03)
[2019-12-08 10:17] LABS: BASO % 1.1 % (0-2.0); EOS % 0.5 % (0-4.5); HEMATOCRIT 34.9 % (32.4-45.2); HEMOGLOBIN 11.9 GM/dL (10.7-15.3); LYMPH % 4.4 % (8-40); MCH 30.6 pg (25.7-33.7); MCHC 34.1 g/dl (32.0-36.0); MEAN CELL VOLUME 89.7 fl (80-96); MEAN PLT VOLUME 8.8 fl (7.5-11.1); MONO % 4.4 % (3.8-10.2); NEUT % 89.6 % (42.8-82.8); PLATELET COUNT 463 K/MM3 (134-434); RBC 3.89 M/mm3 (3.60-5.2); RDW 16.6 % (11.6-15.6); WHITE BLOOD COUNT 11.9 K/mm3 (4.0-10.0)
[2019-12-08 10:32] LABS: ALBUMIN 2.5 g/dl (3.4-5.0); BILIRUBIN,TOTAL 0.5 mg/dL (0.2-1); BLOOD UREA NITROGEN 9.6 mg/dL (7-18); CALCIUM 8.2 mg/dL (8.5-10.1); CREATININE 0.3 mg/dL (0.55-1.3); MAGNESIUM 1.9 mg/dL (1.8-2.4); POTASSIUM 3.6 mmol/L (3.5-5.1); TOT PROT 5.3 g/dl (6.4-8.2)
--- NOTE | 2019-12-08 12:20 | PN ---
Progress Note (short form) - Note Progress Note: PULMONARY States breathing slowly improving. No fevers. Still some diarrhea. Vital Signs Period Temp Pulse Resp BP Sys/Kiser Pulse Ox Last 24 Hr 97.6 F-98.7 F 80-90 18-20 128-150/67-68 98 Gen: less tachypneic at rest Heart: RRR Lung: decreased breath sounds at the bases Abd: soft, nontender Ext: no edema CBC, BMP 12/08/19 09:42 12/08/19 09:42 Active Medications Albuterol/Ipratropium (Duoneb -) 1 amp NEB Q6H PRN PRN Reason: SHORTNESS OF BREATH Amino Acids (Prosource No Carb Liquid Pkt) 30 ml PO BID@0800,1730 [facility] Last Admin: 12/08/19 09:04 Dose: 30 ml Amlodipine Besylate (Norvasc -) 5 mg PO DAILY [facility] Last Admin: 12/08/19 09:18 Dose: 5 mg Atorvastatin Calcium (Lipitor -) 10 mg PO HS [facility] Last Admin: 12/07/19 22:14 Dose: 10 mg Collagenase (Santyl -) 1 applic TP DAILY [facility]; Protocol Last Admin: 12/07/19 10:11 Dose: 1 applic Heparin Sodium (Porcine) (Heparin -) 5,000 unit SQ BID [facility] Last Admin: 12/08/19 09:05 Dose: 5,000 unit Sodium Chloride (Normal Saline -) 1,000 mls @ 42 mls/hr IV ASDIR [facility] Last Admin: 12/08/19 09:17 Dose: 42 mls/hr Lactobacillus Acidophilus (Bacid -) 1 tab PO DAILY [facility] Last Admin: 12/08/19 09:21 Dose: 1 tab Lisinopril (Prinivil) 20 mg PO DAILY [facility] Last Admin: 12/08/19 09:20 Dose: 20 mg Metoprolol Succinate (Toprol Xl -) 25 mg PO DAILY [facility] Last Admin: 12/08/19 09:21 Dose: 25 mg Multivitamins/Minerals/Vitamin C (Tab-A-Vit -) 1 tab PO DAILY [facility] Last Admin: 12/08/19 09:20 Dose: 1 tab Potassium Chloride (K-Dur -) 20 meq PO BID [facility] Last Admin: 12/08/19 09:21 Dose: 20 meq A/P Pneumonia C Diff Colitis Sepsis Hyponatremia HTN Hyperlipidemia Polycythemia Vera Malnutrition - completed antibiotics - probiotics - inhaled bronchodilators as needed - O2 to keep Spo2 >90% - monitor lytes - OOB to chair - DVT prophylaxis
--- NOTE | 2019-12-08 12:33 | PN.GI ---
GI Progress Note Subjective: coverage for Dr Jansen Pneumonia,C Diff Colitis,Sepsis, Hyponatremia,HTN,Hyperlipidemia,Polycythemia Vera,Malnutrition Diarrhea x 7 yesterday Neoplasm liver etiology unclear , Cea Ca19-9 normal - Objective Vital Signs: Vital Signs Temperature 97.6 F 12/07/19 19:21 Pulse Rate 90 12/07/19 19:21 Respiratory Rate 20 12/07/19 19:21 Blood Pressure 150/68 12/07/19 19:21 O2 Sat by Pulse Oximetry (%) 98 12/07/19 20:48 Constitutional: Cachectic Eyes: Yes: Conjunctiva Clear HENT: Yes: Atraumatic Neck: Yes: Trachea Midline Cardiovascular: Yes: Regular Rate and Rhythm Respiratory: Yes: Poor Air Entry (at bases) ...Palpate: Yes: Soft. No: Firm/Rigid, Guarding, Hepatomegaly, Mass, Pulsatile Mass, Splenomegaly, Tenderness Labs: CBC, BMP 12/08/19 09:42 12/08/19 09:42 INR, PTT INR 1.27 (0.82-1.09) H 11/28/19 17:25 Problem List - Problems (1) Neoplasm of uncertain behavior of liver Assessment/Plan: R> check hep profile AFP await official CT results Code(s): D37.6 - NEOPLASM OF UNCERTAIN BEHAVIOR OF LIVER, GB & BILE DUCT (2) Clostridium difficile colitis Assessment/Plan: R>vancomycin 125mg qid for 4 weeks Code(s): A04.72 - ENTEROCOLITIS D/T CLOSTRIDIUM DIFFICILE, NOT SPCF RECUR
--- NOTE | 2019-12-08 12:48 | PN ---
Teaching Attending Note Name of Resident: Karlchyna Garcia 84F transferred from [facility]. She was recently admitted and treated there 11/08 for PNA and UII. Prior to that she had Kyphoplasty performed. He daughter explains that since her last admission, she has had diminished appetite and is just not thriving. She has a history of C. Diff infection 01/09. She denies abdominal pain. She is C. Diff antigen positive currently and was started on PO vancocin today. She is very frail, confused , disoriented - History Source History Provided By: Patient, Medical Record - Past Medical History Cardio/Vascular: Yes: HTN, Hyperlipdemia Pulmonary: Yes: Bronchitis, Pneumonia. No: Asthma, Cancer, COPD, O2 Dependent, Previously Intubated, Pulmonary Embolus, Pulmonary Fibrosis, Sleep Apnea Renal/: Yes: Other (hyponatremia) - Past Surgical History Additional Surgical History: Kyphoplasty - Smoking History Smoking history: Former smoker - Social History Usual Living Arrangement: With Child ADL: Independent Place of : [facility] Home Medications - Allergies Allergies/Adverse Reactions: Allergies Allergy/AdvReac Type Severity Reaction Status Date / Time No Known Allergies Allergy Verified 11/28/19 16:04 - Home Medications Home Medications: Ambulatory Orders Amlodipine Besylate 5 mg PO DAILY 01/15/19 Atorvastatin Ca [Lipitor] 10 mg PO DAILY 01/15/19 Lisinopril 20 mg PO DAILY 01/15/19 Metoprolol Succinate [Toprol XL -] 25 mg PO DAILY 01/15/19 Family Medical History Other Family History: No family history of colorectal cancer, IBD or other GI malignancy Physical Exam-GI Vital Signs: AFVSS Constitutional: Yes: Calm Eyes: No: Sclera Icterus Cardiovascular: Yes: Regular Rate and Rhythm. No: Murmur Respiratory: Yes: CTA Bilaterally Gastrointestinal Inspection: No: Distention, Scars ...Auscultate: No: Normoactive Bowel Sounds ...Palpate: Yes: Soft. No: Hepatomegaly, Splenomegaly, Tenderness ...Percussion: No: Tympanitic Edema: No (No LE edema) Neurological: Yes: Alert Labs/Meds reviewed A/P 84F transferred from [facility]. She was recently admitted and treated there 11/08 for PNA and UII. Prior to that she had Kyphoplasty performed. He daughter explains that since her last admission, she has had diminished appetite and is just not thriving. She has a history of C. Diff infection 01/09. She denies abdominal pain. She is C. Diff antigen positive currently and was started on PO vancocin today. She is very frail, confused , disoriented MRI shows multiple liver mets, pncreatic edema, narrowed CBD/cystic duct, b/l effusions, pericardial effusion ( smll-mod.), lt. hydronephrosis Mild AST/ALKP elevation Nl CA!9.9/AFP CT c/a/p pending Will need to discuss goals of care with patient and family
--- NOTE | 2019-12-08 13:35 | PN ---
Progress Note (short form) - Note Progress Note: ENT pts son is visiting awake, alert, eating cake and liquids, no choking or difficulty observed per son pt had no specific throat of voice problems, is able to converse over telephone with her voice pt has hx hearing loss per son. PE nose sl dry mucus oral cavity, pharynx clear flexible laryngoscopy performed after topical anesthesia lidocaine 4%: nasopharynx clear, base of tongue, vallecula normal epiglottis normal, no lesions no pooling of secretions endolarynx: mild edema of false vocal cords, also of arytenoids normal vocal cord mobility adduction and abduction. no stridor or respiratory distress Impression: hoarseness, dysphagia no laryngeal lesion , no weakness or paralysis of vocal cord mobility Recommend: continue observation and diet modifications as per Gilma Rojas to office after discharge for follow-up and audiogram Thank you, Jaspreet Amaya MD, FACS Problem List - Problems (1) Dysphagia Code(s): R13.10 - DYSPHAGIA, UNSPECIFIED (2) Voice hoarseness Code(s): R49.0 - DYSPHONIA
[2019-12-08] MEDS: COLLAGENASE CLOSTRIDIUM HIST. 30 GRAMS TUBE TP SCH (14:40)
[2019-12-08] MEDS: VANCOMYCIN 250 MG/5 ML ORAL SOLUTION PO SCH ×2 (17:14→23:27)
--- NOTE | 2019-12-08 18:41 | PN ---
Progress Note, Physician History of Present Illness: Pt states she is having less frequent loose stools today. Denies abd pain. Breathing comfortably. - Current Medication List Current Medications: Active Medications Albuterol/Ipratropium (Duoneb -) 1 amp NEB Q6H PRN PRN Reason: SHORTNESS OF BREATH Amino Acids (Prosource No Carb Liquid Pkt) 30 ml PO BID@0800,1730 [facility] Last Admin: 12/08/19 17:16 Dose: 30 ml Amlodipine Besylate (Norvasc -) 5 mg PO DAILY [facility] Last Admin: 12/08/19 09:18 Dose: 5 mg Atorvastatin Calcium (Lipitor -) 10 mg PO HS [facility] Last Admin: 12/07/19 22:14 Dose: 10 mg Collagenase (Santyl -) 1 applic TP DAILY [facility]; Protocol Last Admin: 12/08/19 14:40 Dose: 1 applic Heparin Sodium (Porcine) (Heparin -) 5,000 unit SQ BID [facility] Last Admin: 12/08/19 09:05 Dose: 5,000 unit Sodium Chloride (Normal Saline -) 1,000 mls @ 42 mls/hr IV ASDIR [facility] Last Admin: 12/08/19 09:17 Dose: 42 mls/hr Lactobacillus Acidophilus (Bacid -) 1 tab PO DAILY [facility] Last Admin: 12/08/19 09:21 Dose: 1 tab Lisinopril (Prinivil) 20 mg PO DAILY [facility] Last Admin: 12/08/19 09:20 Dose: 20 mg Metoprolol Succinate (Toprol Xl -) 25 mg PO DAILY [facility] Last Admin: 12/08/19 09:21 Dose: 25 mg Multivitamins/Minerals/Vitamin C (Tab-A-Vit -) 1 tab PO DAILY [facility] Last Admin: 12/08/19 09:20 Dose: 1 tab Nystatin (Mycostatin Cream -) 1 applic TP BID [facility] Nystatin (Nystop Powder -) 1 applic TP TID [facility] Potassium Chloride (K-Dur -) 20 meq PO BID [facility] Last Admin: 12/08/19 09:21 Dose: 20 meq Vancomycin HCl (Vancomycin Oral Solution) 125 mg PO Q6HPO [facility] Last Admin: 12/08/19 17:14 Dose: 125 mg - Objective Vital Signs: Vital Signs Temperature 98 F 12/08/19 18:05 Pulse Rate 96 H 12/08/19 18:05 Respiratory Rate 20 20 18:05 Blood Pressure 151/71 12/08/19 18:05 O2 Sat by Pulse Oximetry (%) 98 12/07/19 20:48 Constitutional: Yes: No Distress, Calm Cardiovascular: Yes: Regular Rate and Rhythm Respiratory: Yes: CTA Bilaterally Gastrointestinal: Yes: Normal Bowel Sounds, Soft Genitourinary: Yes: WNL Integumentary: Yes: WNL Neurological: Yes: Alert Labs: CBC, BMP 12/08/19 09:42 12/08/19 09:42 INR, PTT INR 1.27 (0.82-1.09) H 11/28/19 17:25 Microbiology 12/01/19 15:30 Stool Clostridioides difficile (PCR) - Final 11/28/19 21:10 Blood - Peripheral Venous Blood Culture - Final NO GROWTH AFTER 5 DAYS INCUBATION 11/28/19 20:50 Blood - Peripheral Venous Blood Culture - Final NO GROWTH AFTER 5 DAYS INCUBATION 11/29/19 13:05 Stool Salmonella/Shigella Culture - Final NO GROWTH OF SALMONELLA OR SHIGELLA SPECIES OBTAINED 11/29/19 13:05 Stool Campylobacter Culture - Final NO GROWTH OF CAMPYLOBACTER SPECIES OBTAINED 11/29/19 13:05 Stool Yersinia Culture - Final NO GROWTH OF YERSINIA SPECIES OBTAINED 11/29/19 13:05 Stool Vibrio Culture - Final NO GROWTH OF VIBRIO SPECIES OBTAINED 11/29/19 13:05 Stool Escherichia coli 0157 Culture - Final NO GROWTH OF E COLI 0157 OBTAINED 11/29/19 04:00 Urine - Urine Clean Catch Urine Culture - Final Pseudomonas Aeruginosa 11/29/19 13:05 Stool Clostridioides difficile Antigen - Final 11/29/19 13:05 Stool Clostridioides difficile Toxin Assay - Final 11/29/19 04:00 Urine For Antigen Detection Legionella Antigen - Final 11/29/19 04:00 Urine For Antigen Detection Streptococcus pneumoniae Antigen (M - Final Problem List - Problems (1) Clostridium difficile colitis Code(s): A04.72 - ENTEROCOLITIS D/T CLOSTRIDIUM DIFFICILE, NOT SPCF RECUR (2) Dysphagia Code(s): R13.10 - DYSPHAGIA, UNSPECIFIED (3) Liver lesion Code(s): K76.9 - LIVER DISEASE, UNSPECIFIED (4) Polycythemia Code(s): D75.1 - SECONDARY POLYCYTHEMIA Assessment/Plan C. diff colitis PNA s/p Sepsis s/p UTI -- continue Vancomycin PO -- monitor vitals Pt reports improvement in diarrhea
[2019-12-08] MEDS ORDERED: NYSTATIN 100,000 UNIT/GM TOPICAL CREAM 15 GM TUBE TP SCH (22:00)
[2019-12-08] MEDS ORDERED: NYSTATIN POWDER 100,000 UNITS/GM - 15 GM TOPICAL POWDER TP SCH (22:00)
[2019-12-08] MEDS: ATORVASTATIN CA 10 MG TABLET (FP) PO SCH (23:03)
[2019-12-08] MEDS: NYSTATIN 100,000 UNIT/GM TOPICAL CREAM 15 GM TUBE TP SCH (23:04)
[2019-12-08] MEDS: NYSTATIN POWDER 100,000 UNITS/GM - 15 GM TOPICAL POWDER TP SCH (23:04)
[2019-12-09] MEDS ORDERED: PT OWN MED DRAWER 7, Y5N ONE (00:06)
[2019-12-09] MEDS: VANCOMYCIN 250 MG/5 ML ORAL SOLUTION PO SCH ×3 (06:06→17:22)
[2019-12-09] MEDS: NYSTATIN POWDER 100,000 UNITS/GM - 15 GM TOPICAL POWDER TP SCH ×3 (06:06→21:25)
--- NOTE | 2019-12-09 08:06 | PN ---
Progress Note, Physician Chief Complaint: Multiple episodes of diarrhea overnight. Observed pt ambulating with PT in room. c/o extreme weakness History of Present Illness: Patient is an 83 year old female with a significant past medical history of HTN , HLD, polycythemia vera, s/p left hip fracture repair in December 2018, compression fractures s/p kyphoplasties, and severe malnutrition. Recently hospitalized 10/31-11/05/19 for sepsis secondary to E.coli UTI. Patient was brought by her daughter to the ED for evaluation of profound weakness, lack of appetite, difficulty swallowing, persistent dry cough, diarrhea, incontinence of urine and stool, skin breakdown, hair loss, and depression. Patient has not had fever, sweats, chills. On admission she was found to have an acute pneumonia and found to be positive for c diff. - Current Medication List Current Medications: Active Medications Albuterol/Ipratropium (Duoneb -) 1 amp NEB Q6H PRN PRN Reason: SHORTNESS OF BREATH Amino Acids (Prosource No Carb Liquid Pkt) 30 ml PO BID@0800,1730 [facility] Last Admin: 12/08/19 17:16 Dose: 30 ml Amlodipine Besylate (Norvasc -) 5 mg PO DAILY [facility] Last Admin: 12/08/19 09:18 Dose: 5 mg Atorvastatin Calcium (Lipitor -) 10 mg PO HS [facility] Last Admin: 12/08/19 23:03 Dose: 10 mg Collagenase (Santyl -) 1 applic TP DAILY [facility]; Protocol Last Admin: 12/08/19 14:40 Dose: 1 applic Heparin Sodium (Porcine) (Heparin -) 5,000 unit SQ BID [facility] Last Admin: 12/08/19 23:02 Dose: 5,000 unit Sodium Chloride (Normal Saline -) 1,000 mls @ 42 mls/hr IV ASDIR [facility] Last Admin: 12/08/19 09:17 Dose: 42 mls/hr Lactobacillus Acidophilus (Bacid -) 1 tab PO DAILY [facility] Last Admin: 12/08/19 09:21 Dose: 1 tab Lisinopril (Prinivil) 20 mg PO DAILY [facility] Last Admin: 12/08/19 09:20 Dose: 20 mg Metoprolol Succinate (Toprol Xl -) 25 mg PO DAILY [facility] Last Admin: 12/08/19 09:21 Dose: 25 mg Multivitamins/Minerals/Vitamin C (Tab-A-Vit -) 1 tab PO DAILY [facility] Last Admin: 12/08/19 09:20 Dose: 1 tab Nystatin (Mycostatin Cream -) 1 applic TP BID [facility] Last Admin: 12/08/19 23:04 Dose: 1 applic Nystatin (Nystop Powder -) 1 applic TP TID [facility] Last Admin: 12/09/19 06:06 Dose: 1 applic Potassium Chloride (K-Dur -) 20 meq PO BID [facility] Last Admin: 12/08/19 23:03 Dose: 20 meq Vancomycin HCl (Vancomycin Oral Solution) 125 mg PO Q6HPO [facility] Last Admin: 12/09/19 06:06 Dose: 125 mg - Objective Vital Signs: Vital Signs Temperature 98.2 F 12/09/19 07:00 Pulse Rate 99 H 12/09/19 07:00 Respiratory Rate 12/09/19 07:00 Blood Pressure 155/72 12/09/19 07:00 O2 Sat by Pulse Oximetry (%) 98 12/07/19 20:48 Additional Findings/Remarks: Constitutional: Yes: No Distress, Cachectic, Pallor, Thin Eyes: Yes: WNL, Conjunctiva Clear HENT: Yes: WNL, Atraumatic, Normocephalic Neck: Yes: WNL, Supple, Trachea Midline Cardiovascular: Yes: WNL, Regular Rate and Rhythm Respiratory: Yes: WNL, Regular, CTA Bilaterally Gastrointestinal: Yes: WNL, Normal Bowel Sounds ...Rectal Exam: Yes: Deferred Breast(s): Yes: WNL Musculoskeletal: Yes: WNL Extremities: Yes: WNL. 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 Increased soft tissue density is again seen within the retroperitoneal soft tissue planes surrounding the superior mesenteric and celiac arteries which may be on the basis of neoplastic infiltration or nonneoplastic edema. Concentric subcutaneous edema is noted principally along the flanks. Mild splenomegaly as on the prior exam. Note is again made of moderate left hydronephrosis as well as mild dilatation of the proximal left ureter. The exact etiology of this obstruction is uncertain on the basis of CT. Cholelithiasis. 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 A moderate to large extruded right posterolateral L3-L4 disc herniation is noted.) Problem List - Problems (1) Clostridium difficile colitis Assessment/Plan: + toxin for Cdif c/w vanco PO x 4 weeks at increased dose 250mg q6h ID/GI following-appreciate note from Dr Stein isolation precautions Code(s): A04.72 - ENTEROCOLITIS D/T CLOSTRIDIUM DIFFICILE, NOT SPCF RECUR (2) Failure to thrive Assessment/Plan: poor intake at home, appetite remains poor will try starting megace RD following encourage PO intake nutrition supplements Code(s): PTV3811 - (3) Pneumonia Assessment/Plan: completed abx supplemental O2 IS, deep breathing Code(s): J18.9 - PNEUMONIA, UNSPECIFIED ORGANISM (4) Prophylactic measure Assessment/Plan: FEN Fluids: poor PO intak,e, c/w IVF Electrolytes: monitor & replete as needed Nutrition: dysphagia diet/ nectar thick liquids DVT moderate risk sq heparin Dispo Maintain as inpatient full code discharge planning Code(s): Z29.9 - ENCOUNTER FOR PROPHYLACTIC MEASURES, UNSPECIFIED (5) Severe malnutrition Assessment/Plan: as evidenced by BMI 16, severe muscle/temporal wasting RD following completed 3 day calorie count s/p swallow eval -cleared for thin liquids, soft food c/w supplements on prosource, multivitamins Code(s): E43 - UNSPECIFIED SEVERE PROTEIN-CALORIE MALNUTRITION (6) Stage II pressure ulcer Assessment/Plan: turn and position and increase oral intake c/w pro source. on santyl daily fungal ingection of buttocks nystatin ceram BID Code(s): L89.92 - PRESSURE ULCER OF UNSPECIFIED SITE, STAGE 2 (7) Voice hoarseness Assessment/Plan: ENT evaluation by Dr Amaya airway clinically patent, no stridor or respiratory distress after discharge for follow-up and audiogram Code(s): R49.0 - DYSPHONIA (8) Weakness Assessment/Plan: c/w PT fall precautions Code(s): R53.1 - WEAKNESS (9) Hip fracture Assessment/Plan: past hx c/w PT Code(s): S72.009A - FRACTURE OF UNSP PART OF NECK OF UNSP FEMUR, INIT Qualifiers: Encounter type: initial encounter Fracture type: closed Laterality: left Qualified Code(s): S72.002A - Fracture of unspecified part of neck of left femur, initial encounter for closed fracture (10) Hyponatremia Assessment/Plan: Na 135 can liberalized fluid restriction Code(s): E87.1 - HYPO-OSMOLALITY AND HYPONATREMIA (11) Polycythemia Assessment/Plan: patient follows with a snack bar attendant (Erna) and will need continued outpatient follow up. Code(s): D75.1 - SECONDARY POLYCYTHEMIA (12) Liver lesion Assessment/Plan: MRI/CT shows multiple liver lesions, pancreatic edema, narrowed CBD/cystic duct , b/l effusions, pericardial effusion ( smll-mod.), left hydronephrosis Mild AST/ALKP elevation Nl CA19.9/AFP 3.7 appreciate Oncology consultation Family aware of findings Code(s): K76.9 - LIVER DISEASE, UNSPECIFIED (13) Pleural effusion Assessment/Plan: bilateral pleural effusions, pericardial effusion. Pulmonary following. supplemental O2 Code(s): J90 - PLEURAL EFFUSION, NOT ELSEWHERE CLASSIFIED Visit type - Emergency Visit Emergency Visit: Yes ED Registration Date: 11/28/19 Care time: The patient presented to the Emergency Department on the above date and was hospitalized for further evaluation of their emergent condition. - New Patient This patient is new to me today: No - Critical Care Critical Care patient: No - Discharge Referral Referred to [facility] No
[2019-12-09] MEDS: AMINO ACIDS/PROTEIN HYDROLYS 30 ML LIQUID.PKT PO SCH ×2 (09:33→17:22)
[2019-12-09] MEDS: SODIUM CHLORIDE 1,000 ML IV SCH (09:34)
[2019-12-09] MEDS: amLODIPine BESYLATE 5 MG TABLET (FP) PO SCH (09:34)
[2019-12-09] MEDS: metoPROLOL SUCCINATE 25 MG TAB.SR.24H (FP) PO SCH (09:34)
[2019-12-09] MEDS: POTASSIUM CHLORIDE TABS 20 MEQ TABLET.ER (FP) PO SCH ×2 (09:34→21:25)
[2019-12-09] MEDS: MULTIVITAMINS (DAILY MVI) TABLET (FP) PO SCH (09:34)
[2019-12-09] MEDS: HEPARIN NA (PORCINE) 5,000 UNITS/ML 1ML VIAL SQ SCH ×2 (09:34→21:25)
[2019-12-09] MEDS: LACTOBACILLUS ACIDOPHILUS 1 TABLET PO SCH (09:34)
[2019-12-09] MEDS: LISINOPRIL 20 MG TABLET (FP) PO SCH (09:34)
[2019-12-09] MEDS: NYSTATIN 100,000 UNIT/GM TOPICAL CREAM 15 GM TUBE TP SCH ×2 (09:35→21:25)
[2019-12-09 09:45] LABS: BASO % 1.1 % (0-2.0); EOS % 0.4 % (0-4.5); HEMATOCRIT 36.3 % (32.4-45.2); HEMOGLOBIN 12.2 GM/dL (10.7-15.3); LYMPH % 3.5 % (8-40); MCH 30.2 pg (25.7-33.7); MCHC 33.7 g/dl (32.0-36.0); MEAN CELL VOLUME 89.6 fl (80-96); MEAN PLT VOLUME 8.8 fl (7.5-11.1); MONO % 3.2 % (3.8-10.2); NEUT % 91.8 % (42.8-82.8); PLATELET COUNT 464 K/MM3 (134-434); RBC 4.05 M/mm3 (3.60-5.2); RDW 16.4 % (11.6-15.6); WHITE BLOOD COUNT 11.4 K/mm3 (4.0-10.0)
--- NOTE | 2019-12-09 09:45 | PN.GI ---
GI Progress Note Subjective: coverage continue to have diarrhea after meals, diet changed yesterday CT --multiple liver mets, normal pancreas, cea ca19-9 normal pleural effusion pleuritic nodule suspicious for neoplasm - Objective Vital Signs: Vital Signs Temperature 98.2 F 12/09/19 07:00 Pulse Rate 99 H 12/09/19 07:00 Respiratory Rate 12/09/19 07:00 Blood Pressure 155/72 12/09/19 07:00 O2 Sat by Pulse Oximetry (%) 98 12/07/19 20:48 Constitutional: No Distress Eyes: Yes: Conjunctiva Clear HENT: Yes: Atraumatic Neck: Yes: Trachea Midline Respiratory: Yes: Diminished (at bases) Gastrointestinal Inspection: No: Distention ...Auscultate: Yes: Normoactive Bowel Sounds ...Palpate: Yes: Soft. 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
[2019-12-09 10:20] LABS: ALBUMIN 2.6 g/dl (3.4-5.0); BILIRUBIN,TOTAL 0.5 mg/dL (0.2-1); BLOOD UREA NITROGEN 9.3 mg/dL (7-18); CALCIUM 8.6 mg/dL (8.5-10.1); CREATININE 0.3 mg/dL (0.55-1.3); MAGNESIUM 1.9 mg/dL (1.8-2.4); POTASSIUM 3.6 mmol/L (3.5-5.1); TOT PROT 5.8 g/dl (6.4-8.2)
[2019-12-09] MEDS: COLLAGENASE CLOSTRIDIUM HIST. 30 GRAMS TUBE TP SCH ×2 (12:58→15:31)
--- NOTE | 2019-12-09 13:01 | PN ---
Progress Note (short form) - Note Progress Note: PULMONARY States breathing slowly improving. No fevers. Still some diarrhea. Vital Signs Period Temp Pulse Resp BP Sys/Kiser Pulse Ox Last 24 Hr 97.8 F-98.2 F 86-99 18-20 138-155/64-74 Gen: less tachypneic at rest Heart: RRR Lung: decreased breath sounds at the bases Abd: soft, nontender Ext: no edema CBC, BMP 12/09/19 08:55 12/09/19 08:55 Active Medications Albuterol/Ipratropium (Duoneb -) 1 amp NEB Q6H PRN PRN Reason: SHORTNESS OF BREATH Amino Acids (Prosource No Carb Liquid Pkt) 30 ml PO BID@0800,1730 [facility] Last Admin: 12/09/19 09:33 Dose: 30 ml Amlodipine Besylate (Norvasc -) 5 mg PO DAILY [facility] Last Admin: 12/09/19 09:34 Dose: 5 mg Atorvastatin Calcium (Lipitor -) 10 mg PO HS [facility] Last Admin: 12/08/19 23:03 Dose: 10 mg Collagenase (Santyl -) 1 applic TP DAILY [facility]; Protocol Last Admin: 12/08/19 14:40 Dose: 1 applic Heparin Sodium (Porcine) (Heparin -) 5,000 unit SQ BID [facility] Last Admin: 12/09/19 09:34 Dose: 5,000 unit Sodium Chloride (Normal Saline -) 1,000 mls @ 42 mls/hr IV ASDIR [facility] Last Admin: 12/09/19 09:34 Dose: 42 mls/hr Lactobacillus Acidophilus (Bacid -) 1 tab PO DAILY [facility] Last Admin: 12/09/19 09:34 Dose: 1 tab Lisinopril (Prinivil) 20 mg PO DAILY [facility] Last Admin: 12/09/19 09:34 Dose: 20 mg Metoprolol Succinate (Toprol Xl -) 25 mg PO DAILY [facility] Last Admin: 12/09/19 09:34 Dose: 25 mg Multivitamins/Minerals/Vitamin C (Tab-A-Vit -) 1 tab PO DAILY [facility] Last Admin: 12/09/19 09:34 Dose: 1 tab Nystatin (Mycostatin Cream -) 1 applic TP BID [facility] Last Admin: 12/09/19 09:35 Dose: 1 applic Nystatin (Nystop Powder -) 1 applic TP TID [facility] Last Admin: 12/09/19 06:06 Dose: 1 applic Potassium Chloride (K-Dur -) 20 meq PO BID [facility] Last Admin: 12/09/19 09:34 Dose: 20 meq Vancomycin HCl (Vancomycin Oral Solution) 250 mg PO Q6HPO [facility] Last Admin: 12/09/19 12:58 Dose: 250 mg A/P Pneumonia C Diff Colitis Sepsis Hyponatremia HTN Hyperlipidemia Polycythemia Vera Malnutrition - complete antibiotics - probiotics - inhaled bronchodilators as needed - O2 to keep Spo2 >90% - monitor lytes - OOB to chair - DVT prophylaxis
[2019-12-09 13:13] LABS: ANISOCYTOSIS 1+; MACROCYTOSIS 0; OVALOCYTE 2+; PLATELET ESTIMATE NORMAL
--- NOTE | 2019-12-09 21:17 | PN ---
Progress Note, Physician History of Present Illness: Pt noted to have multiple loose stools overnight again. Vancomycin po dose increased. Currently without abd pain, remains afebrile. Weak but not in distress. - Current Medication List Current Medications: Active Medications Albuterol/Ipratropium (Duoneb -) 1 amp NEB Q6H PRN PRN Reason: SHORTNESS OF BREATH Amino Acids (Prosource No Carb Liquid Pkt) 30 ml PO BID@0800,1730 [facility] Last Admin: 12/09/19 17:22 Dose: 30 ml Amlodipine Besylate (Norvasc -) 5 mg PO DAILY [facility] Last Admin: 12/09/19 09:34 Dose: 5 mg Atorvastatin Calcium (Lipitor -) 10 mg PO HS [facility] Last Admin: 12/08/19 23:03 Dose: 10 mg Collagenase (Santyl -) 1 applic TP DAILY [facility]; Protocol Last Admin: 12/09/19 15:31 Dose: 1 applic Heparin Sodium (Porcine) (Heparin -) 5,000 unit SQ BID [facility] Last Admin: 12/09/19 09:34 Dose: 5,000 unit Sodium Chloride (Normal Saline -) 1,000 mls @ 42 mls/hr IV ASDIR [facility] Last Admin: 12/09/19 09:34 Dose: 42 mls/hr Lactobacillus Acidophilus (Bacid -) 1 tab PO DAILY [facility] Last Admin: 12/09/19 09:34 Dose: 1 tab Lisinopril (Prinivil) 20 mg PO DAILY [facility] Last Admin: 12/09/19 09:34 Dose: 20 mg Megestrol Acetate (Megace -) 40 mg PO DAILY [facility] Metoprolol Succinate (Toprol Xl -) 25 mg PO DAILY [facility] Last Admin: 12/09/19 09:34 Dose: 25 mg Multivitamins/Minerals/Vitamin C (Tab-A-Vit -) 1 tab PO DAILY [facility] Last Admin: 12/09/19 09:34 Dose: 1 tab Nystatin (Mycostatin Cream -) 1 applic TP BID [facility] Last Admin: 12/09/19 09:35 Dose: 1 applic Nystatin (Nystop Powder -) 1 applic TP TID [facility] Last Admin: 12/09/19 15:31 Dose: 1 applic Potassium Chloride (K-Dur -) 20 meq PO BID [facility] Last Admin: 12/09/19 09:34 Dose: 20 meq Vancomycin HCl (Vancomycin Oral Solution) 250 mg PO Q6HPO [facility] Last Admin: 12/09/19 17:22 Dose: 250 mg - Objective Vital Signs: Vital Signs Temperature 98.1 F 12/09/19 17:23 Pulse Rate 101 H 12/09/19 17:23 Respiratory Rate 20 12/09/19 17:23 Blood Pressure 137/57 L 12/09/19 17:23 O2 Sat by Pulse Oximetry (%) 98 12/07/19 20:48 Constitutional: Yes: No Distress, Calm Cardiovascular: Yes: Tachycardia Respiratory: Yes: Regular Gastrointestinal: Yes: Normal Bowel Sounds, Soft Genitourinary: Yes: WNL Integumentary: Yes: WNL Neurological: Yes: Alert Labs: CBC, BMP 12/09/19 08:55 12/09/19 08:55 INR, PTT INR 1.27 (0.82-1.09) H 11/28/19 17:25 Microbiology 12/01/19 15:30 Stool Clostridioides difficile (PCR) - Final 11/28/19 21:10 Blood - Peripheral Venous Blood Culture - Final NO GROWTH AFTER 5 DAYS INCUBATION 11/28/19 20:50 Blood - Peripheral Venous Blood Culture - Final NO GROWTH AFTER 5 DAYS INCUBATION 11/29/19 13:05 Stool Salmonella/Shigella Culture - Final NO GROWTH OF SALMONELLA OR SHIGELLA SPECIES OBTAINED 11/29/19 13:05 Stool Campylobacter Culture - Final NO GROWTH OF CAMPYLOBACTER SPECIES OBTAINED 11/29/19 13:05 Stool Yersinia Culture - Final NO GROWTH OF YERSINIA SPECIES OBTAINED 11/29/19 13:05 Stool Vibrio Culture - Final NO GROWTH OF VIBRIO SPECIES OBTAINED 11/29/19 13:05 Stool Escherichia coli 0157 Culture - Final NO GROWTH OF E COLI 0157 OBTAINED 11/29/19 04:00 Urine - Urine Clean Catch Urine Culture - Final Pseudomonas Aeruginosa 11/29/19 13:05 Stool Clostridioides difficile Antigen - Final 11/29/19 13:05 Stool Clostridioides difficile Toxin Assay - Final 11/29/19 04:00 Urine For Antigen Detection Legionella Antigen - Final 11/29/19 04:00 Urine For Antigen Detection Streptococcus pneumoniae Antigen (M - Final Problem List - Problems (1) Clostridium difficile colitis Code(s): A04.72 - ENTEROCOLITIS D/T CLOSTRIDIUM DIFFICILE, NOT SPCF RECUR (2) Dysphagia Code(s): R13.10 - DYSPHAGIA, UNSPECIFIED (3) Liver lesion Code(s): K76.9 - LIVER DISEASE, UNSPECIFIED (4) Polycythemia Code(s): D75.1 - SECONDARY POLYCYTHEMIA Assessment/Plan C. diff colitis PNA s/p Sepsis s/p UTI --frequent loose stools persist --Vancomycin PO dose increased, continue probiotics -- wbc stable, pt afebrile -- monitor vitals/electrolytes
[2019-12-09] MEDS: ATORVASTATIN CA 10 MG TABLET (FP) PO SCH (21:25)
[2019-12-10] MEDS: VANCOMYCIN 250 MG/5 ML ORAL SOLUTION PO SCH ×5 (00:23→23:30)
[2019-12-10] MEDS: NYSTATIN POWDER 100,000 UNITS/GM - 15 GM TOPICAL POWDER TP SCH ×3 (05:40→22:09)
[2019-12-10 08:11] LABS: EOS % 0.7 % (0-4.5); HEMATOCRIT 35.5 % (32.4-45.2); HEMOGLOBIN 11.8 GM/dL (10.7-15.3); LYMPH % 3.9 % (8-40); MCHC 33.3 g/dl (32.0-36.0); MEAN CELL VOLUME 90.1 fl (80-96); MEAN PLT VOLUME 8.4 fl (7.5-11.1); NEUT % 90.4 % (42.8-82.8); PLATELET COUNT 436 K/MM3 (134-434); RBC 3.94 M/mm3 (3.60-5.2); RDW 16.2 % (11.6-15.6); WHITE BLOOD COUNT 13.1 K/mm3 (4.0-10.0)
[2019-12-10 08:22] LABS: ALBUMIN 2.4 g/dl (3.4-5.0); BILIRUBIN,TOTAL 0.6 mg/dL (0.2-1); BLOOD UREA NITROGEN 9.9 mg/dL (7-18); CALCIUM 8.1 mg/dL (8.5-10.1); CREATININE 0.4 mg/dL (0.55-1.3); MAGNESIUM 1.8 mg/dL (1.8-2.4); POTASSIUM 3.5 mmol/L (3.5-5.1); TOT PROT 5.3 g/dl (6.4-8.2)
--- NOTE | 2019-12-10 09:30 | PN ---
Physical Exam: SUBJECTIVE: Patient seen and examined, more awake and alert. feels well, denies shortness of breath. OBJECTIVE: Patient is an 83 year old female with a significant past medical history of HTN , HLD, polycythemia vera, s/p left hip fracture repair in December 2018, compression fractures s/p kyphoplasties, and severe malnutrition. Recently hospitalized 10/31-11/05/19 for sepsis secondary to E.coli UTI. Patient was brought by her daughter to the ED for evaluation of profound weakness, lack of appetite, difficulty swallowing, persistent dry cough, diarrhea, incontinence of urine and stool, skin breakdown, hair loss, and depression. Patient has not had fever, sweats, chills. On admission she was found to have an acute pneumonia and found to be positive for c diff. patient had a recent echocardiogram 11/01/2019 which was normal. ---- no pericardial effusion seen on echo 11/01/19, now ct scan shows small to moderate pericardial effusion? will order repeat echo. s/b cleared by cardiology prior to any invasive procedure. imaging: ct abd/pelvis ct w/wo contrast: (1) mod left sided and small to moderate right sided pleural effusions are noted which have increased in size compared to chest ct done 10/2019. abdomen mri 12/06/2019: (1) mod left and small to moderate right sided pleural effusins with bibasilar severe atelectatic changes and /or infiltrates. (2) questionable of diffuse pancreatic edema, 6mm proximal pancreatic tail cyst. (3 ) the gallbladder is filled with gallstones-no acute shira. (4) moderate left sided hdronephrosis and proximal hydroureter. (5) pericardial effusion - small to moderate, correlate with echo. (6) nuerous scattered liver lesions suspicious for metastatic diseae. Vital Signs Period Temp Pulse Resp BP Sys/Kiser Pulse Ox Last 24 Hr 97.8 F-98.1 F 83-101 18-20 137-150/57-74 GENERAL: The patient is awake, alert, and fully oriented, in no acute distress. severe malnutrition with prominent back, chest and pelvic bones. also appears clinically dry and weak. thin appearing, frail, cachectic/severe malnutrition, dry tongue, dry mucuous membranes, skin dry, chest and spine bones prominent, prominent pelvic bones. HEAD: Normal with no signs of trauma. EYES: PERRL, extraocular movements intact, sclera anicteric, conjunctiva clear. No ptosis. ENT: Ears normal, nares patent, oropharynx clear without exudates, dry mucous membranes. NECK: Trachea midline, full range of motion, supple. LUNGS: no wheezing,clear lungs upper lobes, diminished at the bases. HEART: Regular rate and rhythm, S1, S2 without murmur, rub or gallop. ABDOMEN: soft, non tender, non distended. EXTREMITIES: no edema. NEUROLOGICAL: Normal speech, gait not observed. PSYCH: Normal mood, normal affect. SKIN: stage II sacral pressure sore, treated with santyl. Laboratory Results - last 24 hrs 12/09/19 12/09/19 12/10/19 08:55 08:55 07:30 WBC 11.4 H 13.1 H RBC 4.05 3.94 Hgb 12.2 11.8 Hct 36.3 35.5 MCV 89.6 90.1 MCH 30.2 30.0 MCHC 33.7 33.3 RDW 16.4 H 16.2 H Plt Count 464 H 436 H MPV 8.8 8.4 Absolute Neuts (auto) 10.4 H 11.8 H Neutrophils % 91.8 H 90.4 H Neutrophils % (Manual) 92.0 H Band Neutrophils % 0.0 Lymphocytes % 3.5 L D 3.9 L Lymphocytes % (Manual) 4.0 L Monocytes % 3.2 L 4.0 Monocytes % (Manual) 3 L Eosinophils % 0.4 0.7 Eosinophils % (Manual) 0.0 Basophils % 1.1 1.0 Basophils % (Manual) 1.0 Myelocytes % (Man) 0 Promyelocytes % (Man) 0 Blast Cells % (Manual) 0 Nucleated RBC % 0 0 Metamyelocytes 0 Hypochromia 0 Platelet Estimate Normal Platelet Comment Present Polychromasia 1+ Poikilocytosis 1+ Anisocytosis 1+ Microcytosis 3+ Macrocytosis 0 Spherocytes 1+ Ovalocytes 2+ Stomatocytes 1+ Fragmented RBCs 1+ Sodium 135 L Potassium 3.6 Chloride 102 Carbon Dioxide 26 Anion Gap 7 L BUN 9.3 Creatinine 0.3 L Est GFR (CKD-EPI)AfAm 121.00 Est GFR (CKD-EPI)NonAf 104.40 Random Glucose 97 Calcium 8.6 Magnesium 1.9 Total Bilirubin 0.5 AST 45 H ALT 52 Alkaline Phosphatase 274 H Total Protein 5.8 L Albumin 2.6 L 12/10/19 07:30 WBC RBC Hgb Hct MCV MCH MCHC RDW Plt Count MPV Absolute Neuts (auto) Neutrophils % Neutrophils % (Manual) Band Neutrophils % Lymphocytes % Lymphocytes % (Manual) Monocytes % Monocytes % (Manual) Eosinophils % Eosinophils % (Manual) Basophils % Basophils % (Manual) Myelocytes % (Man) Promyelocytes % (Man) Blast Cells % (Manual) Nucleated RBC % Metamyelocytes Hypochromia Platelet Estimate Platelet Comment Polychromasia Poikilocytosis Anisocytosis Microcytosis Macrocytosis Spherocytes Ovalocytes Stomatocytes Fragmented RBCs Sodium 137 Potassium 3.5 Chloride 105 Carbon Dioxide 25 Anion Gap 7 L BUN 9.9 Creatinine 0.4 L Est GFR (CKD-EPI)AfAm 110.08 Est GFR (CKD-EPI)NonAf 94.98 Random Glucose 100 Calcium 8.1 L Magnesium 1.8 Total Bilirubin 0.6 AST 39 H ALT 44 Alkaline Phosphatase 252 H Total Protein 5.3 L Albumin 2.4 L Active Medications Generic Name Dose Route Start Last Admin Trade Name Freq PRN Reason Stop Dose Admin Albuterol/Ipratropium 1 amp 11/30/19 18:10 Duoneb - NEB Q6H PRN SHORTNESS OF BREATH Amino Acids 30 ml 11/29/19 08:00 12/09/19 17:22 Prosource No Carb Liquid Pkt PO 30 ml BID@0800,1730 KEHINDE Administration Amlodipine Besylate 5 mg 11/29/19 10:00 12/09/19 09:34 Norvasc - PO 5 mg DAILY KEHINDE Administration Atorvastatin Calcium 10 mg 11/29/19 22:00 12/09/19 21:25 Lipitor - PO 10 mg HS KEHINDE Administration Collagenase 1 applic 12/02/19 10:00 12/09/19 15:31 Santyl - TP 1 applic DAILY KEHINDE Administration Protocol Heparin Sodium (Porcine) 5,000 unit 11/28/19 22:00 12/09/19 21:25 Heparin - SQ 5,000 unit BID KEHINDE Administration Sodium Chloride 1,000 mls @ 42 mls/hr 12/05/19 08:30 12/09/19 09:34 Normal Saline - IV 42 mls/hr ASDIR KEHINDE Administration Lactobacillus Acidophilus 1 tab 12/03/19 13:15 12/09/19 09:34 Bacid - PO 1 tab DAILY KEHINDE Administration Lisinopril 20 mg 11/29/19 10:00 12/09/19 09:34 Prinivil PO 20 mg DAILY KEHINDE Administration Megestrol Acetate 40 mg 12/10/19 10:00 Megace - PO DAILY KEHINDE Metoprolol Succinate 25 mg 11/29/19 10:00 12/09/19 09:34 Toprol Xl - PO 25 mg DAILY KEHINDE Administration Multivitamins/Minerals/Vitamin C 1 tab 12/03/19 13:15 12/09/19 09:34 Tab-A-Vit - PO 1 tab DAILY KEHINDE Administration Nystatin 1 applic 12/08/19 22:00 12/09/19 21:25 Mycostatin Cream - TP 1 applic BID KEHINDE Administration Nystatin 1 applic 12/08/19 22:00 12/10/19 05:40 Nystop Powder - TP 1 applic TID KEHINDE Administration Potassium Chloride 20 meq 12/01/19 22:00 12/09/19 21:25 K-Dur - PO 20 meq BID KEHINDE Administration Vancomycin HCl 250 mg 12/09/19 09:45 12/10/19 05:23 Vancomycin Oral Solution PO 250 mg Q6HPO KEHINDE Administration ASSESSMENT/PLAN: Problem List - Problems (1) Hydroureter, left Assessment/Plan: ct scan shows moderate left sided hdronephrosis and proximal hydroureter. urology consulted for further recommendations. Code(s): N13.4 - HYDROURETER (2) Pericardial effusion Assessment/Plan: as seen on ct scan. echo 11/01/19 negative for pericardial effusion. re- ordered echo. cardiology clearance prior to any surgical interventions. Code(s): I31.3 - PERICARDIAL EFFUSION (NONINFLAMMATORY) (3) Hip fracture Assessment/Plan: by history, physical therapy ordered. poor ambulatory status 2/2 to profound fatigue Code(s): S72.009A - FRACTURE OF UNSP PART OF NECK OF UNSP FEMUR, INIT Qualifiers: Encounter type: initial encounter Fracture type: closed Laterality: left Qualified Code(s): S72.002A - Fracture of unspecified part of neck of left femur, initial encounter for closed fracture (4) Severe malnutrition Assessment/Plan: dietary consulted completed 3 day calorie count s/p swallow eval pureed diet with nectar thick fluid recommended. ordered ensure compact and magic cup. bmi 16.6, clinically dry, weak and cachectic on prosource, multivitamins Code(s): E43 - UNSPECIFIED SEVERE PROTEIN-CALORIE MALNUTRITION (5) Clostridium difficile colitis Assessment/Plan: + for c diff isolation precautions started on oral vanco gi consulted and following Code(s): A04.72 - ENTEROCOLITIS D/T CLOSTRIDIUM DIFFICILE, NOT SPCF RECUR (6) Pseudomonas urinary tract infection Assessment/Plan: found in urine culture, started on cefepime continue ivf Code(s): N39.0 - URINARY TRACT INFECTION, SITE NOT SPECIFIED; B96.5 - PSEUDOMONAS (MALLEI) CAUSING DISEASES CLASSD ELSWHR (7) Failure to thrive Assessment/Plan: patient reports poor oral intake and frequent diarrhea at home Code(s): UVM2399 - (8) Pneumonia Assessment/Plan: on cefepime tolerating room air coughs with deep breathing pulmonary following Code(s): J18.9 - PNEUMONIA, UNSPECIFIED ORGANISM (9) Orthostatic hypotension Assessment/Plan: fall precautions Code(s): I95.1 - ORTHOSTATIC HYPOTENSION (10) Stage II pressure ulcer Assessment/Plan: turn and position and increase oral intake. on pro source. on santyl daily Code(s): L89.92 - PRESSURE ULCER OF UNSPECIFIED SITE, STAGE 2 (11) Polycythemia Assessment/Plan: patient follows with a global [employer] (Erna) and will need continued outpatient follow up. Code(s): D75.1 - SECONDARY POLYCYTHEMIA (12) Hyponatremia Assessment/Plan: on ns at 42cc/hr with close monitoring of respiratory status Code(s): E87.1 - HYPO-OSMOLALITY AND HYPONATREMIA (13) Weakness Assessment/Plan: for PT Code(s): R53.1 - WEAKNESS (14) Voice hoarseness Assessment/Plan: has been ongoing for apx 3 weeks. 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 Assessment/Plan: MRI/CT shows multiple liver lesions, pancreatic edema, narrowed CBD/cystic duct , b/l effusions, pericardial effusion ( smll-mod.), left hydronephrosis Mild AST/ALKP elevation Nl CA19.9/AFP 3.7 Code(s): D37.6 - NEOPLASM OF UNCERTAIN BEHAVIOR OF LIVER, GB & BILE DUCT (17) Pleural effusion Code(s): J90 - PLEURAL EFFUSION, NOT ELSEWHERE CLASSIFIED (18) DVT prophylaxis Assessment/Plan: on heparin bid Code(s): Z29.9 - ENCOUNTER FOR PROPHYLACTIC MEASURES, UNSPECIFIED (19) Prophylactic measure Assessment/Plan: fen f: ns 42cc/hr e: monitor electrolytes daily and supplement n: low fiber/thin liq. physical therapy heparin protonix Code(s): Z29.9 - ENCOUNTER FOR PROPHYLACTIC MEASURES, UNSPECIFIED Visit type - Emergency Visit Emergency Visit: Yes ED Registration Date: 11/28/19 Care time: The patient presented to the Emergency Department on the above date and was hospitalized for further evaluation of their emergent condition. - New Patient This patient is new to me today: No - Critical Care Critical Care patient: No - Discharge Referral Referred to [facility] Med P.C.: No
[2019-12-10] MEDS: POTASSIUM CHLORIDE TABS 20 MEQ TABLET.ER (FP) PO SCH ×2 (10:57→22:07)
[2019-12-10] MEDS: AMINO ACIDS/PROTEIN HYDROLYS 30 ML LIQUID.PKT PO SCH ×2 (10:57→17:00)
[2019-12-10] MEDS: HEPARIN NA (PORCINE) 5,000 UNITS/ML 1ML VIAL SQ SCH ×2 (10:57→22:07)
[2019-12-10] MEDS: SODIUM CHLORIDE 1,000 ML IV SCH (10:57)
[2019-12-10] MEDS: LISINOPRIL 20 MG TABLET (FP) PO SCH (10:57)
--- NOTE | 2019-12-10 10:57 | PN ---
Progress Note (short form) - Note Progress Note: PULMONARY RESTING COMFORTABLY FRAIL IMAGING STUDIES ARE POINTING TOWARD AN UNDERLYING NEOPLASM POSSIBLY LUNG SOURCE B/L PLEURAL EFFUSIONS/LEFT>RIGHT/NODULAR SUBPLEURAL DENSITIES VSS/AFEBRILE PALE/ANICTERIC DIMINISHED BREATH SOUNDS B/L BASES S1S2 BS+ NO EDEMA LABS/MEDS/NOTES/IMAGES REVIEWED Will need to discuss diagnostic approach Suggest thoracentesis to start Treatment for C. diff continues O2 as needed IVF VTE prophylaxis Swallow evaluation noted Aspiration precautions Will follow Marii MARIE MD
[2019-12-10] MEDS: MULTIVITAMINS (DAILY MVI) TABLET (FP) PO SCH (10:58)
[2019-12-10] MEDS: amLODIPine BESYLATE 5 MG TABLET (FP) PO SCH (10:58)
[2019-12-10] MEDS: NYSTATIN 100,000 UNIT/GM TOPICAL CREAM 15 GM TUBE TP SCH ×2 (10:58→22:09)
[2019-12-10] MEDS: MEGESTROL ACETATE 40 MG TABLET PO SCH (10:58)
[2019-12-10] MEDS: metoPROLOL SUCCINATE 25 MG TAB.SR.24H (FP) PO SCH (10:58)
[2019-12-10] MEDS: LACTOBACILLUS ACIDOPHILUS 1 TABLET PO SCH (10:58)
[2019-12-10] MEDS: COLLAGENASE CLOSTRIDIUM HIST. 30 GRAMS TUBE TP SCH (10:59)
--- NOTE | 2019-12-10 11:35 | PN ---
Progress Note, Physician History of Present Illness: slightly better imaging studies noted probably malignancy of the lungs or the pancreas today looks better - Current Medication List Current Medications: Active Medications Albuterol/Ipratropium (Duoneb -) 1 amp NEB Q6H PRN PRN Reason: SHORTNESS OF BREATH Amino Acids (Prosource No Carb Liquid Pkt) 30 ml PO BID@0800,1730 [facility] Last Admin: 12/10/19 10:57 Dose: 30 ml Amlodipine Besylate (Norvasc -) 5 mg PO DAILY KEHINDE Last Admin: 12/10/19 10:58 Dose: 5 mg Atorvastatin Calcium (Lipitor -) 10 mg PO HS KEHINDE Last Admin: 12/09/19 21:25 Dose: 10 mg Collagenase (Santyl -) 1 applic TP DAILY [facility]; Protocol Last Admin: 12/10/19 10:59 Dose: 1 applic Heparin Sodium (Porcine) (Heparin -) 5,000 unit SQ BID [facility] Last Admin: 12/10/19 10:57 Dose: 5,000 unit Sodium Chloride (Normal Saline -) 1,000 mls @ 42 mls/hr IV ASDIR [facility] Last Admin: 12/10/19 10:57 Dose: 42 mls/hr Lactobacillus Acidophilus (Bacid -) 1 tab PO DAILY [facility] Last Admin: 12/10/19 10:58 Dose: 1 tab Lisinopril (Prinivil) 20 mg PO DAILY [facility] Last Admin: 12/10/19 10:57 Dose: 20 mg Megestrol Acetate (Megace -) 40 mg PO DAILY [facility] Last Admin: 12/10/19 10:58 Dose: 40 mg Metoprolol Succinate (Toprol Xl -) 25 mg PO DAILY [facility] Last Admin: 12/10/19 10:58 Dose: 25 mg Multivitamins/Minerals/Vitamin C (Tab-A-Vit -) 1 tab PO DAILY [facility] Last Admin: 12/10/19 10:58 Dose: 1 tab Nystatin (Mycostatin Cream -) 1 applic TP BID [facility] Last Admin: 12/10/19 10:58 Dose: 1 applic Nystatin (Nystop Powder -) 1 applic TP TID [facility] Last Admin: 12/10/19 05:40 Dose: 1 applic Potassium Chloride (K-Dur -) 20 meq PO BID [facility] Last Admin: 12/10/19 10:57 Dose: 20 meq Vancomycin HCl (Vancomycin Oral Solution) 250 mg PO Q6HPO [facility] Last Admin: 12/10/19 05:23 Dose: 250 mg - Objective Vital Signs: Vital Signs Temperature 98 F 12/10/19 06:00 Pulse Rate 92 H 12/10/19 06:00 Respiratory Rate 18 12/10/19 06:00 Blood Pressure 141/71 12/10/19 06:00 O2 Sat by Pulse Oximetry (%) 98 12/07/19 20:48 Constitutional: Yes: Calm, Mild Distress Cardiovascular: Yes: Regular Rate and Rhythm Respiratory: Yes: Regular, CTA Bilaterally Gastrointestinal: Yes: Normal Bowel Sounds, Soft Musculoskeletal: Yes: WNL Extremities: Yes: WNL Neurological: Yes: Alert, Oriented Psychiatric: Yes: Alert, Oriented Labs: CBC, BMP 12/10/19 07:30 12/10/19 07:30 INR, PTT INR 1.27 (0.82-1.09) H 11/28/19 17:25 Assessment/Plan Problem List - Problems (1) Atelectasis Code(s): J98.11 - ATELECTASIS (2) Pleural effusion Code(s): J90 - PLEURAL EFFUSION, NOT ELSEWHERE CLASSIFIED (3) Failure to thrive Code(s): [id number] - (4) Pneumonia Code(s): J18.9 - PNEUMONIA, UNSPECIFIED ORGANISM (5) Severe malnutrition Code(s): E43 - UNSPECIFIED SEVERE PROTEIN-CALORIE MALNUTRITION (6) Hip fracture Code(s): S72.009A - FRACTURE OF UNSP PART OF NECK OF UNSP FEMUR, INIT Qualifiers: Encounter type: initial encounter Fracture type: closed Laterality: left Qualified Code(s): S72.002A - Fracture of unspecified part of neck of left femur, initial encounter for closed fracture (7) Polycythemia Code(s): D75.1 - SECONDARY POLYCYTHEMIA 8 uti 9 cdiff r/o malignancy pleural effusion Assessment/Plan suggest to get thoracocentesis continue oral vanco suggest to send repeat cdiff rest as per the team
--- NOTE | 2019-12-10 13:25 | PN ---
Progress Note (short form) - Note Progress Note: Patient seen and examined Weak, anorechtic Has C. difficile and being treated Last Vital Signs Temp Pulse Resp BP Pulse Ox 98 F 92 H 18 141/71 98 12/10/19 06:00 12/10/19 06:00 12/10/19 06:00 12/10/19 06:00 12/07/19 20:48 HEENT: LILIA, EOM Intact Oropharynx: No thrush, No mucositis right upper molar tooth socket empty Neck: Supple Nodes: Without adenopathy Breasts: Without masses Cor: RSR, No murmurs, No gallops Lungs: Clear to P&A Abd: Soft, Normal bowel sounds, No organomegaly Ext:No significant edema Skin: No rashes, Integument intact CBC, BMP 12/10/19 07:30 12/10/19 07:30 Current Medications Generic Name Dose Route Start Last Admin Trade Name Freq PRN Reason Stop Dose Admin Albuterol/Ipratropium 1 amp 11/30/19 18:10 Duoneb - NEB Q6H PRN SHORTNESS OF BREATH Amino Acids 30 ml 11/29/19 08:00 12/10/19 10:57 Prosource No Carb Liquid Pkt PO 30 ml BID@0800,1730 KEHINDE Administration Amlodipine Besylate 5 mg 11/29/19 10:00 12/10/19 10:58 Norvasc - PO 5 mg DAILY KEHINDE Administration Atorvastatin Calcium 10 mg 11/29/19 22:00 12/09/19 21:25 Lipitor - PO 10 mg HS KEHINDE Administration Collagenase 1 applic 12/02/19 10:00 12/10/19 10:59 Santyl - TP 1 applic DAILY KEHINDE Administration Protocol Heparin Sodium (Porcine) 5,000 unit 11/28/19 22:00 12/10/19 10:57 Heparin - SQ 5,000 unit BID KEHINDE Administration Sodium Chloride 1,000 mls @ 42 mls/hr 12/05/19 08:30 12/10/19 10:57 Normal Saline - IV 42 mls/hr ASDIR KEHINDE Administration Lactobacillus Acidophilus 1 tab 12/03/19 13:15 12/10/19 10:58 Bacid - PO 1 tab DAILY KEHINDE Administration Lisinopril 20 mg 11/29/19 10:00 12/10/19 10:57 Prinivil PO 20 mg DAILY KEHINDE Administration Megestrol Acetate 40 mg 12/10/19 10:00 12/10/19 10:58 Megace - PO 40 mg DAILY KEHINDE Administration Metoprolol Succinate 25 mg 11/29/19 10:00 12/10/19 10:58 Toprol Xl - PO 25 mg DAILY KEHINDE Administration Multivitamins/Minerals/Vitamin C 1 tab 12/03/19 13:15 12/10/19 10:58 Tab-A-Vit - PO 1 tab DAILY KEHINDE Administration Nystatin 1 applic 12/08/19 22:00 12/10/19 10:58 Mycostatin Cream - TP 1 applic BID KEHINDE Administration Nystatin 1 applic 12/08/19 22:00 12/10/19 05:40 Nystop Powder - TP 1 applic TID KEHINDE Administration Potassium Chloride 20 meq 12/01/19 22:00 12/10/19 10:57 K-Dur - PO 20 meq BID KEHINDE Administration Vancomycin HCl 250 mg 12/09/19 09:45 12/10/19 12:26 Vancomycin Oral Solution PO 250 mg Q6HPO KEHINDE Administration Impression: C.difficile - under therapy Bilateral pleural effusions Liver masses Vertebral body - abnormal signal Disc herniation Left hydronephrosis Picture suggestive of malignancy ? primary with bone, liver and possibly pleural mets. No obvious breast masses Spoke with patient about need for tissue (daughter in attendance) Would continue treatment for c. diff and have patient undergo PT. Part of her debility may be secondary to recent c. difficile infection . Can do thoracentesis to begin; or liver biopsy (IR) if nonrevealing for tissue.
--- NOTE | 2019-12-10 14:08 | PN ---
Progress Note, EXAMINATION GRADER - Note Progress Note: CT --multiple liver mets, normal pancreas, cea ca19-9 normal pleural effusion pleuritic nodule suspicious for neoplasm Appreciate ENT consult -hoarseness, dysphagia no laryngeal lesion , no weakness or paralysis of vocal cord mobility Selected Entries 12/09/19 12/09/19 12/09/19 07:00 15:00 17:23 Breakfast Lunch Supper Temperature 98.2 F 97.8 F 98.1 F 12/09/19 12/09/19 12/10/19 17:55 19:20 06:00 Breakfast 25% Lunch 25% Supper 25% 25% Temperature 98 F 12/10/19 09:00 Breakfast 25% Lunch 25% Supper 25% Temperature Laboratory Tests 12/07/19 12/08/19 12/09/19 08:05 09:42 08:55 WBC 10.9 H 11.9 H 11.4 H 12/10/19 07:30 WBC 13.1 H Tolerating reg diet/thin liquid
[2019-12-10 21:07] LABS: HEP B CORE AB, TOT Negative (Negative)
[2019-12-10] MEDS: ATORVASTATIN CA 10 MG TABLET (FP) PO SCH (22:07)
[2019-12-11] MEDS: VANCOMYCIN 250 MG/5 ML ORAL SOLUTION PO SCH ×4 (06:01→23:45)
[2019-12-11] MEDS: NYSTATIN POWDER 100,000 UNITS/GM - 15 GM TOPICAL POWDER TP SCH ×3 (06:03→22:24)
--- NOTE | 2019-12-11 08:36 | CON.GU ---
Consult Consult Specialty:: urology Reason for Consultation:: mild left hydronephrosis - History of Present Illness Chief Complaint: mild left hydronephrosis History of Present Illness: Patient is an 84 year old female being evaluated for an oncologic process with liver mets. A mild left hydro is noted without evidence of stone. Patient denies left flank pain or nausea/vomiting/gross hematuria. Patient with normal renal function. - Past Medical History Cardio/Vascular: Yes: HTN, Hyperlipdemia Pulmonary: Yes: Bronchitis, Pneumonia. No: Asthma, Cancer, COPD, O2 Dependent, Previously Intubated, Pulmonary Embolus, Pulmonary Fibrosis, Sleep Apnea Gastrointestinal: Yes: Other (diarrhea) Renal/: Yes: Other (hyponatremia) Infectious Disease: Yes: C-Diff - Past Surgical History Additional Surgical History: Kyphoplasty - Alcohol/Substance Use Hx Alcohol Use: No History of Substance Use: reports: None - Smoking History Smoking history: Former smoker Have you smoked in the past 12 months: No If you are a former smoker, when did you quit?: 60 YEARS - Social History Usual Living Arrangement: With Child ADL: Independent History of Recent Travel: No Home Medications - Allergies Allergies/Adverse Reactions: Allergies Allergy/AdvReac Type Severity Reaction Status Date / Time No Known Allergies Allergy Verified 11/28/19 16:04 - Home Medications Home Medications: Ambulatory Orders Amlodipine Besylate 5 mg PO DAILY 01/15/19 Atorvastatin Ca [Lipitor] 10 mg PO DAILY 01/15/19 Lisinopril 20 mg PO DAILY 01/15/19 Metoprolol Succinate [Toprol XL -] 25 mg PO DAILY 01/15/19 Physical Exam- Vital Signs: Vital Signs Temperature 97.7 F 12/11/19 06:00 Pulse Rate 90 12/11/19 06:00 Respiratory Rate 18 12/11/19 06:00 Blood Pressure 158/70 12/11/19 06:00 O2 Sat by Pulse Oximetry (%) 98 12/07/19 20:48 Constitutional: Yes: Calm, [place], Cachectic Eyes: Yes: Conjunctiva Clear, EOM Intact HENT: Yes: WNL, Atraumatic, Normocephalic Neck: Yes: WNL, Supple, Trachea Midline Cardiovascular: Yes: Regular Rate and Rhythm Respiratory: Yes: Regular Gastrointestinal: Yes: Normal Bowel Sounds, Soft Renal/: Yes: WNL Kidneys: Yes: WNL Pelvis: Yes: WNL Labs: CBC, BMP 12/10/19 07:30 12/10/19 07:30 Assessment/Plan imp left hydronephrosis which is mild with no renal symptoms and normal renal function oncologic process with liver mets plan observe hydro and follow renal function
--- NOTE | 2019-12-11 09:07 | PN ---
Progress Note (short form) - Note Progress Note: Being fed by RN. Reports breathing feels OK. Mildly confused. No acute events overnight. Intake & Output 12/08/19 12/09/19 12/10/19 12/11/19 23:59 23:59 23:59 23:59 Intake Total 668 1438 1050 500 Output Total 400 Balance 668 1438 650 500 Weight 98 lb 9 oz 104 lb 9.6 oz 99 lb 6.4 oz 99 lb 14.4 oz Last Vital Signs Temp Pulse Resp BP Pulse Ox 97.7 F 90 18 158/70 98 12/11/19 06:00 12/11/19 06:00 12/11/19 06:00 12/11/19 06:00 12/07/19 20:48 Active Medications Albuterol/Ipratropium (Duoneb -) 1 amp NEB Q6H PRN PRN Reason: SHORTNESS OF BREATH Amino Acids (Prosource No Carb Liquid Pkt) 30 ml PO BID@0800,1730 [facility] Last Admin: 12/10/19 17:00 Dose: 30 ml Amlodipine Besylate (Norvasc -) 5 mg PO DAILY [facility] Last Admin: 12/10/19 10:58 Dose: 5 mg Atorvastatin Calcium (Lipitor -) 10 mg PO HS [facility] Last Admin: 12/10/19 22:07 Dose: 10 mg Collagenase (Santyl -) 1 applic TP DAILY [facility]; Protocol Last Admin: 12/10/19 10:59 Dose: 1 applic Heparin Sodium (Porcine) (Heparin -) 5,000 unit SQ BID [facility] Last Admin: 12/10/19 22:07 Dose: 5,000 unit Sodium Chloride (Normal Saline -) 1,000 mls @ 42 mls/hr IV ASDIR [facility] Last Admin: 12/10/19 10:57 Dose: 42 mls/hr Lactobacillus Acidophilus (Bacid -) 1 tab PO DAILY [facility] Last Admin: 12/10/19 10:58 Dose: 1 tab Lisinopril (Prinivil) 20 mg PO DAILY [facility] Last Admin: 12/10/19 10:57 Dose: 20 mg Megestrol Acetate (Megace -) 40 mg PO DAILY [facility] Last Admin: 12/10/19 10:58 Dose: 40 mg Metoprolol Succinate (Toprol Xl -) 25 mg PO DAILY [facility] Last Admin: 12/10/19 10:58 Dose: 25 mg Multivitamins/Minerals/Vitamin C (Tab-A-Vit -) 1 tab PO DAILY [facility] Last Admin: 12/10/19 10:58 Dose: 1 tab Nystatin (Mycostatin Cream -) 1 applic TP BID [facility] Last Admin: 12/10/19 22:09 Dose: 1 applic Nystatin (Nystop Powder -) 1 applic TP TID [facility] Last Admin: 12/11/19 06:03 Dose: 1 applic Potassium Chloride (K-Dur -) 20 meq PO BID [facility] Last Admin: 12/10/19 22:07 Dose: 20 meq Vancomycin HCl (Vancomycin Oral Solution) 250 mg PO Q6HPO [facility] Last Admin: 12/11/19 06:01 Dose: 250 mg Gen: Awake, NAD, mildly confused Heart: RRR Lung: decreased breath sounds at the bases Abd: soft, nontender Ext: no edema Laboratory Results - last 24 hr 12/09/19 08:55 Hep A IgM Ab Confirm Negative Hepatitis A Ab Total Negative Hep Bs Antigen Negative Hep Bs Antibody Non reactive Hep B Core Total Ab Negative Hep B Core IgM Ab Negative Hepatitis Be Antibody Negative Hepatitis Be Antigen Negative Hep C Ab Diagnostic 0.1 A/P Suspected Metastatic CA: R/O Lung primary Pneumonia C Diff Colitis Sepsis Hyponatremia HTN Hyperlipidemia Polycythemia Vera Malnutrition - To discuss with family for Thoracentesis as first intervention - complete antibiotics - probiotics - inhaled bronchodilators as needed - O2 to keep Spo2 >90% - monitor lytes - OOB to chair - DVT prophylaxis Dr Moore Problem List - Problems (1) Atelectasis Code(s): J98.11 - ATELECTASIS (2) Pleural effusion Code(s): J90 - PLEURAL EFFUSION, NOT ELSEWHERE CLASSIFIED (3) Failure to thrive Code(s): GCS2259 - (4) Pneumonia Code(s): J18.9 - PNEUMONIA, UNSPECIFIED ORGANISM (5) Severe malnutrition Code(s): E43 - UNSPECIFIED SEVERE PROTEIN-CALORIE MALNUTRITION (6) Hip fracture Code(s): S72.009A - FRACTURE OF UNSP PART OF NECK OF UNSP FEMUR, INIT Qualifiers: Encounter type: initial encounter Fracture type: closed Laterality: left Qualified Code(s): S72.002A - Fracture of unspecified part of neck of left femur, initial encounter for closed fracture (7) Polycythemia Code(s): D75.1 - SECONDARY POLYCYTHEMIA
[2019-12-11 09:49] LABS: BASO % 0.6 % (0-2.0); EOS % 0.5 % (0-4.5); HEMATOCRIT 36.8 % (32.4-45.2); HEMOGLOBIN 12.3 GM/dL (10.7-15.3); MCH 30.2 pg (25.7-33.7); MCHC 33.5 g/dl (32.0-36.0); MEAN CELL VOLUME 90.1 fl (80-96); MEAN PLT VOLUME 8.9 fl (7.5-11.1); MONO % 3.1 % (3.8-10.2); NEUT % 91.8 % (42.8-82.8); PLATELET COUNT 419 K/MM3 (134-434); RBC 4.08 M/mm3 (3.60-5.2); RDW 16.6 % (11.6-15.6); WHITE BLOOD COUNT 11.8 K/mm3 (4.0-10.0)
--- NOTE | 2019-12-11 10:19 | PN ---
Progress Note, Physician History of Present Illness: stable no new issues - Current Medication List Current Medications: Active Medications Albuterol/Ipratropium (Duoneb -) 1 amp NEB Q6H PRN PRN Reason: SHORTNESS OF BREATH Amino Acids (Prosource No Carb Liquid Pkt) 30 ml PO BID@0800,1730 [facility] Last Admin: 12/10/19 17:00 Dose: 30 ml Amlodipine Besylate (Norvasc -) 5 mg PO DAILY [facility] Last Admin: 12/10/19 10:58 Dose: 5 mg Atorvastatin Calcium (Lipitor -) 10 mg PO HS [facility] Last Admin: 12/10/19 22:07 Dose: 10 mg Collagenase (Santyl -) 1 applic TP DAILY [facility]; Protocol Last Admin: 12/10/19 10:59 Dose: 1 applic Heparin Sodium (Porcine) (Heparin -) 5,000 unit SQ BID [facility] Last Admin: 12/10/19 22:07 Dose: 5,000 unit Sodium Chloride (Normal Saline -) 1,000 mls @ 42 mls/hr IV ASDIR [facility] Last Admin: 12/10/19 10:57 Dose: 42 mls/hr Lactobacillus Acidophilus (Bacid -) 1 tab PO DAILY [facility] Last Admin: 12/10/19 10:58 Dose: 1 tab Lisinopril (Prinivil) 20 mg PO DAILY [facility] Last Admin: 12/10/19 10:57 Dose: 20 mg Megestrol Acetate (Megace -) 40 mg PO DAILY [facility] Last Admin: 12/10/19 10:58 Dose: 40 mg Metoprolol Succinate (Toprol Xl -) 25 mg PO DAILY [facility] Last Admin: 12/10/19 10:58 Dose: 25 mg Multivitamins/Minerals/Vitamin C (Tab-A-Vit -) 1 tab PO DAILY [facility] Last Admin: 12/10/19 10:58 Dose: 1 tab Nystatin (Mycostatin Cream -) 1 applic TP BID [facility] Last Admin: 12/10/19 22:09 Dose: 1 applic Nystatin (Nystop Powder -) 1 applic TP TID [facility] Last Admin: 12/11/19 06:03 Dose: 1 applic Potassium Chloride (K-Dur -) 20 meq PO BID [facility] Last Admin: 12/10/19 22:07 Dose: 20 meq Vancomycin HCl (Vancomycin Oral Solution) 250 mg PO Q6HPO [facility] Last Admin: 12/11/19 06:01 Dose: 250 mg - Objective Vital Signs: Vital Signs Temperature 97.7 F 12/11/19 06:00 Pulse Rate 90 12/11/19 06:00 Respiratory Rate 18 12/11/19 06:00 Blood Pressure 158/70 12/11/19 06:00 O2 Sat by Pulse Oximetry (%) 98 12/07/19 20:48 Constitutional: Yes: No Distress, Calm Cardiovascular: Yes: S1, S2 Respiratory: Yes: Regular, CTA Bilaterally Gastrointestinal: Yes: Normal Bowel Sounds, Soft Musculoskeletal: Yes: WNL Extremities: Yes: WNL Neurological: Yes: Alert, Oriented Psychiatric: Yes: Alert, Oriented Labs: CBC, BMP 12/11/19 09:23 INR, PTT INR 1.27 (0.82-1.09) H 11/28/19 17:25 Assessment/Plan Problem List - Problems (1) Atelectasis Code(s): J98.11 - ATELECTASIS (2) Pleural effusion Code(s): J90 - PLEURAL EFFUSION, NOT ELSEWHERE CLASSIFIED (3) Failure to thrive Code(s): [id number] - (4) Pneumonia Code(s): J18.9 - PNEUMONIA, UNSPECIFIED ORGANISM (5) Severe malnutrition Code(s): E43 - UNSPECIFIED SEVERE PROTEIN-CALORIE MALNUTRITION (6) Hip fracture Code(s): S72.009A - FRACTURE OF UNSP PART OF NECK OF UNSP FEMUR, INIT Qualifiers: Encounter type: initial encounter Fracture type: closed Laterality: left Qualified Code(s): S72.002A - Fracture of unspecified part of neck of left femur, initial encounter for closed fracture (7) Polycythemia Code(s): D75.1 - SECONDARY POLYCYTHEMIA 8 uti 9 cdiff r/o malignancy pleural effusion Assessment/Plan suggest to get thoracocentesis can stop oral vanco afgter completing tomorrows dose
[2019-12-11 10:22] LABS: ALBUMIN 2.4 g/dl (3.4-5.0); BILIRUBIN,TOTAL 0.6 mg/dL (0.2-1); BLOOD UREA NITROGEN 9.4 mg/dL (7-18); CALCIUM 8.4 mg/dL (8.5-10.1); CREATININE 0.3 mg/dL (0.55-1.3); MAGNESIUM 1.7 mg/dL (1.8-2.4); POTASSIUM 3.4 mmol/L (3.5-5.1); TOT PROT 5.3 g/dl (6.4-8.2)
[2019-12-11] MEDS ORDERED: MAGNESIUM OXIDE 400 MG TABLET (FP) PO ONE (10:27)
--- NOTE | 2019-12-11 10:49 | PN ---
Physical Exam: SUBJECTIVE: Patient seen and examined. feels well and tolerating room air. OBJECTIVE: Patient is an 83 year old female with a significant past medical history of HTN , HLD, polycythemia vera, s/p left hip fracture repair in December 2018, compression fractures s/p kyphoplasties, and severe malnutrition. Recently hospitalized 10/31-11/05/19 for sepsis secondary to E.coli UTI. Patient was brought by her daughter to the ED for evaluation of profound weakness, lack of appetite, difficulty swallowing, persistent dry cough, diarrhea, incontinence of urine and stool, skin breakdown, hair loss, and depression. On admission she was found to have an acute pneumonia and found to be positive for c diff. patient had a recent echocardiogram 11/01/2019 which was normal. s/p thoracentesis today as ordered by pulmonary. ---- imaging: ct abd/pelvis ct w/wo contrast: (1) mod left sided and small to moderate right sided pleural effusions are noted which have increased in size compared to chest ct done 10/2019. abdomen mri 12/06/2019: (1) mod left and small to moderate right sided pleural effusins with bibasilar severe atelectatic changes and /or infiltrates. (2) questionable of diffuse pancreatic edema, 6mm proximal pancreatic tail cyst. (3 ) the gallbladder is filled with gallstones-no acute shira. (4) moderate left sided hydronephrosis and proximal hydroureter. (5) pericardial effusion - small to moderate, correlate with echo. (6) nuerous scattered liver lesions suspicious for metastatic disease. Vital Signs Period Temp Pulse Resp BP Sys/Kiser Pulse Ox Last 24 Hr 97.7 F-98.2 F 90-97 18-20 140-158/57-72 GENERAL: The patient is awake, alert, and fully oriented, in no acute distress. severe malnutrition with prominent back, chest and pelvic bones. also appears clinically dry and weak. thin appearing, frail, cachectic/severe malnutrition, dry tongue, dry mucuous membranes, skin dry, chest and spine bones prominent, prominent pelvic bones. HEAD: Normal with no signs of trauma. EYES: PERRL, extraocular movements intact, sclera anicteric, conjunctiva clear. No ptosis. ENT: Ears normal, nares patent, oropharynx clear without exudates, dry mucous membranes. NECK: Trachea midline, full range of motion, supple. LUNGS: no wheezing,clear lungs upper lobes, diminished at the bases. HEART: Regular rate and rhythm, S1, S2 without murmur, rub or gallop. ABDOMEN: soft, non tender, non distended. EXTREMITIES: no edema. NEUROLOGICAL: Normal speech, gait not observed. PSYCH: Normal mood, normal affect. SKIN: stage II sacral pressure sore, treated with santyl. Laboratory Results - last 24 hr 12/09/19 12/11/19 12/11/19 08:55 09:23 09:23 WBC 11.8 H RBC 4.08 Hgb 12.3 Hct 36.8 MCV 90.1 MCH 30.2 MCHC 33.5 RDW 16.6 H Plt Count 419 MPV 8.9 Absolute Neuts (auto) 10.8 H Neutrophils % 91.8 H Lymphocytes % 4.0 L Monocytes % 3.1 L Eosinophils % 0.5 Basophils % 0.6 Nucleated RBC % 0 Sodium 138 Potassium 3.4 L Chloride 104 Carbon Dioxide 26 Anion Gap 8 BUN 9.4 Creatinine 0.3 L Est GFR (CKD-EPI)AfAm 121.00 Est GFR (CKD-EPI)NonAf 104.40 Random Glucose 89 Calcium 8.4 L Magnesium 1.7 L Total Bilirubin 0.6 AST 39 H ALT 43 Alkaline Phosphatase 241 H Total Protein 5.3 L Albumin 2.4 L Hep A IgM Ab Confirm Negative Hepatitis A Ab Total Negative Hep Bs Antigen Negative Hep Bs Antibody Non reactive Hep B Core Total Ab Negative Hep B Core IgM Ab Negative Hepatitis Be Antibody Negative Hepatitis Be Antigen Negative Hep C Ab Diagnostic 0.1 Active Medications Generic Name Dose Route Start Last Admin Trade Name Yeq PRN Reason Stop Dose Admin Albuterol/Ipratropium 1 amp 11/30/19 18:10 Duoneb - NEB Q6H PRN SHORTNESS OF BREATH Amino Acids 30 ml 11/29/19 08:00 12/10/19 17:00 Prosource No Carb Liquid Pkt PO 30 ml BID@0800,1730 [facility] Administration Amlodipine Besylate 5 mg 11/29/19 10:00 12/10/19 10:58 Norvasc - PO 5 mg DAILY [facility] Administration Atorvastatin Calcium 10 mg 11/29/19 22:00 12/10/19 22:07 Lipitor - PO 10 mg HS [facility] Administration Collagenase 1 applic 12/02/19 10:00 12/10/19 10:59 Santyl - TP 1 applic DAILY [facility] Administration Protocol Heparin Sodium (Porcine) 5,000 unit 11/28/19 22:00 12/10/19 22:07 Heparin - SQ 5,000 unit BID [facility] Administration Sodium Chloride 1,000 mls @ 42 mls/hr 12/05/19 08:30 12/10/19 10:57 Normal Saline - IV 42 mls/hr ASDIR [facility] Administration Lactobacillus Acidophilus 1 tab 12/03/19 13:15 12/10/19 10:58 Bacid - PO 1 tab DAILY [facility] Administration Lisinopril 20 mg 11/29/19 10:00 12/10/19 10:57 Prinivil PO 20 mg DAILY [facility] Administration Megestrol Acetate 40 mg 12/10/19 10:00 12/10/19 10:58 Megace - PO 40 mg DAILY [facility] Administration Metoprolol Succinate 25 mg 11/29/19 10:00 12/10/19 10:58 Toprol Xl - PO 25 mg DAILY [facility] Administration Multivitamins/Minerals/Vitamin C 1 tab 12/03/19 13:15 12/10/19 10:58 Tab-A-Vit - PO 1 tab DAILY [facility] Administration Nystatin 1 applic 12/08/19 22:00 12/10/19 22:09 Mycostatin Cream - TP 1 applic BID [facility] Administration Nystatin 1 applic 12/08/19 22:00 12/11/19 06:03 Nystop Powder - TP 1 applic TID [facility] Administration Potassium Chloride 20 meq 12/01/19 22:00 12/10/19 22:07 K-Dur - PO 20 meq BID [facility] Administration Vancomycin HCl 250 mg 12/09/19 09:45 12/11/19 06:01 Vancomycin Oral Solution PO 250 mg Q6HPO [facility] Administration ASSESSMENT/PLAN: Problem List - Problems (1) Hydroureter, left Assessment/Plan: ct scan shows moderate left sided hydronephrosis and proximal hydroureter. urology consulted and notes reviewed and appreciated. Code(s): N13.4 - HYDROURETER (2) Pericardial effusion Assessment/Plan: as seen on ct scan. echo 11/01/19 negative for pericardial effusion. re- ordered echo. cardiology following. Code(s): I31.3 - PERICARDIAL EFFUSION (NONINFLAMMATORY) (3) Hip fracture Assessment/Plan: by history, physical therapy ordered. poor ambulatory status 2/2 to profound fatigue Code(s): S72.009A - FRACTURE OF UNSP PART OF NECK OF UNSP FEMUR, INIT Qualifiers: Encounter type: initial encounter Fracture type: closed Laterality: left Qualified Code(s): S72.002A - Fracture of unspecified part of neck of left femur, initial encounter for closed fracture (4) Severe malnutrition Assessment/Plan: per dietary, recommended to continue with pureed diet with nectar thick liquids -Continue magic cup and ensure pudding -Add Two sun HN daily -Pt with poor po intake per calorie count -Suggest alternate nutrition support depending on pt/family wishes (ngt vs peg) -If tube feeding considered, suggest Jevity goal rate 50ml/hr x 24 hours with 25ml water flush each hour of feeding and Prosource no carb 30ml daily to provide 1860kcal, 91gm pro, 1512ml free water from feeding and flushes will continue to monitor intake Code(s): E43 - UNSPECIFIED SEVERE PROTEIN-CALORIE MALNUTRITION (5) Clostridium difficile colitis Assessment/Plan: + for c diff isolation precautions started on oral vanco which will d/c tomorrow 12/12/19 gi consulted and following Code(s): A04.72 - ENTEROCOLITIS D/T CLOSTRIDIUM DIFFICILE, NOT SPCF RECUR (6) Pseudomonas urinary tract infection Assessment/Plan: Code(s): N39.0 - URINARY TRACT INFECTION, SITE NOT SPECIFIED; B96.5 - PSEUDOMONAS (MALLEI) CAUSING DISEASES CLASSD ELSWHR (7) Failure to thrive Assessment/Plan: patient reports poor oral intake and frequent diarrhea at home Code(s): FQA8685 - (8) Pneumonia Assessment/Plan: completed cefepime Code(s): J18.9 - PNEUMONIA, UNSPECIFIED ORGANISM (9) Orthostatic hypotension Assessment/Plan: fall precautions Code(s): I95.1 - ORTHOSTATIC HYPOTENSION (10) Stage II pressure ulcer Assessment/Plan: turn and position and increase oral intake. on pro source. on santyl daily Code(s): L89.92 - PRESSURE ULCER OF UNSPECIFIED SITE, STAGE 2 (11) Polycythemia Assessment/Plan: patient follows with a chief operations officer (Erna) and will need continued outpatient follow up. Code(s): D75.1 - SECONDARY POLYCYTHEMIA (12) Hyponatremia Assessment/Plan: on ns at 42cc/hr with close monitoring of respiratory status Code(s): E87.1 - HYPO-OSMOLALITY AND HYPONATREMIA (13) Weakness Assessment/Plan: for PT Code(s): R53.1 - WEAKNESS (14) Voice hoarseness Assessment/Plan: has been ongoing for apx 3 weeks. 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 Assessment/Plan: MRI/CT shows multiple liver lesions, pancreatic edema, narrowed CBD/cystic duct , b/l effusions, pericardial effusion ( smll-mod.), left hydronephrosis Mild AST/ALKP elevation Nl CA19.9/AFP 3.7 Code(s): D37.6 - NEOPLASM OF UNCERTAIN BEHAVIOR OF LIVER, GB & BILE DUCT (17) Pleural effusion Assessment/Plan: s/p thoracentesis today Code(s): J90 - PLEURAL EFFUSION, NOT ELSEWHERE CLASSIFIED (18) DVT prophylaxis Assessment/Plan: on heparin bid Code(s): Z29.9 - ENCOUNTER FOR PROPHYLACTIC MEASURES, UNSPECIFIED (19) Prophylactic measure Assessment/Plan: fen f: ns 42cc/hr e: monitor electrolytes daily and supplement n: low fiber/thin liq. physical therapy heparin protonix Code(s): Z29.9 - ENCOUNTER FOR PROPHYLACTIC MEASURES, UNSPECIFIED Visit type - Emergency Visit Emergency Visit: Yes ED Registration Date: 11/28/19 Care time: The patient presented to the Emergency Department on the above date and was hospitalized for further evaluation of their emergent condition. - New Patient This patient is new to me today: No - Critical Care Critical Care patient: No - Discharge Referral Referred to [facility] Med P.C.: No
[2019-12-11 11:25] LABS: ANISOCYTOSIS 0; MACROCYTOSIS 0; PLATELET ESTIMATE NORMAL
[2019-12-11] MEDS ORDERED: PT OWN MED DRAWER 7, Y5N ONE (12:02)
[2019-12-11] MEDS: POTASSIUM CHLORIDE TABS 20 MEQ TABLET.ER (FP) PO SCH ×2 (12:09→21:36)
[2019-12-11] MEDS: LACTOBACILLUS ACIDOPHILUS 1 TABLET PO SCH (12:09)
[2019-12-11] MEDS: amLODIPine BESYLATE 5 MG TABLET (FP) PO SCH (12:10)
[2019-12-11] MEDS: LISINOPRIL 20 MG TABLET (FP) PO SCH (12:10)
[2019-12-11] MEDS: MULTIVITAMINS (DAILY MVI) TABLET (FP) PO SCH (12:10)
[2019-12-11] MEDS: metoPROLOL SUCCINATE 25 MG TAB.SR.24H (FP) PO SCH (12:10)
[2019-12-11] MEDS: MEGESTROL ACETATE 40 MG TABLET PO SCH (12:11)
[2019-12-11] MEDS: SODIUM CHLORIDE 1,000 ML IV SCH (12:12)
[2019-12-11] MEDS: HEPARIN NA (PORCINE) 5,000 UNITS/ML 1ML VIAL SQ SCH ×2 (12:12→21:36)
[2019-12-11] MEDS: AMINO ACIDS/PROTEIN HYDROLYS 30 ML LIQUID.PKT PO SCH ×2 (12:13→18:07)
--- NOTE | 2019-12-11 12:59 | CON.CARD ---
Consult Consult Specialty:: cardiology Reason for Consultation:: pericardial effusion - History of Present Illness Chief Complaint: Pt alert; denies pain, SOB, dizziness, palpitations. History of Present Illness: Patient is an 84 yr old white woman brought in by her daughter. She had recent kyphoplasty, lumbosacral spine, and has intractable pain, unable even to move from side to side, decreased appetite, and several watery stools each day. Saw primary physician, Dr. Cavazos, today. Referred to the ER for further evaluation. In addition to multiple vertebral fractures due to osteoporosis, the patient has high blood pressure, elevated cholesterol, is eating and drinking almost nothing, and has developed increased confusion. The family is unable to move her at home, make her comfortable, or feed her adequately. - History Source History Provided By: Patient, Medical Record Limitations to Obtaining History: Poor Historian - Past Medical History Cardio/Vascular: Yes: HTN, Hyperlipdemia Pulmonary: Yes: Bronchitis, Pneumonia. No: Asthma, Cancer, COPD, O2 Dependent, Previously Intubated, Pulmonary Embolus, Pulmonary Fibrosis, Sleep Apnea Gastrointestinal: Yes: Other (diarrhea) Renal/: Yes: Other (hyponatremia) Reproductive: Yes: Postmenopausal ...: No Heme/Onc: Yes: Anemia Infectious Disease: Yes: C-Diff - Past Surgical History Additional Surgical History: Kyphoplasty - Alcohol/Substance Use Hx Alcohol Use: No History of Substance Use: reports: None - Smoking History Smoking history: Former smoker Have you smoked in the past 12 months: No If you are a former smoker, when did you quit?: 60 YEARS - Social History Usual Living Arrangement: With Child ADL: Independent History of Recent Travel: No Home Medications - Allergies Allergies/Adverse Reactions: Allergies Allergy/AdvReac Type Severity Reaction Status Date / Time No Known Allergies Allergy Verified 11/28/19 16:04 - Home Medications Home Medications: Ambulatory Orders Amlodipine Besylate 5 mg PO DAILY 01/15/19 Atorvastatin Ca [Lipitor] 10 mg PO DAILY 01/15/19 Lisinopril 20 mg PO DAILY 01/15/19 Metoprolol Succinate [Toprol XL -] 25 mg PO DAILY 01/15/19 Family Medical History Family History: Denies Review of Systems - Review of Systems Constitutional: reports: Weakness Eyes: reports: No Symptoms HENT: reports: No Symptoms Neck: reports: Pain on Movement Cardiovascular: reports: No Symptoms Respiratory: reports: SOB on Exertion Gastrointestinal: reports: No Symptoms Genitourinary: reports: No Symptoms Breasts: reports: Skin Changes Musculoskeletal: reports: Back Pain, Muscle Pain, Muscle Weakness Integumentary: reports: No Symptoms Neurological: reports: Weakness Endocrine: reports: No Symptoms Hematology/Lymphatic: reports: No Symptoms Psychiatric: reports: Anxiety - Risk Factors Known Risk Factors: Yes: Age, Hypertension, Physical Inactivity Vital Signs: Vital Signs Temperature 97.7 F 12/11/19 06:00 Pulse Rate 90 12/11/19 06:00 Respiratory Rate 18 12/11/19 06:00 Blood Pressure 158/70 12/11/19 06:00 O2 Sat by Pulse Oximetry (%) 98 12/07/19 20:48 Abnormal Lab Results 12/11/19 12/11/19 09:23 09:23 WBC 11.8 H RDW 16.6 H Absolute Neuts (auto) 10.8 H Neutrophils % 91.8 H Neutrophils % (Manual) 91.0 H Lymphocytes % 4.0 L Lymphocytes % (Manual) 4.0 L Monocytes % 3.1 L Monocytes % (Manual) 3 L Potassium 3.4 L Creatinine 0.3 L Calcium 8.4 L Magnesium 1.7 L AST 39 H Alkaline Phosphatase 241 H Total Protein 5.3 L Albumin 2.4 L Constitutional: Yes: Anxious, Cachectic Eyes: Yes: WNL HENT: Yes: WNL Neck: Yes: WNL Respiratory: Yes: Regular Gastrointestinal: Yes: Soft Renal/: Yes: Anuria Cardiovascular: Yes: Tachycardia JVD: No Carotid Bruit: No PMI: Non-Displaced Heart Sounds: Yes: S1, S2, S4 Musculoskeletal: Yes: Back Pain, Joint Stiffness, Muscle Weakness Extremities: Yes: Cool Edema: No Peripheral Pulses WNL: No Peripheral Pulses: 1+ Left Doralis Pedis, 1+ Right Dorsalis Pedis Integumentary: Yes: WNL Neurological: Yes: Alert, Oriented, Weakness Psychiatric: Yes: Alert, Oriented, Other (anxiety) - Other Data Labs, Other Data: CBC, BMP 12/11/19 09:23 12/11/19 09:23 INR, PTT INR 1.27 (0.82-1.09) H 11/28/19 17:25 Abnormal Lab Results 12/11/19 12/11/19 09:23 09:23 WBC 11.8 H RDW 16.6 H Absolute Neuts (auto) 10.8 H Neutrophils % 91.8 H Neutrophils % (Manual) 91.0 H Lymphocytes % 4.0 L Lymphocytes % (Manual) 4.0 L Monocytes % 3.1 L Monocytes % (Manual) 3 L Potassium 3.4 L Creatinine 0.3 L Calcium 8.4 L Magnesium 1.7 L AST 39 H Alkaline Phosphatase 241 H Total Protein 5.3 L Albumin 2.4 L Echo: Report Reviewed Ejection Fraction %: LVEF > or = 40 % Imaging - Results Chest X-ray: Image Reviewed Cat Scan: Image Reviewed (bilateral pluearal effusion (moderate left side); worse than on 11/08 CT; vascular congestion) Problem List - Problems (1) Pericardial effusion Assessment/Plan: "No pericardial effusion" per ECHO report 10/2019. Mild-moderate size pericardial effusion on both MRI and CT this admission. Mildly anxious and dyspneic on exertion. BP mildly elevated; HR 96 bpm; RR 16 bpm; afebrile. F/u repeat ECHO for pericardial effusion. Code(s): I31.3 - PERICARDIAL EFFUSION (NONINFLAMMATORY) (2) Pleural effusion Assessment/Plan: For thoracentesis. Code(s): J90 - PLEURAL EFFUSION, NOT ELSEWHERE CLASSIFIED (3) Severe malnutrition Assessment/Plan: likely due to undelying CA Code(s): E43 - UNSPECIFIED SEVERE PROTEIN-CALORIE MALNUTRITION (4) Weakness Code(s): R53.1 - WEAKNESS (5) Hypokalemia Assessment/Plan: Repeat K and Mg. Code(s): E87.6 - HYPOKALEMIA (6) Lung cancer Assessment/Plan: likely source, with hepatic and bone metastases Code(s): C34.90 - MALIGNANT NEOPLASM OF UNSP PART OF UNSP BRONCHUS OR LUNG
[2019-12-11 15:01] LABS: BF WBC & OTHER NUCLEATED CELLS 500 /mm3
[2019-12-11 16:00] LABS: BODY FLUID MONOCYTE 86 %
--- NOTE | 2019-12-11 16:53 | PN.GI ---
GI Progress Note Subjective: 2 loose BMs today No abdominal pain Had thoracentesis today - Objective Vital Signs: Vital Signs Temperature 97.9 F 12/11/19 14:00 Pulse Rate 93 H 12/11/19 14:00 Respiratory Rate 18 12/11/19 14:00 Blood Pressure 142/70 12/11/19 14:00 O2 Sat by Pulse Oximetry (%) 98 12/07/19 20:48 Constitutional: Calm Eyes: No: Sclera Icterus Cardiovascular: Yes: Regular Rate and Rhythm Respiratory: Yes: Diminished (at BS B/L) Gastrointestinal Inspection: No: Distention ...Auscultate: Yes: Normoactive Bowel Sounds ...Palpate: Yes: Soft. No: Hepatomegaly, Splenomegaly, Tenderness Edema: No (No LE edema) Neurological: Yes: Alert Labs: CBC, BMP 12/11/19 09:23 12/11/19 09:23 INR, PTT INR 1.27 (0.82-1.09) H 11/28/19 17:25 Problem List - Problems (1) Diarrhea Assessment/Plan: 2 BM's today On Vanco 250mg PO Q6 Hrs, total 14 days Malignancy work-up in progress. heme/onc following Code(s): R19.7 - DIARRHEA, UNSPECIFIED
[2019-12-11] MEDS: NYSTATIN 100,000 UNIT/GM TOPICAL CREAM 15 GM TUBE TP SCH ×2 (18:08→22:24)
[2019-12-11] MEDS: COLLAGENASE CLOSTRIDIUM HIST. 30 GRAMS TUBE TP SCH (18:08)
[2019-12-11] MEDS: ATORVASTATIN CA 10 MG TABLET (FP) PO SCH (21:36)
[2019-12-12] MEDS: VANCOMYCIN 250 MG/5 ML ORAL SOLUTION PO SCH ×3 (05:52→18:17)
[2019-12-12] MEDS: NYSTATIN POWDER 100,000 UNITS/GM - 15 GM TOPICAL POWDER TP SCH ×3 (05:53→22:01)
--- NOTE | 2019-12-12 07:17 | PN ---
Progress Note (short form) - Note Progress Note: Reports breathing feels better. S/P right thoracentesis yesterday. Fluid analysis is still pending. Mildly confused. No acute events overnight. Intake & Output 12/09/19 12/10/19 12/11/19 12/12/19 23:59 23:59 23:59 23:59 Intake Total 1438 1050 962 Output Total 400 Balance 1438 650 962 Weight 104 lb 9.6 oz 99 lb 6.4 oz 99 lb 14.4 oz 96 lb 11.2 oz Last Vital Signs Temp Pulse Resp BP Pulse Ox 97.6 F 91 H 18 144/68 98 12/12/19 06:00 12/11/19 21:56 12/12/19 06:00 12/12/19 06:00 12/11/19 20:16 Active Medications Albuterol/Ipratropium (Duoneb -) 1 amp NEB Q6H PRN PRN Reason: SHORTNESS OF BREATH Amino Acids (Prosource No Carb Liquid Pkt) 30 ml PO BID@0800,1730 [facility] Last Admin: 12/11/19 18:07 Dose: 30 ml Amlodipine Besylate (Norvasc -) 5 mg PO DAILY [facility] Last Admin: 12/11/19 12:10 Dose: 5 mg Atorvastatin Calcium (Lipitor -) 10 mg PO HS [facility] Last Admin: 12/11/19 21:36 Dose: 10 mg Collagenase (Santyl -) 1 applic TP DAILY [facility]; Protocol Last Admin: 12/11/19 18:08 Dose: 1 applic Heparin Sodium (Porcine) (Heparin -) 5,000 unit SQ BID [facility] Last Admin: 12/11/19 21:36 Dose: 5,000 unit Lactobacillus Acidophilus (Bacid -) 1 tab PO DAILY [facility] Last Admin: 12/11/19 12:09 Dose: 1 tab Lisinopril (Prinivil) 20 mg PO DAILY [facility] Last Admin: 12/11/19 12:10 Dose: 20 mg Megestrol Acetate (Megace -) 40 mg PO DAILY [facility] Last Admin: 12/11/19 12:11 Dose: 40 mg Metoprolol Succinate (Toprol Xl -) 25 mg PO DAILY [facility] Last Admin: 12/11/19 12:10 Dose: 25 mg Multivitamins/Minerals/Vitamin C (Tab-A-Vit -) 1 tab PO DAILY [facility] Last Admin: 12/11/19 12:10 Dose: 1 tab Nystatin (Mycostatin Cream -) 1 applic TP BID [facility] Last Admin: 12/11/19 22:24 Dose: 1 applic Nystatin (Nystop Powder -) 1 applic TP TID [facility] Last Admin: 12/12/19 05:53 Dose: 1 applic Potassium Chloride (K-Dur -) 20 meq PO BID [facility] Last Admin: 12/11/19 21:36 Dose: 20 meq Vancomycin HCl (Vancomycin Oral Solution) 250 mg PO Q6HPO [facility] Last Admin: 12/12/19 05:52 Dose: 250 mg Gen: Awake, NAD, mildly confused Heart: RRR Lung: decreased breath sounds at the bases Abd: soft, nontender Ext: no edema Laboratory Results - last 24 hr 12/11/19 12/11/19 12/11/19 09:23 09:23 14:17 WBC 11.8 H RBC 4.08 Hgb 12.3 Hct 36.8 MCV 90.1 MCH 30.2 MCHC 33.5 RDW 16.6 H Plt Count 419 MPV 8.9 Absolute Neuts (auto) 10.8 H Neutrophils % 91.8 H Neutrophils % (Manual) 91.0 H Band Neutrophils % 0.0 Lymphocytes % 4.0 L Lymphocytes % (Manual) 4.0 L Monocytes % 3.1 L Monocytes % (Manual) 3 L Eosinophils % 0.5 Eosinophils % (Manual) 0.0 Basophils % 0.6 Basophils % (Manual) 1.0 Myelocytes % (Man) 0 Promyelocytes % (Man) 0 Blast Cells % (Manual) 0 Nucleated RBC % 0 Metamyelocytes 0 Hypochromia 0 Platelet Estimate Normal Polychromasia 0 Poikilocytosis 0 Anisocytosis 0 Microcytosis 0 Macrocytosis 0 Sodium 138 Potassium 3.4 L Chloride 104 Carbon Dioxide 26 Anion Gap 8 BUN 9.4 Creatinine 0.3 L Est GFR (CKD-EPI)AfAm 121.00 Est GFR (CKD-EPI)NonAf 104.40 Random Glucose 89 Calcium 8.4 L Magnesium 1.7 L Total Bilirubin 0.6 AST 39 H ALT 43 Alkaline Phosphatase 241 H Total Protein 5.3 L Albumin 2.4 L Fluid WBC 500 Fluid RBC 314 Fluid Neutrophils 9 Fluid Lymphocytes 5 Pleural Monocytes 86 A/P Suspected Metastatic CA: R/O Lung primary Pneumonia C Diff Colitis Sepsis Hyponatremia HTN Hyperlipidemia Polycythemia Vera Malnutrition - Follow Pleural fluid analysis - complete antibiotics - probiotics - inhaled bronchodilators as needed - O2 to keep Spo2 >90% - monitor lytes - OOB to chair - DVT prophylaxis Dr Moore Problem List - Problems (1) Atelectasis Code(s): J98.11 - ATELECTASIS (2) Pleural effusion Code(s): J90 - PLEURAL EFFUSION, NOT ELSEWHERE CLASSIFIED (3) Failure to thrive Code(s): [id number] - (4) Pneumonia Code(s): J18.9 - PNEUMONIA, UNSPECIFIED ORGANISM (5) Severe malnutrition Code(s): E43 - UNSPECIFIED SEVERE PROTEIN-CALORIE MALNUTRITION (6) Hip fracture Code(s): S72.009A - FRACTURE OF UNSP PART OF NECK OF UNSP FEMUR, INIT Qualifiers: Encounter type: initial encounter Fracture type: closed Laterality: left Qualified Code(s): S72.002A - Fracture of unspecified part of neck of left femur, initial encounter for closed fracture (7) Polycythemia Code(s): D75.1 - SECONDARY POLYCYTHEMIA
[2019-12-12 08:17] LABS: BASO % 0.8 % (0-2.0); EOS % 0.6 % (0-4.5); HEMATOCRIT 34.6 % (32.4-45.2); HEMOGLOBIN 11.7 GM/dL (10.7-15.3); LYMPH % 4.8 % (8-40); MCH 30.5 pg (25.7-33.7); MCHC 33.8 g/dl (32.0-36.0); MEAN CELL VOLUME 90.4 fl (80-96); MEAN PLT VOLUME 8.5 fl (7.5-11.1); MONO % 5.3 % (3.8-10.2); NEUT % 88.5 % (42.8-82.8); PLATELET COUNT 428 K/MM3 (134-434); RBC 3.83 M/mm3 (3.60-5.2); RDW 16.5 % (11.6-15.6); WHITE BLOOD COUNT 10.5 K/mm3 (4.0-10.0)
[2019-12-12 08:49] LABS: ALBUMIN 2.4 g/dl (3.4-5.0); BILIRUBIN,TOTAL 0.6 mg/dL (0.2-1); CALCIUM 8.5 mg/dL (8.5-10.1); CREATININE 0.3 mg/dL (0.55-1.3); MAGNESIUM 1.9 mg/dL (1.8-2.4); POTASSIUM 3.6 mmol/L (3.5-5.1); TOT PROT 5.2 g/dl (6.4-8.2)
--- NOTE | 2019-12-12 09:08 | PN ---
Progress Note, Physician History of Present Illness: stable s/p thoracocentesis - Current Medication List Current Medications: Active Medications Albuterol/Ipratropium (Duoneb -) 1 amp NEB Q6H PRN PRN Reason: SHORTNESS OF BREATH Amino Acids (Prosource No Carb Liquid Pkt) 30 ml PO BID@0800,1730 [facility] Last Admin: 12/11/19 18:07 Dose: 30 ml Amlodipine Besylate (Norvasc -) 5 mg PO DAILY [facility] Last Admin: 12/11/19 12:10 Dose: 5 mg Atorvastatin Calcium (Lipitor -) 10 mg PO HS [facility] Last Admin: 12/11/19 21:36 Dose: 10 mg Collagenase (Santyl -) 1 applic TP DAILY [facility]; Protocol Last Admin: 12/11/19 18:08 Dose: 1 applic Heparin Sodium (Porcine) (Heparin -) 5,000 unit SQ BID [facility] Last Admin: 12/11/19 21:36 Dose: 5,000 unit Lactobacillus Acidophilus (Bacid -) 1 tab PO DAILY [facility] Last Admin: 12/11/19 12:09 Dose: 1 tab Lisinopril (Prinivil) 20 mg PO DAILY [facility] Last Admin: 12/11/19 12:10 Dose: 20 mg Megestrol Acetate (Megace -) 40 mg PO DAILY [facility] Last Admin: 12/11/19 12:11 Dose: 40 mg Metoprolol Succinate (Toprol Xl -) 25 mg PO DAILY [facility] Last Admin: 12/11/19 12:10 Dose: 25 mg Multivitamins/Minerals/Vitamin C (Tab-A-Vit -) 1 tab PO DAILY [facility] Last Admin: 12/11/19 12:10 Dose: 1 tab Nystatin (Mycostatin Cream -) 1 applic TP BID [facility] Last Admin: 12/11/19 22:24 Dose: 1 applic Nystatin (Nystop Powder -) 1 applic TP TID [facility] Last Admin: 12/12/19 05:53 Dose: 1 applic Potassium Chloride (K-Dur -) 20 meq PO BID [facility] Last Admin: 12/11/19 21:36 Dose: 20 meq Vancomycin HCl (Vancomycin Oral Solution) 250 mg PO Q6HPO [facility] Last Admin: 12/12/19 05:52 Dose: 250 mg - Objective Vital Signs: Vital Signs Temperature 97.6 F 12/12/19 06:00 Pulse Rate 91 H 12/11/19 21:56 Respiratory Rate 18 12/12/19 06:00 Blood Pressure 144/68 12/12/19 06:00 O2 Sat by Pulse Oximetry (%) 98 12/11/19 20:16 Constitutional: Yes: No Distress, Calm Cardiovascular: Yes: S1, S2 Respiratory: Yes: Regular, CTA Bilaterally Gastrointestinal: Yes: Normal Bowel Sounds, Soft Musculoskeletal: Yes: WNL Extremities: Yes: WNL Psychiatric: Yes: Alert, Oriented Labs: CBC, BMP 12/12/19 06:50 12/12/19 06:50 INR, PTT INR 1.27 (0.82-1.09) H 11/28/19 17:25 Assessment/Plan Problem List - Problems (1) Atelectasis Code(s): J98.11 - ATELECTASIS (2) Pleural effusion Code(s): J90 - PLEURAL EFFUSION, NOT ELSEWHERE CLASSIFIED (3) Failure to thrive Code(s): [id number] - (4) Pneumonia Code(s): J18.9 - PNEUMONIA, UNSPECIFIED ORGANISM (5) Severe malnutrition Code(s): E43 - UNSPECIFIED SEVERE PROTEIN-CALORIE MALNUTRITION (6) Hip fracture Code(s): S72.009A - FRACTURE OF UNSP PART OF NECK OF UNSP FEMUR, INIT Qualifiers: Encounter type: initial encounter Fracture type: closed Laterality: left Qualified Code(s): S72.002A - Fracture of unspecified part of neck of left femur, initial encounter for closed fracture (7) Polycythemia Code(s): D75.1 - SECONDARY POLYCYTHEMIA 8 uti 9 cdiff r/o malignancy pleural effusion Assessment/Plan await for fluid cx stop vanco after todays course
[2019-12-12] MEDS: AMINO ACIDS/PROTEIN HYDROLYS 30 ML LIQUID.PKT PO SCH ×2 (09:25→18:17)
[2019-12-12] MEDS: MULTIVITAMINS (DAILY MVI) TABLET (FP) PO SCH (09:25)
[2019-12-12] MEDS: LACTOBACILLUS ACIDOPHILUS 1 TABLET PO SCH (09:25)
[2019-12-12] MEDS: HEPARIN NA (PORCINE) 5,000 UNITS/ML 1ML VIAL SQ SCH ×2 (09:25→22:00)
[2019-12-12] MEDS: LISINOPRIL 20 MG TABLET (FP) PO SCH (09:25)
[2019-12-12] MEDS: amLODIPine BESYLATE 5 MG TABLET (FP) PO SCH (09:25)
[2019-12-12] MEDS: metoPROLOL SUCCINATE 25 MG TAB.SR.24H (FP) PO SCH (09:25)
[2019-12-12] MEDS ORDERED: PT OWN MED DRAWER 7, Y5N ONE (09:38)
[2019-12-12] MEDS: MEGESTROL ACETATE 40 MG TABLET PO SCH (09:57)
[2019-12-12] MEDS: POTASSIUM CHLORIDE TABS 20 MEQ TABLET.ER (FP) PO SCH ×2 (09:57→22:00)
[2019-12-12] MEDS: COLLAGENASE CLOSTRIDIUM HIST. 30 GRAMS TUBE TP SCH (09:59)
[2019-12-12] MEDS: NYSTATIN 100,000 UNIT/GM TOPICAL CREAM 15 GM TUBE TP SCH ×2 (09:59→22:00)
--- NOTE | 2019-12-12 11:04 | PN ---
Physical Exam: SUBJECTIVE: Patient seen and examined at the bedside. denies shortness of breath. OBJECTIVE: Patient is an 83 year old female with a significant past medical history of HTN , HLD, polycythemia vera, s/p left hip fracture repair in December 2018, compression fractures s/p kyphoplasties, and severe malnutrition. Recently hospitalized 10/31-11/05/19 for sepsis secondary to E.coli UTI. Patient was brought by her daughter to the ED for evaluation of profound weakness, lack of appetite, difficulty swallowing, persistent dry cough, diarrhea, incontinence of urine and stool, skin breakdown, hair loss, and depression. On admission she was found to have an acute pneumonia and found to be positive for c diff. patient had a recent echocardiogram 11/01/2019 which was normal. she is s/p thoracentesis on 12/11/2019 pending cytology. Vital Signs Period Temp Pulse Resp BP Sys/Kiser Pulse Ox Last 24 Hr 97.6 F-98.3 F 91-108 18-18 130-150/60-80 98 GENERAL: The patient is awake, alert, and fully oriented, in no acute distress. severe malnutrition with prominent back, chest and pelvic bones. also appears clinically dry and weak. thin appearing, frail, cachectic/severe malnutrition, dry tongue, dry mucuous membranes, skin dry, chest and spine bones prominent, prominent pelvic bones. HEAD: Normal with no signs of trauma. EYES: PERRL, extraocular movements intact, sclera anicteric, conjunctiva clear. No ptosis. ENT: Ears normal, nares patent, oropharynx clear without exudates, dry mucous membranes. NECK: Trachea midline, full range of motion, supple. LUNGS: no wheezing,clear lungs upper lobes, diminished at the bases. HEART: Regular rate and rhythm, S1, S2 without murmur, rub or gallop. ABDOMEN: soft, non tender, non distended. EXTREMITIES: no edema. NEUROLOGICAL: Normal speech, gait not observed. PSYCH: Normal mood, normal affect. SKIN: stage II sacral pressure sore, treated with santyl. Laboratory Results - last 24 hr 12/11/19 12/11/19 12/12/19 09:23 14:17 06:50 WBC 10.5 H RBC 3.83 Hgb 11.7 Hct 34.6 MCV 90.4 MCH 30.5 MCHC 33.8 RDW 16.5 H Plt Count 428 MPV 8.5 Absolute Neuts (auto) 9.3 H Neutrophils % 88.5 H Neutrophils % (Manual) 91.0 H Band Neutrophils % 0.0 Lymphocytes % 4.8 L Lymphocytes % (Manual) 4.0 L Monocytes % 5.3 Monocytes % (Manual) 3 L Eosinophils % 0.6 Eosinophils % (Manual) 0.0 Basophils % 0.8 Basophils % (Manual) 1.0 Myelocytes % (Man) 0 Promyelocytes % (Man) 0 Blast Cells % (Manual) 0 Nucleated RBC % 0 Metamyelocytes 0 Hypochromia 0 Platelet Estimate Normal Polychromasia 0 Poikilocytosis 0 Anisocytosis 0 Microcytosis 0 Macrocytosis 0 Sodium Potassium Chloride Carbon Dioxide Anion Gap BUN Creatinine Est GFR (CKD-EPI)AfAm Est GFR (CKD-EPI)NonAf Random Glucose Calcium Magnesium Total Bilirubin AST ALT Alkaline Phosphatase Total Protein Albumin Fluid Source Pleural Fluid WBC 500 Fluid RBC 314 Fluid Neutrophils 9 Fluid Lymphocytes 5 Pleural Monocytes 86 12/12/19 06:50 WBC RBC Hgb Hct MCV MCH MCHC RDW Plt Count MPV Absolute Neuts (auto) Neutrophils % Neutrophils % (Manual) Band Neutrophils % Lymphocytes % Lymphocytes % (Manual) Monocytes % Monocytes % (Manual) Eosinophils % Eosinophils % (Manual) Basophils % Basophils % (Manual) Myelocytes % (Man) Promyelocytes % (Man) Blast Cells % (Manual) Nucleated RBC % Metamyelocytes Hypochromia Platelet Estimate Polychromasia Poikilocytosis Anisocytosis Microcytosis Macrocytosis Sodium 139 Potassium 3.6 Chloride 106 Carbon Dioxide 26 Anion Gap 8 BUN 14.0 Creatinine 0.3 L Est GFR (CKD-EPI)AfAm 121.00 Est GFR (CKD-EPI)NonAf 104.40 Random Glucose 86 Calcium 8.5 Magnesium 1.9 Total Bilirubin 0.6 AST 37 ALT 41 Alkaline Phosphatase 230 H Total Protein 5.2 L Albumin 2.4 L Fluid Source Fluid WBC Fluid RBC Fluid Neutrophils Fluid Lymphocytes Pleural Monocytes Active Medications Generic Name Dose Route Start Last Admin Trade Name Freq PRN Reason Stop Dose Admin Albuterol/Ipratropium 1 amp 11/30/19 18:10 Duoneb - NEB Q6H PRN SHORTNESS OF BREATH Amino Acids 30 ml 11/29/19 08:00 12/12/19 09:25 Prosource No Carb Liquid Pkt PO 30 ml BID@0800,1730 [facility] Administration Amlodipine Besylate 5 mg 11/29/19 10:00 12/12/19 09:25 Norvasc - PO 5 mg DAILY [facility] Administration Atorvastatin Calcium 10 mg 11/29/19 22:00 12/11/19 21:36 Lipitor - PO 10 mg HS [facility] Administration Collagenase 1 applic 12/02/19 10:00 12/12/19 09:59 Santyl - TP 1 applic DAILY [facility] Administration Protocol Heparin Sodium (Porcine) 5,000 unit 11/28/19 22:00 12/12/19 09:25 Heparin - SQ 5,000 unit BID [facility] Administration Lactobacillus Acidophilus 1 tab 12/03/19 13:15 12/12/19 09:25 Bacid - PO 1 tab DAILY [facility] Administration Lisinopril 20 mg 11/29/19 10:00 12/12/19 09:25 Prinivil PO 20 mg DAILY [facility] Administration Megestrol Acetate 40 mg 12/10/19 10:00 12/12/19 09:57 Megace - PO 40 mg DAILY [facility] Administration Metoprolol Succinate 25 mg 11/29/19 10:00 12/12/19 09:25 Toprol Xl - PO 25 mg DAILY [facility] Administration Multivitamins/Minerals/Vitamin C 1 tab 12/03/19 13:15 12/12/19 09:25 Tab-A-Vit - PO 1 tab DAILY [facility] Administration Nystatin 1 applic 12/08/19 22:00 12/12/19 09:59 Mycostatin Cream - TP 1 applic BID [facility] Administration Nystatin 1 applic 12/08/19 22:00 12/12/19 05:53 Nystop Powder - TP 1 applic TID [facility] Administration Potassium Chloride 20 meq 12/01/19 22:00 12/12/19 09:57 K-Dur - PO 20 meq BID [facility] Administration Vancomycin HCl 250 mg 12/09/19 09:45 12/12/19 05:52 Vancomycin Oral Solution PO 250 mg Q6HPO [facility] Administration ASSESSMENT/PLAN: Problem List - Problems (1) Hydroureter, left Assessment/Plan: ct scan shows moderate left sided hydronephrosis and proximal hydroureter. urology consulted and notes reviewed and appreciated. Code(s): N13.4 - HYDROURETER (2) Pericardial effusion Assessment/Plan: as seen on ct scan. echo 11/01/19 negative for pericardial effusion. echo 2019 shows moderate pleural effusion. cardiology following, further plans per cardiology. Code(s): I31.3 - PERICARDIAL EFFUSION (NONINFLAMMATORY) (3) Severe malnutrition Assessment/Plan: per dietary, recommended to continue with pureed diet with nectar thick liquids -Continue magic cup and ensure pudding -Add Two sun HN daily -Pt with poor po intake per calorie count -Suggest alternate nutrition support depending on pt/family wishes (ngt vs peg) -If tube feeding considered, suggest Jevity goal rate 50ml/hr x 24 hours with 25ml water flush each hour of feeding and Prosource no carb 30ml daily to provide 1860kcal, 91gm pro, 1512ml free water from feeding and flushes will continue to monitor intake Code(s): E43 - UNSPECIFIED SEVERE PROTEIN-CALORIE MALNUTRITION (4) Clostridium difficile colitis Assessment/Plan: + for c diff isolation precautions gi consulted and following Code(s): A04.72 - ENTEROCOLITIS D/T CLOSTRIDIUM DIFFICILE, NOT SPCF RECUR (5) Pseudomonas urinary tract infection Assessment/Plan: Code(s): N39.0 - URINARY TRACT INFECTION, SITE NOT SPECIFIED; B96.5 - PSEUDOMONAS (MALLEI) CAUSING DISEASES CLASSD ELSWHR (6) Failure to thrive Assessment/Plan: patient reports poor oral intake and frequent diarrhea at home Code(s): [id number] - (7) Pneumonia Assessment/Plan: completed cefepime Code(s): J18.9 - PNEUMONIA, UNSPECIFIED ORGANISM (8) Stage II pressure ulcer Assessment/Plan: turn and position and increase oral intake. on pro source. on santyl daily Code(s): L89.92 - PRESSURE ULCER OF UNSPECIFIED SITE, STAGE 2 (9) Polycythemia Assessment/Plan: patient follows with a pole framer machine (Erna) and will need continued outpatient follow up. Code(s): D75.1 - SECONDARY POLYCYTHEMIA (10) Hyponatremia Assessment/Plan: resolved Code(s): E87.1 - HYPO-OSMOLALITY AND HYPONATREMIA (11) Weakness Assessment/Plan: for PT Code(s): R53.1 - WEAKNESS (12) Voice hoarseness Assessment/Plan: has been ongoing for apx 3 weeks. ENT evaluated Code(s): R49.0 - DYSPHONIA (13) Liver lesion Assessment/Plan: workup per GI/heme/oncology. 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 Assessment/Plan: MRI/CT shows multiple liver lesions, pancreatic edema, narrowed CBD/cystic duct , b/l effusions, pericardial effusion ( smll-mod.), left hydronephrosis Mild AST/ALKP elevation Nl CA19.9/AFP 3.7 Code(s): D37.6 - NEOPLASM OF UNCERTAIN BEHAVIOR OF LIVER, GB & BILE DUCT (15) Pleural effusion Assessment/Plan: s/p thoracentesis on 12/11/2019 Code(s): J90 - PLEURAL EFFUSION, NOT ELSEWHERE CLASSIFIED (16) DVT prophylaxis Assessment/Plan: on heparin bid Code(s): Z29.9 - ENCOUNTER FOR PROPHYLACTIC MEASURES, UNSPECIFIED (17) Prophylactic measure Assessment/Plan: fen f: tolerating po e: monitor electrolytes daily and supplement n: low fiber/thin liq. physical therapy heparin protonix Code(s): Z29.9 - ENCOUNTER FOR PROPHYLACTIC MEASURES, UNSPECIFIED Visit type - Emergency Visit Emergency Visit: Yes ED Registration Date: 11/28/19 Care time: The patient presented to the Emergency Department on the above date and was hospitalized for further evaluation of their emergent condition. - New Patient This patient is new to me today: No - Critical Care Critical Care patient: No - Discharge Referral Referred to [facility] Med P.C.: No
--- NOTE | 2019-12-12 11:32 | PN ---
Progress Note, Physician History of Present Illness: Patient is an 84 yr old white woman brought in by her daughter. She had recent kyphoplasty, lumbosacral spine, and has intractable pain, unable even to move from side to side, decreased appetite, and several watery stools each day. Saw primary physician, Dr. Cavazos, today. Referred to the ER for further evaluation. In addition to multiple vertebral fractures due to osteoporosis, the patient has high blood pressure, elevated cholesterol, is eating and drinking almost nothing, and has developed increased confusion. The family is unable to move her at home, make her comfortable, or feed her adequately. - Current Medication List Current Medications: Active Medications Albuterol/Ipratropium (Duoneb -) 1 amp NEB Q6H PRN PRN Reason: SHORTNESS OF BREATH Amino Acids (Prosource No Carb Liquid Pkt) 30 ml PO BID@0800,1730 [facility] Last Admin: 12/12/19 09:25 Dose: 30 ml Amlodipine Besylate (Norvasc -) 5 mg PO DAILY [facility] Last Admin: 12/12/19 09:25 Dose: 5 mg Atorvastatin Calcium (Lipitor -) 10 mg PO HS [facility] Last Admin: 12/11/19 21:36 Dose: 10 mg Collagenase (Santyl -) 1 applic TP DAILY [facility]; Protocol Last Admin: 12/12/19 09:59 Dose: 1 applic Heparin Sodium (Porcine) (Heparin -) 5,000 unit SQ BID [facility] Last Admin: 12/12/19 09:25 Dose: 5,000 unit Lactobacillus Acidophilus (Bacid -) 1 tab PO DAILY [facility] Last Admin: 12/12/19 09:25 Dose: 1 tab Lisinopril (Prinivil) 20 mg PO DAILY [facility] Last Admin: 12/12/19 09:25 Dose: 20 mg Megestrol Acetate (Megace -) 40 mg PO DAILY [facility] Last Admin: 12/12/19 09:57 Dose: 40 mg Metoprolol Succinate (Toprol Xl -) 25 mg PO DAILY [facility] Last Admin: 12/12/19 09:25 Dose: 25 mg Multivitamins/Minerals/Vitamin C (Tab-A-Vit -) 1 tab PO DAILY [facility] Last Admin: 12/12/19 09:25 Dose: 1 tab Nystatin (Mycostatin Cream -) 1 applic TP BID [facility] Last Admin: 12/12/19 09:59 Dose: 1 applic Nystatin (Nystop Powder -) 1 applic TP TID [facility] Last Admin: 12/12/19 05:53 Dose: 1 applic Potassium Chloride (K-Dur -) 20 meq PO BID [facility] Last Admin: 12/12/19 09:57 Dose: 20 meq Vancomycin HCl (Vancomycin Oral Solution) 250 mg PO Q6HPO [facility] Last Admin: 12/12/19 05:52 Dose: 250 mg - Objective Vital Signs: Vital Signs Temperature 97.6 F 12/12/19 10:00 Pulse Rate 101 H 12/12/19 10:00 Respiratory Rate 18 12/12/19 10:00 Blood Pressure 130/60 12/12/19 10:00 O2 Sat by Pulse Oximetry (%) 98 12/11/19 20:16 Eyes: Yes: WNL, Conjunctiva Clear, EOM Intact HENT: Yes: WNL, Atraumatic, Normocephalic Neck: Yes: WNL, Supple, Trachea Midline Cardiovascular: Yes: WNL, Regular Rate and Rhythm Respiratory: Yes: Diminished Gastrointestinal: Yes: WNL, Normal Bowel Sounds Genitourinary: Yes: WNL Musculoskeletal: Yes: WNL Extremities: Yes: WNL Edema: No Integumentary: Yes: WNL Neurological: Yes: WNL, Alert, Oriented ...Motor Strength: WNL Psychiatric: Yes: WNL Labs: CBC, BMP 12/12/19 06:50 12/12/19 06:50 INR, PTT INR 1.27 (0.82-1.09) H 11/28/19 17:25 Assessment/Plan - Problems (1) Pericardial effusion Assessment/Plan: "No pericardial effusion" per ECHO report 10/2019. Mild-moderate size pericardial effusion on both MRI and CT this admission. Mildly anxious and dyspneic on exertion. BP mildly elevated; HR 96 bpm; RR 16 bpm; afebrile. F/u repeat ECHO for pericardial effusion. Code(s): I31.3 - PERICARDIAL EFFUSION (NONINFLAMMATORY) (2) Pleural effusion Assessment/Plan: For thoracentesis. Code(s): J90 - PLEURAL EFFUSION, NOT ELSEWHERE CLASSIFIED (3) Severe malnutrition Assessment/Plan: likely due to undelying CA Code(s): E43 - UNSPECIFIED SEVERE PROTEIN-CALORIE MALNUTRITION (4) Weakness Code(s): R53.1 - WEAKNESS (5) Hypokalemia Assessment/Plan: Repeat K and Mg. Code(s): E87.6 - HYPOKALEMIA (6) Lung cancer Assessment/Plan: likely source, with hepatic and bone metastases Code(s): C34.90 - MALIGNANT NEOPLASM OF UNSP PART OF UNSP BRONCHUS OR LUNG
[2019-12-12 14:10] LABS: BODY FLUID ALBUMIN 1.6 g/dL (Not Estab.)
--- NOTE | 2019-12-12 14:33 | ECHO ---
Name: PAULINE HAZEL Nettie Exam:Adult Echocardiogram Study Date: 12/12/2019 12:03 PM Age: 84 yrs Height: 66 in Weight: 99 lb BSA: 1.5 m2 MMode/2D Measurements & Calculations LVOT diam: 1.8 cm LVLd ap4: 6.4 cm EDV(MOD-sp4): 69.0 ml LVLs ap4: 5.5 cm ESV(MOD-sp4): 32.0 ml SV(MOD-sp4): 37.0 ml LAV (MOD-bp): 46.0 ml TAPSE: 1.6 cm RV S Daniel: 10.0 cm/sec Doppler Measurements & Calculations MV E max daniel: 71.1 cm/sec Ao V2 max: 125.9 cm/sec MV A max daniel: 110.6 cm/sec Ao max P.4 mmHg MV E/A: 0.64 MV dec time: 0.08 sec DANNY(V,D): 2.4 cm2 LV V1 max P.4 mmHg TR max daniel: 277.2 cm/sec LV V1 max: 116.5 cm/sec TR max P.8 mmHg Med Peak E' Daniel: 4.9 cm/sec Med E/e': 14.4 Lat Peak E' Daniel: 7.1 cm/sec Lat E/e': 10.0 Procedure A two-dimensional transthoracic echocardiogram with color flow and Doppler was performed. Left Ventricle The left ventricle is not well visualized. The left ventricular ejection fraction is normal. E/A reve rsal consistent with but not diagnostic of poor LV compliance. Regional wall motion abnormalities cannot b e excluded due to limited visualization. Right Ventricle The right ventricle is not well visualized. Atria The left atrium is not well visualized. Right atrium not well visualized. Mitral Valve There is mild mitral valve thickening. There is no mitral valve stenosis. There is trace to mild mitr al regurgitation. Tricuspid Valve There is mild tricuspid valve thickening. There is no tricuspid stenosis. There is mild tricuspid regurgitation. Right ventricular systolic pressure is elevated at 40-50mmHg. Aortic Valve The aortic valve is not well visualized. No hemodynamically significant valvular aortic stenosis. No aortic regurgitation is present. Pulmonic Valve The pulmonic valve is not well visualized. Great Vessels The aortic root is not well visualized. Pericardium/Pleura There is a moderate pericardial effusion. Interpretation Summary E/A reversal consistent with but not diagnostic of poor LV compliance There is a moderate pericardial effusion. There is trace to mild mitral regurgitation. There is mild tricuspid regurgitation. Right ventricular systolic pressure is elevated at 40-50mmHg. The left ventricle is not well visualized. Regional wall motion abnormalities cannot be excluded due to limited visualization. MD Baron Paulino 12/12/2019 02:32 PM
--- NOTE | 2019-12-12 17:19 | PN.GI ---
GI Progress Note Subjective: Pt seen/examined at bedside, no bms reported yet today per nursing staff, had 2 yesterday, soft, no blood. Denies abdominal pain, n/v, appetite improving. - Objective Vital Signs: Vital Signs Temperature 97.6 F 12/12/19 10:00 Pulse Rate 101 H 12/12/19 10:00 Respiratory Rate 18 12/12/19 10:00 Blood Pressure 130/60 12/12/19 10:00 O2 Sat by Pulse Oximetry (%) 98 12/11/19 20:16 Constitutional: No Distress, Calm Cardiovascular: Yes: WNL, Regular Rate and Rhythm Respiratory: Yes: WNL, Regular, CTA Bilaterally ...Palpate: Yes: Other (Abd soft, nt, nd) Labs: CBC, BMP 12/12/19 06:50 12/12/19 06:50 INR, PTT INR 1.27 (0.82-1.09) H 11/28/19 17:25 Problem List - Problems (1) Clostridium difficile colitis Assessment/Plan: Diarrhea improved, no bms reported today. On vancomycin 250mg qid. -Continue vancomycin 250mg po qid to complete 14 day course -Diet as tolerated -Monitor and replete electrolytes as needed -Follow up pleural fluid results -Further recommendations per ID and heme/onc Code(s): A04.72 - ENTEROCOLITIS D/T CLOSTRIDIUM DIFFICILE, NOT SPCF RECUR
[2019-12-12] MEDS: ATORVASTATIN CA 10 MG TABLET (FP) PO SCH (22:00)
[2019-12-13] MEDS: VANCOMYCIN 250 MG/5 ML ORAL SOLUTION PO SCH ×4 (00:48→18:01)
[2019-12-13] MEDS: NYSTATIN POWDER 100,000 UNITS/GM - 15 GM TOPICAL POWDER TP SCH ×3 (06:51→22:15)
--- NOTE | 2019-12-13 08:38 | PN ---
Progress Note (short form) - Note Progress Note: Reports breathing feels better. Remains mildly confused. No acute events overnight. Pleural fluid: Transudate Intake & Output 12/10/19 12/11/19 12/12/19 12/13/19 23:59 23:59 23:59 23:59 Intake Total 1050 962 100 50 Output Total 400 Balance 650 962 100 50 Weight 99 lb 6.4 oz 99 lb 14.4 oz 96 lb 11.2 oz 98 lb 9.6 oz Last Vital Signs Temp Pulse Resp BP Pulse Ox 98.5 F 94 H 18 150/75 98 12/13/19 06:00 12/13/19 06:00 12/13/19 06:00 12/13/19 06:00 12/12/19 21:00 Active Medications Albuterol/Ipratropium (Duoneb -) 1 amp NEB Q6H PRN PRN Reason: SHORTNESS OF BREATH Amino Acids (Prosource No Carb Liquid Pkt) 30 ml PO BID@0800,1730 [facility] Last Admin: 12/12/19 18:17 Dose: 30 ml Amlodipine Besylate (Norvasc -) 5 mg PO DAILY [facility] Last Admin: 12/12/19 09:25 Dose: 5 mg Atorvastatin Calcium (Lipitor -) 10 mg PO HS [facility] Last Admin: 12/12/19 22:00 Dose: 10 mg Collagenase (Santyl -) 1 applic TP DAILY [facility]; Protocol Last Admin: 12/12/19 09:59 Dose: 1 applic Heparin Sodium (Porcine) (Heparin -) 5,000 unit SQ BID [facility] Last Admin: 12/12/19 22:00 Dose: 5,000 unit Lactobacillus Acidophilus (Bacid -) 1 tab PO DAILY [facility] Last Admin: 12/12/19 09:25 Dose: 1 tab Lisinopril (Prinivil) 20 mg PO DAILY [facility] Last Admin: 12/12/19 09:25 Dose: 20 mg Megestrol Acetate (Megace -) 40 mg PO DAILY [facility] Last Admin: 12/12/19 09:57 Dose: 40 mg Metoprolol Succinate (Toprol Xl -) 25 mg PO DAILY [facility] Last Admin: 12/12/19 09:25 Dose: 25 mg Multivitamins/Minerals/Vitamin C (Tab-A-Vit -) 1 tab PO DAILY [facility] Last Admin: 12/12/19 09:25 Dose: 1 tab Nystatin (Mycostatin Cream -) 1 applic TP BID [facility] Last Admin: 12/12/19 22:00 Dose: 1 applic Nystatin (Nystop Powder -) 1 applic TP TID [facility] Last Admin: 12/13/19 06:51 Dose: 1 applic Potassium Chloride (K-Dur -) 20 meq PO BID [facility] Last Admin: 12/12/19 22:00 Dose: 20 meq Vancomycin HCl (Vancomycin Oral Solution) 250 mg PO Q6HPO [facility] Last Admin: 12/13/19 06:15 Dose: 250 mg Gen: Awake, NAD, mildly confused Heart: RRR Lung: decreased breath sounds at the bases Abd: soft, nontender Ext: no edema Laboratory Results - last 24 hr 12/11/19 12/11/19 12/12/19 14:17 14:17 06:50 Sodium 139 Potassium 3.6 Chloride 106 Carbon Dioxide 26 Anion Gap 8 BUN 14.0 Creatinine 0.3 L Est GFR (CKD-EPI)AfAm 121.00 Est GFR (CKD-EPI)NonAf 104.40 Random Glucose 86 Calcium 8.5 Magnesium 1.9 Total Bilirubin 0.6 AST 37 ALT 41 Alkaline Phosphatase 230 H Total Protein 5.2 L Albumin 2.4 L Fluid Source Pleural POC Fluid pH 8.1 Fluid Glucose 103 Fluid Total Protein 2.3 Fluid Albumin 1.6 Body Fluid LDH Source 129 Fluid Amylase 17 Fluid Triglycerides 10 A/P Suspected Metastatic CA: R/O Lung primary Pneumonia C Diff Colitis Sepsis Hyponatremia HTN Hyperlipidemia Polycythemia Vera Malnutrition - Effusion is a transudate and may secure her oncologic diagnosis. Will need additional tissue diagnosis if cytology is negative -> Liver. - complete antibiotics - probiotics - inhaled bronchodilators as needed - O2 to keep Spo2 >90% - monitor lytes - OOB to chair - DVT prophylaxis Dr Moore Problem List - Problems (1) Atelectasis Code(s): J98.11 - ATELECTASIS (2) Pleural effusion Code(s): J90 - PLEURAL EFFUSION, NOT ELSEWHERE CLASSIFIED (3) Failure to thrive Code(s): [id number] - (4) Pneumonia Code(s): J18.9 - PNEUMONIA, UNSPECIFIED ORGANISM (5) Severe malnutrition Code(s): E43 - UNSPECIFIED SEVERE PROTEIN-CALORIE MALNUTRITION (6) Hip fracture Code(s): S72.009A - FRACTURE OF UNSP PART OF NECK OF UNSP FEMUR, INIT Qualifiers: Encounter type: initial encounter Fracture type: closed Laterality: left Qualified Code(s): S72.002A - Fracture of unspecified part of neck of left femur, initial encounter for closed fracture (7) Polycythemia Code(s): D75.1 - SECONDARY POLYCYTHEMIA
--- NOTE | 2019-12-13 09:03 | PN ---
Progress Note, Physician History of Present Illness: patient stable no new issues - Current Medication List Current Medications: Active Medications Albuterol/Ipratropium (Duoneb -) 1 amp NEB Q6H PRN PRN Reason: SHORTNESS OF BREATH Amino Acids (Prosource No Carb Liquid Pkt) 30 ml PO BID@0800,1730 [facility] Last Admin: 12/12/19 18:17 Dose: 30 ml Amlodipine Besylate (Norvasc -) 5 mg PO DAILY [facility] Last Admin: 12/12/19 09:25 Dose: 5 mg Atorvastatin Calcium (Lipitor -) 10 mg PO HS [facility] Last Admin: 12/12/19 22:00 Dose: 10 mg Collagenase (Santyl -) 1 applic TP DAILY [facility]; Protocol Last Admin: 12/12/19 09:59 Dose: 1 applic Heparin Sodium (Porcine) (Heparin -) 5,000 unit SQ BID [facility] Last Admin: 12/12/19 22:00 Dose: 5,000 unit Lactobacillus Acidophilus (Bacid -) 1 tab PO DAILY [facility] Last Admin: 12/12/19 09:25 Dose: 1 tab Lisinopril (Prinivil) 20 mg PO DAILY [facility] Last Admin: 12/12/19 09:25 Dose: 20 mg Megestrol Acetate (Megace -) 40 mg PO DAILY [facility] Last Admin: 12/12/19 09:57 Dose: 40 mg Metoprolol Succinate (Toprol Xl -) 25 mg PO DAILY [facility] Last Admin: 12/12/19 09:25 Dose: 25 mg Multivitamins/Minerals/Vitamin C (Tab-A-Vit -) 1 tab PO DAILY [facility] Last Admin: 12/12/19 09:25 Dose: 1 tab Nystatin (Mycostatin Cream -) 1 applic TP BID [facility] Last Admin: 12/12/19 22:00 Dose: 1 applic Nystatin (Nystop Powder -) 1 applic TP TID [facility] Last Admin: 12/13/19 06:51 Dose: 1 applic Potassium Chloride (K-Dur -) 20 meq PO BID [facility] Last Admin: 12/12/19 22:00 Dose: 20 meq Vancomycin HCl (Vancomycin Oral Solution) 250 mg PO Q6HPO [facility] Last Admin: 12/13/19 06:15 Dose: 250 mg - Objective Vital Signs: Vital Signs Temperature 98.5 F 12/13/19 06:00 Pulse Rate 94 H 12/13/19 06:00 Respiratory Rate 18 12/13/19 06:00 Blood Pressure 150/75 12/13/19 06:00 O2 Sat by Pulse Oximetry (%) 98 12/12/19 21:00 Constitutional: Yes: No Distress, Calm Cardiovascular: Yes: S1, S2 Respiratory: Yes: Regular, CTA Bilaterally Gastrointestinal: Yes: Normal Bowel Sounds, Soft Musculoskeletal: Yes: WNL Extremities: Yes: WNL Neurological: Yes: Alert, Oriented Psychiatric: Yes: Alert, Oriented Labs: CBC, BMP 12/12/19 06:50 12/12/19 06:50 INR, PTT INR 1.27 (0.82-1.09) H 11/28/19 17:25 Assessment/Plan Problem List - Problems (1) Atelectasis Code(s): J98.11 - ATELECTASIS (2) Pleural effusion Code(s): J90 - PLEURAL EFFUSION, NOT ELSEWHERE CLASSIFIED (3) Failure to thrive Code(s): [id number] - (4) Pneumonia Code(s): J18.9 - PNEUMONIA, UNSPECIFIED ORGANISM (5) Severe malnutrition Code(s): E43 - UNSPECIFIED SEVERE PROTEIN-CALORIE MALNUTRITION (6) Hip fracture Code(s): S72.009A - FRACTURE OF UNSP PART OF NECK OF UNSP FEMUR, INIT Qualifiers: Encounter type: initial encounter Fracture type: closed Laterality: left Qualified Code(s): S72.002A - Fracture of unspecified part of neck of left femur, initial encounter for closed fracture (7) Polycythemia Code(s): D75.1 - SECONDARY POLYCYTHEMIA 8 uti 9 cdiff r/o malignancy pleural effusion Assessment/Plan continue current mgmt can stop vanco rest as per the team
[2019-12-13 09:54] LABS: BASO % 0.9 % (0-2.0); EOS % 0.6 % (0-4.5); HEMATOCRIT 34.8 % (32.4-45.2); HEMOGLOBIN 11.7 GM/dL (10.7-15.3); LYMPH % 4.3 % (8-40); MCHC 33.6 g/dl (32.0-36.0); MEAN CELL VOLUME 89.3 fl (80-96); MEAN PLT VOLUME 8.7 fl (7.5-11.1); MONO % 4.2 % (3.8-10.2); PLATELET COUNT 424 K/MM3 (134-434); RBC 3.89 M/mm3 (3.60-5.2); RDW 16.3 % (11.6-15.6); WHITE BLOOD COUNT 10.5 K/mm3 (4.0-10.0)
[2019-12-13] MEDS ORDERED: PT OWN MED DRAWER 7, Y5N ONE (10:06)
[2019-12-13] MEDS: HEPARIN NA (PORCINE) 5,000 UNITS/ML 1ML VIAL SQ SCH ×2 (10:14→22:14)
[2019-12-13] MEDS: MULTIVITAMINS (DAILY MVI) TABLET (FP) PO SCH (10:14)
[2019-12-13] MEDS: POTASSIUM CHLORIDE TABS 20 MEQ TABLET.ER (FP) PO SCH ×2 (10:14→22:15)
[2019-12-13] MEDS: LACTOBACILLUS ACIDOPHILUS 1 TABLET PO SCH (10:14)
[2019-12-13] MEDS: amLODIPine BESYLATE 5 MG TABLET (FP) PO SCH (10:14)
[2019-12-13] MEDS: MEGESTROL ACETATE 40 MG TABLET PO SCH (10:14)
[2019-12-13] MEDS: metoPROLOL SUCCINATE 25 MG TAB.SR.24H (FP) PO SCH (10:14)
[2019-12-13] MEDS: LISINOPRIL 20 MG TABLET (FP) PO SCH (10:14)
[2019-12-13 10:21] LABS: ALBUMIN 2.3 g/dl (3.4-5.0); BILIRUBIN,TOTAL 0.6 mg/dL (0.2-1); BLOOD UREA NITROGEN 15.1 mg/dL (7-18); CALCIUM 8.5 mg/dL (8.5-10.1); CREATININE 0.4 mg/dL (0.55-1.3); POTASSIUM 3.3 mmol/L (3.5-5.1); TOT PROT 5.2 g/dl (6.4-8.2)
[2019-12-13] MEDS: COLLAGENASE CLOSTRIDIUM HIST. 30 GRAMS TUBE TP SCH (10:23)
[2019-12-13] MEDS: NYSTATIN 100,000 UNIT/GM TOPICAL CREAM 15 GM TUBE TP SCH ×2 (10:23→22:15)
[2019-12-13] MEDS: AMINO ACIDS/PROTEIN HYDROLYS 30 ML LIQUID.PKT PO SCH ×2 (10:29→18:01)
--- NOTE | 2019-12-13 15:11 | PATH ---
Cytology Non-Gynecological Report Patient Name: PAULINE HAZEL [facility]. Rec. #: [id number] /Age/Gender: 1935 (Age: 84) / F Account: [id number] [facility] R Taken: 12/11/2019 Received: 12/11/2019 Reported: 12/13/2019 Physicians: Dale Moore M.D. Specimen(s) Received A: PLEURAL FLUID 60CC IN ALCOHOL B: PLEURAL FLUID 350CC FRESH Clinical History Pleural effusion Final Diagnosis A AND B: PLEURAL FLUID, THORACENTESIS: SATISFACTORY FOR EVALUATION NO MALIGNANT CELLS IDENTIFIED. REACTIVE MESOTHELIAL CELLS AND MACROPHAGES PRESENT. Comment: Immunohistochemical stained slides (block B) show reactive mesothelial cells are positive for CK-7 and Calretinin; CD68 highlights the macrophages. MOC31, Joel-ep4, CK20, and TTF-1 are negative. Immunohistochemistry stains CK-7, Calretinin, CD68, MOC31, Joel-ep 4, CK20, and TTF-1 performed at [place], [place] ([id number]) interpreted at . Positive and negative controls (internal if applicable) show appropriate results. Electronically Signed Julian Bautista M.D. Gross Description A. Approximately 60cc of cloudy fluid received fixed in 50% alcohol. One cytospin and one cellblock prepared. B. Approximately 350cc of cloudy fluid received fresh. One cytospin and one cellblock prepared.
--- NOTE | 2019-12-13 15:30 | PN ---
Physical Exam: SUBJECTIVE: Patient seen and examined at the bedside. feels well, tolerating room air. OBJECTIVE: Patient is an 83 year old female with a significant past medical history of HTN , HLD, polycythemia vera, s/p left hip fracture repair in December 2018, compression fractures s/p kyphoplasties, and severe malnutrition. Recently hospitalized 10/31-11/05/19 for sepsis secondary to E.coli UTI. Patient was brought by her daughter to the ED for evaluation of profound weakness, lack of appetite, difficulty swallowing, persistent dry cough, diarrhea, incontinence of urine and stool, skin breakdown, hair loss, and depression. On admission she was found to have an acute pneumonia and found to be positive for c diff. patient had a recent echocardiogram 11/01/2019 which was normal. she is s/p thoracentesis on 12/11/2019 pending cytology. discharge planning, awaiting final recommendations from heme/onc. patient has bed pending at [facility]. Vital Signs Period Temp Pulse Resp BP Sys/Kiser Pulse Ox Last 24 Hr 97.5 F-98.5 F 90-97 18-20 132-150/66-76 98 GENERAL: The patient is awake, alert, and fully oriented, in no acute distress. severe malnutrition with prominent back, chest and pelvic bones. also appears clinically dry and weak. thin appearing, frail, cachectic/severe malnutrition, dry tongue, dry mucuous membranes, skin dry, chest and spine bones prominent, prominent pelvic bones. HEAD: Normal with no signs of trauma. EYES: PERRL, extraocular movements intact, sclera anicteric, conjunctiva clear. No ptosis. ENT: Ears normal, nares patent, oropharynx clear without exudates, dry mucous membranes. NECK: Trachea midline, full range of motion, supple. LUNGS: no wheezing,clear lungs upper lobes, diminished at the bases. HEART: Regular rate and rhythm, S1, S2 without murmur, rub or gallop. ABDOMEN: soft, non tender, non distended. EXTREMITIES: no edema. SKIN: stage II sacral pressure sore, treated with santyl. Laboratory Results - last 24 hr 12/11/19 12/13/19 12/13/19 14:17 09:23 09:23 WBC 10.5 H RBC 3.89 Hgb 11.7 Hct 34.8 MCV 89.3 MCH 30.0 MCHC 33.6 RDW 16.3 H Plt Count 424 MPV 8.7 Absolute Neuts (auto) 9.4 H Neutrophils % 90.0 H Lymphocytes % 4.3 L Monocytes % 4.2 Eosinophils % 0.6 Basophils % 0.9 Nucleated RBC % 0 Sodium 139 Potassium 3.3 L Chloride 106 Carbon Dioxide 27 Anion Gap 6 L BUN 15.1 Creatinine 0.4 L Est GFR (CKD-EPI)AfAm 110.08 Est GFR (CKD-EPI)NonAf 94.98 Random Glucose 114 H Calcium 8.5 Magnesium 2.0 Total Bilirubin 0.6 AST 37 ALT 39 Alkaline Phosphatase 226 H Total Protein 5.2 L Albumin 2.3 L POC Fluid pH 8.1 Active Medications Generic Name Dose Route Start Last Admin Trade Name Freq PRN Reason Stop Dose Admin Albuterol/Ipratropium 1 amp 11/30/19 18:10 Duoneb - NEB Q6H PRN SHORTNESS OF BREATH Amino Acids 30 ml 11/29/19 08:00 12/13/19 10:29 Prosource No Carb Liquid Pkt PO 30 ml BID@0800,1730 [facility] Administration Amlodipine Besylate 5 mg 11/29/19 10:00 12/13/19 10:14 Norvasc - PO 5 mg DAILY [facility] Administration Atorvastatin Calcium 10 mg 11/29/19 22:00 12/12/19 22:00 Lipitor - PO 10 mg HS [facility] Administration Collagenase 1 applic 12/02/19 10:00 12/13/19 10:23 Santyl - TP 1 applic DAILY [facility] Administration Protocol Heparin Sodium (Porcine) 5,000 unit 11/28/19 22:00 12/13/19 10:14 Heparin - SQ 5,000 unit BID [facility] Administration Lactobacillus Acidophilus 1 tab 12/03/19 13:15 12/13/19 10:14 Bacid - PO 1 tab DAILY [facility] Administration Lisinopril 20 mg 11/29/19 10:00 12/13/19 10:14 Prinivil PO 20 mg DAILY [facility] Administration Megestrol Acetate 40 mg 12/10/19 10:00 12/13/19 10:14 Megace - PO 40 mg DAILY [facility] Administration Metoprolol Succinate 25 mg 11/29/19 10:00 12/13/19 10:14 Toprol Xl - PO 25 mg DAILY [facility] Administration Multivitamins/Minerals/Vitamin C 1 tab 12/03/19 13:15 12/13/19 10:14 Tab-A-Vit - PO 1 tab DAILY [facility] Administration Nystatin 1 applic 12/08/19 22:00 12/13/19 10:23 Mycostatin Cream - TP 1 applic BID [facility] Administration Nystatin 1 applic 12/08/19 22:00 12/13/19 14:28 Nystop Powder - TP 1 applic TID [facility] Administration Potassium Chloride 20 meq 12/01/19 22:00 12/13/19 10:14 K-Dur - PO 20 meq BID [facility] Administration Vancomycin HCl 250 mg 12/09/19 09:45 12/13/19 12:11 Vancomycin Oral Solution PO 250 mg Q6HPO [facility] Administration ASSESSMENT/PLAN: Problem List - Problems (1) Hydroureter, left Assessment/Plan: ct scan shows moderate left sided hydronephrosis and proximal hydroureter. urology consulted and notes reviewed and appreciated. Code(s): N13.4 - HYDROURETER (2) Pericardial effusion Assessment/Plan: as seen on ct scan. echo 11/01/19 negative for pericardial effusion. echo 2019 shows moderate pleural effusion. cardiology following, further plans per cardiology. Code(s): I31.3 - PERICARDIAL EFFUSION (NONINFLAMMATORY) (3) Severe malnutrition Assessment/Plan: per dietary, recommended to continue with pureed diet with nectar thick liquids -Continue magic cup and ensure pudding -Add Two sun HN daily -Pt with poor po intake per calorie count -Suggest alternate nutrition support depending on pt/family wishes (ngt vs peg) -If tube feeding considered, suggest Jevity goal rate 50ml/hr x 24 hours with 25ml water flush each hour of feeding and Prosource no carb 30ml daily to provide 1860kcal, 91gm pro, 1512ml free water from feeding and flushes will continue to monitor intake Code(s): E43 - UNSPECIFIED SEVERE PROTEIN-CALORIE MALNUTRITION (4) Clostridium difficile colitis Assessment/Plan: + for c diff isolation precautions gi consulted and following Code(s): A04.72 - ENTEROCOLITIS D/T CLOSTRIDIUM DIFFICILE, NOT SPCF RECUR (5) Pseudomonas urinary tract infection Assessment/Plan: Code(s): N39.0 - URINARY TRACT INFECTION, SITE NOT SPECIFIED; B96.5 - PSEUDOMONAS (MALLEI) CAUSING DISEASES CLASSD ELSWHR (6) Failure to thrive Assessment/Plan: patient reports poor oral intake and frequent diarrhea at home Code(s): [id number] - (7) Pneumonia Assessment/Plan: completed cefepime Code(s): J18.9 - PNEUMONIA, UNSPECIFIED ORGANISM (8) Stage II pressure ulcer Assessment/Plan: turn and position and increase oral intake. on pro source. on santyl daily Code(s): L89.92 - PRESSURE ULCER OF UNSPECIFIED SITE, STAGE 2 (9) Polycythemia Assessment/Plan: patient follows with a cloth calender (Erna) and will need continued outpatient follow up. Code(s): D75.1 - SECONDARY POLYCYTHEMIA (10) Hyponatremia Assessment/Plan: resolved Code(s): E87.1 - HYPO-OSMOLALITY AND HYPONATREMIA (11) Weakness Assessment/Plan: for PT Code(s): R53.1 - WEAKNESS (12) Voice hoarseness Assessment/Plan: has been ongoing for apx 3 weeks. ENT evaluated Code(s): R49.0 - DYSPHONIA (13) Liver lesion Assessment/Plan: workup per GI/heme/oncology. 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 Assessment/Plan: MRI/CT shows multiple liver lesions, pancreatic edema, narrowed CBD/cystic duct , b/l effusions, pericardial effusion ( smll-mod.), left hydronephrosis Mild AST/ALKP elevation Nl CA19.9/AFP 3.7 Code(s): D37.6 - NEOPLASM OF UNCERTAIN BEHAVIOR OF LIVER, GB & BILE DUCT (15) Pleural effusion Assessment/Plan: s/p thoracentesis on 12/11/2019 Code(s): J90 - PLEURAL EFFUSION, NOT ELSEWHERE CLASSIFIED (16) DVT prophylaxis Assessment/Plan: on heparin bid Code(s): Z29.9 - ENCOUNTER FOR PROPHYLACTIC MEASURES, UNSPECIFIED (17) Prophylactic measure Assessment/Plan: fen f: tolerating po e: monitor electrolytes daily and supplement n: low fiber/thin liq. physical therapy heparin protonix Code(s): Z29.9 - ENCOUNTER FOR PROPHYLACTIC MEASURES, UNSPECIFIED Visit type - Emergency Visit Emergency Visit: Yes ED Registration Date: 11/28/19 Care time: The patient presented to the Emergency Department on the above date and was hospitalized for further evaluation of their emergent condition. - New Patient This patient is new to me today: No - Critical Care Critical Care patient: No - Discharge Referral Referred to [facility] No
[2019-12-13] MEDS: ATORVASTATIN CA 10 MG TABLET (FP) PO SCH (22:15)
[2019-12-14] MEDS: VANCOMYCIN 250 MG/5 ML ORAL SOLUTION PO SCH ×4 (00:42→18:07)
[2019-12-14] MEDS: NYSTATIN POWDER 100,000 UNITS/GM - 15 GM TOPICAL POWDER TP SCH ×3 (06:42→22:02)
[2019-12-14 08:35] LABS: BASO % 0.7 % (0-2.0); HEMATOCRIT 35.1 % (32.4-45.2); HEMOGLOBIN 11.5 GM/dL (10.7-15.3); LYMPH % 4.3 % (8-40); MCH 29.4 pg (25.7-33.7); MCHC 32.9 g/dl (32.0-36.0); MEAN CELL VOLUME 89.3 fl (80-96); MEAN PLT VOLUME 8.5 fl (7.5-11.1); MONO % 3.3 % (3.8-10.2); NEUT % 90.7 % (42.8-82.8); PLATELET COUNT 431 K/MM3 (134-434); RBC 3.92 M/mm3 (3.60-5.2); RDW 16.7 % (11.6-15.6); WHITE BLOOD COUNT 11.7 K/mm3 (4.0-10.0)
[2019-12-14] MEDS ORDERED: PT OWN MED DRAWER 7, Y5N ONE (09:03)
[2019-12-14 09:09] LABS: ALBUMIN 2.5 g/dl (3.4-5.0); BILIRUBIN,TOTAL 0.5 mg/dL (0.2-1); BLOOD UREA NITROGEN 18.2 mg/dL (7-18); CALCIUM 8.5 mg/dL (8.5-10.1); CREATININE 0.3 mg/dL (0.55-1.3); MAGNESIUM 2.1 mg/dL (1.8-2.4); POTASSIUM 3.5 mmol/L (3.5-5.1); TOT PROT 5.5 g/dl (6.4-8.2)
--- NOTE | 2019-12-14 09:09 | PN ---
Progress Note, Physician History of Present Illness: stable no new issues - Current Medication List Current Medications: Active Medications Albuterol/Ipratropium (Duoneb -) 1 amp NEB Q6H PRN PRN Reason: SHORTNESS OF BREATH Amino Acids (Prosource No Carb Liquid Pkt) 30 ml PO BID@0800,1730 [facility] Last Admin: 12/13/19 18:01 Dose: 30 ml Amlodipine Besylate (Norvasc -) 5 mg PO DAILY [facility] Last Admin: 12/13/19 10:14 Dose: 5 mg Atorvastatin Calcium (Lipitor -) 10 mg PO HS [facility] Last Admin: 12/13/19 22:15 Dose: 10 mg Collagenase (Santyl -) 1 applic TP DAILY [facility]; Protocol Last Admin: 12/13/19 10:23 Dose: 1 applic Heparin Sodium (Porcine) (Heparin -) 5,000 unit SQ BID [facility] Last Admin: 12/13/19 22:14 Dose: 5,000 unit Lactobacillus Acidophilus (Bacid -) 1 tab PO DAILY [facility] Last Admin: 12/13/19 10:14 Dose: 1 tab Lisinopril (Prinivil) 20 mg PO DAILY [facility] Last Admin: 12/13/19 10:14 Dose: 20 mg Megestrol Acetate (Megace -) 40 mg PO DAILY [facility] Last Admin: 12/13/19 10:14 Dose: 40 mg Metoprolol Succinate (Toprol Xl -) 25 mg PO DAILY [facility] Last Admin: 12/13/19 10:14 Dose: 25 mg Multivitamins/Minerals/Vitamin C (Tab-A-Vit -) 1 tab PO DAILY [facility] Last Admin: 12/13/19 10:14 Dose: 1 tab Nystatin (Mycostatin Cream -) 1 applic TP BID [facility] Last Admin: 12/13/19 22:15 Dose: 1 applic Nystatin (Nystop Powder -) 1 applic TP TID [facility] Last Admin: 12/14/19 06:42 Dose: 1 applic Potassium Chloride (K-Dur -) 20 meq PO BID [facility] Last Admin: 12/13/19 22:15 Dose: 20 meq Vancomycin HCl (Vancomycin Oral Solution) 250 mg PO Q6HPO [facility] Last Admin: 12/14/19 06:41 Dose: 250 mg - Objective Vital Signs: Vital Signs Temperature 97.6 F 12/14/19 05:55 Pulse Rate 91 H 12/14/19 05:55 Respiratory Rate 20 01/24/20 05:55 Blood Pressure 144/69 12/14/19 05:55 O2 Sat by Pulse Oximetry (%) 98 12/13/19 09:00 Constitutional: Yes: No Distress, Calm Cardiovascular: Yes: S1, S2 Respiratory: Yes: Regular, CTA Bilaterally Gastrointestinal: Yes: Normal Bowel Sounds, Soft Musculoskeletal: Yes: WNL Extremities: Yes: WNL Neurological: Yes: Alert, Oriented Psychiatric: Yes: Alert, Oriented Labs: CBC, BMP 12/14/19 07:45 INR, PTT INR 1.27 (0.82-1.09) H 11/28/19 17:25 Assessment/Plan Problem List - Problems (1) Atelectasis Code(s): J98.11 - ATELECTASIS (2) Pleural effusion Code(s): J90 - PLEURAL EFFUSION, NOT ELSEWHERE CLASSIFIED (3) Failure to thrive Code(s): [id number] - (4) Pneumonia Code(s): J18.9 - PNEUMONIA, UNSPECIFIED ORGANISM (5) Severe malnutrition Code(s): E43 - UNSPECIFIED SEVERE PROTEIN-CALORIE MALNUTRITION (6) Hip fracture Code(s): S72.009A - FRACTURE OF UNSP PART OF NECK OF UNSP FEMUR, INIT Qualifiers: Encounter type: initial encounter Fracture type: closed Laterality: left Qualified Code(s): S72.002A - Fracture of unspecified part of neck of left femur, initial encounter for closed fracture (7) Polycythemia Code(s): D75.1 - SECONDARY POLYCYTHEMIA 8 uti 9 cdiff r/o malignancy pleural effusion Assessment/Plan continue current mgmt can stop vanco rest as per the team patient has completed 14 days course
--- NOTE | 2019-12-14 09:50 | PN.GI ---
GI Progress Note Subjective: Diarrhea improved No abdominal pain - Objective Vital Signs: Vital Signs Temperature 97.6 F 12/14/19 05:55 Pulse Rate 91 H 12/14/19 05:55 Respiratory Rate 12/14/19 05:55 Blood Pressure 144/69 12/14/19 05:55 O2 Sat by Pulse Oximetry (%) 98 12/13/19 09:00 Constitutional: Calm Eyes: No: Sclera Icterus Cardiovascular: Yes: Regular Rate and Rhythm Respiratory: Yes: Diminished (at bases bilaterally) ...Auscultate: Yes: Normoactive Bowel Sounds ...Palpate: Yes: Soft. No: Hepatomegaly, Splenomegaly, Tenderness ...Percussion: No: Tympanitic Edema: No (No LE edema) Neurological: Yes: Alert Labs: CBC, BMP 12/14/19 07:45 12/14/19 07:45 INR, PTT INR 1.27 (0.82-1.09) H 11/28/19 17:25 Hepatic Panel Total Bilirubin 0.5 mg/dL (0.2-1) 12/14/19 07:45 Direct Bilirubin 0.2 mg/dL (0.0-0.2) 11/29/19 07:38 AST 38 U/L (15-37) H 12/14/19 07:45 ALT 40 U/L (13-61) 12/14/19 07:45 Alkaline Phosphatase 244 U/L (45-117) H 12/14/19 07:45 Albumin 2.5 g/dl (3.4-5.0) L 12/14/19 07:45 Problem List - Problems (1) Diarrhea Assessment/Plan: Improved Continue Vancomycin 250mg PO q 6 hours, total 14 days Code(s): R19.7 - DIARRHEA, UNSPECIFIED (2) Liver metastases Assessment/Plan: Pleural fluid cytology unrevealing Tumor markers negative Continued work-up. Will likely need liver biopsy Code(s): C78.7 - SECONDARY MALIG NEOPLASM OF LIVER AND INTRAHEPATIC BILE DUCT
[2019-12-14] MEDS: MEGESTROL ACETATE 40 MG TABLET PO SCH (09:55)
[2019-12-14] MEDS: amLODIPine BESYLATE 5 MG TABLET (FP) PO SCH (09:56)
[2019-12-14] MEDS: LACTOBACILLUS ACIDOPHILUS 1 TABLET PO SCH (09:56)
[2019-12-14] MEDS: LISINOPRIL 20 MG TABLET (FP) PO SCH (09:56)
[2019-12-14] MEDS: HEPARIN NA (PORCINE) 5,000 UNITS/ML 1ML VIAL SQ SCH ×2 (09:57→22:00)
[2019-12-14] MEDS: POTASSIUM CHLORIDE TABS 20 MEQ TABLET.ER (FP) PO SCH ×2 (09:57→22:00)
[2019-12-14] MEDS: MULTIVITAMINS (DAILY MVI) TABLET (FP) PO SCH (09:57)
[2019-12-14] MEDS: metoPROLOL SUCCINATE 25 MG TAB.SR.24H (FP) PO SCH (09:57)
[2019-12-14] MEDS: AMINO ACIDS/PROTEIN HYDROLYS 30 ML LIQUID.PKT PO SCH ×2 (09:58→18:07)
--- NOTE | 2019-12-14 10:53 | PN ---
Progress Note (short form) - Note Progress Note: PULMONARY OOB TO CHAIR FRAIL IMAGING STUDIES ARE POINTING TOWARD AN UNDERLYING NEOPLASM PLEURAL FLUID CYTOLOGY NEGATIVE VSS/AFEBRILE PALE/ANICTERIC DIMINISHED BREATH SOUNDS B/L BASES S1S2 BS+ NO EDEMA LABS/MEDS/NOTES/IMAGES REVIEWED Treatment for C. diff continues O2 as needed IVF VTE prophylaxis Swallow evaluation noted Aspiration precautions Liver bxto be considered Will follow Marii MARIE MD
--- NOTE | 2019-12-14 14:02 | PN ---
Progress Note (short form) - Note Progress Note: Patient seen and examined Remains weak and debilitated No diarrhea as yet today S/P thoracentesis Last Vital Signs Temp Pulse Resp BP Pulse Ox 97.4 F L 101 H 18 130/60 98 12/14/19 09:51 12/14/19 09:51 12/14/19 09:51 12/14/19 09:51 12/13/19 09:00 HEENT: LILIA, EOM Intact Cor: RSR, No murmurs, No gallops Lungs: diminished breath sounds Abd: Soft, Normal bowel sounds, No organomegaly Ext:No significant edema Skin: No rashes, Integument intact CBC, BMP 12/14/19 07:45 12/14/19 07:45 Current Medications Generic Name Dose Route Start Last Admin Trade Name Freq PRN Reason Stop Dose Admin Albuterol/Ipratropium 1 amp 11/30/19 18:10 Duoneb - NEB Q6H PRN SHORTNESS OF BREATH Amino Acids 30 ml 11/29/19 08:00 12/14/19 09:58 Prosource No Carb Liquid Pkt PO 30 ml BID@0800,1730 KEHINDE Administration Amlodipine Besylate 5 mg 11/29/19 10:00 12/14/19 09:56 Norvasc - PO 5 mg DAILY KEHINDE Administration Atorvastatin Calcium 10 mg 11/29/19 22:00 12/13/19 22:15 Lipitor - PO 10 mg HS KEHINDE Administration Collagenase 1 applic 12/02/19 10:00 12/13/19 10:23 Santyl - TP 1 applic DAILY KEHINDE Administration Protocol Heparin Sodium (Porcine) 5,000 unit 11/28/19 22:00 12/14/19 09:57 Heparin - SQ 5,000 unit BID KEHINDE Administration Lactobacillus Acidophilus 1 tab 12/03/19 13:15 12/14/19 09:56 Bacid - PO 1 tab DAILY KEHINDE Administration Lisinopril 20 mg 11/29/19 10:00 12/14/19 09:56 Prinivil PO 20 mg DAILY KEHINDE Administration Megestrol Acetate 40 mg 12/10/19 10:00 12/14/19 09:55 Megace - PO 40 mg DAILY KEHINDE Administration Metoprolol Succinate 25 mg 11/29/19 10:00 12/14/19 09:57 Toprol Xl - PO 25 mg DAILY KEHINDE Administration Multivitamins/Minerals/Vitamin C 1 tab 12/03/19 13:15 12/14/19 09:57 Tab-A-Vit - PO 1 tab DAILY KEHINDE Administration Nystatin 1 applic 12/08/19 22:00 12/13/19 22:15 Mycostatin Cream - TP 1 applic BID KEHINDE Administration Nystatin 1 applic 12/08/19 22:00 12/14/19 06:42 Nystop Powder - TP 1 applic TID KEHINDE Administration Potassium Chloride 20 meq 12/01/19 22:00 12/14/19 09:57 K-Dur - PO 20 meq BID KEHINDE Administration Vancomycin HCl 250 mg 12/09/19 09:45 12/14/19 06:41 Vancomycin Oral Solution PO 250 mg Q6HPO KEHINDE Administration Impression: C.difficile enteritis Liver masses Consider liver biopsy - patient has agreed.
[2019-12-14] MEDS: NYSTATIN 100,000 UNIT/GM TOPICAL CREAM 15 GM TUBE TP SCH ×2 (14:27→22:03)
[2019-12-14] MEDS: COLLAGENASE CLOSTRIDIUM HIST. 30 GRAMS TUBE TP SCH (14:27)
--- NOTE | 2019-12-14 15:32 | PN ---
Physical Exam: SUBJECTIVE: Patient seen and examined. in no acute distress. ambulating with physical therapy. OBJECTIVE: Patient is an 83 year old female with a significant past medical history of HTN , HLD, polycythemia vera, s/p left hip fracture repair in December 2018, compression fractures s/p kyphoplasties, and severe malnutrition. Recently hospitalized 10/31-11/05/19 for sepsis secondary to E.coli UTI. Patient was brought by her daughter to the ED for evaluation of profound weakness, lack of appetite, difficulty swallowing, persistent dry cough, diarrhea, incontinence of urine and stool, skin breakdown, hair loss, and depression. On admission she was found to have an acute pneumonia and found to be positive for c diff. patient had a recent echocardiogram 11/01/2019 which was normal. she is s/p thoracentesis on 12/11/2019 pending cytology. per hematology recommendations, patient will need a liver biopsy. Vital Signs Period Temp Pulse Resp BP Sys/Kiser Pulse Ox Last 24 Hr 97.4 F-97.9 F 85-101 18-20 129-147/60-71 GENERAL: The patient is awake, alert, and fully oriented, in no acute distress. severe malnutrition with prominent back, chest and pelvic bones. also appears clinically dry and weak. thin appearing, frail, cachectic/severe malnutrition, dry tongue, dry mucuous membranes, skin dry, chest and spine bones prominent, prominent pelvic bones. HEAD: Normal with no signs of trauma. EYES: PERRL, extraocular movements intact, sclera anicteric, conjunctiva clear. No ptosis. ENT: Ears normal, nares patent, oropharynx clear without exudates, dry mucous membranes. NECK: Trachea midline, full range of motion, supple. LUNGS: no wheezing,clear lungs upper lobes, diminished at the bases. HEART: Regular rate and rhythm, S1, S2 without murmur, rub or gallop. ABDOMEN: soft, non tender, non distended. EXTREMITIES: no edema. SKIN: stage II sacral pressure sore, treated with santyl. Laboratory Results - last 24 hr 12/14/19 12/14/19 07:45 07:45 WBC 11.7 H RBC 3.92 Hgb 11.5 Hct 35.1 MCV 89.3 MCH 29.4 MCHC 32.9 RDW 16.7 H Plt Count 431 MPV 8.5 Absolute Neuts (auto) 10.6 H Neutrophils % 90.7 H Lymphocytes % 4.3 L Monocytes % 3.3 L Eosinophils % 1.0 Basophils % 0.7 Nucleated RBC % 0 Sodium 140 Potassium 3.5 Chloride 108 H Carbon Dioxide 25 Anion Gap 7 L BUN 18.2 H Creatinine 0.3 L Est GFR (CKD-EPI)AfAm 121.00 Est GFR (CKD-EPI)NonAf 104.40 Random Glucose 98 Calcium 8.5 Magnesium 2.1 Total Bilirubin 0.5 AST 38 H ALT 40 Alkaline Phosphatase 244 H Total Protein 5.5 L Albumin 2.5 L Active Medications Generic Name Dose Route Start Last Admin Trade Name Freq PRN Reason Stop Dose Admin Albuterol/Ipratropium 1 amp 11/30/19 18:10 Duoneb - NEB Q6H PRN SHORTNESS OF BREATH Amino Acids 30 ml 11/29/19 08:00 12/14/19 09:58 Prosource No Carb Liquid Pkt PO 30 ml BID@0800,1730 KEHINDE Administration Amlodipine Besylate 5 mg 11/29/19 10:00 12/14/19 09:56 Norvasc - PO 5 mg DAILY KEHINDE Administration Atorvastatin Calcium 10 mg 11/29/19 22:00 12/13/19 22:15 Lipitor - PO 10 mg HS KEHINDE Administration Collagenase 1 applic 12/02/19 10:00 12/14/19 14:27 Santyl - TP 1 applic DAILY KEHINDE Administration Protocol Heparin Sodium (Porcine) 5,000 unit 11/28/19 22:00 12/14/19 09:57 Heparin - SQ 5,000 unit BID KEHINDE Administration Lactobacillus Acidophilus 1 tab 12/03/19 13:15 12/14/19 09:56 Bacid - PO 1 tab DAILY KEHINDE Administration Lisinopril 20 mg 11/29/19 10:00 12/14/19 09:56 Prinivil PO 20 mg DAILY KEHINDE Administration Megestrol Acetate 40 mg 12/10/19 10:00 12/14/19 09:55 Megace - PO 40 mg DAILY KEHINDE Administration Metoprolol Succinate 25 mg 11/29/19 10:00 12/14/19 09:57 Toprol Xl - PO 25 mg DAILY KEHINDE Administration Multivitamins/Minerals/Vitamin C 1 tab 12/03/19 13:15 12/14/19 09:57 Tab-A-Vit - PO 1 tab DAILY KEHINDE Administration Nystatin 1 applic 12/08/19 22:00 12/14/19 14:27 Mycostatin Cream - TP 1 applic BID KEHINDE Administration Nystatin 1 applic 12/08/19 22:00 12/14/19 14:27 Nystop Powder - TP 1 applic TID KEHINDE Administration Potassium Chloride 20 meq 12/01/19 22:00 12/14/19 09:57 K-Dur - PO 20 meq BID KEHINDE Administration Vancomycin HCl 250 mg 12/09/19 09:45 12/14/19 13:00 Vancomycin Oral Solution PO 250 mg Q6HPO KEHINDE Administration ASSESSMENT/PLAN: Problem List - Problems (1) Hydroureter, left Assessment/Plan: ct scan shows moderate left sided hydronephrosis and proximal hydroureter. urology consulted and notes reviewed and appreciated. Code(s): N13.4 - HYDROURETER (2) Pericardial effusion Assessment/Plan: as seen on ct scan. echo 11/01/19 negative for pericardial effusion. echo 2019 shows moderate pleural effusion. will need repeat echo in 3 months per cardiology. Code(s): I31.3 - PERICARDIAL EFFUSION (NONINFLAMMATORY) (3) Severe malnutrition Assessment/Plan: per dietary, recommended to continue with pureed diet with nectar thick liquids -Continue magic cup and ensure pudding -Add Two sun HN daily -Pt with poor po intake per calorie count -Suggest alternate nutrition support depending on pt/family wishes (ngt vs peg) -If tube feeding considered, suggest Jevity goal rate 50ml/hr x 24 hours with 25ml water flush each hour of feeding and Prosource no carb 30ml daily to provide 1860kcal, 91gm pro, 1512ml free water from feeding and flushes will continue to monitor intake Code(s): E43 - UNSPECIFIED SEVERE PROTEIN-CALORIE MALNUTRITION (4) Clostridium difficile colitis Assessment/Plan: + for c diff isolation precautions gi consulted and following Code(s): A04.72 - ENTEROCOLITIS D/T CLOSTRIDIUM DIFFICILE, NOT SPCF RECUR (5) Pseudomonas urinary tract infection Assessment/Plan: Code(s): N39.0 - URINARY TRACT INFECTION, SITE NOT SPECIFIED; B96.5 - PSEUDOMONAS (MALLEI) CAUSING DISEASES CLASSD ELSWHR (6) Failure to thrive Assessment/Plan: patient reports poor oral intake and frequent diarrhea at home Code(s): UHP8977 - (7) Pneumonia Assessment/Plan: completed cefepime Code(s): J18.9 - PNEUMONIA, UNSPECIFIED ORGANISM (8) Stage II pressure ulcer Assessment/Plan: turn and position and increase oral intake. on pro source. on santyl daily Code(s): L89.92 - PRESSURE ULCER OF UNSPECIFIED SITE, STAGE 2 (9) Polycythemia Assessment/Plan: patient follows with a elementary instructional coach (Erna) and will need continued outpatient follow up. Code(s): D75.1 - SECONDARY POLYCYTHEMIA (10) Hyponatremia Assessment/Plan: resolved Code(s): E87.1 - HYPO-OSMOLALITY AND HYPONATREMIA (11) Weakness Assessment/Plan: for PT Code(s): R53.1 - WEAKNESS (12) Voice hoarseness Assessment/Plan: has been ongoing for apx 3 weeks. ENT evaluated Code(s): R49.0 - DYSPHONIA (13) Liver lesion Assessment/Plan: workup per GI/heme/oncology. 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 Assessment/Plan: MRI/CT shows multiple liver lesions, pancreatic edema, narrowed CBD/cystic duct , b/l effusions, pericardial effusion ( smll-mod.), left hydronephrosis Mild AST/ALKP elevation Nl CA19.9/AFP 3.7 Code(s): D37.6 - NEOPLASM OF UNCERTAIN BEHAVIOR OF LIVER, GB & BILE DUCT (15) Pleural effusion Assessment/Plan: s/p thoracentesis on 12/11/2019 Code(s): J90 - PLEURAL EFFUSION, NOT ELSEWHERE CLASSIFIED (16) DVT prophylaxis Assessment/Plan: on heparin bid Code(s): Z29.9 - ENCOUNTER FOR PROPHYLACTIC MEASURES, UNSPECIFIED (17) Prophylactic measure Assessment/Plan: fen f: tolerating po e: monitor electrolytes daily and supplement n: low fiber/thin liq. physical therapy heparin protonix Code(s): Z29.9 - ENCOUNTER FOR PROPHYLACTIC MEASURES, UNSPECIFIED Visit type - Emergency Visit Emergency Visit: Yes ED Registration Date: 11/28/19 Care time: The patient presented to the Emergency Department on the above date and was hospitalized for further evaluation of their emergent condition. - New Patient This patient is new to me today: No - Critical Care Critical Care patient: No - Discharge Referral Referred to [facility] Med [facility] No
[2019-12-14] MEDS: ATORVASTATIN CA 10 MG TABLET (FP) PO SCH (22:00)
[2019-12-15] MEDS: VANCOMYCIN 250 MG/5 ML ORAL SOLUTION PO SCH ×2 (01:25→05:47)
--- NOTE | 2019-12-15 04:39 | PN ---
Progress Note, Physician Chief Complaint: Pt feels weak; no chest pain or dyspnea. History of Present Illness: Patient is an 84 yr old white woman brought in by her daughter. She had recent kyphoplasty, lumbosacral spine, and has intractable pain, unable even to move from side to side, decreased appetite, and several watery stools each day. Saw primary physician, Dr. Cavazos, today. Referred to the ER for further evaluation. In addition to multiple vertebral fractures due to osteoporosis, the patient has high blood pressure, elevated cholesterol, is eating and drinking almost nothing, and has developed increased confusion. The family is unable to move her at home, make her comfortable, or feed her adequately. - Current Medication List Current Medications: Active Medications Albuterol/Ipratropium (Duoneb -) 1 amp NEB Q6H PRN PRN Reason: SHORTNESS OF BREATH Amino Acids (Prosource No Carb Liquid Pkt) 30 ml PO BID@0800,1730 [facility] Last Admin: 12/14/19 18:07 Dose: 30 ml Amlodipine Besylate (Norvasc -) 5 mg PO DAILY KEHINDE Last Admin: 12/14/19 09:56 Dose: 5 mg Atorvastatin Calcium (Lipitor -) 10 mg PO HS KEHINDE Last Admin: 12/14/19 22:00 Dose: 10 mg Collagenase (Santyl -) 1 applic TP DAILY [facility]; Protocol Last Admin: 12/14/19 14:27 Dose: 1 applic Heparin Sodium (Porcine) (Heparin -) 5,000 unit SQ BID KEHINDE Last Admin: 12/14/19 22:00 Dose: 5,000 unit Lactobacillus Acidophilus (Bacid -) 1 tab PO DAILY KEHINDE Last Admin: 12/14/19 09:56 Dose: 1 tab Lisinopril (Prinivil) 20 mg PO DAILY KEHINDE Last Admin: 12/14/19 09:56 Dose: 20 mg Megestrol Acetate (Megace -) 40 mg PO DAILY KEHINDE Last Admin: 12/14/19 09:55 Dose: 40 mg Metoprolol Succinate (Toprol Xl -) 25 mg PO DAILY [facility] Last Admin: 12/14/19 09:57 Dose: 25 mg Multivitamins/Minerals/Vitamin C (Tab-A-Vit -) 1 tab PO DAILY KEHINDE Last Admin: 12/14/19 09:57 Dose: 1 tab Nystatin (Mycostatin Cream -) 1 applic TP BID [facility] Last Admin: 12/14/19 22:03 Dose: 1 applic Nystatin (Nystop Powder -) 1 applic TP TID [facility] Last Admin: 12/14/19 22:02 Dose: 1 applic Potassium Chloride (K-Dur -) 20 meq PO BID [facility] Last Admin: 12/14/19 22:00 Dose: 20 meq Vancomycin HCl (Vancomycin Oral Solution) 250 mg PO Q6HPO [facility] Last Admin: 12/15/19 01:25 Dose: 250 mg - Objective Vital Signs: Vital Signs Temperature 98.2 F 12/14/19 22:00 Pulse Rate 86 12/14/19 22:00 Respiratory Rate 18 12/14/19 22:00 Blood Pressure 150/68 12/14/19 22:00 O2 Sat by Pulse Oximetry (%) 98 12/14/19 21:00 Constitutional: Yes: Anxious, Cachectic Eyes: Yes: WNL HENT: Yes: WNL Neck: Yes: WNL Cardiovascular: Yes: S1, S2 Respiratory: Yes: Diminished (right base) Labs: CBC, BMP 12/14/19 07:45 12/14/19 07:45 INR, PTT INR 1.27 (0.82-1.09) H 11/28/19 17:25 Problem List - Problems (1) Pericardial effusion Assessment/Plan: "No pericardial effusion" per ECHO report 10/2019. Mild-moderate size pericardial effusion on both MRI and CT this admission. Mildly anxious and dyspneic on exertion. BP mildly elevated; HR 96 bpm; RR 16 bpm; afebrile. ECHO 12/12/19: normal LVEF; moderate pericardial effusion without hemodynamic compromise. Code(s): I31.3 - PERICARDIAL EFFUSION (NONINFLAMMATORY) (2) Pleural effusion Assessment/Plan: s/p thoracentesis. Code(s): J90 - PLEURAL EFFUSION, NOT ELSEWHERE CLASSIFIED (3) Severe malnutrition Assessment/Plan: likely due to undelying CA Code(s): E43 - UNSPECIFIED SEVERE PROTEIN-CALORIE MALNUTRITION (4) Weakness Code(s): R53.1 - WEAKNESS (5) Hypokalemia Assessment/Plan: Repeat K; deep 4.0-4.5. Code(s): E87.6 - HYPOKALEMIA (6) Lung cancer Assessment/Plan: likely source, with hepatic and bone metastases Code(s): C34.90 - MALIGNANT NEOPLASM OF UNSP PART OF UNSP BRONCHUS OR LUNG
--- NOTE | 2019-12-15 04:48 | PN ---
Progress Note, Physician Chief Complaint: Pt feels weak; SOB on mild exertion History of Present Illness: Patient is an 84 yr old white woman brought in by her daughter. She had recent kyphoplasty, lumbosacral spine, and has intractable pain, unable even to move from side to side, decreased appetite, and several watery stools each day. Saw primary physician, Dr. Cavazos, today. Referred to the ER for further evaluation. In addition to multiple vertebral fractures due to osteoporosis, the patient has high blood pressure, elevated cholesterol, is eating and drinking almost nothing, and has developed increased confusion. The family is unable to move her at home, make her comfortable, or feed her adequately. - Current Medication List Current Medications: Active Medications Albuterol/Ipratropium (Duoneb -) 1 amp NEB Q6H PRN PRN Reason: SHORTNESS OF BREATH Amino Acids (Prosource No Carb Liquid Pkt) 30 ml PO BID@0800,1730 [facility] Last Admin: 12/14/19 18:07 Dose: 30 ml Amlodipine Besylate (Norvasc -) 5 mg PO DAILY KEHINDE Last Admin: 12/14/19 09:56 Dose: 5 mg Atorvastatin Calcium (Lipitor -) 10 mg PO HS KEHINDE Last Admin: 12/14/19 22:00 Dose: 10 mg Collagenase (Santyl -) 1 applic TP DAILY [facility]; Protocol Last Admin: 12/14/19 14:27 Dose: 1 applic Heparin Sodium (Porcine) (Heparin -) 5,000 unit SQ BID KEHINDE Last Admin: 12/14/19 22:00 Dose: 5,000 unit Lactobacillus Acidophilus (Bacid -) 1 tab PO DAILY KEHINDE Last Admin: 12/14/19 09:56 Dose: 1 tab Lisinopril (Prinivil) 20 mg PO DAILY KEHINDE Last Admin: 12/14/19 09:56 Dose: 20 mg Megestrol Acetate (Megace -) 40 mg PO DAILY KEHINDE Last Admin: 12/14/19 09:55 Dose: 40 mg Metoprolol Succinate (Toprol Xl -) 25 mg PO DAILY [facility] Last Admin: 12/14/19 09:57 Dose: 25 mg Multivitamins/Minerals/Vitamin C (Tab-A-Vit -) 1 tab PO DAILY KEHINDE Last Admin: 12/14/19 09:57 Dose: 1 tab Nystatin (Mycostatin Cream -) 1 applic TP BID [facility] Last Admin: 12/14/19 22:03 Dose: 1 applic Nystatin (Nystop Powder -) 1 applic TP TID [facility] Last Admin: 12/14/19 22:02 Dose: 1 applic Potassium Chloride (K-Dur -) 20 meq PO BID [facility] Last Admin: 12/14/19 22:00 Dose: 20 meq Vancomycin HCl (Vancomycin Oral Solution) 250 mg PO Q6HPO [facility] Last Admin: 12/15/19 01:25 Dose: 250 mg - Objective Vital Signs: Vital Signs Temperature 98.2 F 12/14/19 22:00 Pulse Rate 86 12/14/19 22:00 Respiratory Rate 18 12/14/19 22:00 Blood Pressure 150/68 12/14/19 22:00 O2 Sat by Pulse Oximetry (%) 98 12/14/19 21:00 Constitutional: Yes: Cachectic Eyes: Yes: WNL HENT: Yes: WNL Neck: Yes: WNL Cardiovascular: Yes: S1, S2, S4 Respiratory: Yes: Tachypnea Gastrointestinal: Yes: Soft ...Rectal Exam: Yes: Deferred Genitourinary: No: Anuria Breast(s): Yes: WNL Musculoskeletal: Yes: Muscle Weakness Extremities: Yes: Cool Edema: No Peripheral Pulses WNL: Yes Integumentary: Yes: WNL Neurological: Yes: Alert, Weakness Psychiatric: Yes: Alert Labs: CBC, BMP 12/14/19 07:45 12/14/19 07:45 INR, PTT INR 1.27 (0.82-1.09) H 11/28/19 17:25 Abnormal Lab Results 12/14/19 12/14/19 07:45 07:45 WBC 11.7 H RDW 16.7 H Absolute Neuts (auto) 10.6 H Neutrophils % 90.7 H Lymphocytes % 4.3 L Monocytes % 3.3 L Chloride 108 H Anion Gap 7 L BUN 18.2 H Creatinine 0.3 L AST 38 H Alkaline Phosphatase 244 H Total Protein 5.5 L Albumin 2.5 L Problem List - Problems (1) Pericardial effusion Assessment/Plan: "No pericardial effusion" per ECHO report 10/2019. Mild-moderate size pericardial effusion on both MRI and CT this admission. ECHO 12/12/19: normal LVEF; moderate pericardial effusion without hemodynamic compromise. Code(s): I31.3 - PERICARDIAL EFFUSION (NONINFLAMMATORY) (2) Pleural effusion Assessment/Plan: s/p thoracentesis; unremarkable findings Code(s): J90 - PLEURAL EFFUSION, NOT ELSEWHERE CLASSIFIED (3) Severe malnutrition Assessment/Plan: likely due to undelying CA Code(s): E43 - UNSPECIFIED SEVERE PROTEIN-CALORIE MALNUTRITION (4) Weakness Code(s): R53.1 - WEAKNESS (5) Hypokalemia Assessment/Plan: Repeat K; deep 4.0-4.5. Code(s): E87.6 - HYPOKALEMIA (6) Lung cancer Assessment/Plan: likely source, with hepatic and bone metastases Code(s): C34.90 - MALIGNANT NEOPLASM OF UNSP PART OF UNSP BRONCHUS OR LUNG
[2019-12-15] MEDS: NYSTATIN POWDER 100,000 UNITS/GM - 15 GM TOPICAL POWDER TP SCH ×3 (05:48→21:49)
[2019-12-15 07:27] LABS: BASO % 0.8 % (0-2.0); EOS % 0.5 % (0-4.5); HEMATOCRIT 34.9 % (32.4-45.2); HEMOGLOBIN 11.6 GM/dL (10.7-15.3); LYMPH % 4.2 % (8-40); MCH 29.7 pg (25.7-33.7); MCHC 33.3 g/dl (32.0-36.0); MEAN CELL VOLUME 89.1 fl (80-96); MEAN PLT VOLUME 8.5 fl (7.5-11.1); MONO % 3.3 % (3.8-10.2); NEUT % 91.2 % (42.8-82.8); PLATELET COUNT 425 K/MM3 (134-434); RBC 3.91 M/mm3 (3.60-5.2); RDW 16.6 % (11.6-15.6); WHITE BLOOD COUNT 11.7 K/mm3 (4.0-10.0)
[2019-12-15 07:48] LABS: INR 1.13 (0.83-1.09); PROTHROMBIN TIME (PATIENT) 13.4 SEC (9.7-13.0)
[2019-12-15 08:14] LABS: ALBUMIN 2.5 g/dl (3.4-5.0); BILIRUBIN,TOTAL 0.5 mg/dL (0.2-1); BLOOD UREA NITROGEN 16.7 mg/dL (7-18); CALCIUM 8.3 mg/dL (8.5-10.1); CREATININE 0.3 mg/dL (0.55-1.3); POTASSIUM 3.6 mmol/L (3.5-5.1); TOT PROT 5.5 g/dl (6.4-8.2)
--- NOTE | 2019-12-15 09:27 | PN ---
Physical Exam: SUBJECTIVE: Patient seen and examined, awake, alert. tells me she feels well and denies any shortness of breath. OBJECTIVE: Patient is an 83 year old female with a significant past medical history of HTN , HLD, polycythemia vera, s/p left hip fracture repair in December 2018, compression fractures s/p kyphoplasties, and severe malnutrition. Recently hospitalized 10/31-11/05/19 for sepsis secondary to E.coli UTI. Patient was brought by her daughter to the ED for evaluation of profound weakness, lack of appetite, difficulty swallowing, persistent dry cough, diarrhea, incontinence of urine and stool, skin breakdown, hair loss, and depression. On admission she was found to have an acute pneumonia and found to be positive for c diff. patient had a recent echocardiogram 11/01/2019 which was normal. she is s/p thoracentesis on 12/11/2019 with pleural fluid and cytology negative. per hematology recommendations, patient will need a liver biopsy. Vital Signs Period Temp Pulse Resp BP Sys/Kiser Pulse Ox Last 24 Hr 97.4 F-98.3 F 86-101 18-20 130-150/60-71 98 GENERAL: The patient is awake, alert, and fully oriented, in no acute distress. severe malnutrition with prominent back, chest and pelvic bones. also appears clinically dry and weak. thin appearing, frail, cachectic/severe malnutrition, dry tongue, dry mucuous membranes, skin dry, chest and spine bones prominent, prominent pelvic bones. HEAD: Normal with no signs of trauma. EYES: PERRL, extraocular movements intact, sclera anicteric, conjunctiva clear. No ptosis. ENT: Ears normal, nares patent, oropharynx clear without exudates, dry mucous membranes. NECK: Trachea midline, full range of motion, supple. LUNGS: no wheezing,clear lungs upper lobes, diminished at the bases. HEART: Regular rate and rhythm, S1, S2 without murmur, rub or gallop. ABDOMEN: soft, non tender, non distended. EXTREMITIES: no edema. SKIN: stage II sacral pressure sore, treated with santyl. Laboratory Results - last 24 hr 12/15/19 12/15/19 12/15/19 06:50 06:50 06:50 WBC 11.7 H RBC 3.91 Hgb 11.6 Hct 34.9 MCV 89.1 MCH 29.7 MCHC 33.3 RDW 16.6 H Plt Count 425 MPV 8.5 Absolute Neuts (auto) 10.6 H Neutrophils % 91.2 H Lymphocytes % 4.2 L Monocytes % 3.3 L Eosinophils % 0.5 Basophils % 0.8 Nucleated RBC % 0 PT with INR 13.40 H INR 1.13 H PTT (Actin FS) 39.0 H Sodium 140 Potassium 3.6 Chloride 109 H Carbon Dioxide 25 Anion Gap 7 L BUN 16.7 Creatinine 0.3 L Est GFR (CKD-EPI)AfAm 121.00 Est GFR (CKD-EPI)NonAf 104.40 Random Glucose 100 Calcium 8.3 L Magnesium 2.0 Total Bilirubin 0.5 AST 40 H ALT 43 Alkaline Phosphatase 240 H Total Protein 5.5 L Albumin 2.5 L Active Medications Generic Name Dose Route Start Last Admin Trade Name Freq PRN Reason Stop Dose Admin Albuterol/Ipratropium 1 amp 11/30/19 18:10 Duoneb - NEB Q6H PRN SHORTNESS OF BREATH Amino Acids 30 ml 11/29/19 08:00 12/14/19 18:07 Prosource No Carb Liquid Pkt PO 30 ml BID@0800,1730 KEHINDE Administration Amlodipine Besylate 5 mg 11/29/19 10:00 12/14/19 09:56 Norvasc - PO 5 mg DAILY KEHINDE Administration Atorvastatin Calcium 10 mg 11/29/19 22:00 12/14/19 22:00 Lipitor - PO 10 mg HS KEHINDE Administration Collagenase 1 applic 12/02/19 10:00 12/14/19 14:27 Santyl - TP 1 applic DAILY KEHINDE Administration Protocol Heparin Sodium (Porcine) 5,000 unit 11/28/19 22:00 12/14/19 22:00 Heparin - SQ 5,000 unit BID KEHINDE Administration Lactobacillus Acidophilus 1 tab 12/03/19 13:15 12/14/19 09:56 Bacid - PO 1 tab DAILY KEHINDE Administration Lisinopril 20 mg 11/29/19 10:00 12/14/19 09:56 Prinivil PO 20 mg DAILY KEHINDE Administration Megestrol Acetate 40 mg 12/10/19 10:00 12/14/19 09:55 Megace - PO 40 mg DAILY KEHINDE Administration Metoprolol Succinate 25 mg 11/29/19 10:00 12/14/19 09:57 Toprol Xl - PO 25 mg DAILY KEHINDE Administration Multivitamins/Minerals/Vitamin C 1 tab 12/03/19 13:15 12/14/19 09:57 Tab-A-Vit - PO 1 tab DAILY KEHINDE Administration Nystatin 1 applic 12/08/19 22:00 12/14/19 22:03 Mycostatin Cream - TP 1 applic BID KEHINDE Administration Nystatin 1 applic 12/08/19 22:00 12/15/19 05:48 Nystop Powder - TP 1 applic TID KEHINDE Administration Potassium Chloride 20 meq 12/01/19 22:00 12/14/19 22:00 K-Dur - PO 20 meq BID KEHINDE Administration Vancomycin HCl 250 mg 12/09/19 09:45 12/15/19 05:47 Vancomycin Oral Solution PO 250 mg Q6HPO KEHINDE Administration ASSESSMENT/PLAN: Problem List - Problems (1) Hydroureter, left Assessment/Plan: ct scan shows moderate left sided hydronephrosis and proximal hydroureter. urology consulted and notes reviewed and appreciated. Code(s): N13.4 - HYDROURETER (2) Pericardial effusion Assessment/Plan: as seen on ct scan. echo 11/01/19 negative for pericardial effusion. echo 2019 shows moderate pleural effusion. will need repeat echo in 3 months per cardiology. Code(s): I31.3 - PERICARDIAL EFFUSION (NONINFLAMMATORY) (3) Severe malnutrition Assessment/Plan: per dietary, recommended to continue with pureed diet with nectar thick liquids -Continue magic cup and ensure pudding -Add Two sun HN daily -Pt with poor po intake per calorie count -Suggest alternate nutrition support depending on pt/family wishes (ngt vs peg) -If tube feeding considered, suggest Jevity goal rate 50ml/hr x 24 hours with 25ml water flush each hour of feeding and Prosource no carb 30ml daily to provide 1860kcal, 91gm pro, 1512ml free water from feeding and flushes will continue to monitor intake Code(s): E43 - UNSPECIFIED SEVERE PROTEIN-CALORIE MALNUTRITION (4) Clostridium difficile colitis Assessment/Plan: + for c diff isolation precautions gi consulted and following Code(s): A04.72 - ENTEROCOLITIS D/T CLOSTRIDIUM DIFFICILE, NOT SPCF RECUR (5) Pseudomonas urinary tract infection Assessment/Plan: Code(s): N39.0 - URINARY TRACT INFECTION, SITE NOT SPECIFIED; B96.5 - PSEUDOMONAS (MALLEI) CAUSING DISEASES CLASSD ELSWHR (6) Failure to thrive Assessment/Plan: patient reports poor oral intake and frequent diarrhea at home Code(s): VHE2645 - (7) Pneumonia Assessment/Plan: completed cefepime Code(s): J18.9 - PNEUMONIA, UNSPECIFIED ORGANISM (8) Stage II pressure ulcer Assessment/Plan: turn and position and increase oral intake. on pro source. on santyl daily Code(s): L89.92 - PRESSURE ULCER OF UNSPECIFIED SITE, STAGE 2 (9) Polycythemia Assessment/Plan: patient follows with a net maker (Erna) and will need continued outpatient follow up. Code(s): D75.1 - SECONDARY POLYCYTHEMIA (10) Hyponatremia Assessment/Plan: resolved Code(s): E87.1 - HYPO-OSMOLALITY AND HYPONATREMIA (11) Weakness Assessment/Plan: for PT Code(s): R53.1 - WEAKNESS (12) Voice hoarseness Assessment/Plan: has been ongoing for apx 3 weeks. ENT evaluated Code(s): R49.0 - DYSPHONIA (13) Liver lesion Assessment/Plan: workup per GI/heme/oncology. 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 Assessment/Plan: MRI/CT shows multiple liver lesions, pancreatic edema, narrowed CBD/cystic duct , b/l effusions, pericardial effusion ( smll-mod.), left hydronephrosis Mild AST/ALKP elevation Nl CA19.9/AFP 3.7 Code(s): D37.6 - NEOPLASM OF UNCERTAIN BEHAVIOR OF LIVER, GB & BILE DUCT (15) Pleural effusion Assessment/Plan: s/p thoracentesis on 12/11/2019 Code(s): J90 - PLEURAL EFFUSION, NOT ELSEWHERE CLASSIFIED (16) DVT prophylaxis Assessment/Plan: on heparin bid Code(s): Z29.9 - ENCOUNTER FOR PROPHYLACTIC MEASURES, UNSPECIFIED (17) Prophylactic measure Assessment/Plan: fen f: tolerating po e: monitor electrolytes daily and supplement n: low fiber/thin liq. physical therapy heparin protonix Code(s): Z29.9 - ENCOUNTER FOR PROPHYLACTIC MEASURES, UNSPECIFIED Visit type - Emergency Visit Emergency Visit: Yes ED Registration Date: 11/28/19 Care time: The patient presented to the Emergency Department on the above date and was hospitalized for further evaluation of their emergent condition. - New Patient This patient is new to me today: No - Critical Care Critical Care patient: No - Discharge Referral Referred to [facility] No
--- NOTE | 2019-12-15 10:02 | PN ---
Progress Note, Physician History of Present Illness: stable no new issues - Current Medication List Current Medications: Active Medications Albuterol/Ipratropium (Duoneb -) 1 amp NEB Q6H PRN PRN Reason: SHORTNESS OF BREATH Amino Acids (Prosource No Carb Liquid Pkt) 30 ml PO BID@0800,1730 [facility] Last Admin: 12/14/19 18:07 Dose: 30 ml Amlodipine Besylate (Norvasc -) 5 mg PO DAILY [facility] Last Admin: 12/14/19 09:56 Dose: 5 mg Atorvastatin Calcium (Lipitor -) 10 mg PO HS [facility] Last Admin: 12/14/19 22:00 Dose: 10 mg Collagenase (Santyl -) 1 applic TP DAILY [facility]; Protocol Last Admin: 12/14/19 14:27 Dose: 1 applic Heparin Sodium (Porcine) (Heparin -) 5,000 unit SQ BID [facility] Last Admin: 12/14/19 22:00 Dose: 5,000 unit Lactobacillus Acidophilus (Bacid -) 1 tab PO DAILY [facility] Last Admin: 12/14/19 09:56 Dose: 1 tab Lisinopril (Prinivil) 20 mg PO DAILY [facility] Last Admin: 12/14/19 09:56 Dose: 20 mg Megestrol Acetate (Megace -) 40 mg PO DAILY [facility] Last Admin: 12/14/19 09:55 Dose: 40 mg Metoprolol Succinate (Toprol Xl -) 25 mg PO DAILY [facility] Last Admin: 12/14/19 09:57 Dose: 25 mg Multivitamins/Minerals/Vitamin C (Tab-A-Vit -) 1 tab PO DAILY [facility] Last Admin: 12/14/19 09:57 Dose: 1 tab Nystatin (Mycostatin Cream -) 1 applic TP BID [facility] Last Admin: 12/14/19 22:03 Dose: 1 applic Nystatin (Nystop Powder -) 1 applic TP TID [facility] Last Admin: 12/15/19 05:48 Dose: 1 applic Potassium Chloride (K-Dur -) 20 meq PO BID [facility] Last Admin: 12/14/19 22:00 Dose: 20 meq Vancomycin HCl (Vancomycin Oral Solution) 250 mg PO Q6HPO [facility] Last Admin: 12/15/19 05:47 Dose: 250 mg - Objective Vital Signs: Vital Signs Temperature 98.2 F 12/14/19 22:00 Pulse Rate 86 12/14/19 22:00 Respiratory Rate 18 01/24/20 22:00 Blood Pressure 150/68 12/14/19 22:00 O2 Sat by Pulse Oximetry (%) 98 12/14/19 21:00 Constitutional: Yes: No Distress, Calm Cardiovascular: Yes: S1, S2 Respiratory: Yes: Regular, Poor Air Entry (bases) Gastrointestinal: Yes: Normal Bowel Sounds, Soft Musculoskeletal: Yes: WNL Extremities: Yes: WNL Neurological: Yes: Alert, Oriented Psychiatric: Yes: Alert, Oriented Labs: CBC, BMP 12/15/19 06:50 12/15/19 06:50 INR, PTT INR 1.13 (0.83-1.09) H 12/15/19 06:50 Assessment/Plan Problem List - Problems (1) Atelectasis Code(s): J98.11 - ATELECTASIS (2) Pleural effusion Code(s): J90 - PLEURAL EFFUSION, NOT ELSEWHERE CLASSIFIED (3) Failure to thrive Code(s): [id number] - (4) Pneumonia Code(s): J18.9 - PNEUMONIA, UNSPECIFIED ORGANISM (5) Severe malnutrition Code(s): E43 - UNSPECIFIED SEVERE PROTEIN-CALORIE MALNUTRITION (6) Hip fracture Code(s): S72.009A - FRACTURE OF UNSP PART OF NECK OF UNSP FEMUR, INIT Qualifiers: Encounter type: initial encounter Fracture type: closed Laterality: left Qualified Code(s): S72.002A - Fracture of unspecified part of neck of left femur, initial encounter for closed fracture (7) Polycythemia Code(s): D75.1 - SECONDARY POLYCYTHEMIA 8 uti 9 cdiff r/o malignancy pleural effusion Assessment/Plan will stop vanco rest as per the team
[2019-12-15] MEDS: HEPARIN NA (PORCINE) 5,000 UNITS/ML 1ML VIAL SQ SCH ×2 (10:42→21:31)
[2019-12-15] MEDS: POTASSIUM CHLORIDE TABS 20 MEQ TABLET.ER (FP) PO SCH ×2 (10:42→21:31)
[2019-12-15] MEDS: AMINO ACIDS/PROTEIN HYDROLYS 30 ML LIQUID.PKT PO SCH ×2 (10:42→19:03)
[2019-12-15] MEDS: LACTOBACILLUS ACIDOPHILUS 1 TABLET PO SCH (10:42)
[2019-12-15] MEDS: LISINOPRIL 20 MG TABLET (FP) PO SCH (10:43)
[2019-12-15] MEDS: amLODIPine BESYLATE 5 MG TABLET (FP) PO SCH (10:43)
[2019-12-15] MEDS: metoPROLOL SUCCINATE 25 MG TAB.SR.24H (FP) PO SCH (10:43)
[2019-12-15] MEDS: MULTIVITAMINS (DAILY MVI) TABLET (FP) PO SCH (10:43)
[2019-12-15] MEDS: COLLAGENASE CLOSTRIDIUM HIST. 30 GRAMS TUBE TP SCH (10:45)
[2019-12-15] MEDS: NYSTATIN 100,000 UNIT/GM TOPICAL CREAM 15 GM TUBE TP SCH ×2 (10:46→21:50)
[2019-12-15] MEDS: MEGESTROL ACETATE 40 MG TABLET PO SCH (10:48)
[2019-12-15] MEDS ORDERED: PT OWN MED DRAWER 7, Y5N ONE (10:48)
[2019-12-15 11:24] LABS: OVALOCYTE 1+
--- NOTE | 2019-12-15 13:34 | PN ---
Progress Note (short form) - Note Progress Note: PULMONARY FRAIL IMAGING STUDIES ARE POINTING TOWARD AN UNDERLYING NEOPLASM PLEURAL FLUID CYTOLOGY NEGATIVE VSS/AFEBRILE PALE/ANICTERIC DIMINISHED BREATH SOUNDS B/L BASES S1S2 BS+ NO EDEMA LABS/MEDS/NOTES/IMAGES REVIEWED Treatment for C. diff continues O2 as needed IVF VTE prophylaxis Swallow evaluation noted Aspiration precautions Liver bxto be scheduled Will follow Marii MARIE MD
[2019-12-15] MEDS: ATORVASTATIN CA 10 MG TABLET (FP) PO SCH (21:31)
[2019-12-16] MEDS: NYSTATIN POWDER 100,000 UNITS/GM - 15 GM TOPICAL POWDER TP SCH ×3 (05:27→21:13)
[2019-12-16 07:19] LABS: BASO % 0.9 % (0-2.0); EOS % 0.6 % (0-4.5); HEMATOCRIT 37.8 % (32.4-45.2); HEMOGLOBIN 12.3 GM/dL (10.7-15.3); LYMPH % 4.9 % (8-40); MCH 29.3 pg (25.7-33.7); MCHC 32.6 g/dl (32.0-36.0); MEAN CELL VOLUME 89.8 fl (80-96); MEAN PLT VOLUME 8.4 fl (7.5-11.1); MONO % 4.1 % (3.8-10.2); NEUT % 89.5 % (42.8-82.8); PLATELET COUNT 403 K/MM3 (134-434); RBC 4.22 M/mm3 (3.60-5.2); RDW 16.8 % (11.6-15.6); WHITE BLOOD COUNT 12.4 K/mm3 (4.0-10.0)
[2019-12-16 07:55] LABS: ALBUMIN 2.6 g/dl (3.4-5.0); BILIRUBIN,TOTAL 0.5 mg/dL (0.2-1); BLOOD UREA NITROGEN 16.1 mg/dL (7-18); CALCIUM 8.2 mg/dL (8.5-10.1); CREATININE 0.4 mg/dL (0.55-1.3); POTASSIUM 3.9 mmol/L (3.5-5.1); TOT PROT 5.5 g/dl (6.4-8.2)
[2019-12-16] MEDS: POTASSIUM CHLORIDE TABS 20 MEQ TABLET.ER (FP) PO SCH ×2 (10:05→21:10)
[2019-12-16] MEDS: LISINOPRIL 20 MG TABLET (FP) PO SCH (10:05)
[2019-12-16] MEDS: HEPARIN NA (PORCINE) 5,000 UNITS/ML 1ML VIAL SQ SCH (10:05)
[2019-12-16] MEDS: MULTIVITAMINS (DAILY MVI) TABLET (FP) PO SCH (10:05)
[2019-12-16] MEDS: LACTOBACILLUS ACIDOPHILUS 1 TABLET PO SCH (10:05)
[2019-12-16] MEDS: AMINO ACIDS/PROTEIN HYDROLYS 30 ML LIQUID.PKT PO SCH ×2 (10:05→17:42)
[2019-12-16] MEDS: metoPROLOL SUCCINATE 25 MG TAB.SR.24H (FP) PO SCH (10:05)
[2019-12-16] MEDS: amLODIPine BESYLATE 5 MG TABLET (FP) PO SCH (10:06)
[2019-12-16] MEDS: MEGESTROL ACETATE 40 MG TABLET PO SCH (10:11)
[2019-12-16] MEDS: COLLAGENASE CLOSTRIDIUM HIST. 30 GRAMS TUBE TP SCH (10:12)
--- NOTE | 2019-12-16 10:43 | PN ---
Progress Note, Physician History of Present Illness: stable no new issues - Current Medication List Current Medications: Active Medications Albuterol/Ipratropium (Duoneb -) 1 amp NEB Q6H PRN PRN Reason: SHORTNESS OF BREATH Amino Acids (Prosource No Carb Liquid Pkt) 30 ml PO BID@0800,1730 [facility] Last Admin: 12/16/19 10:05 Dose: 30 ml Amlodipine Besylate (Norvasc -) 5 mg PO DAILY [facility] Last Admin: 12/16/19 10:06 Dose: 5 mg Atorvastatin Calcium (Lipitor -) 10 mg PO HS [facility] Last Admin: 12/15/19 21:31 Dose: 10 mg Collagenase (Santyl -) 1 applic TP DAILY [facility]; Protocol Last Admin: 12/16/19 10:12 Dose: 1 applic Heparin Sodium (Porcine) (Heparin -) 5,000 unit SQ BID [facility] Last Admin: 12/16/19 10:05 Dose: 5,000 unit Lactobacillus Acidophilus (Bacid -) 1 tab PO DAILY [facility] Last Admin: 12/16/19 10:05 Dose: 1 tab Lisinopril (Prinivil) 20 mg PO DAILY [facility] Last Admin: 12/16/19 10:05 Dose: 20 mg Megestrol Acetate (Megace -) 40 mg PO DAILY [facility] Last Admin: 12/16/19 10:11 Dose: 40 mg Metoprolol Succinate (Toprol Xl -) 25 mg PO DAILY [facility] Last Admin: 12/16/19 10:05 Dose: 25 mg Multivitamins/Minerals/Vitamin C (Tab-A-Vit -) 1 tab PO DAILY [facility] Last Admin: 12/16/19 10:05 Dose: 1 tab Nystatin (Mycostatin Cream -) 1 applic TP BID [facility] Last Admin: 12/15/19 21:50 Dose: 1 applic Nystatin (Nystop Powder -) 1 applic TP TID [facility] Last Admin: 12/16/19 05:27 Dose: 1 applic Potassium Chloride (K-Dur -) 20 meq PO BID [facility] Last Admin: 12/16/19 10:05 Dose: 20 meq - Objective Vital Signs: Vital Signs Temperature 98.1 F 12/16/19 06:00 Pulse Rate 92 H 12/16/19 06:00 Respiratory Rate 18 12/16/19 06:00 Blood Pressure 150/71 12/16/19 06:00 O2 Sat by Pulse Oximetry (%) 97 12/15/19 21:00 Constitutional: Yes: No Distress, Calm Cardiovascular: Yes: S1, S2 Respiratory: Yes: Regular, CTA Bilaterally Gastrointestinal: Yes: Normal Bowel Sounds, Soft Musculoskeletal: Yes: WNL Extremities: Yes: Other Neurological: Yes: Alert, Oriented Psychiatric: Yes: Alert, Oriented Labs: CBC, BMP 12/16/19 06:45 12/16/19 06:45 INR, PTT INR 1.13 (0.83-1.09) H 12/15/19 06:50 Assessment/Plan Problem List - Problems (1) Atelectasis Code(s): J98.11 - ATELECTASIS (2) Pleural effusion Code(s): J90 - PLEURAL EFFUSION, NOT ELSEWHERE CLASSIFIED (3) Failure to thrive Code(s): [id number] - (4) Pneumonia Code(s): J18.9 - PNEUMONIA, UNSPECIFIED ORGANISM (5) Severe malnutrition Code(s): E43 - UNSPECIFIED SEVERE PROTEIN-CALORIE MALNUTRITION (6) Hip fracture Code(s): S72.009A - FRACTURE OF UNSP PART OF NECK OF UNSP FEMUR, INIT Qualifiers: Encounter type: initial encounter Fracture type: closed Laterality: left Qualified Code(s): S72.002A - Fracture of unspecified part of neck of left femur, initial encounter for closed fracture (7) Polycythemia Code(s): D75.1 - SECONDARY POLYCYTHEMIA 8 uti 9 cdiff r/o malignancy pleural effusion Assessment/Plan continue current mgmt biopsy planned
--- NOTE | 2019-12-16 10:51 | PN ---
Physical Exam: SUBJECTIVE: Patient seen and examined at the bedside. for a liver biopsy tomorrow. OBJECTIVE: Patient is an 83 year old female with a significant past medical history of HTN , HLD, polycythemia vera, s/p left hip fracture repair in December 2018, compression fractures s/p kyphoplasties, and severe malnutrition. Recently hospitalized 10/31-11/05/19 for sepsis secondary to E.coli UTI. Patient was brought by her daughter to the ED for evaluation of profound weakness, lack of appetite, difficulty swallowing, persistent dry cough, diarrhea, incontinence of urine and stool, skin breakdown, hair loss, and depression. On admission she was found to have an acute pneumonia and found to be positive for c diff. She has completed treatment for both pneumonia and cdiff. She is s/p thoracentesis on 12/11/2019 with pleural fluid and cytology negative. per hematology recommendations, patient will need a liver biopsy. NPO for liver biopsy. holding heparin today. Vital Signs Period Temp Pulse Resp BP Sys/Kiser Pulse Ox Last 24 Hr 97.7 F-98.7 F 87-92 18-20 146-150/67-71 97 GENERAL: The patient is awake, alert, and fully oriented, in no acute distress. severe malnutrition with prominent back, chest and pelvic bones. also appears clinically dry and weak. thin appearing, frail, cachectic/severe malnutrition, dry tongue, dry mucuous membranes, skin dry, chest and spine bones prominent, prominent pelvic bones. HEAD: Normal with no signs of trauma. EYES: PERRL, extraocular movements intact, sclera anicteric, conjunctiva clear. No ptosis. ENT: Ears normal, nares patent, oropharynx clear without exudates, dry mucous membranes. NECK: Trachea midline, full range of motion, supple. LUNGS: no wheezing,clear lungs upper lobes, diminished at the bases. HEART: Regular rate and rhythm, S1, S2 without murmur, rub or gallop. ABDOMEN: soft, non tender, non distended. EXTREMITIES: no edema. SKIN: stage II sacral pressure sore, treated with santyl. Laboratory Results - last 24 hr 12/11/19 12/15/19 12/16/19 14:17 06:50 06:45 WBC 12.4 H RBC 4.22 Hgb 12.3 Hct 37.8 MCV 89.8 MCH 29.3 MCHC 32.6 RDW 16.8 H Plt Count 403 MPV 8.4 Absolute Neuts (auto) 11.1 H Total Counted 100 Neutrophils % 89.5 H Neutrophils % (Manual) 86.0 H Band Neutrophils % 4.0 Lymphocytes % 4.9 L Lymphocytes % (Manual) 5.0 L D Monocytes % 4.1 Monocytes % (Manual) 2 L Eosinophils % 0.6 Basophils % 0.9 Basophils % (Manual) 2.0 Nucleated RBC % 0 Spherocytes 1+ Ovalocytes 1+ Sodium Potassium Chloride Carbon Dioxide Anion Gap BUN Creatinine Est GFR (CKD-EPI)AfAm Est GFR (CKD-EPI)NonAf Random Glucose Calcium Magnesium Total Bilirubin AST ALT Alkaline Phosphatase Total Protein Albumin Fluid Cholesterol 29 12/16/19 06:45 WBC RBC Hgb Hct MCV MCH MCHC RDW Plt Count MPV Absolute Neuts (auto) Total Counted Neutrophils % Neutrophils % (Manual) Band Neutrophils % Lymphocytes % Lymphocytes % (Manual) Monocytes % Monocytes % (Manual) Eosinophils % Basophils % Basophils % (Manual) Nucleated RBC % Spherocytes Ovalocytes Sodium 139 Potassium 3.9 Chloride 108 H Carbon Dioxide 24 Anion Gap 7 L BUN 16.1 Creatinine 0.4 L Est GFR (CKD-EPI)AfAm 110.08 Est GFR (CKD-EPI)NonAf 94.98 Random Glucose 88 Calcium 8.2 L Magnesium 2.0 Total Bilirubin 0.5 AST 40 H ALT 45 Alkaline Phosphatase 249 H Total Protein 5.5 L Albumin 2.6 L Fluid Cholesterol Active Medications Generic Name Dose Route Start Last Admin Trade Name Freq PRN Reason Stop Dose Admin Albuterol/Ipratropium 1 amp 11/30/19 18:10 Duoneb - NEB Q6H PRN SHORTNESS OF BREATH Amino Acids 30 ml 11/29/19 08:00 12/16/19 10:05 Prosource No Carb Liquid Pkt PO 30 ml BID@0800,1730 KEHINDE Administration Amlodipine Besylate 5 mg 11/29/19 10:00 12/16/19 10:06 Norvasc - PO 5 mg DAILY KEHINDE Administration Atorvastatin Calcium 10 mg 11/29/19 22:00 12/15/19 21:31 Lipitor - PO 10 mg HS KEHINDE Administration Collagenase 1 applic 12/02/19 10:00 12/16/19 10:12 Santyl - TP 1 applic DAILY KEHINDE Administration Protocol Heparin Sodium (Porcine) 5,000 unit 11/28/19 22:00 12/16/19 10:05 Heparin - SQ 5,000 unit BID KEHINDE Administration Lactobacillus Acidophilus 1 tab 12/03/19 13:15 12/16/19 10:05 Bacid - PO 1 tab DAILY KEHINDE Administration Lisinopril 20 mg 11/29/19 10:00 12/16/19 10:05 Prinivil PO 20 mg DAILY KEHINDE Administration Megestrol Acetate 40 mg 12/10/19 10:00 12/16/19 10:11 Megace - PO 40 mg DAILY KEHINDE Administration Metoprolol Succinate 25 mg 11/29/19 10:00 12/16/19 10:05 Toprol Xl - PO 25 mg DAILY KEHINDE Administration Multivitamins/Minerals/Vitamin C 1 tab 12/03/19 13:15 12/16/19 10:05 Tab-A-Vit - PO 1 tab DAILY KEHINDE Administration Nystatin 1 applic 12/08/19 22:00 12/15/19 21:50 Mycostatin Cream - TP 1 applic BID KEHINDE Administration Nystatin 1 applic 12/08/19 22:00 12/16/19 05:27 Nystop Powder - TP 1 applic TID KEHINDE Administration Potassium Chloride 20 meq 12/01/19 22:00 12/16/19 10:05 K-Dur - PO 20 meq BID KEHINDE Administration ASSESSMENT/PLAN: Problem List - Problems (1) Liver lesion Assessment/Plan: workup per GI/heme/oncology. for a liver biopsy in a.m. 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 urology consulted and notes reviewed and appreciated. Code(s): N13.4 - HYDROURETER (4) Pericardial effusion Assessment/Plan: as seen on ct scan. echo 11/01/19 negative for pericardial effusion. echo 2019 shows moderate pleural effusion. will need repeat echo in 3 months per cardiology. Code(s): I31.3 - PERICARDIAL EFFUSION (NONINFLAMMATORY) (5) Severe malnutrition Assessment/Plan: per dietary, recommended to continue with pureed diet with nectar thick liquids -Continue magic cup and ensure pudding -Add Two sun HN daily -Pt with poor po intake per calorie count -Suggest alternate nutrition support depending on pt/family wishes (ngt vs peg) -If tube feeding considered, suggest Jevity goal rate 50ml/hr x 24 hours with 25ml water flush each hour of feeding and Prosource no carb 30ml daily to provide 1860kcal, 91gm pro, 1512ml free water from feeding and flushes will continue to monitor intake Code(s): E43 - UNSPECIFIED SEVERE PROTEIN-CALORIE MALNUTRITION (6) Clostridium difficile colitis Assessment/Plan: + for c diff isolation precautions, completed therapy with oral vanco. Code(s): A04.72 - ENTEROCOLITIS D/T CLOSTRIDIUM DIFFICILE, NOT SPCF RECUR (7) Pseudomonas urinary tract infection Assessment/Plan: treated Code(s): N39.0 - URINARY TRACT INFECTION, SITE NOT SPECIFIED; B96.5 - PSEUDOMONAS (MALLEI) CAUSING DISEASES CLASSD ELSWHR (8) Failure to thrive Assessment/Plan: patient reports poor oral intake and frequent diarrhea at home Code(s): [id number] - (9) Pneumonia Assessment/Plan: completed cefepime Code(s): J18.9 - PNEUMONIA, UNSPECIFIED ORGANISM (10) Stage II pressure ulcer Assessment/Plan: turn and position and increase oral intake. on pro source. on santyl daily Code(s): L89.92 - PRESSURE ULCER OF UNSPECIFIED SITE, STAGE 2 (11) Polycythemia Assessment/Plan: patient follows with a lead material handler (Erna) and will need continued outpatient follow up. Code(s): D75.1 - SECONDARY POLYCYTHEMIA (12) Hyponatremia Assessment/Plan: resolved Code(s): E87.1 - HYPO-OSMOLALITY AND HYPONATREMIA (13) Weakness Assessment/Plan: for PT Code(s): R53.1 - WEAKNESS (14) Voice hoarseness Assessment/Plan: has been ongoing for apx 3 weeks. ENT evaluated Code(s): R49.0 - DYSPHONIA (15) Pleural effusion Assessment/Plan: s/p thoracentesis on 12/11/2019 Code(s): J90 - PLEURAL EFFUSION, NOT ELSEWHERE CLASSIFIED (16) DVT prophylaxis Assessment/Plan: on heparin bid Code(s): Z29.9 - ENCOUNTER FOR PROPHYLACTIC MEASURES, UNSPECIFIED (17) Prophylactic measure Assessment/Plan: fen f: tolerating po e: monitor electrolytes daily and supplement n: low fiber/thin liq. physical therapy heparin protonix Code(s): Z29.9 - ENCOUNTER FOR PROPHYLACTIC MEASURES, UNSPECIFIED Visit type - Emergency Visit Emergency Visit: Yes ED Registration Date: 11/28/19 Care time: The patient presented to the Emergency Department on the above date and was hospitalized for further evaluation of their emergent condition. - New Patient This patient is new to me today: No - Critical Care Critical Care patient: No - Discharge Referral Referred to [facility] No
[2019-12-16] MEDS: NYSTATIN 100,000 UNIT/GM TOPICAL CREAM 15 GM TUBE TP SCH ×2 (14:27→21:12)
[2019-12-16] MEDS ORDERED: PT OWN MED DRAWER 7, Y5N ONE (17:47)
[2019-12-16] MEDS: ATORVASTATIN CA 10 MG TABLET (FP) PO SCH (21:10)
[2019-12-17] MEDS: NYSTATIN POWDER 100,000 UNITS/GM - 15 GM TOPICAL POWDER TP SCH ×3 (05:34→22:00)
[2019-12-17 07:48] LABS: BASO % 0.8 % (0-2.0); EOS % 0.7 % (0-4.5); HEMATOCRIT 35.6 % (32.4-45.2); HEMOGLOBIN 11.6 GM/dL (10.7-15.3); LYMPH % 4.3 % (8-40); MCH 28.8 pg (25.7-33.7); MCHC 32.6 g/dl (32.0-36.0); MEAN CELL VOLUME 88.3 fl (80-96); MEAN PLT VOLUME 8.6 fl (7.5-11.1); MONO % 4.2 % (3.8-10.2); PLATELET COUNT 444 K/MM3 (134-434); RBC 4.03 M/mm3 (3.60-5.2); RDW 16.2 % (11.6-15.6); WHITE BLOOD COUNT 12.8 K/mm3 (4.0-10.0)
[2019-12-17 07:54] LABS: INR 1.18 (0.83-1.09); PROTHROMBIN TIME (PATIENT) 13.9 SEC (9.7-13.0)
--- NOTE | 2019-12-17 08:12 | PN ---
Progress Note, Physician Chief Complaint: NPO for liver biopsy. No complaints offered. Awaiting bed at [facility] History of Present Illness: Patient is an 83 year old female with a significant past medical history of HTN , HLD, polycythemia vera, s/p left hip fracture repair in December 2018, compression fractures s/p kyphoplasties, and severe malnutrition. Recently hospitalized 10/31-11/05/19 for sepsis secondary to E.coli UTI. Patient was brought by her daughter to the ED for evaluation of profound weakness, lack of appetite, difficulty swallowing, persistent dry cough, diarrhea, incontinence of urine and stool, skin breakdown, hair loss, and depression. On admission she was found to have an acute pneumonia and found to be positive for c diff. She has completed treatment for both pneumonia and cdiff. She is s/p thoracentesis on 12/11/2019 with pleural fluid and cytology negative. Pending liver bx and then trabsferd to SNF - Current Medication List Current Medications: Active Medications Albuterol/Ipratropium (Duoneb -) 1 amp NEB Q6H PRN PRN Reason: SHORTNESS OF BREATH Amino Acids (Prosource No Carb Liquid Pkt) 30 ml PO BID@0800,1730 [facility] Last Admin: 12/16/19 17:42 Dose: 30 ml Amlodipine Besylate (Norvasc -) 5 mg PO DAILY [facility] Last Admin: 12/16/19 10:06 Dose: 5 mg Atorvastatin Calcium (Lipitor -) 10 mg PO HS KEHINDE Last Admin: 12/16/19 21:10 Dose: 10 mg Collagenase (Santyl -) 1 applic TP DAILY KEHINDE; Protocol Last Admin: 12/16/19 10:12 Dose: 1 applic Lactobacillus Acidophilus (Bacid -) 1 tab PO DAILY KEHINDE Last Admin: 12/16/19 10:05 Dose: 1 tab Lisinopril (Prinivil) 20 mg PO DAILY KEHINDE Last Admin: 12/16/19 10:05 Dose: 20 mg Megestrol Acetate (Megace -) 40 mg PO DAILY KEHINDE Last Admin: 12/16/19 10:11 Dose: 40 mg Metoprolol Succinate (Toprol Xl -) 25 mg PO DAILY [facility] Last Admin: 12/16/19 10:05 Dose: 25 mg Multivitamins/Minerals/Vitamin C (Tab-A-Vit -) 1 tab PO DAILY KEHINDE Last Admin: 12/16/19 10:05 Dose: 1 tab Nystatin (Mycostatin Cream -) 1 applic TP BID [facility] Last Admin: 12/16/19 21:12 Dose: 1 applic Nystatin (Nystop Powder -) 1 applic TP TID [facility] Last Admin: 12/17/19 05:34 Dose: 1 applic Potassium Chloride (K-Dur -) 20 meq PO BID [facility] Last Admin: 12/16/19 21:10 Dose: 20 meq - Objective Vital Signs: Vital Signs Temperature 97.8 F 12/17/19 07:07 Pulse Rate 103 H 12/17/19 07:07 Respiratory Rate 12/17/19 07:07 Blood Pressure 134/72 12/17/19 07:07 O2 Sat by Pulse Oximetry (%) 96 12/16/19 21:00 Additional Findings/Remarks: Constitutional: Yes: No Distress, Cachectic, Pallor, Thin Eyes: Yes: WNL, Conjunctiva Clear HENT: Yes: WNL, Atraumatic, Normocephalic Neck: Yes: WNL, Supple, Trachea Midline Cardiovascular: Yes: WNL, Regular Rate and Rhythm Respiratory: Yes: WNL, Regular, CTA Bilaterally Gastrointestinal: Yes: WNL, Normal Bowel Sounds ...Rectal Exam: Yes: Deferred Breast(s): Yes: WNL Musculoskeletal: Yes: WNL Extremities: Yes: WNL Edema: No Peripheral Pulses WNL: Yes Peripheral Pulses: Left Radial: 2+, Right Radial: 2+, Left Doralis Pedis: 2+, Right Dorsalis Pedis: 2+, Left Femoral: 2+, Right Femoral: 2+ Integumentary: Yes: WNL Neurological: Yes: WNL, Alert, Oriented ...Motor Strength: LLE, RLE (generalized weakness) Psychiatric: Yes: WNL Labs: CBC, BMP 12/17/19 07:25 INR, PTT INR 1.18 (0.83-1.09) H 12/17/19 07:25 Problem List - Problems (1) Clostridium difficile colitis Assessment/Plan: + toxin for Cdif c/w vanco PO x 4 weeks total ID/GI following isolation precautions Code(s): A04.72 - ENTEROCOLITIS D/T CLOSTRIDIUM DIFFICILE, NOT SPCF RECUR (2) Failure to thrive Assessment/Plan: poor intake at home, appetite remains poor c/w megace RD following encourage PO intake nutrition supplements Code(s): [id number] - (3) Pneumonia Assessment/Plan: completed abx supplemental O2 IS, deep breathing Code(s): J18.9 - PNEUMONIA, UNSPECIFIED ORGANISM (4) Prophylactic measure Assessment/Plan: FEN Fluids: improved PO intake Electrolytes: monitor & replete as needed Nutrition: low fiber, thin liquids DVT moderate risk sq heparin Dispo Maintain as inpatient full [place] [facility] [place]s): Z29.9 - ENCOUNTER FOR PROPHYLACTIC MEASURES, UNSPECIFIED (5) Severe malnutrition Assessment/Plan: as evidenced by BMI 16, severe muscle/temporal wasting RD following s/p swallow eval -cleared for thin liquids, soft food c/w supplements on prosource, multivitamins Code(s): E43 - UNSPECIFIED SEVERE PROTEIN-CALORIE MALNUTRITION (6) Stage II pressure ulcer Assessment/Plan: turn and position and increase oral intake c/w pro source. on santyl daily fungal infection of buttocks nystatin ceram BID Code(s): L89.92 - PRESSURE ULCER OF UNSPECIFIED SITE, STAGE 2 (7) Voice hoarseness Assessment/Plan: resolved ENT evaluation by Dr Amaya after discharge for follow-up and audiogram Code(s): R49.0 - DYSPHONIA (8) Weakness Assessment/Plan: c/w PT fall precautions Code(s): R53.1 - WEAKNESS (9) Hip fracture Assessment/Plan: past hx c/w PT Code(s): S72.009A - FRACTURE OF UNSP PART OF NECK OF UNSP FEMUR, INIT Qualifiers: Encounter type: initial encounter Fracture type: closed Laterality: left Qualified Code(s): S72.002A - Fracture of unspecified part of neck of left femur, initial encounter for closed fracture (10) Hyponatremia Assessment/Plan: resolved Code(s): E87.1 - HYPO-OSMOLALITY AND HYPONATREMIA (11) Polycythemia Assessment/Plan: patient follows with a photographer (Erna) and will need continued outpatient follow up. Code(s): D75.1 - SECONDARY POLYCYTHEMIA (12) Liver lesion Assessment/Plan: MRI/CT shows multiple liver lesions, pancreatic edema, narrowed CBD/cystic duct , b/l effusions, pericardial effusion ( smll-mod.), left hydronephrosis pending liver bx appreciate Oncology consultation Code(s): K76.9 - LIVER DISEASE, UNSPECIFIED (13) Pleural effusion Assessment/Plan: s/p thoracentesis on 12/11 Pulmonary following. supplemental O2 Code(s): J90 - PLEURAL EFFUSION, NOT ELSEWHERE CLASSIFIED (14) Pericardial effusion Assessment/Plan: TTE 12/12/2019 shows moderate pleural effusion. will need repeat echo in 3 months per cardiology. Code(s): I31.3 - PERICARDIAL EFFUSION (NONINFLAMMATORY) Visit type - Emergency Visit Emergency Visit: Yes ED Registration Date: 11/28/19 Care time: The patient presented to the Emergency Department on the above date and was hospitalized for further evaluation of their emergent condition. - New Patient This patient is new to me today: No - Critical Care Critical Care patient: No - Discharge Referral [facility]erred [place] [facility] [place] [facility] No
[2019-12-17 08:33] LABS: ALBUMIN 2.5 g/dl (3.4-5.0); BILIRUBIN,TOTAL 0.7 mg/dL (0.2-1); BLOOD UREA NITROGEN 19.2 mg/dL (7-18); CALCIUM 9.2 mg/dL (8.5-10.1); CREATININE 0.3 mg/dL (0.55-1.3); MAGNESIUM 2.2 mg/dL (1.8-2.4); POTASSIUM 3.9 mmol/L (3.5-5.1); TOT PROT 5.5 g/dl (6.4-8.2)
--- NOTE | 2019-12-17 09:16 | PN ---
Progress Note, Physician History of Present Illness: stable no new issues - Current Medication List Current Medications: Active Medications Albuterol/Ipratropium (Duoneb -) 1 amp NEB Q6H PRN PRN Reason: SHORTNESS OF BREATH Amino Acids (Prosource No Carb Liquid Pkt) 30 ml PO BID@0800,1730 [facility] Last Admin: 12/16/19 17:42 Dose: 30 ml Amlodipine Besylate (Norvasc -) 5 mg PO DAILY [facility] Last Admin: 12/16/19 10:06 Dose: 5 mg Atorvastatin Calcium (Lipitor -) 10 mg PO HS [facility] Last Admin: 12/16/19 21:10 Dose: 10 mg Collagenase (Santyl -) 1 applic TP DAILY [facility]; Protocol Last Admin: 12/16/19 10:12 Dose: 1 applic Lactobacillus Acidophilus (Bacid -) 1 tab PO DAILY [facility] Last Admin: 12/16/19 10:05 Dose: 1 tab Lisinopril (Prinivil) 20 mg PO DAILY [facility] Last Admin: 12/16/19 10:05 Dose: 20 mg Megestrol Acetate (Megace -) 40 mg PO DAILY [facility] Last Admin: 12/16/19 10:11 Dose: 40 mg Metoprolol Succinate (Toprol Xl -) 25 mg PO DAILY [facility] Last Admin: 12/16/19 10:05 Dose: 25 mg Multivitamins/Minerals/Vitamin C (Tab-A-Vit -) 1 tab PO DAILY [facility] Last Admin: 12/16/19 10:05 Dose: 1 tab Nystatin (Mycostatin Cream -) 1 applic TP BID [facility] Last Admin: 12/16/19 21:12 Dose: 1 applic Nystatin (Nystop Powder -) 1 applic TP TID [facility] Last Admin: 12/17/19 05:34 Dose: 1 applic Potassium Chloride (K-Dur -) 20 meq PO BID [facility] Last Admin: 12/16/19 21:10 Dose: 20 meq - Objective Vital Signs: Vital Signs Temperature 97.8 F 12/17/19 07:07 Pulse Rate 103 H 12/17/19 07:07 Respiratory Rate 12/17/19 07:07 Blood Pressure 134/72 12/17/19 07:07 O2 Sat by Pulse Oximetry (%) 96 12/16/19 21:00 Constitutional: Yes: No Distress, Calm Cardiovascular: Yes: S1, S2 Respiratory: Yes: Regular, CTA Bilaterally Gastrointestinal: Yes: Normal Bowel Sounds, Soft Neurological: Yes: Alert, Oriented Psychiatric: Yes: Alert, Oriented Labs: CBC, BMP 12/17/19 07:25 12/17/19 07:25 INR, PTT INR 1.18 (0.83-1.09) H 12/17/19 07:25 Assessment/Plan Problem List - Problems (1) Atelectasis Code(s): J98.11 - ATELECTASIS (2) Pleural effusion Code(s): J90 - PLEURAL EFFUSION, NOT ELSEWHERE CLASSIFIED (3) Failure to thrive Code(s): [id number] - (4) Pneumonia Code(s): J18.9 - PNEUMONIA, UNSPECIFIED ORGANISM (5) Severe malnutrition Code(s): E43 - UNSPECIFIED SEVERE PROTEIN-CALORIE MALNUTRITION (6) Hip fracture Code(s): S72.009A - FRACTURE OF UNSP PART OF NECK OF UNSP FEMUR, INIT Qualifiers: Encounter type: initial encounter Fracture type: closed Laterality: left Qualified Code(s): S72.002A - Fracture of unspecified part of neck of left femur, initial encounter for closed fracture (7) Polycythemia Code(s): D75.1 - SECONDARY POLYCYTHEMIA 8 uti 9 cdiff r/o malignancy pleural effusion Assessment/Plan continue current mgmt biopsy planned await for fial plan rest as per the team
[2019-12-17] MEDS: AMINO ACIDS/PROTEIN HYDROLYS 30 ML LIQUID.PKT PO SCH ×2 (09:27→17:32)
[2019-12-17] MEDS: amLODIPine BESYLATE 5 MG TABLET (FP) PO SCH (09:44)
[2019-12-17] MEDS: metoPROLOL SUCCINATE 25 MG TAB.SR.24H (FP) PO SCH (09:44)
[2019-12-17] MEDS: MULTIVITAMINS (DAILY MVI) TABLET (FP) PO SCH (09:44)
[2019-12-17] MEDS: LISINOPRIL 20 MG TABLET (FP) PO SCH (09:44)
[2019-12-17] MEDS: LACTOBACILLUS ACIDOPHILUS 1 TABLET PO SCH (09:44)
[2019-12-17] MEDS: POTASSIUM CHLORIDE TABS 20 MEQ TABLET.ER (FP) PO SCH ×2 (09:44→21:59)
[2019-12-17] MEDS: COLLAGENASE CLOSTRIDIUM HIST. 30 GRAMS TUBE TP SCH (09:48)
[2019-12-17] MEDS: NYSTATIN 100,000 UNIT/GM TOPICAL CREAM 15 GM TUBE TP SCH ×2 (09:50→21:59)
[2019-12-17] MEDS: MEGESTROL ACETATE 40 MG TABLET PO SCH (09:51)
--- NOTE | 2019-12-17 10:19 | PN ---
Progress Note (short form) - Note Progress Note: PULMONARY Weak and tired. No fevers. Vital Signs Period Temp Pulse Resp BP Sys/Kiser Pulse Ox Last 24 Hr 97.8 F-98.4 F 86-103 18-20 124-138/56-76 96 Gen: less tachypneic at rest Heart: RRR Lung: decreased breath sounds at the bases Abd: soft, nontender Ext: no edema CBC, BMP 12/17/19 07:25 12/17/19 07:25 Active Medications Albuterol/Ipratropium (Duoneb -) 1 amp NEB Q6H PRN PRN Reason: SHORTNESS OF BREATH Amino Acids (Prosource No Carb Liquid Pkt) 30 ml PO BID@0800,1730 [facility] Last Admin: 12/17/19 09:27 Dose: Not Given Amlodipine Besylate (Norvasc -) 5 mg PO DAILY [facility] Last Admin: 12/17/19 09:44 Dose: 5 mg Atorvastatin Calcium (Lipitor -) 10 mg PO HS [facility] Last Admin: 12/16/19 21:10 Dose: 10 mg Collagenase (Santyl -) 1 applic TP DAILY [facility]; Protocol Last Admin: 12/17/19 09:48 Dose: 1 applic Lactobacillus Acidophilus (Bacid -) 1 tab PO DAILY [facility] Last Admin: 12/17/19 09:44 Dose: 1 tab Lisinopril (Prinivil) 20 mg PO DAILY [facility] Last Admin: 12/17/19 09:44 Dose: 20 mg Megestrol Acetate (Megace -) 40 mg PO DAILY [facility] Last Admin: 12/17/19 09:51 Dose: Not Given Metoprolol Succinate (Toprol Xl -) 25 mg PO DAILY [facility] Last Admin: 12/17/19 09:44 Dose: 25 mg Multivitamins/Minerals/Vitamin C (Tab-A-Vit -) 1 tab PO DAILY [facility] Last Admin: 12/17/19 09:44 Dose: 1 tab Nystatin (Mycostatin Cream -) 1 applic TP BID [facility] Last Admin: 12/17/19 09:50 Dose: 1 applic Nystatin (Nystop Powder -) 1 applic TP TID [facility] Last Admin: 12/17/19 05:34 Dose: 1 applic Potassium Chloride (K-Dur -) 20 meq PO BID [facility] Last Admin: 12/17/19 09:44 Dose: 20 meq A/P Pneumonia C Diff Colitis Sepsis Hyponatremia Pleural Effusion s/p thoracentesis HTN Hyperlipidemia Polycythemia Vera Liver Masses Malnutrition - for liver biopsy - completed antibiotics - probiotics - inhaled bronchodilators as needed - O2 to keep Spo2 >90% - monitor lytes - OOB to chair - DVT prophylaxis
--- NOTE | 2019-12-17 10:37 | PN ---
Progress Note, Physician History of Present Illness: Patient is an 84 yr old white woman brought in by her daughter. She had recent kyphoplasty, lumbosacral spine, and has intractable pain, unable even to move from side to side, decreased appetite, and several watery stools each day. Saw primary physician, Dr. Cavazos, today. Referred to the ER for further evaluation. In addition to multiple vertebral fractures due to osteoporosis, the patient has high blood pressure, elevated cholesterol, is eating and drinking almost nothing, and has developed increased confusion. The family is unable to move her at home, make her comfortable, or feed her adequately. - Current Medication List Current Medications: Active Medications Albuterol/Ipratropium (Duoneb -) 1 amp NEB Q6H PRN PRN Reason: SHORTNESS OF BREATH Amino Acids (Prosource No Carb Liquid Pkt) 30 ml PO BID@0800,1730 [facility] Last Admin: 12/17/19 09:27 Dose: Not Given Amlodipine Besylate (Norvasc -) 5 mg PO DAILY [facility] Last Admin: 12/17/19 09:44 Dose: 5 mg Atorvastatin Calcium (Lipitor -) 10 mg PO HS [facility] Last Admin: 12/16/19 21:10 Dose: 10 mg Collagenase (Santyl -) 1 applic TP DAILY [facility]; Protocol Last Admin: 12/17/19 09:48 Dose: 1 applic Lactobacillus Acidophilus (Bacid -) 1 tab PO DAILY [facility] Last Admin: 12/17/19 09:44 Dose: 1 tab Lisinopril (Prinivil) 20 mg PO DAILY [facility] Last Admin: 12/17/19 09:44 Dose: 20 mg Megestrol Acetate (Megace -) 40 mg PO DAILY [facility] Last Admin: 12/17/19 09:51 Dose: Not Given Metoprolol Succinate (Toprol Xl -) 25 mg PO DAILY [facility] Last Admin: 12/17/19 09:44 Dose: 25 mg Multivitamins/Minerals/Vitamin C (Tab-A-Vit -) 1 tab PO DAILY [facility] Last Admin: 12/17/19 09:44 Dose: 1 tab Nystatin (Mycostatin Cream -) 1 applic TP BID [facility] Last Admin: 12/17/19 09:50 Dose: 1 applic Nystatin (Nystop Powder -) 1 applic TP TID [facility] Last Admin: 12/17/19 05:34 Dose: 1 applic Potassium Chloride (K-Dur -) 20 meq PO BID [facility] Last Admin: 12/17/19 09:44 Dose: 20 meq - Objective Vital Signs: Vital Signs Temperature 97.8 F 12/17/19 07:07 Pulse Rate 103 H 12/17/19 07:07 Respiratory Rate 12/17/19 07:07 Blood Pressure 134/72 12/17/19 07:07 O2 Sat by Pulse Oximetry (%) 96 12/16/19 21:00 Eyes: Yes: WNL, Conjunctiva Clear, EOM Intact HENT: Yes: WNL, Atraumatic, Normocephalic Neck: Yes: WNL, Supple, Trachea Midline Cardiovascular: Yes: WNL, Regular Rate and Rhythm Respiratory: Yes: WNL, Regular, CTA Bilaterally Gastrointestinal: Yes: WNL, Normal Bowel Sounds Genitourinary: Yes: WNL Musculoskeletal: Yes: WNL Extremities: Yes: WNL Edema: No Integumentary: Yes: WNL Neurological: Yes: WNL, Alert, Oriented ...Motor Strength: WNL Psychiatric: Yes: WNL Labs: CBC, BMP 12/17/19 07:25 12/17/19 07:25 INR, PTT INR 1.18 (0.83-1.09) H 12/17/19 07:25 Assessment/Plan - Problems (1) Pericardial effusion Assessment/Plan: "No pericardial effusion" per ECHO report 10/2019. Mild-moderate size pericardial effusion on both MRI and CT this admission. Mildly anxious and dyspneic on exertion. BP mildly elevated; HR 96 bpm; RR 16 bpm; afebrile. ECHO 12/12/19: normal LVEF; moderate pericardial effusion mostly behind RA without hemodynamic compromise. Code(s): I31.3 - PERICARDIAL EFFUSION (NONINFLAMMATORY) (2) Pleural effusion Assessment/Plan: s/p thoracentesis. Code(s): J90 - PLEURAL EFFUSION, NOT ELSEWHERE CLASSIFIED (3) Severe malnutrition Assessment/Plan: likely due to undelying CA Code(s): E43 - UNSPECIFIED SEVERE PROTEIN-CALORIE MALNUTRITION (4) Weakness Code(s): R53.1 - WEAKNESS (5) Hypokalemia Assessment/Plan: Repeat K; deep 4.0-4.5. Code(s): E87.6 - HYPOKALEMIA (6) Lung cancer Assessment/Plan: likely source, with hepatic and bone metastases Code(s): C34.90 - MALIGNANT NEOPLASM OF UNSP PART OF UNSP BRONCHUS OR LUNG
[2019-12-17] MEDS: ATORVASTATIN CA 10 MG TABLET (FP) PO SCH (21:59)
[2019-12-18] MEDS: NYSTATIN POWDER 100,000 UNITS/GM - 15 GM TOPICAL POWDER TP SCH ×3 (06:59→22:02)
[2019-12-18 08:06] LABS: BASO % 0.7 % (0-2.0); EOS % 0.5 % (0-4.5); HEMATOCRIT 35.9 % (32.4-45.2); HEMOGLOBIN 11.7 GM/dL (10.7-15.3); LYMPH % 3.8 % (8-40); MCH 28.9 pg (25.7-33.7); MCHC 32.7 g/dl (32.0-36.0); MEAN CELL VOLUME 88.4 fl (80-96); MEAN PLT VOLUME 8.6 fl (7.5-11.1); PLATELET COUNT 400 K/MM3 (134-434); RBC 4.06 M/mm3 (3.60-5.2); RDW 16.9 % (11.6-15.6); WHITE BLOOD COUNT 13.1 K/mm3 (4.0-10.0)
[2019-12-18 08:38] LABS: ALBUMIN 2.6 g/dl (3.4-5.0); BILIRUBIN,TOTAL 0.6 mg/dL (0.2-1); BLOOD UREA NITROGEN 19.2 mg/dL (7-18); CALCIUM 8.6 mg/dL (8.5-10.1); CREATININE 0.4 mg/dL (0.55-1.3); MAGNESIUM 2.2 mg/dL (1.8-2.4); POTASSIUM 4.1 mmol/L (3.5-5.1); TOT PROT 5.6 g/dl (6.4-8.2)
[2019-12-18] MEDS: AMINO ACIDS/PROTEIN HYDROLYS 30 ML LIQUID.PKT PO SCH ×2 (08:39→17:09)
--- NOTE | 2019-12-18 09:55 | PN ---
Physical Exam: SUBJECTIVE: Patient seen and examined at the bedside. comfortable at rest. OBJECTIVE: Patient is an 83 year old female with a significant past medical history of HTN , HLD, polycythemia vera, s/p left hip fracture repair in December 2018, compression fractures s/p kyphoplasties, and severe malnutrition. Recently hospitalized 10/31-11/05/19 for sepsis secondary to E.coli UTI. Patient was brought by her daughter to the ED for evaluation of profound weakness, lack of appetite, difficulty swallowing, persistent dry cough, diarrhea, incontinence of urine and stool, skin breakdown, hair loss, and depression. On admission she was found to have an acute pneumonia and found to be positive for c diff. She has completed treatment for both pneumonia and cdiff. She is s/p thoracentesis on 12/11/2019 with pleural fluid and cytology negative. per hematology recommendations, patient will need a liver biopsy which will be done. Vital Signs Period Temp Pulse Resp BP Sys/Kiser Pulse Ox Last 24 Hr 97.8 F-98.7 F 88-97 20-20 114-142/58-76 96 GENERAL: The patient is awake, alert, and oriented, in no acute distress. episodes of forgetfulness noted. thin appearing, frail, cachectic/severe malnutrition, dry tongue, dry mucuous membranes, skin dry, chest and spine bones prominent, prominent pelvic bones. HEAD: Normal with no signs of trauma. EYES: PERRL, extraocular movements intact, sclera anicteric, conjunctiva clear. No ptosis. ENT: Ears normal, nares patent, oropharynx clear without exudates, dry mucous membranes. NECK: Trachea midline, full range of motion, supple. LUNGS: no wheezing,clear lungs upper lobes, diminished at the bases. HEART: Regular rate and rhythm, S1, S2 without murmur, rub or gallop. ABDOMEN: soft, non tender, non distended. EXTREMITIES: no edema. SKIN: stage II sacral pressure sore, treated with santyl. Laboratory Results - last 24 hr 12/18/19 12/18/19 07:14 07:14 WBC 13.1 H RBC 4.06 Hgb 11.7 Hct 35.9 MCV 88.4 MCH 28.9 MCHC 32.7 RDW 16.9 H Plt Count 400 MPV 8.6 Absolute Neuts (auto) 11.9 H Neutrophils % 91.0 H Lymphocytes % 3.8 L Monocytes % 4.0 Eosinophils % 0.5 Basophils % 0.7 Nucleated RBC % 0 Sodium 140 Potassium 4.1 Chloride 108 H Carbon Dioxide 23 Anion Gap 9 BUN 19.2 H Creatinine 0.4 L Est GFR (CKD-EPI)AfAm 110.08 Est GFR (CKD-EPI)NonAf 94.98 Random Glucose 91 Calcium 8.6 Magnesium 2.2 Total Bilirubin 0.6 AST 58 H ALT 64 H Alkaline Phosphatase 298 H Total Protein 5.6 L Albumin 2.6 L Active Medications Generic Name Dose Route Start Last Admin Trade Name Freq PRN Reason Stop Dose Admin Albuterol/Ipratropium 1 amp 11/30/19 18:10 Duoneb - NEB Q6H PRN SHORTNESS OF BREATH Amino Acids 30 ml 11/29/19 08:00 12/18/19 08:39 Prosource No Carb Liquid Pkt PO Not Given BID@0800,1730 [facility] Amlodipine Besylate 5 mg 11/29/19 10:00 12/17/19 09:44 Norvasc - PO 5 mg DAILY [facility] Administration Atorvastatin Calcium 10 mg 11/29/19 22:00 12/17/19 21:59 Lipitor - PO 10 mg HS [facility] Administration Collagenase 1 applic 12/02/19 10:00 12/17/19 09:48 Santyl - TP 1 applic DAILY [facility] Administration Protocol Lactobacillus Acidophilus 1 tab 12/03/19 13:15 12/17/19 09:44 Bacid - PO 1 tab DAILY [facility] Administration Lisinopril 20 mg 11/29/19 10:00 12/17/19 09:44 Prinivil PO 20 mg DAILY [facility] Administration Megestrol Acetate 40 mg 12/10/19 10:00 12/17/19 09:51 Megace - PO Not Given DAILY [facility] Metoprolol Succinate 25 mg 11/29/19 10:00 12/17/19 09:44 Toprol Xl - PO 25 mg DAILY [facility] Administration Multivitamins/Minerals/Vitamin C 1 tab 12/03/19 13:15 12/17/19 09:44 Tab-A-Vit - PO 1 tab DAILY [facility] Administration Nystatin 1 applic 12/08/19 22:00 12/17/19 21:59 Mycostatin Cream - TP 1 applic BID [facility] Administration Nystatin 1 applic 12/08/19 22:00 12/18/19 06:59 Nystop Powder - TP 1 applic TID [facility] Administration Potassium Chloride 20 meq 12/01/19 22:00 12/17/19 21:59 K-Dur - PO 20 meq BID [facility] Administration ASSESSMENT/PLAN: Problem List - Problems (1) Liver lesion Assessment/Plan: workup per GI/heme/oncology. for a liver biopsy today for liver mass. 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 Code(s): N13.4 - HYDROURETER (4) Pericardial effusion Assessment/Plan: as seen on ct scan. echo 11/01/19 negative for pericardial effusion. echo 2019 shows moderate pleural effusion. will need repeat echo in 3 months per cardiology. Code(s): I31.3 - PERICARDIAL EFFUSION (NONINFLAMMATORY) (5) Severe malnutrition Assessment/Plan: per dietary, recommended to continue with pureed diet with nectar thick liquids -Continue magic cup and ensure pudding -Add Two sun HN daily -Pt with poor po intake per calorie count -Suggest alternate nutrition support depending on pt/family wishes (ngt vs peg) -If tube feeding considered, suggest Jevity goal rate 50ml/hr x 24 hours with 25ml water flush each hour of feeding and Prosource no carb 30ml daily to provide 1860kcal, 91gm pro, 1512ml free water from feeding and flushes will continue to monitor intake Code(s): E43 - UNSPECIFIED SEVERE PROTEIN-CALORIE MALNUTRITION (6) Clostridium difficile colitis Assessment/Plan: + for c diff isolation precautions, completed therapy with oral vanco. Code(s): A04.72 - ENTEROCOLITIS D/T CLOSTRIDIUM DIFFICILE, NOT SPCF RECUR (7) Pseudomonas urinary tract infection Assessment/Plan: treated Code(s): N39.0 - URINARY TRACT INFECTION, SITE NOT SPECIFIED; B96.5 - PSEUDOMONAS (MALLEI) CAUSING DISEASES CLASSD ELSR (8) Failure to thrive Assessment/Plan: patient reports poor oral intake and frequent diarrhea at home Code(s): [id number] - (9) Pneumonia Assessment/Plan: completed cefepime Code(s): J18.9 - PNEUMONIA, UNSPECIFIED ORGANISM (10) Stage II pressure ulcer Assessment/Plan: turn and position and increase oral intake. on pro source. on santyl daily Code(s): L89.92 - PRESSURE ULCER OF UNSPECIFIED SITE, STAGE 2 (11) Polycythemia Assessment/Plan: patient follows with a dining car waiter/waitress (Erna) and will need continued outpatient follow up. Code(s): D75.1 - SECONDARY POLYCYTHEMIA (12) Hyponatremia Assessment/Plan: resolved Code(s): E87.1 - HYPO-OSMOLALITY AND HYPONATREMIA (13) Weakness Assessment/Plan: for PT Code(s): R53.1 - WEAKNESS (14) Voice hoarseness Assessment/Plan: has been ongoing for apx 3 weeks. ENT evaluated Code(s): R49.0 - DYSPHONIA (15) Pleural effusion Assessment/Plan: s/p thoracentesis on 12/11/2019 Code(s): J90 - PLEURAL EFFUSION, NOT ELSEWHERE CLASSIFIED (16) DVT prophylaxis Assessment/Plan: on heparin bid Code(s): Z29.9 - ENCOUNTER FOR PROPHYLACTIC MEASURES, UNSPECIFIED (17) Prophylactic measure Assessment/Plan: fen f: tolerating po e: monitor electrolytes daily and supplement n: low fiber/thin liq. physical therapy heparin protonix Code(s): Z29.9 - ENCOUNTER FOR PROPHYLACTIC MEASURES, UNSPECIFIED Visit type - Emergency Visit Emergency Visit: Yes ED Registration Date: 11/28/19 Care time: The patient presented to the Emergency Department on the above date and was hospitalized for further evaluation of their emergent condition. - New Patient This patient is new to me today: No - Critical Care Critical Care patient: No - Discharge Referral Referred to [facility] Med [facility] No
--- NOTE | 2019-12-18 10:54 | PN ---
Progress Note (short form) - Note Progress Note: PULMONARY Denies shortness of breath. No fevers. Vital Signs Period Temp Pulse Resp BP Sys/Kiser Pulse Ox Last 24 Hr 97.8 F-98.7 F 88-94 20-20 114-142/58-76 96 Gen: less tachypneic at rest Heart: RRR Lung: decreased breath sounds at the bases Abd: soft, nontender Ext: no edema CBC, BMP 12/18/19 07:14 12/18/19 07:14 Active Medications Albuterol/Ipratropium (Duoneb -) 1 amp NEB Q6H PRN PRN Reason: SHORTNESS OF BREATH Amino Acids (Prosource No Carb Liquid Pkt) 30 ml PO BID@0800,1730 [facility] Last Admin: 12/18/19 08:39 Dose: Not Given Amlodipine Besylate (Norvasc -) 5 mg PO DAILY [facility] Last Admin: 12/17/19 09:44 Dose: 5 mg Atorvastatin Calcium (Lipitor -) 10 mg PO HS [facility] Last Admin: 12/17/19 21:59 Dose: 10 mg Collagenase (Santyl -) 1 applic TP DAILY [facility]; Protocol Last Admin: 12/17/19 09:48 Dose: 1 applic Lactobacillus Acidophilus (Bacid -) 1 tab PO DAILY [facility] Last Admin: 12/17/19 09:44 Dose: 1 tab Lisinopril (Prinivil) 20 mg PO DAILY [facility] Last Admin: 12/17/19 09:44 Dose: 20 mg Megestrol Acetate (Megace -) 40 mg PO DAILY [facility] Last Admin: 12/17/19 09:51 Dose: Not Given Metoprolol Succinate (Toprol Xl -) 25 mg PO DAILY [facility] Last Admin: 12/17/19 09:44 Dose: 25 mg Multivitamins/Minerals/Vitamin C (Tab-A-Vit -) 1 tab PO DAILY [facility] Last Admin: 12/17/19 09:44 Dose: 1 tab Nystatin (Mycostatin Cream -) 1 applic TP BID [facility] Last Admin: 12/17/19 21:59 Dose: 1 applic Nystatin (Nystop Powder -) 1 applic TP TID [facility] Last Admin: 12/18/19 06:59 Dose: 1 applic Potassium Chloride (K-Dur -) 20 meq PO BID [facility] Last Admin: 12/17/19 21:59 Dose: 20 meq A/P Pneumonia C Diff Colitis Sepsis Hyponatremia Pleural Effusion s/p thoracentesis HTN Hyperlipidemia Polycythemia Vera Liver Masses Malnutrition - for liver biopsy - completed antibiotics - probiotics - inhaled bronchodilators as needed - O2 to keep Spo2 >90% - monitor lytes - OOB to chair - DVT prophylaxis
[2019-12-18] MEDS: LACTOBACILLUS ACIDOPHILUS 1 TABLET PO SCH (11:02)
--- NOTE | 2019-12-18 11:02 | PN ---
Progress Note, Physician History of Present Illness: stale no new issues for biopsy today - Current Medication List Current Medications: Active Medications Albuterol/Ipratropium (Duoneb -) 1 amp NEB Q6H PRN PRN Reason: SHORTNESS OF BREATH Amino Acids (Prosource No Carb Liquid Pkt) 30 ml PO BID@0800,1730 [facility] Last Admin: 12/18/19 08:39 Dose: Not Given Amlodipine Besylate (Norvasc -) 5 mg PO DAILY [facility] Last Admin: 12/17/19 09:44 Dose: 5 mg Atorvastatin Calcium (Lipitor -) 10 mg PO HS [facility] Last Admin: 12/17/19 21:59 Dose: 10 mg Collagenase (Santyl -) 1 applic TP DAILY [facility]; Protocol Last Admin: 12/17/19 09:48 Dose: 1 applic Lactobacillus Acidophilus (Bacid -) 1 tab PO DAILY [facility] Last Admin: 12/17/19 09:44 Dose: 1 tab Lisinopril (Prinivil) 20 mg PO DAILY [facility] Last Admin: 12/17/19 09:44 Dose: 20 mg Megestrol Acetate (Megace -) 40 mg PO DAILY [facility] Last Admin: 12/17/19 09:51 Dose: Not Given Metoprolol Succinate (Toprol Xl -) 25 mg PO DAILY [facility] Last Admin: 12/17/19 09:44 Dose: 25 mg Multivitamins/Minerals/Vitamin C (Tab-A-Vit -) 1 tab PO DAILY [facility] Last Admin: 12/17/19 09:44 Dose: 1 tab Nystatin (Mycostatin Cream -) 1 applic TP BID [facility] Last Admin: 12/17/19 21:59 Dose: 1 applic Nystatin (Nystop Powder -) 1 applic TP TID [facility] Last Admin: 12/18/19 06:59 Dose: 1 applic Potassium Chloride (K-Dur -) 20 meq PO BID [facility] Last Admin: 12/17/19 21:59 Dose: 20 meq - Objective Vital Signs: Vital Signs Temperature 97.8 F 12/18/19 06:56 Pulse Rate 92 H 12/18/19 06:56 Respiratory Rate 20 12/18/19 06:56 Blood Pressure 142/69 12/18/19 06:56 O2 Sat by Pulse Oximetry (%) 96 12/17/19 21:00 Constitutional: Yes: No Distress, Calm Cardiovascular: Yes: S1, S2 Respiratory: Yes: Regular Gastrointestinal: Yes: Normal Bowel Sounds, Soft Musculoskeletal: Yes: WNL Extremities: Yes: WNL Neurological: Yes: Alert, Oriented Psychiatric: Yes: Alert, Oriented Labs: CBC, BMP 12/18/19 07:14 12/18/19 07:14 INR, PTT INR 1.18 (0.83-1.09) H 12/17/19 07:25 Assessment/Plan Problem List - Problems (1) Atelectasis Code(s): J98.11 - ATELECTASIS (2) Pleural effusion Code(s): J90 - PLEURAL EFFUSION, NOT ELSEWHERE CLASSIFIED (3) Failure to thrive Code(s): [id number] - (4) Pneumonia Code(s): J18.9 - PNEUMONIA, UNSPECIFIED ORGANISM (5) Severe malnutrition Code(s): E43 - UNSPECIFIED SEVERE PROTEIN-CALORIE MALNUTRITION (6) Hip fracture Code(s): S72.009A - FRACTURE OF UNSP PART OF NECK OF UNSP FEMUR, INIT Qualifiers: Encounter type: initial encounter Fracture type: closed Laterality: left Qualified Code(s): S72.002A - Fracture of unspecified part of neck of left femur, initial encounter for closed fracture (7) Polycythemia Code(s): D75.1 - SECONDARY POLYCYTHEMIA 8 uti 9 cdiff r/o malignancy pleural effusion Assessment/Plan continue current mgmt biopsy await for fial plan rest as per the team
[2019-12-18 11:03] LABS: ANISOCYTOSIS 1+; PLATELET ESTIMATE NORMAL
[2019-12-18] MEDS: MEGESTROL ACETATE 40 MG TABLET PO SCH (11:03)
[2019-12-18] MEDS: NYSTATIN 100,000 UNIT/GM TOPICAL CREAM 15 GM TUBE TP SCH ×2 (11:04→22:02)
[2019-12-18] MEDS: COLLAGENASE CLOSTRIDIUM HIST. 30 GRAMS TUBE TP SCH (11:08)
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
[2019-12-18] MEDS: MULTIVITAMINS (DAILY MVI) TABLET (FP) PO SCH (16:44)
[2019-12-18] MEDS: POTASSIUM CHLORIDE TABS 20 MEQ TABLET.ER (FP) PO SCH ×2 (16:44→22:02)
[2019-12-18] MEDS: metoPROLOL SUCCINATE 25 MG TAB.SR.24H (FP) PO SCH (17:09)
[2019-12-18] MEDS: amLODIPine BESYLATE 5 MG TABLET (FP) PO SCH (17:09)
[2019-12-18] MEDS: LISINOPRIL 20 MG TABLET (FP) PO SCH (17:09)
[2019-12-18] MEDS: ATORVASTATIN CA 10 MG TABLET (FP) PO SCH (22:02)
[2019-12-19] MEDS: NYSTATIN POWDER 100,000 UNITS/GM - 15 GM TOPICAL POWDER TP SCH ×3 (06:44→21:33)
--- NOTE | 2019-12-19 08:29 | PN ---
Progress Note, Physician Chief Complaint: Liver biopsy completed. Awaiting results. No complaints offered. Awaiting bed at [facility] History of Present Illness: Patient is an 83 year old female with a significant past medical history of HTN , HLD, polycythemia vera, s/p left hip fracture repair in December 2018, compression fractures s/p kyphoplasties, and severe malnutrition. Recently hospitalized 10/31-11/05/19 for sepsis secondary to E.coli UTI. Patient was brought by her daughter to the ED for evaluation of profound weakness, lack of appetite, difficulty swallowing, persistent dry cough, diarrhea, incontinence of urine and stool, skin breakdown, hair loss, and depression. On admission she was found to have an acute pneumonia and found to be positive for c diff. She has completed treatment for both pneumonia and cdiff. She is s/p thoracentesis on 12/11/2019 with pleural fluid and cytology negative. Pending liver bx and then trabsferd to [facility] - Current Medication List Current Medications: Active Medications Albuterol/Ipratropium (Duoneb -) 1 amp NEB Q6H PRN PRN Reason: SHORTNESS OF BREATH Amino Acids (Prosource No Carb Liquid Pkt) 30 ml PO BID@0800,1730 [facility] Last Admin: 12/18/19 17:09 Dose: 30 ml Amlodipine Besylate (Norvasc -) 5 mg PO DAILY [facility] Last Admin: 12/18/19 17:09 Dose: Not Given Atorvastatin Calcium (Lipitor -) 10 mg PO HS [facility] Last Admin: 12/18/19 22:02 Dose: 10 mg Collagenase (Santyl -) 1 applic TP DAILY [facility]; Protocol Last Admin: 12/18/19 11:08 Dose: 1 applic Lactobacillus Acidophilus (Bacid -) 1 tab PO DAILY [facility] Last Admin: 12/18/19 11:02 Dose: Not Given Lisinopril (Prinivil) 20 mg PO DAILY [facility] Last Admin: 12/18/19 17:09 Dose: 20 mg Megestrol Acetate (Megace -) 40 mg PO DAILY [facility] Last Admin: 12/18/19 11:03 Dose: Not Given Metoprolol Succinate (Toprol Xl -) 25 mg PO DAILY [facility] Last Admin: 12/18/19 17:09 Dose: 25 mg Multivitamins/Minerals/Vitamin C (Tab-A-Vit -) 1 tab PO DAILY [facility] Last Admin: 12/18/19 16:44 Dose: Not Given Nystatin (Mycostatin Cream -) 1 applic TP BID [facility] Last Admin: 12/18/19 22:02 Dose: 1 applic Nystatin (Nystop Powder -) 1 applic TP TID [facility] Last Admin: 12/19/19 06:44 Dose: 1 applic Potassium Chloride (K-Dur -) 20 meq PO BID [facility] Last Admin: 12/18/19 22:02 Dose: 20 meq - Objective Vital Signs: Vital Signs Temperature 98.2 F 12/19/19 06:23 Pulse Rate 93 H 12/19/19 06:23 Respiratory Rate 12/19/19 06:23 Blood Pressure 144/72 12/19/19 06:23 O2 Sat by Pulse Oximetry (%) 100 12/18/19 13:13 Additional Findings/Remarks: Constitutional: Yes: No Distress, Cachectic, Pallor, Thin Eyes: Yes: WNL, Conjunctiva Clear HENT: Yes: WNL, Atraumatic, Normocephalic Neck: Yes: WNL, Supple, Trachea Midline Cardiovascular: Yes: WNL, Regular Rate and Rhythm Respiratory: Yes: WNL, Regular, CTA Bilaterally Gastrointestinal: Yes: WNL, Normal Bowel Sounds ...Rectal Exam: Yes: Deferred Breast(s): Yes: WNL Musculoskeletal: Yes: WNL Extremities: Yes: WNL Edema: No Peripheral Pulses WNL: Yes Peripheral Pulses: Left Radial: 2+, Right Radial: 2+, Left Doralis Pedis: 2+, Right Dorsalis Pedis: 2+, Left Femoral: 2+, Right Femoral: 2+ Integumentary: Yes: WNL Neurological: Yes: WNL, Alert, Oriented ...Motor Strength: LLE, RLE (generalized weakness) Psychiatric: Yes: WNL Labs: INR, PTT INR 1.18 (0.83-1.09) H 12/17/19 07:25 Problem List - Problems (1) Clostridium difficile colitis Assessment/Plan: + toxin for Cdif completed vanco PO x 14 days ID/GI following isolation precautions Code(s): A04.72 - ENTEROCOLITIS D/T CLOSTRIDIUM DIFFICILE, NOT SPCF RECUR (2) Failure to thrive Assessment/Plan: poor intake at home, appetite remains poor c/w megace RD following encourage PO intake nutrition supplements Code(s): GDO3313 - (3) Pneumonia Assessment/Plan: completed abx supplemental O2 IS, deep breathing Code(s): J18.9 - PNEUMONIA, UNSPECIFIED ORGANISM (4) Prophylactic measure Assessment/Plan: FEN Fluids: improved PO intake Electrolytes: monitor & replete as needed Nutrition: low fiber, thin liquids DVT moderate risk sq heparin Dispo Maintain as inpatient full code discharge planning to [facility] Code(s): Z29.9 - ENCOUNTER FOR PROPHYLACTIC MEASURES, UNSPECIFIED (5) Severe malnutrition Assessment/Plan: as evidenced by BMI 16, severe muscle/temporal wasting RD following s/p swallow eval -cleared for thin liquids, soft food c/w supplements on prosource, multivitamins Code(s): E43 - UNSPECIFIED SEVERE PROTEIN-CALORIE MALNUTRITION (6) Stage II pressure ulcer Assessment/Plan: turn and position and increase oral intake c/w pro source. on santyl daily fungal infection of buttocks nystatin ceram BID Code(s): L89.92 - PRESSURE ULCER OF UNSPECIFIED SITE, STAGE 2 (7) Voice hoarseness Assessment/Plan: resolved ENT evaluation by Dr Amaya after discharge for follow-up and audiogram Code(s): R49.0 - DYSPHONIA (8) Weakness Assessment/Plan: c/w PT fall precautions Code(s): R53.1 - WEAKNESS (9) Hip fracture Assessment/Plan: past hx c/w PT Code(s): S72.009A - FRACTURE OF UNSP PART OF NECK OF UNSP FEMUR, INIT Qualifiers: Encounter type: initial encounter Fracture type: closed Laterality: left Qualified Code(s): S72.002A - Fracture of unspecified part of neck of left femur, initial encounter for closed fracture (10) Hyponatremia Assessment/Plan: resolved Code(s): E87.1 - HYPO-OSMOLALITY AND HYPONATREMIA (11) Polycythemia Assessment/Plan: patient follows with a litharge mill operator (Erna) and will need continued outpatient follow up. Code(s): D75.1 - SECONDARY POLYCYTHEMIA (12) Liver lesion Assessment/Plan: MRI/CT shows multiple liver lesions, pancreatic edema, narrowed CBD/cystic duct , b/l effusions, pericardial effusion ( smll-mod.), left hydronephrosis pending liver bx results appreciate Oncology consultation Code(s): K76.9 - LIVER DISEASE, UNSPECIFIED (13) Pleural effusion Assessment/Plan: s/p thoracentesis on 12/11 Pulmonary following. supplemental O2 Code(s): J90 - PLEURAL EFFUSION, NOT ELSEWHERE CLASSIFIED (14) Pericardial effusion Assessment/Plan: TTE 12/12/2019 shows moderate pleural effusion. will need repeat echo in 3 months per cardiology. Code(s): I31.3 - PERICARDIAL EFFUSION (NONINFLAMMATORY) Visit type - Emergency Visit Emergency Visit: Yes ED Registration Date: 11/28/19 Care time: The patient presented to the Emergency Department on the above date and was hospitalized for further evaluation of their emergent condition. - New Patient This patient is new to me today: No - Critical Care Critical Care patient: No - Discharge Referral Referred to [facility] Med P.C.: No
[2019-12-19 08:37] LABS: BASO % 0.8 % (0-2.0); EOS % 0.5 % (0-4.5); HEMATOCRIT 36.9 % (32.4-45.2); MCH 28.8 pg (25.7-33.7); MCHC 32.5 g/dl (32.0-36.0); MEAN CELL VOLUME 88.6 fl (80-96); MEAN PLT VOLUME 9.3 fl (7.5-11.1); MONO % 4.4 % (3.8-10.2); NEUT % 90.3 % (42.8-82.8); PLATELET COUNT 380 K/MM3 (134-434); RBC 4.17 M/mm3 (3.60-5.2); RDW 16.6 % (11.6-15.6); WHITE BLOOD COUNT 13.8 K/mm3 (4.0-10.0)
[2019-12-19 08:58] LABS: ALBUMIN 2.5 g/dl (3.4-5.0); BILIRUBIN,TOTAL 0.7 mg/dL (0.2-1); BLOOD UREA NITROGEN 18.7 mg/dL (7-18); CALCIUM 8.6 mg/dL (8.5-10.1); CREATININE 0.4 mg/dL (0.55-1.3); MAGNESIUM 2.1 mg/dL (1.8-2.4); TOT PROT 5.6 g/dl (6.4-8.2)
--- NOTE | 2019-12-19 09:24 | PN ---
Progress Note, Physician History of Present Illness: stable no new issues - Current Medication List Current Medications: Active Medications Albuterol/Ipratropium (Duoneb -) 1 amp NEB Q6H PRN PRN Reason: SHORTNESS OF BREATH Amino Acids (Prosource No Carb Liquid Pkt) 30 ml PO BID@0800,1730 [facility] Last Admin: 12/18/19 17:09 Dose: 30 ml Amlodipine Besylate (Norvasc -) 5 mg PO DAILY [facility] Last Admin: 12/18/19 17:09 Dose: Not Given Atorvastatin Calcium (Lipitor -) 10 mg PO HS [facility] Last Admin: 12/18/19 22:02 Dose: 10 mg Collagenase (Santyl -) 1 applic TP DAILY [facility]; Protocol Last Admin: 12/18/19 11:08 Dose: 1 applic Lactobacillus Acidophilus (Bacid -) 1 tab PO DAILY [facility] Last Admin: 12/18/19 11:02 Dose: Not Given Lisinopril (Prinivil) 20 mg PO DAILY [facility] Last Admin: 12/18/19 17:09 Dose: 20 mg Megestrol Acetate (Megace -) 40 mg PO DAILY [facility] Last Admin: 12/18/19 11:03 Dose: Not Given Metoprolol Succinate (Toprol Xl -) 25 mg PO DAILY [facility] Last Admin: 12/18/19 17:09 Dose: 25 mg Multivitamins/Minerals/Vitamin C (Tab-A-Vit -) 1 tab PO DAILY [facility] Last Admin: 12/18/19 16:44 Dose: Not Given Nystatin (Mycostatin Cream -) 1 applic TP BID [facility] Last Admin: 12/18/19 22:02 Dose: 1 applic Nystatin (Nystop Powder -) 1 applic TP TID [facility] Last Admin: 12/19/19 06:44 Dose: 1 applic Potassium Chloride (K-Dur -) 20 meq PO BID [facility] Last Admin: 12/18/19 22:02 Dose: 20 meq - Objective Vital Signs: Vital Signs Temperature 98.2 F 12/19/19 06:23 Pulse Rate 93 H 12/19/19 06:23 Respiratory Rate 20 12/19/19 06:23 Blood Pressure 144/72 12/19/19 06:23 O2 Sat by Pulse Oximetry (%) 100 12/18/19 13:13 Constitutional: Yes: No Distress, Calm Cardiovascular: Yes: S1, S2 Respiratory: Yes: Regular, CTA Bilaterally Gastrointestinal: Yes: Normal Bowel Sounds, Soft Musculoskeletal: Yes: WNL Extremities: Yes: WNL Neurological: Yes: Alert, Oriented Psychiatric: Yes: Alert, Oriented Labs: CBC, BMP 12/19/19 07:49 12/19/19 07:49 INR, PTT INR 1.18 (0.83-1.09) H 12/17/19 07:25 Assessment/Plan Problem List - Problems (1) Atelectasis Code(s): J98.11 - ATELECTASIS (2) Pleural effusion Code(s): J90 - PLEURAL EFFUSION, NOT ELSEWHERE CLASSIFIED (3) Failure to thrive Code(s): [id number] - (4) Pneumonia Code(s): J18.9 - PNEUMONIA, UNSPECIFIED ORGANISM (5) Severe malnutrition Code(s): E43 - UNSPECIFIED SEVERE PROTEIN-CALORIE MALNUTRITION (6) Hip fracture Code(s): S72.009A - FRACTURE OF UNSP PART OF NECK OF UNSP FEMUR, INIT Qualifiers: Encounter type: initial encounter Fracture type: closed Laterality: left Qualified Code(s): S72.002A - Fracture of unspecified part of neck of left femur, initial encounter for closed fracture (7) Polycythemia Code(s): D75.1 - SECONDARY POLYCYTHEMIA 8 uti 9 cdiff r/o malignancy pleural effusion Assessment/Plan continue current mgmt nutrition await for final plan rest as per the team
[2019-12-19] MEDS ORDERED: PT OWN MED DRAWER 7, Y5N ONE (09:54)
[2019-12-19] MEDS: AMINO ACIDS/PROTEIN HYDROLYS 30 ML LIQUID.PKT PO SCH ×2 (09:56→17:43)
[2019-12-19] MEDS: MULTIVITAMINS (DAILY MVI) TABLET (FP) PO SCH (09:56)
[2019-12-19] MEDS: LACTOBACILLUS ACIDOPHILUS 1 TABLET PO SCH (09:56)
[2019-12-19] MEDS: POTASSIUM CHLORIDE TABS 20 MEQ TABLET.ER (FP) PO SCH ×2 (09:56→21:33)
[2019-12-19] MEDS: metoPROLOL SUCCINATE 25 MG TAB.SR.24H (FP) PO SCH (09:56)
[2019-12-19] MEDS: LISINOPRIL 20 MG TABLET (FP) PO SCH (09:56)
[2019-12-19] MEDS: amLODIPine BESYLATE 5 MG TABLET (FP) PO SCH (09:56)
[2019-12-19] MEDS: MEGESTROL ACETATE 40 MG TABLET PO SCH (09:57)
[2019-12-19] MEDS: COLLAGENASE CLOSTRIDIUM HIST. 30 GRAMS TUBE TP SCH (10:05)
[2019-12-19] MEDS: NYSTATIN 100,000 UNIT/GM TOPICAL CREAM 15 GM TUBE TP SCH ×2 (10:06→21:33)
--- NOTE | 2019-12-19 10:10 | PN ---
Progress Note (short form) - Note Progress Note: PULMONARY s/p liver biopsy. Denies shortness of breath. No fevers. Still some diarrhea. Vital Signs Period Temp Pulse Resp BP Sys/Kiser Pulse Ox Last 24 Hr 97.5 F-98.2 F 93-100 15-20 126-149/58-72 98-100 Gen: less tachypneic at rest Heart: RRR Lung: decreased breath sounds at the bases Abd: soft, nontender Ext: no edema CBC, BMP 12/19/19 07:49 12/19/19 07:49 Active Medications Albuterol/Ipratropium (Duoneb -) 1 amp NEB Q6H PRN PRN Reason: SHORTNESS OF BREATH Amino Acids (Prosource No Carb Liquid Pkt) 30 ml PO BID@0800,1730 [facility] Last Admin: 12/19/19 09:56 Dose: 30 ml Amlodipine Besylate (Norvasc -) 5 mg PO DAILY [facility] Last Admin: 12/19/19 09:56 Dose: 5 mg Atorvastatin Calcium (Lipitor -) 10 mg PO HS [facility] Last Admin: 12/18/19 22:02 Dose: 10 mg Collagenase (Santyl -) 1 applic TP DAILY [facility]; Protocol Last Admin: 12/19/19 10:05 Dose: 1 applic Lactobacillus Acidophilus (Bacid -) 1 tab PO DAILY [facility] Last Admin: 12/19/19 09:56 Dose: 1 tab Lisinopril (Prinivil) 20 mg PO DAILY [facility] Last Admin: 12/19/19 09:56 Dose: 20 mg Megestrol Acetate (Megace -) 40 mg PO DAILY [facility] Last Admin: 12/19/19 09:57 Dose: 40 mg Metoprolol Succinate (Toprol Xl -) 25 mg PO DAILY [facility] Last Admin: 12/19/19 09:56 Dose: 25 mg Multivitamins/Minerals/Vitamin C (Tab-A-Vit -) 1 tab PO DAILY [facility] Last Admin: 12/19/19 09:56 Dose: 1 tab Nystatin (Mycostatin Cream -) 1 applic TP BID [facility] Last Admin: 12/19/19 10:06 Dose: 1 applic Nystatin (Nystop Powder -) 1 applic TP TID [facility] Last Admin: 12/19/19 06:44 Dose: 1 applic Potassium Chloride (K-Dur -) 20 meq PO BID [facility] Last Admin: 12/19/19 09:56 Dose: 20 meq A/P Pneumonia treated C Diff Colitis Sepsis resolved Hyponatremia improved Pleural Effusion s/p thoracentesis HTN Hyperlipidemia Polycythemia Vera Liver Masses Malnutrition - f/u liver pathology - completed antibiotics - probiotics - inhaled bronchodilators as needed - O2 to keep Spo2 >90% - monitor lytes - OOB to chair - DVT prophylaxis
[2019-12-19 13:36] VITALS: BMI 15.1
--- NOTE | 2019-12-19 14:01 | PN ---
Progress Note, Physician History of Present Illness: Patient is an 84 yr old white woman brought in by her daughter. She had recent kyphoplasty, lumbosacral spine, and has intractable pain, unable even to move from side to side, decreased appetite, and several watery stools each day. Saw primary physician, Dr. Cavazos, today. Referred to the ER for further evaluation. In addition to multiple vertebral fractures due to osteoporosis, the patient has high blood pressure, elevated cholesterol, is eating and drinking almost nothing, and has developed increased confusion. The family is unable to move her at home, make her comfortable, or feed her adequately. - Current Medication List Current Medications: Active Medications Albuterol/Ipratropium (Duoneb -) 1 amp NEB Q6H PRN PRN Reason: SHORTNESS OF BREATH Amino Acids (Prosource No Carb Liquid Pkt) 30 ml PO BID@0800,1730 [facility] Last Admin: 12/19/19 09:56 Dose: 30 ml Amlodipine Besylate (Norvasc -) 5 mg PO DAILY [facility] Last Admin: 12/19/19 09:56 Dose: 5 mg Atorvastatin Calcium (Lipitor -) 10 mg PO HS [facility] Last Admin: 12/18/19 22:02 Dose: 10 mg Collagenase (Santyl -) 1 applic TP DAILY [facility]; Protocol Last Admin: 12/19/19 10:05 Dose: 1 applic Lactobacillus Acidophilus (Bacid -) 1 tab PO DAILY [facility] Last Admin: 12/19/19 09:56 Dose: 1 tab Lisinopril (Prinivil) 20 mg PO DAILY [facility] Last Admin: 12/19/19 09:56 Dose: 20 mg Megestrol Acetate (Megace -) 40 mg PO DAILY [facility] Last Admin: 12/19/19 09:57 Dose: 40 mg Metoprolol Succinate (Toprol Xl -) 25 mg PO DAILY [facility] Last Admin: 12/19/19 09:56 Dose: 25 mg Multivitamins/Minerals/Vitamin C (Tab-A-Vit -) 1 tab PO DAILY [facility] Last Admin: 12/19/19 09:56 Dose: 1 tab Nystatin (Mycostatin Cream -) 1 applic TP BID [facility] Last Admin: 12/19/19 10:06 Dose: 1 applic Nystatin (Nystop Powder -) 1 applic TP TID [facility] Last Admin: 12/19/19 06:44 Dose: 1 applic Potassium Chloride (K-Dur -) 20 meq PO BID [facility] Last Admin: 12/19/19 09:56 Dose: 20 meq - Objective Vital Signs: Vital Signs Temperature 98.2 F 12/19/19 06:23 Pulse Rate 93 H 12/19/19 06:23 Respiratory Rate 12/19/19 06:23 Blood Pressure 144/72 12/19/19 06:23 O2 Sat by Pulse Oximetry (%) 100 12/18/19 13:13 Eyes: Yes: WNL, Conjunctiva Clear, EOM Intact HENT: Yes: WNL, Atraumatic, Normocephalic Neck: Yes: WNL, Supple, Trachea Midline Cardiovascular: Yes: WNL, Regular Rate and Rhythm Respiratory: Yes: WNL, Regular, CTA Bilaterally Gastrointestinal: Yes: WNL, Normal Bowel Sounds Genitourinary: Yes: WNL Musculoskeletal: Yes: WNL Extremities: Yes: WNL Edema: No Integumentary: Yes: WNL Neurological: Yes: WNL, Alert, Oriented ...Motor Strength: WNL Psychiatric: Yes: WNL Labs: CBC, BMP 12/19/19 07:49 12/19/19 07:49 INR, PTT INR 1.18 (0.83-1.09) H 12/17/19 07:25 Assessment/Plan - Problems (1) Pericardial effusion Assessment/Plan: "No pericardial effusion" per ECHO report 10/2019. Mild-moderate size pericardial effusion on both MRI and CT this admission. ECHO 12/12/19: normal LVEF; moderate pericardial effusion without hemodynamic compromise. Code(s): I31.3 - PERICARDIAL EFFUSION (NONINFLAMMATORY) (2) Pleural effusion Assessment/Plan: s/p thoracentesis; unremarkable findings Code(s): J90 - PLEURAL EFFUSION, NOT ELSEWHERE CLASSIFIED (3) Severe malnutrition Assessment/Plan: likely due to underlying CA. Pt's appetite is poor. She wishes to change back to nutritional supplement that was more agreeable to her taste. F/u with ticket puller. Code(s): E43 - UNSPECIFIED SEVERE PROTEIN-CALORIE MALNUTRITION (4) Weakness Code(s): R53.1 - WEAKNESS (5) Hypokalemia Assessment/Plan: Repleted K; keep 4.0-4.5 (on 12/18/19: 4.1). Code(s): E87.6 - HYPOKALEMIA (6) Lung cancer Assessment/Plan: llungs are likely origin of CA, with hepatic and bone metastases Code(s): C34.90 - MALIGNANT NEOPLASM OF UNSP PART OF UNSP BRONCHUS OR LUNG
[2019-12-19] MEDS: ATORVASTATIN CA 10 MG TABLET (FP) PO SCH (21:33)
[2019-12-20] MEDS: NYSTATIN POWDER 100,000 UNITS/GM - 15 GM TOPICAL POWDER TP SCH ×2 (06:15→15:19)
[2019-12-20 08:41] LABS: BASO % 0.9 % (0-2.0); EOS % 0.3 % (0-4.5); HEMATOCRIT 35.5 % (32.4-45.2); HEMOGLOBIN 11.6 GM/dL (10.7-15.3); LYMPH % 3.3 % (8-40); MCH 28.7 pg (25.7-33.7); MCHC 32.7 g/dl (32.0-36.0); MEAN CELL VOLUME 87.6 fl (80-96); MEAN PLT VOLUME 9.3 fl (7.5-11.1); MONO % 4.7 % (3.8-10.2); NEUT % 90.8 % (42.8-82.8); PLATELET COUNT 395 K/MM3 (134-434); RBC 4.05 M/mm3 (3.60-5.2); RDW 17.1 % (11.6-15.6); WHITE BLOOD COUNT 13.9 K/mm3 (4.0-10.0)
[2019-12-20 09:07] LABS: ALBUMIN 2.4 g/dl (3.4-5.0); BILIRUBIN,TOTAL 0.7 mg/dL (0.2-1); BLOOD UREA NITROGEN 21.9 mg/dL (7-18); CALCIUM 8.3 mg/dL (8.5-10.1); CREATININE 0.4 mg/dL (0.55-1.3); MAGNESIUM 2.2 mg/dL (1.8-2.4); POTASSIUM 4.1 mmol/L (3.5-5.1); TOT PROT 5.5 g/dl (6.4-8.2)
--- NOTE | 2019-12-20 09:14 | DS ---
Physical Exam: SUBJECTIVE: Patient seen and examined Patient is an 83 year old female with a significant past medical history of HTN , HLD, polycythemia vera, s/p left hip fracture repair in December 2018, compression fractures s/p kyphoplasties, and severe malnutrition. Recently hospitalized 10/31-11/05/19 for sepsis secondary to E.coli UTI. Patient was brought by her daughter to the ED for evaluation of profound weakness, lack of appetite, difficulty swallowing, persistent dry cough, diarrhea, incontinence of urine and stool, skin breakdown, hair loss, and depression. On admission she was found to have an acute pneumonia and found to be positive for c diff. She has completed treatment for both pneumonia and cdiff. She is s/p thoracentesis on 12/11/2019 with pleural fluid and cytology negative. Pending liver bx results and tramsfer to SNF OBJECTIVE: Vital Signs Period Temp Pulse Resp BP Sys/Kiser Pulse Ox Last 24 Hr 97.8 F-98.7 F 86-101 18-20 121-143/57-63 95 PHYSICAL EXAM Constitutional: Yes: No Distress, Cachectic, Pallor, Thin Eyes: Yes: WNL, Conjunctiva Clear HENT: Yes: WNL, Atraumatic, Normocephalic Neck: Yes: WNL, Supple, Trachea Midline Cardiovascular: Yes: WNL, Regular Rate and Rhythm Respiratory: Yes: WNL, Regular, CTA Bilaterally Gastrointestinal: Yes: WNL, Normal Bowel Sounds ...Rectal Exam: Yes: Deferred Breast(s): Yes: WNL Musculoskeletal: Yes: WNL Extremities: Yes: WNL Edema: No Peripheral Pulses WNL: Yes Peripheral Pulses: Left Radial: 2+, Right Radial: 2+, Left Doralis Pedis: 2+, Right Dorsalis Pedis: 2+, Left Femoral: 2+, Right Femoral: 2+ Integumentary: Yes: WNL Neurological: Yes: WNL, Alert, Oriented ...Motor Strength: LLE, RLE (generalized weakness) Psychiatric: Yes: WNL LABS Laboratory Results - last 24 hr 12/20/19 12/20/19 07:05 07:05 WBC 13.9 H RBC 4.05 Hgb 11.6 Hct 35.5 MCV 87.6 MCH 28.7 MCHC 32.7 RDW 17.1 H Plt Count 395 MPV 9.3 Absolute Neuts (auto) 12.6 H Neutrophils % 90.8 H Lymphocytes % 3.3 L Monocytes % 4.7 Eosinophils % 0.3 Basophils % 0.9 Nucleated RBC % 0 Sodium 140 Potassium 4.1 Chloride 109 H Carbon Dioxide 22 Anion Gap 9 BUN 21.9 H Creatinine 0.4 L Est GFR (CKD-EPI)AfAm 110.08 Est GFR (CKD-EPI)NonAf 94.98 Random Glucose 102 Calcium 8.3 L Magnesium 2.2 Total Bilirubin 0.7 AST 75 H ALT 96 H Alkaline Phosphatase 415 H Total Protein 5.5 L Albumin 2.4 L HOSPITAL COURSE: Date of Admission:11/28/19 Date of Discharge: 12/20/19 Problem List - Problems (1) Clostridium difficile colitis Assessment/Plan: + toxin for Cdif completed vanco PO x 14 days Code(s): A04.72 - ENTEROCOLITIS D/T CLOSTRIDIUM DIFFICILE, NOT SPCF RECUR (2) Failure to thrive Assessment/Plan: poor intake at home, appetite remains poor c/w megace encourage PO intake c/w nutrition supplements Code(s): QSS2378 - (3) Pneumonia Assessment/Plan: completed abx supplemental O2 IS, deep breathing Code(s): J18.9 - PNEUMONIA, UNSPECIFIED ORGANISM (4) Prophylactic measure Assessment/Plan: FEN Fluids: improved PO intake Electrolytes: monitor & replete as needed Nutrition: low fiber, thin liquids DVT heparin during stay Dispo full code discharge to [facility] Code(s): Z29.9 - ENCOUNTER FOR PROPHYLACTIC MEASURES, UNSPECIFIED (5) Severe malnutrition Assessment/Plan: as evidenced by BMI 16, severe muscle/temporal wasting RD following s/p swallow eval -cleared for thin liquids, soft food c/w supplements on prosource, multivitamins Code(s): E43 - UNSPECIFIED SEVERE PROTEIN-CALORIE MALNUTRITION (6) Stage II pressure ulcer Assessment/Plan: turn and position and increase oral intake c/w pro source. on santyl daily fungal infection of buttocks nystatin ceram BID Code(s): L89.92 - PRESSURE ULCER OF UNSPECIFIED SITE, STAGE 2 (7) Voice hoarseness Assessment/Plan: resolved ENT evaluation by Dr Amaya after discharge for follow-up and audiogram Code(s): R49.0 - DYSPHONIA (8) Weakness Assessment/Plan: c/w PT fall precautions Code(s): R53.1 - WEAKNESS (9) Hip fracture Assessment/Plan: past hx c/w PT Code(s): S72.009A - FRACTURE OF UNSP PART OF NECK OF UNSP FEMUR, INIT Qualifiers: Encounter type: initial encounter Fracture type: closed Laterality: left Qualified Code(s): S72.002A - Fracture of unspecified part of neck of left femur, initial encounter for closed fracture (10) Hyponatremia Assessment/Plan: resolved Code(s): E87.1 - HYPO-OSMOLALITY AND HYPONATREMIA (11) Polycythemia Assessment/Plan: patient follows with a customer service security officer (Erna) and will need continued outpatient follow up. Code(s): D75.1 - SECONDARY POLYCYTHEMIA (12) Liver lesion Assessment/Plan: MRI/CT shows multiple liver lesions, pancreatic edema, narrowed CBD/cystic duct , b/l effusions, pericardial effusion ( smll-mod.), left hydronephrosis pending liver bx results appreciate Oncology consultation Lover Bx results pending. Will send results to [facility] Code(s): K76.9 - LIVER DISEASE, UNSPECIFIED (13) Pleural effusion Assessment/Plan: s/p thoracentesis on 12/11 Pulmonary following. supplemental O2 if needed Code(s): J90 - PLEURAL EFFUSION, NOT ELSEWHERE CLASSIFIED (14) Pericardial effusion Assessment/Plan: TTE 12/12/2019 shows moderate pleural effusion. will need repeat echo in 3 months per cardiology. Code(s): I31.3 - PERICARDIAL EFFUSION (NONINFLAMMATORY) Minutes to complete discharge: 40 Discharge Summary Problems reviewed: Yes Reason For Visit: FAILURE TO THRIVE, DIARRHEA, INTRACTABLE BACK PAIN Current Active Problems Atelectasis (Acute) Clostridium difficile colitis (Acute) DVT prophylaxis (Acute) Diarrhea (Acute) Dysphagia (Acute) Failure to thrive (Acute) Hydroureter, left (Acute) Hypokalemia (Acute) Hyponatremia (Acute) Hyponatremia (Acute) Hyponatremia with excess extracellular fluid volume (Acute) Intractable back pain (Acute) Liver metastases (Acute) Lung cancer (Acute) Neoplasm of uncertain behavior of liver (Acute) Pericardial effusion (Acute) Pleural effusion (Acute) Pneumonia (Acute) Prophylactic measure (Acute) Pseudomonas urinary tract infection (Acute) Severe malnutrition (Acute) Stage II pressure ulcer (Acute) Voice hoarseness (Acute) Weakness (Acute) Hospital Course: Problem List - Problems (1) Clostridium difficile colitis Assessment/Plan: + toxin for Cdif completed vanco PO x 14 days Code(s): A04.72 - ENTEROCOLITIS D/T CLOSTRIDIUM DIFFICILE, NOT SPCF RECUR (2) Failure to thrive Assessment/Plan: poor intake at home, appetite remains poor c/w megace encourage PO intake c/w nutrition supplements Code(s): [id number] - (3) Pneumonia Assessment/Plan: completed abx supplemental O2 IS, deep breathing Code(s): J18.9 - PNEUMONIA, UNSPECIFIED ORGANISM (4) Prophylactic measure Assessment/Plan: FEN Fluids: improved PO intake Electrolytes: monitor & replete as needed Nutrition: low fiber, thin liquids DVT heparin during stay Dispo full code discharge to [facility] Code(s): Z29.9 - ENCOUNTER FOR PROPHYLACTIC MEASURES, UNSPECIFIED (5) Severe malnutrition Assessment/Plan: as evidenced by BMI 16, severe muscle/temporal wasting RD following s/p swallow eval -cleared for thin liquids, soft food c/w supplements on prosource, multivitamins Code(s): E43 - UNSPECIFIED SEVERE PROTEIN-CALORIE MALNUTRITION (6) Stage II pressure ulcer Assessment/Plan: turn and position and increase oral intake c/w pro source. on santyl daily fungal infection of buttocks nystatin ceram BID Code(s): L89.92 - PRESSURE ULCER OF UNSPECIFIED SITE, STAGE 2 (7) Voice hoarseness Assessment/Plan: resolved ENT evaluation by Dr Amaya after discharge for follow-up and audiogram Code(s): R49.0 - DYSPHONIA (8) Weakness Assessment/Plan: c/w PT fall precautions Code(s): R53.1 - WEAKNESS (9) Hip fracture Assessment/Plan: past hx c/w PT Code(s): S72.009A - FRACTURE OF UNSP PART OF NECK OF UNSP FEMUR, INIT Qualifiers: Encounter type: initial encounter Fracture type: closed Laterality: left Qualified Code(s): S72.002A - Fracture of unspecified part of neck of left femur, initial encounter for closed fracture (10) Hyponatremia Assessment/Plan: resolved Code(s): E87.1 - HYPO-OSMOLALITY AND HYPONATREMIA (11) Polycythemia Assessment/Plan: patient follows with a customer service security officer (Erna) and will need continued outpatient follow up. Code(s): D75.1 - SECONDARY POLYCYTHEMIA (12) Liver lesion Assessment/Plan: MRI/CT shows multiple liver lesions, pancreatic edema, narrowed CBD/cystic duct , b/l effusions, pericardial effusion ( smll-mod.), left hydronephrosis pending liver bx results appreciate Oncology consultation Lover Bx results pending. Will send results to [facility] Code(s): K76.9 - LIVER DISEASE, UNSPECIFIED (13) Pleural effusion Assessment/Plan: s/p thoracentesis on 12/11 Pulmonary following. supplemental O2 if needed Code(s): J90 - PLEURAL EFFUSION, NOT ELSEWHERE CLASSIFIED (14) Pericardial effusion Assessment/Plan: TTE 12/12/2019 shows moderate pleural effusion. will need repeat echo in 3 months per cardiology. Code(s): I31.3 - PERICARDIAL EFFUSION (NONINFLAMMATORY) Condition: Stable - Instructions Diet, Activity, Other Instructions: DISCHARGE YOUR VISIT You came to the hospital because MEDICATIONS Please continue to take your home medications as prescribed. There was noc hanges to home medciatioms changes DIET Continue your home diet ADDITIONAL CARE Please make an appointment to see your primary care provider, 1 week from discrage from [place] ADDITIONAL INFORMATION Please call 911 or come directly to the emergency department if you experience unusual headache, vision change, shortness of breath, chest pain, numbness, tingling, loss of alertness/awareness, loss of function, unusual bleeding or any alarming symptoms. Thank you for allowing me to care for you. Juan Carlos Yeh, [facility], [facility] [phone] Referrals: Alireza Melendez MD [Primary Care Provider] - Lit Tee MD [Staff Physician] - Disposition: SENIOR CARE FACILITY - Home Medications Comprehensive Discharge Medication List: Ambulatory Orders Amlodipine Besylate 5 mg PO DAILY 01/15/19 Atorvastatin Ca [Lipitor] 10 mg PO DAILY 01/15/19 Lisinopril 20 mg PO DAILY 01/15/19 Metoprolol Succinate [Toprol XL -] 25 mg PO DAILY 01/15/19 Albuterol 2.5/Ipratropium 0.5 [Duoneb -] 1 amp NEB Q6H PRN amp 12/14/19 Amino Acids/Protein Hydrolys [Prosource No Carb Liquid Pkt] 30 ml PO BID@0800, 1730 packet 12/14/19 Collagenase Clostridium Hist. [Santyl -] 1 applic TP DAILY tube 12/14/19 Heparin - 5,000 unit SQ BID vial 12/14/19 Lactobacillus Acidophilus [Bacid -] 1 tab PO DAILY tab 12/14/19 Megestrol Acetate [Megace -] 40 mg PO DAILY tablet 12/14/19 Nystatin Cream [Mycostatin Cream -] 1 applic TP BID applic 12/14/19 Potassium Chloride [K-Dur -] 20 meq PO BID tablet.er 12/14/19 Prescription Drug Monitoring Program (I-STOP) results: I-STOP not reviewed Problem List - Problems (1) Clostridium difficile colitis Code(s): A04.72 - ENTEROCOLITIS D/T CLOSTRIDIUM DIFFICILE, NOT SPCF RECUR (2) Failure to thrive Code(s): [id number] - (3) Pneumonia Code(s): J18.9 - PNEUMONIA, UNSPECIFIED ORGANISM (4) Prophylactic measure Code(s): Z29.9 - ENCOUNTER FOR PROPHYLACTIC MEASURES, UNSPECIFIED (5) Severe malnutrition Code(s): E43 - UNSPECIFIED SEVERE PROTEIN-CALORIE MALNUTRITION (6) Stage II pressure ulcer Code(s): L89.92 - PRESSURE ULCER OF UNSPECIFIED SITE, STAGE 2 (7) Voice hoarseness Code(s): R49.0 - DYSPHONIA (8) Weakness Code(s): R53.1 - WEAKNESS (9) Hip fracture Code(s): S72.009A - FRACTURE OF UNSP PART OF NECK OF UNSP FEMUR, INIT Qualifiers: Encounter type: initial encounter Fracture type: closed Laterality: left Qualified Code(s): S72.002A - Fracture of unspecified part of neck of left femur, initial encounter for closed fracture (10) Hyponatremia Code(s): E87.1 - HYPO-OSMOLALITY AND HYPONATREMIA (11) Polycythemia Code(s): D75.1 - SECONDARY POLYCYTHEMIA (12) Liver lesion Code(s): K76.9 - LIVER DISEASE, UNSPECIFIED (13) Pleural effusion Code(s): J90 - PLEURAL EFFUSION, NOT ELSEWHERE CLASSIFIED (14) Pericardial effusion Code(s): I31.3 - PERICARDIAL EFFUSION (NONINFLAMMATORY) This patient is new to me today: No Emergency Visit: Yes ED Registration Date: 11/28/19 Care time: The patient presented to the Emergency Department on the above date and was hospitalized for further evaluation of their emergent condition. Critical Care patient: No - Discharge Referral Referred to [facility] No
--- NOTE | 2019-12-20 10:09 | PN ---
Progress Note (short form) - Note Progress Note: PULMONARY Denies shortness of breath. No fevers. Still some diarrhea. Vital Signs Period Temp Pulse Resp BP Sys/Kiser Pulse Ox Last 24 Hr 97.8 F-98.7 F 87-101 18-20 121-138/57-63 95 Gen: less tachypneic at rest Heart: RRR Lung: decreased breath sounds at the bases Abd: soft, nontender Ext: no edema CBC, BMP 12/20/19 07:05 12/20/19 07:05 Active Medications Albuterol/Ipratropium (Duoneb -) 1 amp NEB Q6H PRN PRN Reason: SHORTNESS OF BREATH Amino Acids (Prosource No Carb Liquid Pkt) 30 ml PO BID@0800,1730 [facility] Last Admin: 12/19/19 17:43 Dose: 30 ml Amlodipine Besylate (Norvasc -) 5 mg PO DAILY [facility] Last Admin: 12/19/19 09:56 Dose: 5 mg Atorvastatin Calcium (Lipitor -) 10 mg PO HS [facility] Last Admin: 12/19/19 21:33 Dose: 10 mg Collagenase (Santyl -) 1 applic TP DAILY [facility]; Protocol Last Admin: 12/19/19 10:05 Dose: 1 applic Lactobacillus Acidophilus (Bacid -) 1 tab PO DAILY [facility] Last Admin: 12/19/19 09:56 Dose: 1 tab Lisinopril (Prinivil) 20 mg PO DAILY [facility] Last Admin: 12/19/19 09:56 Dose: 20 mg Megestrol Acetate (Megace -) 40 mg PO DAILY [facility] Last Admin: 12/19/19 09:57 Dose: 40 mg Metoprolol Succinate (Toprol Xl -) 25 mg PO DAILY [facility] Last Admin: 12/19/19 09:56 Dose: 25 mg Multivitamins/Minerals/Vitamin C (Tab-A-Vit -) 1 tab PO DAILY [facility] Last Admin: 12/19/19 09:56 Dose: 1 tab Nystatin (Mycostatin Cream -) 1 applic TP BID [facility] Last Admin: 12/19/19 21:33 Dose: 1 applic Nystatin (Nystop Powder -) 1 applic TP TID [facility] Last Admin: 12/20/19 06:15 Dose: 1 applic Potassium Chloride (K-Dur -) 20 meq PO BID [facility] Last Admin: 12/19/19 21:33 Dose: 20 meq A/P Pneumonia treated C Diff Colitis Sepsis resolved Hyponatremia improved Pleural Effusion s/p thoracentesis HTN Hyperlipidemia Polycythemia Vera Liver Masses Malnutrition - f/u liver pathology - completed antibiotics - probiotics - inhaled bronchodilators as needed - O2 to keep Spo2 >90% - monitor lytes - OOB to chair - DVT prophylaxis
[2019-12-20] MEDS: LACTOBACILLUS ACIDOPHILUS 1 TABLET PO SCH (10:53)
[2019-12-20] MEDS: AMINO ACIDS/PROTEIN HYDROLYS 30 ML LIQUID.PKT PO SCH (10:53)
[2019-12-20] MEDS: LISINOPRIL 20 MG TABLET (FP) PO SCH (10:53)
[2019-12-20] MEDS: POTASSIUM CHLORIDE TABS 20 MEQ TABLET.ER (FP) PO SCH (10:53)
[2019-12-20] MEDS: amLODIPine BESYLATE 5 MG TABLET (FP) PO SCH (10:53)
[2019-12-20] MEDS: metoPROLOL SUCCINATE 25 MG TAB.SR.24H (FP) PO SCH (10:53)
[2019-12-20] MEDS: MULTIVITAMINS (DAILY MVI) TABLET (FP) PO SCH (10:53)
[2019-12-20] MEDS: COLLAGENASE CLOSTRIDIUM HIST. 30 GRAMS TUBE TP SCH (10:55)
[2019-12-20] MEDS: MEGESTROL ACETATE 40 MG TABLET PO SCH (11:08)
[2019-12-20] MEDS: NYSTATIN 100,000 UNIT/GM TOPICAL CREAM 15 GM TUBE TP SCH (11:08)
--- NOTE | 2019-12-20 11:12 | PN ---
Progress Note, Physician History of Present Illness: stable no new issues - Current Medication List Current Medications: Active Medications Albuterol/Ipratropium (Duoneb -) 1 amp NEB Q6H PRN PRN Reason: SHORTNESS OF BREATH Amino Acids (Prosource No Carb Liquid Pkt) 30 ml PO BID@0800,1730 [facility] Last Admin: 12/20/19 10:53 Dose: 30 ml Amlodipine Besylate (Norvasc -) 5 mg PO DAILY [facility] Last Admin: 12/20/19 10:53 Dose: 5 mg Atorvastatin Calcium (Lipitor -) 10 mg PO HS [facility] Last Admin: 12/19/19 21:33 Dose: 10 mg Collagenase (Santyl -) 1 applic TP DAILY [facility]; Protocol Last Admin: 12/20/19 10:55 Dose: 1 applic Lactobacillus Acidophilus (Bacid -) 1 tab PO DAILY [facility] Last Admin: 12/20/19 10:53 Dose: 1 tab Lisinopril (Prinivil) 20 mg PO DAILY [facility] Last Admin: 12/20/19 10:53 Dose: 20 mg Megestrol Acetate (Megace -) 40 mg PO DAILY [facility] Last Admin: 12/20/19 11:08 Dose: 40 mg Metoprolol Succinate (Toprol Xl -) 25 mg PO DAILY [facility] Last Admin: 12/20/19 10:53 Dose: 25 mg Multivitamins/Minerals/Vitamin C (Tab-A-Vit -) 1 tab PO DAILY [facility] Last Admin: 12/20/19 10:53 Dose: 1 tab Nystatin (Mycostatin Cream -) 1 applic TP BID [facility] Last Admin: 12/20/19 11:08 Dose: 1 applic Nystatin (Nystop Powder -) 1 applic TP TID [facility] Last Admin: 12/20/19 06:15 Dose: 1 applic Potassium Chloride (K-Dur -) 20 meq PO BID [facility] Last Admin: 12/20/19 10:53 Dose: 20 meq - Objective Vital Signs: Vital Signs Temperature 97.8 F 12/20/19 06:51 Pulse Rate 101 H 12/20/19 06:51 Respiratory Rate 20 12/20/19 06:51 Blood Pressure 129/63 12/20/19 06:51 O2 Sat by Pulse Oximetry (%) 95 12/19/19 21:00 Constitutional: Yes: No Distress, Calm Cardiovascular: Yes: S1, S2 Respiratory: Yes: Regular, CTA Bilaterally Musculoskeletal: Yes: WNL Extremities: Yes: WNL Neurological: Yes: Alert, Oriented Psychiatric: Yes: Alert, Oriented Labs: CBC, BMP 12/20/19 07:05 12/20/19 07:05 INR, PTT INR 1.18 (0.83-1.09) H 12/17/19 07:25 Assessment/Plan Problem List - Problems (1) Atelectasis Code(s): J98.11 - ATELECTASIS (2) Pleural effusion Code(s): J90 - PLEURAL EFFUSION, NOT ELSEWHERE CLASSIFIED (3) Failure to thrive Code(s): [id number] - (4) Pneumonia Code(s): J18.9 - PNEUMONIA, UNSPECIFIED ORGANISM (5) Severe malnutrition Code(s): E43 - UNSPECIFIED SEVERE PROTEIN-CALORIE MALNUTRITION (6) Hip fracture Code(s): S72.009A - FRACTURE OF UNSP PART OF NECK OF UNSP FEMUR, INIT Qualifiers: Encounter type: initial encounter Fracture type: closed Laterality: left Qualified Code(s): S72.002A - Fracture of unspecified part of neck of left femur, initial encounter for closed fracture (7) Polycythemia Code(s): D75.1 - SECONDARY POLYCYTHEMIA 8 uti 9 cdiff r/o malignancy pleural effusion Assessment/Plan continue current mgmt nutrition
[2019-12-20 15:21] VITALS: BP 120/58; PULSE 98; TEMP 97.9
--- NOTE | 2019-12-20 17:11 | PATH ---
Surgical Pathology Report Patient Name: PAULINE HAZEL [facility]. Rec. #: [id number] /Age/Gender: 1935 (Age: 84) / F Account: [id number] Location: [facility] R Taken: 12/18/2019 Received: 12/18/2019 Reported: 12/20/2019 Physicians: Elijah Kimble F.N.P. Christopher DiGiorno, D.O. Specimen(s) Received LIVER BIOPSY Clinical History 84 year old with multiple liver lesions of unknown etiology, history of PCV Final Diagnosis LIVER, ULTRASOUND GUIDED CORE BIOPSY: ADENOCARCINOMA CONSISTENT WITH COLORECTAL ORIGIN. SEE COMMENT. Comment: Immunohistochemical stains performed and interpreted at [facility] show the tumor is positive for AE1/3 and CK20; while negative for CK7 and TTF-1. Additional immunohistochemical stains performed at [place], [place] ([id number]) and interpreted at [facility] show the tumor is positive for CDX2, SATB2, and CDH17. Overall immunophenotype is consistent with a metastatic adenocarcinoma of colorectal origin. Suggest clinical and radiologic correlation. Findings discussed with Nurse Donato, 12/20/19. Positive and negative controls (internal if applicable) show appropriate results. Electronically Signed Koki Garvey M.D. Gross Description Received in formalin labeled "liver BX" are 5 white steele cylindrical core fragments ranging in size from 0.5 x 1 cm in length with a 0.1 cm diameter. The entire specimen is submitted in one cassette. MLSZ/12/18/2019 sanml/12/18/2019
== END 2019-12-20 17:10 | DRG 177 ==
LOC: FER 16:00 → J5S 23:20 → J8W 11-30 20:02
PROVIDERS: ADMIT Internal Medicine; ATTEND Nurse Practitioner Acute Care
PROC: 0CJS8ZZ Inspection of Larynx, Via Natural or Artificial Opening Endoscopic (ICD-10-PCS; principal; 2019-12-08)
PROC: 0W993ZX Drainage of Right Pleural Cavity, Percutaneous Approach, Diagnostic (ICD-10-PCS; 2019-12-11)
PROC: 0FB23ZX Excision of Left Lobe Liver, Percutaneous Approach, Diagnostic (ICD-10-PCS; 2019-12-18)
DX: J69.0 Pneumonitis due to inhalation of food and vomit (principal); E43 Unspecified severe protein-calorie malnutrition; A41.9 Sepsis, unspecified organism; A04.72 Enterocolitis due to Clostridium difficile, not specified as recurrent; Z68.1 Body mass index [BMI] 19.9 or less, adult; E87.1 Hypo-osmolality and hyponatremia; R64 Cachexia; J98.11 Atelectasis; J90 Pleural effusion, not elsewhere classified; N39.0 Urinary tract infection, site not specified; I31.3 Pericardial effusion (noninflammatory); N13.30 Unspecified hydronephrosis; N13.4 Hydroureter; I10 Essential (primary) hypertension; D75.1 Secondary polycythemia; M81.0 Age-related osteoporosis without current pathological fracture; E86.0 Dehydration; R62.7 Adult failure to thrive; E78.5 Hyperlipidemia, unspecified; R63.0 Anorexia; E83.42 Hypomagnesemia; R19.7 Diarrhea, unspecified; R79.89 Other specified abnormal findings of blood chemistry; I95.1 Orthostatic hypotension; L89.152 Pressure ulcer of sacral region, stage 2; B96.5 Pseudomonas (aeruginosa) (mallei) (pseudomallei) as the cause of diseases classified elsewhere; R53.1 Weakness; R13.10 Dysphagia, unspecified; K76.9 Liver disease, unspecified; K86.89 Other specified diseases of pancreas; D49.0 Neoplasm of unspecified behavior of digestive system; E87.6 Hypokalemia
CPT/HCPCS: 36415; 71045-TC-FY; 71260-TC; 74178-TC; 74181-TC; 76705-TC; 76942; 76942-TC; 80048; 80053; 80076; 81003; 82042; 82105; 82150; 82378; 82465; 82550; 82565; 82945; 82977; 83605; 83615; 83690; 83735; 83986; 84100; 84132; 84157; 84300; 84443; 84478; 84484; 85025; 85610; 85730; 86301; 86704; 86706; 86707; 86708; 86709; 86803; 86850; 86900; 86901; 87040; 87045; 87046; 87070; 87075; 87086; 87102; 87116; 87186; 87205; 87206; 87210; 87324; 87340; 87449; 87493; 87804; 87899; 93005; 93306-TC; 97116-GP; 97161-GP; 99285-25; J1644; J7030; J8999; Q9967